=== PATIENT | female | born 1960 | race Caucasian/White ===

== ENCOUNTER → 2019-01-21 | Outpatient (CLI) | payer OTHER ==
[~2019-01-21] MED LIST: AMLO-145 PO; ASPI-1044 PO; ATOR10TA65 PO; AZEL137S9 NASAL; Acetaminophen PO; BENA40TA56 PO; BUDE0.5A4 IH; CETI10CA PO; CHOL200078 PO; CIPR500T4 PO; Calcium Carbonate NGT; Calcium Carbonate PO; DICL100T PO; DICL75TA2 PO; ESCI10TA48 PO; ESCI20TA PO; FLUT16SP17 NASAL; GABA300C16 PO; LORA10TA3 PO; LOSA1TAB25 PO; METR500T PO; MONTELUKAST PO; OMEP40CA6 PO; OXYC-481 PO; TIZA2TAB PO; ZOC10 PO; [UNRECOGNIZED DRUG - OTHER] PO
--- NOTE | 2019-01-22 17:01 | RADRPT ---
PROCEDURE: Limited x-ray of both lower extremities. CLINICAL INDICATION: Bilateral leg pain. TECHNIQUE: Single frontal weightbearing view of both lower extremities was obtained from the hips t o the ankles. COMPARISON: None. FINDINGS: The right femur length is 57 cm. The left femur length is 58 cm. The right tibia length is 40 cm. The left tibia length is 40 cm. There is bilateral valgus deformity. IMPRESSION: 1. Leg length as described above. 2. Bilateral valgus deformity. RPTAT: QQ .Siva Gomes MD, Date Time Electronically viewed and signed by .Siva Gomes MD, on 01/22/2019 16:50 .R/
== END | disposition home or self-care (01) ==
LOC: HKI 15:05
PROVIDERS: ATTEND Orthopaedic Surgery Adult Reconstructive Orthopaedic Surgery
DX: M79.662 Pain in left lower leg (principal); M79.661 Pain in right lower leg
CPT/HCPCS: 77073

== ENCOUNTER 2019-01-29 05:56 | Inpatient (IN) | payer OTHER ==
[2019-01-29] VITALS (34 sets, daily range): BP systolic 87–134; BP diastolic 42–64; PULSE 18–102; RESP 10–41; Ht 162.6 cm; Wt 94.3 kg
[~2019-01-29] VITALS: Ht 162.6 cm; Wt 94.3 kg
[~2019-01-29 05:56] MED LIST changes: -ASPI-1044 PO; -ATOR10TA65 PO; -Acetaminophen PO; -BENA40TA56 PO; -CIPR500T4 PO; -Calcium Carbonate NGT; -Calcium Carbonate PO; -ESCI20TA PO; -METR500T PO; -OMEP40CA6 PO; -OXYC-481 PO; -TIZA2TAB PO
[2019-01-29] MEDS ORDERED: ACETAMINOPHEN 500 MG TAB PO ONE (07:00)
[2019-01-29] MEDS ORDERED: ONDANSETRON 4 MG INJ IV ONE (07:00)
[2019-01-29] MEDS ORDERED: DEXAMETHASONE 4 MG/ML 1 ML INJ IV ONE (07:00)
[2019-01-29] MEDS ORDERED: TRANEXAMIC ACID 1GM/100ML(PMX) 100 ML PRE-OP IVPB ONE (07:00)
[2019-01-29] MEDS ORDERED: LANSOPRAZOLE 30 MG CAP PO ONE (07:00)
[2019-01-29] MEDS ORDERED: CEFAZOLIN 2 GM/50 ML (PMX) 50 ML IVPB ONE (07:00)
[2019-01-29] MEDS ORDERED: CELECOXIB 200 MG CAP PO ONE (07:00)
[2019-01-29] MEDS ORDERED: GABAPENTIN 300 MG CAP PO ONE (07:00)
--- NOTE | 2019-01-29 07:18 | HPN ---
Date/Time of Note Date/Time of Note DATE: 01/29/19 TIME: 07:18 Interval H&P Admission Note Pt. seen H&P reviewed: No system changes Patient denies fever, chills, shortness of breath, chest pain, nausea/vomiting, constipation, diarrhea, numbness, and tingling. MUSCULOSKELETAL: Right lower extremity Skin intact Sensation intact to light touch in a sural, saphenous, deep peroneal, superficial peroneal, medial and lateral plantar nerve distribution. Motor is intact, patient able to dorsiflex and plantarflex ankle and extend and flex great toe. Dorsalis Pedis pulse +2, Brisk capillary refill. Compartments are soft. Calves non-tender to palpation bilaterally. DEJUAN KASPER MD Jan 29, 2019 07:18
[2019-01-29] MEDS ORDERED: OMEP40CA6 PO (07:21)
[2019-01-29] MEDS ORDERED: ESCI20TA PO (07:23)
[2019-01-29] MEDS ORDERED: KETOROLAC 30 MG INJ ONE (07:25)
[2019-01-29] MEDS ORDERED: MIDAZOLAM 1 MG/ML 2 ML INJ ONE (07:25)
[2019-01-29] MEDS ORDERED: morphine SULFATE/PF (10 MG/10 ML) INJ ONE (07:25)
[2019-01-29] MEDS ORDERED: ONDANSETRON 4 MG INJ ONE (07:25)
[2019-01-29] MEDS ORDERED: METOCLOPRAMIDE 10 MG INJ ONE (07:25)
[2019-01-29] MEDS ORDERED: ROPIVACAINE 0.2% 20 ML VIAL ONE (07:26)
[2019-01-29] MEDS ORDERED: TRANEXAMIC ACID 1GM/100ML(PMX) 200 ML ONE (07:28)
[2019-01-29] MEDS ORDERED: DESFLURANE 15 MIN ONE (07:30)
[2019-01-29] MEDS ORDERED: VANCOMYCIN 1 GM (PMX) 250 ML IVPB ONE (07:30)
[2019-01-29] MEDS ORDERED: VANCOMYCIN 500 MG (PMX) 100 ML IVPB ONE (07:30)
[2019-01-29] MEDS ORDERED: PROPOFOL 200 MG INJ ONE (07:30)
[2019-01-29] MEDS ORDERED: FENTAnyl 50 MCG/ML VIAL ONE (07:43)
[2019-01-29] MEDS ORDERED: EPHEDrine 25 MG/5 ML SYG ONE (07:45)
--- NOTE | 2019-01-29 07:59 | PREAC ---
Date/Time of Note Date/Time of Note DATE: 01/29/19 TIME: 07:09 Anesthesia Eval and Record Evaluation Time Pre-Procedure Interview DATE: 01/29/19 TIME: 07:57 Age 59 Sex female NPO: 8 hrs Preoperative diagnosis right knee primary OA Planned procedure right knee total arthroplasty Past Medical History Past Medical History: Includes Cardio: HTN GI: Obesity Surgery & Anesthesia Issues No known issue Meds Anticoagulation: No Beta Benita within 24 hr: No Reason Beta Benita not given: Pt. not on B-Benita Reported Medications Escitalopram Oxalate* (Lexapro*) 20 Mg Tablet, 20 MG PO DAILY, #30 TAB 01/29/19 Omeprazole* (Omeprazole*) 40 Mg Capsule.dr, 40 MG PO DAILY, #30 CAP 01/29/19 Losartan-Hydrochlorothiazide (Losartan-HCTZ) 100-25 Mg Tab, 1 TAB PO DAILY, TAB 01/28/19 Gabapentin* (Gabapentin*) 300 Mg Capsule, 300 MG PO DAILY, #60 CAP 01/28/19 Diclofenac Sodium* (Voltaren* XR) 100 Mg Tab.sr.24h, 100 MG PO BID, TAB.SA 01/28/19 Cetirizine Hcl* (Zyrtec*) 10 Mg Capsule, 10 MG PO DAILY, TAB 01/28/19 Cholecalciferol (Vitamin D3) (Vitamin D3) 2,000 Unit Tab.chew, 2000 UNIT PO DAILY, TAB.CHEW 01/28/19 Simvastatin (Simvastatin) 10 Mg Tablet, 10 MG PO DAILY, #30 TAB 01/28/19 Amlodipine Besylate* (Amlodipine Besylate*) 5 Mg Tablet, 5 MG PO DAILY, #30 TAB 01/28/19 Azelastine Hcl* (Azelastine Hcl*) 137 Mcg/0.137 Ml [place].pump, 1 SPRAY NASAL BID, #1 EA TO EACH NOSTRIL 01/28/19 Fluticasone Propionate* (Fluticasone Propionate* Nasal) 50 Mcg/[place] - 16 Gm [place].susp, 1 SPRAY NASAL BID, EA TO EACH NOSTRIL 11/10/14 Budesonide* (Pulmicort* (Neb)) 0.5 Mg/2 Ml Ampul.neb, 0.5 MG IH BID, EA 11/10/14 Diclofenac Sodium* (Diclofenac Sodium*) 75 Mg Tablet.dr, 100 MG PO BID, TAB 11/10/14 Discontinued Reported Medications [Acelastine] No Conflict Check, PO BID 11/10/14 Loratadine* (Loratadine*) 10 Mg Tablet, 10 MG PO DAILY, TAB 11/10/14 [Montelukast] No Conflict Check, PO DAILY 11/10/14 Escitalopram Oxalate* (Escitalopram Oxalate*) 10 Mg Tablet, 10 MG PO DAILY, TAB 11/10/14 Tizanidine Hcl* (Tizanidine Hcl*) 2 Mg Tablet, 2 MG PO Q8H PRN for PAIN, TAB 11/10/14 Benazepril Hcl* (Benazepril Hcl*) 40 Mg Tablet, 25 MG PO DAILY, TAB 11/10/14 Current Medications Tranexamic Acid 100 ml @ 200 mls/hr AT CLOSING ONCE IVPB ; Start 01/29/19 at 09:00; Stop 01/29/19 at 09:29 Ropivacaine/ Clonidine/ Epinephrine/ Ketorolac Tromethamine/ Sodium Chloride INTRA-OP INJ ; Start 01/29/19 at 15:00 Vancomycin HCl 250 ml @ 125 mls/hr ONCE ONCE IVPB ; Start 01/29/19 at 07:30; Stop 01/29/19 at 09:29 Vancomycin HCl 100 ml @ 100 mls/hr ONCE ONCE IVPB ; Start 01/29/19 at 07:30; Stop 01/29/19 at 08:29 Meds reviewed: Yes Allergies Coded Allergies: No Known Allergy (Unverified , 01/29/19) Allergies Reviewed: Yes Labs/Studies Labs Reviewed: Reviewed by anesthesiologist Blood Bank Test 01/29/19 07:00 Antibody Screen NEGATIVE Blood Type O POSITIVE test: N/A Studies: ECG (sr), CXR (nl) Pre-procedure Exam Last vitals Vital Signs Date Temp Pulse Resp B/P (MAP) Pulse Ox O2 O2 Flow FiO2 Time Delivery Rate 01/29/19 97.8 07:10 01/29/19 71 18 134/52 98 Room Air 07:00 (79) Airway: Adequate mouth opening Mallampati: Mallampati I Teeth: Normal Lung: Normal Heart: Normal ASA Physical Status ASA physical status: 2 Emergency: None Planned Anesthetic General/MAC: LMA Neuraxial: Spinal Nerve block: Femoral (right) Planned Pain Management Sub-arachniod narcotics, Single shot nerve block Pre-operative Attestations Prior to commencing anesthesia and surgery, the patient was re-evaluated, there was verification of: *The patient's identity *The results of appropriate recent lab work and preoperative vital signs *The above evaluation not changing prior to induction *Anesthetic plan, risk benefits, alternative and complications discussed with patient/family; questions answered; patient/family understands, accepts and wishes to proceed. CASSIE BLAND MD Jan 29, 2019 07:59
[2019-01-29] MEDS ORDERED: CEFAZOLIN 1 GM INJ ONE (08:15)
[2019-01-29] MEDS ORDERED: FENTAnyl 50 MCG/ML VIAL IV PRN ×3 (08:30)
[2019-01-29] MEDS ORDERED: DIPHENHYDRAMINE 50 MG INJ IV PRN ×2 (08:30→12:00)
[2019-01-29] MEDS ORDERED: ONDANSETRON 4 MG INJ IV PRN (08:30)
[2019-01-29] MEDS ORDERED: MEPERIDINE 25 MG INJ IV PRN (08:30)
[2019-01-29] MEDS ORDERED: HYDROmorphONE 1 MG/5 ML IV SYRINGE IV PRN ×3 (08:30)
[2019-01-29] MEDS ORDERED: TRANEXAMIC ACID 1GM/100ML(PMX) 100 ML AT CLOSING IVPB ONE (09:00)
[2019-01-29] MEDS ORDERED: SENNA/DOCUSATE NA (8.6MG/50MG) TAB PO PRN (12:00)
[2019-01-29] MEDS ORDERED: HYDROmorphONE 1 MG/ML SYG IV PRN (12:00)
[2019-01-29] MEDS ORDERED: MAGNESIUM HYDROXIDE 30ML CUP PO PRN (12:00)
[2019-01-29] MEDS ORDERED: NACL 0.9% 3 ML SYG IV SCH (12:00)
[2019-01-29] MEDS ORDERED: DOCUSATE SODIUM 100 MG CAP PO ONE (12:00)
[2019-01-29] MEDS ORDERED: BETHANECHOL 25 MG TAB PO PRN (12:00)
[2019-01-29] MEDS ORDERED: NALOXONE (0.4 MG/ML) INJ IV PRN (12:00)
[2019-01-29] MEDS ORDERED: oxyCODONE 5 MG TAB PO PRN (12:00)
[2019-01-29] MEDS ORDERED: NA PHOSPHATE/BIPHOS 133 ML ENEMA PR PRN (12:00)
[2019-01-29] MEDS ORDERED: BISACODYL 10 MG SUPP PR PRN (12:00)
[2019-01-29] MEDS: LACTATED RINGER'S 1,000 ML IV SCH ×2 (12:31→16:09)
[2019-01-29] MEDS: CEFAZOLIN 2 GM/50 ML (PMX) 50 ML IVPB SCH ×2 (12:40→20:39)
[2019-01-29] MEDS: ACETAMINOPHEN 500 MG TAB PO SCH ×2 (14:57→20:47)
[2019-01-29] MEDS: KETOROLAC 15 MG INJ IV PRN (16:13)
--- NOTE | 2019-01-29 16:24 | CONS ---
Assessment/Plan Assessment/Plan Hospital Course (Demo Recall) 59 yo F with PMH HTN and Right knee osteoarthritis presented for elevated right total knee replacement. POD #0 Assessment/Plan (Daily) 1. Right knee osteoarthritis, s/p TKR POD #0 - ortho on board and appreciate recommendations - PT to evaluate for discharge planning - pain control 2. HTN - will restart home medications - adjust as needed for optimal control 3. mood disorder - continue Lexapro 4. Allergic rhinitis - continue nasal sprays and antihistamine 5. GERD - PPI 6. Disposition - Will continue home BP medications as adjust as needed. PT for discharge planning Consultation Date/Type/Reason Admit Date/Time Jan 29, 2019 at 05:56 Date of Consultation: Jan 29, 2019 Type of Consult Internal Medicine Reason for Consultation Medical management Date/Time of Note DATE: 01/29/19 TIME: 16:13 Hx of Present Illness 59 yo F with PMH HTN and Right knee osteoarthritis presented for elevated right total knee replacement. Medicine was consulted for medical management. Patient tolerating surgical intervention without any intraoperative complications. Patient states she has uncontrolled hypertension and was started on new medications recently but has still been elevated. During interview in PACU, patient admits to feeling loopy but denies any chest pain, shortness of breath, dizziness, nausea, vomiting, or abdominal pain. All 12 systems reviewed and pertinent positives as per HPI. All others negative. Constitutional: disoriented Eyes: No discharge ENT: No congestion Respiratory: No cough, No shortness of breath, No sputum, No wheezing Cardiovascular: No chest pain, No lightheadedness, No palpitations Gastrointestinal: No pain, No constipation, No diarrhea, No nausea, No vomiting Genitourinary: no complaints Musculoskeletal: no complaints Skin: No laceration, No rash Neurologic: no complaints Endocrine: no complaints Lymphatic: no complaints Psychological: nl mood/affect Immunologic: no complaints Past Medical History Medical History: hypertension Home Meds Reported Medications Escitalopram Oxalate* (Lexapro*) 20 Mg Tablet, 20 MG PO DAILY, #30 TAB 01/29/19 Omeprazole* (Omeprazole*) 40 Mg Capsule.dr, 40 MG PO DAILY, #30 CAP 01/29/19 Losartan-Hydrochlorothiazide (Losartan-HCTZ) 100-25 Mg Tab, 1 TAB PO DAILY, TAB 01/28/19 Gabapentin* (Gabapentin*) 300 Mg Capsule, 300 MG PO DAILY, #60 CAP 01/28/19 Diclofenac Sodium* (Voltaren* XR) 100 Mg Tab.sr.24h, 100 MG PO BID, TAB.SA 01/28/19 Cetirizine Hcl* (Zyrtec*) 10 Mg Capsule, 10 MG PO DAILY, TAB 01/28/19 Cholecalciferol (Vitamin D3) (Vitamin D3) 2,000 Unit Tab.chew, 2000 UNIT PO DAILY, TAB.CHEW 01/28/19 Simvastatin (Simvastatin) 10 Mg Tablet, 10 MG PO DAILY, #30 TAB 01/28/19 Amlodipine Besylate* (Amlodipine Besylate*) 5 Mg Tablet, 5 MG PO DAILY, #30 TAB 01/28/19 Azelastine Hcl* (Azelastine Hcl*) 137 Mcg/0.137 Ml [place].pump, 1 SPRAY NASAL BID, #1 EA TO EACH NOSTRIL 01/28/19 Fluticasone Propionate* (Fluticasone Propionate* Nasal) 50 Mcg/[place] - 16 Gm [place].susp, 1 SPRAY NASAL BID, EA TO EACH NOSTRIL 11/10/14 Budesonide* (Pulmicort* (Neb)) 0.5 Mg/2 Ml Ampul.neb, 0.5 MG IH BID, EA 11/10/14 Diclofenac Sodium* (Diclofenac Sodium*) 75 Mg Tablet.dr, 100 MG PO BID, TAB 11/10/14 Discontinued Reported Medications [Acelastine] No Conflict Check, PO BID 11/10/14 Loratadine* (Loratadine*) 10 Mg Tablet, 10 MG PO DAILY, TAB 11/10/14 [Montelukast] No Conflict Check, PO DAILY 11/10/14 Escitalopram Oxalate* (Escitalopram Oxalate*) 10 Mg Tablet, 10 MG PO DAILY, TAB 11/10/14 Tizanidine Hcl* (Tizanidine Hcl*) 2 Mg Tablet, 2 MG PO Q8H PRN for PAIN, TAB 11/10/14 Benazepril Hcl* (Benazepril Hcl*) 40 Mg Tablet, 25 MG PO DAILY, TAB 11/10/14 Medications Current Medications Ropivacaine/ Clonidine/ Epinephrine/ Ketorolac Tromethamine/ Sodium Chloride INTRA-OP INJ ; Start 01/29/19 at 15:00 Hydromorphone HCl (Dilaudid) 0.2 mg PACU PRN IV MILD PAIN 1-3; Start 01/29/19 at 08:30; Stop 01/29/19 at 19:00 Hydromorphone HCl (Dilaudid) 0.4 mg PACU PRN IV MOD PAIN 4-6; Start 01/29/19 at 08:30; Stop 01/29/19 at 19:00 Hydromorphone HCl (Dilaudid) 0.6 mg PACU PRN IV SEVERE PAIN 7-10; Start 01/29/19 at 08:30; Stop 01/29/19 at 19:00 Fentanyl (Sublimaze) 25 mcg PACU ORDER PRN IV MILD PAIN 1-3; Start 01/29/19 at 08:30; Stop 01/29/19 at 19:00 Fentanyl (Sublimaze) 50 mcg PACU ORDER PRN IV MOD PAIN 4-6; Start 01/29/19 at 08:30; Stop 01/29/19 at 19:00 Fentanyl (Sublimaze) 75 mcg PACU ORDER PRN IV SEVERE PAIN 7-10; Start 01/29/19 at 08:30; Stop 01/29/19 at 19:00 Ondansetron HCl (Zofran Inj) 4 mg PACU ORDER PRN IV NAUSEA/VOMITING; Start 01/29/19 at 08:30; Stop 01/29/19 at 19:00 Meperidine HCl (Demerol) 25 mg PACU ORDER PRN IV .RIGORS; Start 01/29/19 at 08:30; Stop 01/29/19 at 19:00 Diphenhydramine HCl (Benadryl) 25 mg PACU ORDER PRN IV .PRURITUS; Start 01/29/19 at 08:30; Stop 01/29/19 at 19:00 Lactated Ringer's 1,000 ml @ 80 mls/hr [id number] IV Last administered on 01/29/19at 12:31; Admin Dose 80 MLS/HR; Start 01/29/19 at 11:32 IV Flush (NS 3 ml) 3 ml PER PROTOCOL IV ; Start 01/29/19 at 12:00 Oxycodone HCl (Roxicodone) 15 mg Q4H PRN PO .PAIN; Start 01/29/19 at 12:00 Oxycodone HCl (Roxicodone) 10 mg Q4H PRN PO .PAIN; Start 01/29/19 at 12:00 Oxycodone HCl (Roxicodone) 5 mg Q4H PRN PO .PAIN; Start 01/29/19 at 12:00 Hydromorphone HCl (Dilaudid) 1 mg Q3H PRN IV .BREAKTHROUGH PAIN; Start 01/29/19 at 12:00 Acetaminophen (Tylenol Tab) 1,000 mg Q8 PO Last administered on 01/29/19at 14:57; Admin Dose 1,000 MG; Start 01/29/19 at 14:00 Ketorolac Tromethamine (Toradol) 15 mg Q6H PRN IV .PAIN; Start 01/29/19 at 12:00 Ondansetron HCl (Zofran Inj) 4 mg Q4H PRN IV NAUSEA/VOMITING; Start 01/30/19 at 12:00 Cefazolin Sodium/ Dextrose 50 ml @ 100 mls/hr Q8H IVPB Last administered on 01/29/19at 12:40; Admin Dose 100 MLS/HR; Start 01/29/19 at 12:00; Stop 01/30/19 at 04:29 Vancomycin HCl 250 ml @ 125 mls/hr Q12H IVPB ; Start 01/29/19 at 18:00; Stop 01/30/19 at 07:59 Gabapentin (Neurontin) 300 mg QHS PO ; Start 01/29/19 at 21:00 Dexamethasone (Decadron) 10 mg ONCE ONCE IV ; Start 01/30/19 at 07:00; Stop 01/30/19 at 07:01 Pantoprazole (Protonix Tab) 40 mg DAILY@06 PO ; Start 01/31/19 at 06:00 Docusate Sodium (Colace) 200 mg BID PO ; Start 01/30/19 at 09:00; Stop 02/02/19 at 08:59 Simethicone (Mylicon) 80 mg TID PRN PO .GAS; Start 01/29/19 at 12:00 Senna/Docusate Sodium (Senokot-S) 2 tab BID PRN PO .CONSTIPATION; Start 01/29/19 at 12:00 Magnesium Hydroxide (Milk Of Mag) 30 ml HS PRN PO .CONSTIPATION; Start 01/29/19 at 12:00 Bisacodyl (Dulcolax Supp) 10 mg DAILY PRN [place] .CONSTIPATION; Start 01/29/19 at 12:00 Sodium Biphosphate/ Sodium Phosphate (Fleet Enema) 133 ml DAILY PRN [place] .CONSTIPATION; Start 01/29/19 at 12:00 Diphenhydramine HCl (Benadryl) 25 mg Q4H PRN IV .ITCHING; Start 01/29/19 at 12:00 Naloxone HCl (Narcan) 0.2 mg Q2M PRN IV .RESP RATE; Start 01/29/19 at 12:00 Bethanechol Chloride (Urecholine) 25 mg URINARY CATH D/C PRN PO UNABLE TO VOID; Start 01/29/19 at 12:00 Aspirin (Halfprin) 81 mg BID PO ; Start 01/30/19 at 09:00 Allergies: Coded Allergies: No Known Allergy (Unverified , 01/29/19) Past Surgical History Past Surgical Hx: noncontributory Family History Significant Family History: no pertinent family hx Social History Alcohol Use: none Smoking Status: Never smoker Drug Use: none Exam/Review of Systems Exam Vitals Vital Signs Date Temp Pulse Resp B/P (MAP) Pulse Ox O2 O2 Flow FiO2 Time Delivery Rate 01/29/19 98.8 15:45 01/29/19 102 32 132/61 98 15:15 (84) 01/29/19 Nasal 15:00 Cannula 01/29/19 3.0 11:45 Exam General: Patient is a pleasant female, no acute distress HEENT: Atraumatic, normocephalic. The pupils are equal, round and reactive. Extraocular motor are intact Neck: Supple with full range of motion. No rigidity or meningismus Chest: Nontender Lungs: Clear bilaterally. no wheezing or rhonchi Heart: Normal S1-S2, Regular rhythm and rate. No murmur, S3, or S4 Abdomen: Soft , nontender, nondistended , bowel sounds are present. No guarding no rebound tenderness , No masses or organomegaly. No costovertebral temporal angle mass Extremities: moving all extremities. Kerlix on right lower extremity with ice on knee. no cyanosis, clubbing or edema Neurologic: Normal mental status, speech normal, cranial nerves II through XII are intact, motor and sensory are intact, Results Results 24hrs Laboratory Tests Test 01/29/19 15:37 Bedside Glucose 183 Imaging Imaging PROCEDURE: Right knee x-ray CLINICAL INDICATION: Postop TECHNIQUE: AP and lateral views of the right knee were obtained. COMPARISON: CR [id number] 01/14/2016 FINDINGS: Right knee total arthroplasty without evidence of acute hardware complication. Alignment appears appropriate. Expected postsurgical soft tissue swelling and air, with overlying skin shruthi. IMPRESSION: Postoperative right knee total arthroplasty. RPTAT:AAJJ Aisha Manzo Physician Date Time Electronically viewed and signed by Aisha Manzo Physician on 01/29/2019 12:40 Medications Medication Current Medications Ropivacaine/ Clonidine/ Epinephrine/ Ketorolac Tromethamine/ Sodium Chloride INTRA-OP INJ ; Start 01/29/19 at 15:00 Hydromorphone HCl (Dilaudid) 0.2 mg PACU PRN IV MILD PAIN 1-3; Start 01/29/19 at 08:30; Stop 01/29/19 at 19:00 Hydromorphone HCl (Dilaudid) 0.4 mg PACU PRN IV MOD PAIN 4-6; Start 01/29/19 at 08:30; Stop 01/29/19 at 19:00 Hydromorphone HCl (Dilaudid) 0.6 mg PACU PRN IV SEVERE PAIN 7-10; Start 01/29/19 at 08:30; Stop 01/29/19 at 19:00 Fentanyl (Sublimaze) 25 mcg PACU ORDER PRN IV MILD PAIN 1-3; Start 01/29/19 at 08:30; Stop 01/29/19 at 19:00 Fentanyl (Sublimaze) 50 mcg PACU ORDER PRN IV MOD PAIN 4-6; Start 01/29/19 at 08:30; Stop 01/29/19 at 19:00 Fentanyl (Sublimaze) 75 mcg PACU ORDER PRN IV SEVERE PAIN 7-10; Start 01/29/19 at 08:30; Stop 01/29/19 at 19:00 Ondansetron HCl (Zofran Inj) 4 mg PACU ORDER PRN IV NAUSEA/VOMITING; Start 01/29/19 at 08:30; Stop 01/29/19 at 19:00 Meperidine HCl (Demerol) 25 mg PACU ORDER PRN IV .RIGORS; Start 01/29/19 at 08:30; Stop 01/29/19 at 19:00 Diphenhydramine HCl (Benadryl) 25 mg PACU ORDER PRN IV .PRURITUS; Start 01/29/19 at 08:30; Stop 01/29/19 at 19:00 Lactated Ringer's 1,000 ml @ 80 mls/hr [id number] IV Last administered on 01/29/19at 12:31; Admin Dose 80 MLS/HR; Start 01/29/19 at 11:32 IV Flush (NS 3 ml) 3 ml PER PROTOCOL IV ; Start 01/29/19 at 12:00 Oxycodone HCl (Roxicodone) 15 mg Q4H PRN PO .PAIN; Start 01/29/19 at 12:00 Oxycodone HCl (Roxicodone) 10 mg Q4H PRN PO .PAIN; Start 01/29/19 at 12:00 Oxycodone HCl (Roxicodone) 5 mg Q4H PRN PO .PAIN; Start 01/29/19 at 12:00 Hydromorphone HCl (Dilaudid) 1 mg Q3H PRN IV .BREAKTHROUGH PAIN; Start 01/29/19 at 12:00 Acetaminophen (Tylenol Tab) 1,000 mg Q8 PO Last administered on 01/29/19at 14:57; Admin Dose 1,000 MG; Start 01/29/19 at 14:00 Ketorolac Tromethamine (Toradol) 15 mg Q6H PRN IV .PAIN; Start 01/29/19 at 12:00 Ondansetron HCl (Zofran Inj) 4 mg Q4H PRN IV NAUSEA/VOMITING; Start 01/30/19 at 12:00 Cefazolin Sodium/ Dextrose 50 ml @ 100 mls/hr Q8H IVPB Last administered on 01/29/19at 12:40; Admin Dose 100 MLS/HR; Start 01/29/19 at 12:00; Stop 01/30/19 at 04:29 Vancomycin HCl 250 ml @ 125 mls/hr Q12H IVPB ; Start 01/29/19 at 18:00; Stop 01/30/19 at 07:59 Gabapentin (Neurontin) 300 mg QHS PO ; Start 01/29/19 at 21:00 Dexamethasone (Decadron) 10 mg ONCE ONCE IV ; Start 01/30/19 at 07:00; Stop 01/30/19 at 07:01 Pantoprazole (Protonix Tab) 40 mg DAILY@06 PO ; Start 01/31/19 at 06:00 Docusate Sodium (Colace) 200 mg BID PO ; Start 01/30/19 at 09:00; Stop 02/02/19 at 08:59 Simethicone (Mylicon) 80 mg TID PRN PO .GAS; Start 01/29/19 at 12:00 Senna/Docusate Sodium (Senokot-S) 2 tab BID PRN PO .CONSTIPATION; Start 01/29/19 at 12:00 Magnesium Hydroxide (Milk Of Mag) 30 ml HS PRN PO .CONSTIPATION; Start 01/29/19 at 12:00 Bisacodyl (Dulcolax Supp) 10 mg DAILY PRN [place] .CONSTIPATION; Start 01/29/19 at 12:00 Sodium Biphosphate/ Sodium Phosphate (Fleet Enema) 133 ml DAILY PRN [place] .CONSTIPATION; Start 01/29/19 at 12:00 Diphenhydramine HCl (Benadryl) 25 mg Q4H PRN IV .ITCHING; Start 01/29/19 at 12:00 Naloxone HCl (Narcan) 0.2 mg Q2M PRN IV .RESP RATE; Start 01/29/19 at 12:00 Bethanechol Chloride (Urecholine) 25 mg URINARY CATH D/C PRN PO UNABLE TO VOID; Start 01/29/19 at 12:00 Aspirin (Halfprin) 81 mg BID PO ; Start 01/30/19 at 09:00 JOE REBOLLAR MD Jan 29, 2019 16:24
--- NOTE | 2019-01-29 16:46 | OPR ---
Date/Time of Note Date/Time of Note DATE: 01/29/19 TIME: 16:36 Operative Report Procedure Date: Jan 29, 2019 Preoperative Diagnosis Right knee osteoarthritis Postoperative Diagnosis Right knee osteoarthritis Operation/Procedure Performed Right total knee arthroplasty Intraoperative use of navigation Surgeon see signature line [employer] Architect Soham Knight Anesthesia Type: general, spinal Tourniquet Time: 129 Estimated Blood Loss: 50 - 100 ml's Transfusion none Specimen None Grafts/Implants Depuy Sigma Femur: size 3 PS Tibia: Size 2.5 Poly insert: size 2.5 PS, 10 mm thickness stabilized plus Patella: 35 mm Complications none Pt Condition Post Procedure: stable Disposition: PACU Procedure Description PREOP DIAGNOSIS: Right knee osteoarthritis POSTOP DIAGNOSIS: Same. SURGICAL PROCEDURE: Right total knee arthroplasty. Intraoperative use of navigation CPT CODE: 28217. INDICATIONS AND CONSENT: The patient is a 59 year-old woman, with an orthopaedic history consistent with progressively worsening knee pain. They have maximized nonoperative measures, which have included activity modification, medicines, intra-articular injections. On physical exam, they have valgus alignment with fixed deformity rater than 20 degrees, no previous open surgical scars. [place] [address], no gross ligamentous instability. No significant venous stasis or edema. Distally neurovascular intact. They were offered a knee replacement. A lengthy discussion ensued, where the patient was told that if and when the symptoms are intolerable, elective total knee replacement should be considered. The operative procedure was explained using diagrams and or three-dimensional models. The rehabilitation, the potential risks, benefits and alternatives were discussed at length. Specific risks discussed included but were not limited to excessive blood loss and the need for transfusion and therefore the risk of transmissible disease or transfusion reaction, deep infection and the potential need for repetitive debridements, implant removal, long-term antibiotic therapy, possibly requiring deep venous access, extensor mechanism complications, including subluxation or dislocation, disruption of the quadriceps or patellar tendon, fracture of the patella or avulsion of the tibial tuberosity, femoral, tibial or fibular fracture and the need for further surgery for fixation, neurovascular injury with temporary or permanent numbness, tingling, weakness or paralysis, arterial injury requiring surgery including possible amputation, deep venous thrombosis, pulmonary embolism and , persistent pain, weakness, or limp, late aseptic loosening and the need for revision, polyethylene wear- induced osteolysis and related problems, post-operative stiffness requiring closed manipulation, and finally, a wide variety of unanticipated medical problems. The opportunity to ask questions and address any concerns was provided. The patient elected to proceed with TKA. FINDINGS: Fixed valgus deformity greater than 20 degrees. Complete loss of cartilage in the lateral compartment. Significant loss of cartilage in the medial patellofemoral compartment. Significant synovitis SURGERY IN DETAIL: Patient was taken into the Operating Room, placed supine on the operating table. Preoperatively, they were given weight-based dosing of Ancef and if MRSA positive vancomycin was given in addition. Tourniquet was placed to the right proximal thigh. Regional anesthesia was administered by Anesthesia Department. Right lower extremity was prepped and draped in sterile fashion. Surgical pause was performed, correctly identifying the patient's name, medical record number, diagnoses, surgical procedure, and laterality of procedure. The leg was elevated, exsanguinated with an Esmarch, tourniquet was inflated to 250 mmHg, remained inflated for 129 minutes, after which it was deflated. An anterior midline incision approximately 15-20 cm in length was made, centered over the patella ending just medial to the tibial tubercle. Skin and subcutan eous tissue sharply dissected down the Maverick's fascia superiorly, which was incised in line with skin incision. The quadriceps tendon, medial patellar retinaculum, patellar tendon were visualized. A medial parapatellar arthrotomy was performed. The proximal medial tibia was subperiosteally exposed for a distance of 4 cm from joint line. The deep infrapatellar bursa was incised. The patella was everted and the knee was flexed, while protecting the insertion of patellar tendon. A 3/8-inch curved osteotome was used to enter the semimembranosus bursa at the level of the joint line medially. Medial meniscus was excised at the meniscal- synovial junction. The anterior cruciate ligament was excised. The posterior cruciate ligament was excised with electrocautery from the intercondylar region and a posterior retractor was placed, subluxating the tibia anterolateral to the femur. A hernia was made anterolateral to the lateral meniscus and a right- angle retractor was placed over the anterolateral tibia. A lateral meniscectomy was performed. The inferior lateral geniculate artery was coagulated. The tibia was reduced under the femur. An intramedullary pin was placed for the OrthAlign device. The OrthAlign navigation unit and sensor were calibrated at the back table. The OrthAlign femoral cutting jig was then placed over the central pin, and secured with a medial and lateral pin. The OrthAlign navigation unit and OrthAlign sensor were then attached to the jig. The leg was maneuvered for appropriate capture and calibration. After this was performed, the navigation unit was adjusted for a 0 varus/valgus (neutral mechanical axis) and 2.0-2.5 degree posterior flexion cut. The cutting jig was locked in place. The navigation and sensor unit were then removed. The distal femoral cut was set at 10 mm for the osteotomy . This was then secured with two pins. A distal femoral osteotomy was performed. The OrthAlign femoral jig was then removed. A posterior retractor was placed and an anterolateral retractor was placed on the tibia, subluxating the tibia anterior to the femur. The OrthAlign tibial cutting jig was then applied to the tibia preliminarily with the strap. This was secured with two pins centered over the medial 1/3 of the tibial tubercle. The offset was established proximally at the ACL footprint. This was then matched distally. Registration was then performed, registering the lateral malleolus and the medial malleolus. After this was performed, the malleolar probe was then utilized to help set the appropriate varus/valgus as well as tibial slope. This was then locked into position. The navigation guide and sensor were then removed. The slotted tibial cutting jig was then applied and secured with two pins. A proximal tibia osteotomy was performed. The tibia was then brought to full extension and a 10 mm spacer block was inserted, and felt to be satisfactory extension gap. The knee was flexed again and the tibial alignment guide was then removed. At this point significant work was done to release the lateral knee to create a rectangular balanced gaps. The LCL as well as the IT band were pie crusted with a 15 blade. Osteotomes were used to elevate LCL insertion as well as the IT band subperiosteally. Posterior capsule along the lateral compartment was released. Once these were done the gaps were rectangular and balanced. With the knee flexed to 90 degrees a femoral sizing jig was placed on the distal femur and secured, the femur sized to a size 3. Due to preoperative valgus deformity, this was then set on 5 degrees of empiric external rotation, using the posterior condyles. This was parallel to the epicondylar axis. A size 3 4-in-1 femoral cutting block was then secured to the femur with two lock pins and an anterior, posterior condylar cut were performed, followed by an anterior chamfer and a posterior chamfer cut. Cutting block was removed. A 10 mm spacer was then inserted at 90 degrees of flexion and this was symmetric with the extension gap. An intercondylar box osteotomy was performed using the box cutting guide. A trial tibial base plate, size 2.5 with a 10 mm cruciate sacrificing polyethylene, and a trial size 3 femur were then inserted and the knee was brought to full extension. The patella was everted and the osteochondral junction was exposed. The patella measured 22 mm in thickness. A patellar osteotomy performed leaving 12.5 mm remnant patella. Three lug holes were drilled for the 35 mm diameter patellar button. The knee then underwent range of motion, soft tissue tension and patellar tracking, everything was symmetric balanced. The patella tracked centrally. The rotation of the tibial component was marked on the tibia. On the tibia, the modular base plate hole was created with the appropriate drills and punches at previously marked rotation. Exposed bony surfaces were thoroughly irrigated and dried. Periarticular injection administered. Cement with antibiotics was mixed at the back table. At the appropriate time and consistency cement was placed in the keel and onto the tibial plateau. Cement was finger pressurized. Cement was placed on the backside of the tibial component and along the keel. The tibial component was placed by hand into the keel and was then impacted and extruded cement removed. Cement was applied to exposed bone of the femur, as well as the posterior condylar portion prostheses, and the femoral component was inserted, extruded cement was then removed. The knee was brought to full extension. Unfortunately at this time the cement was quite hard and is decided to mix a half batch of cement for the patella. Cement was applied to the patella, as well as the patellar button, which was clamped into position. Extruded cement was removed. After the cement completely dried, the knee was flexed, the trial polyethylene was removed. Scored cement was removed. A tourniquet was deflated. Hemostasis was obtained. Pulse lavage was used to irrigate and remove any loose debris from posterior knee. A formal size 2.5 10 stabilized plus mm stabilized plus polyethylene was inserted, confirmed seated and locked. The knee was reduced, hemostasis obtained. Copious amounts of irrigation was used with pulse lavage to remove and loose debris. The arthrotomy was closed with 1 PDS in a [id number], interrupted fashion, subcutaneous tissues irrigated, closed with 2-0 Vicryl in an inverted, interrupted fashion. The skin was closed with shruthi. A sterile dressing was applied. Sponge, needle and instrument counts were correct at the end of the case. DISPOSITION: Patient transferred to PACU in stable condition. The patient will be weight bearing as tolerated on the operative extremity. PT will begin POD #0 if available. Postoperative AP and lateral of the operative knee will be ordered in PACU. Bilateral knee high SCDs will be worn while admitted. ASA 81mg BID will be given for DVT prophylaxis for 6 weeks. Pain will be controlled with medication. The patient will follow up in clinic in approximately 2 weeks. ESTIMATED BLOOD LOSS: 100 mL. CULTURES: None. PATHOLOGY: Bone. IMPLANTS: Depuy Sigma Femur: size 3 PS Tibia: Size 2.5 Poly insert: size 2.5 PS, 10 mm thickness stabilized plus Patella: 35 mm NAME OF SURGEONS AND ASSISTANTS: Surgeon: Dejuan Ayoub MD [employer] Architect: DEJUAN Velásquez MD Jan 29, 2019 16:46
[2019-01-29] MEDS: oxyCODONE 5 MG TAB PO PRN (19:31)
[2019-01-29] MEDS: FLUTICASONE 0.05% 16 GM NAS SPRAY NASAL SCH (20:46)
[2019-01-29] MEDS: AZELASTINE 30 ML NAS SPRAY NASAL SCH (20:46)
[2019-01-29] MEDS ORDERED: GABAPENTIN 300 MG CAP PO SCH (21:00)
[2019-01-29] MEDS: BUDESONIDE (NEB) 0.5MG/2ML AMP INH SCH (21:04)
[2019-01-29] MEDS: VANCOMYCIN 1 GM (PMX) 250 ML IVPB SCH (21:30)
[2019-01-30 00:03] VITALS: BP 115/56; PULSE 94; RESP 18
[2019-01-30 04:02] VITALS: BP 108/49; PULSE 85; RESP 18
[2019-01-30] MEDS: CEFAZOLIN 2 GM/50 ML (PMX) 50 ML IVPB SCH (04:40)
[2019-01-30] MEDS ORDERED: PANTOPRAZOLE (EC) 40 MG TAB PO SCH (06:00)
[2019-01-30] MEDS: ACETAMINOPHEN 500 MG TAB PO SCH ×2 (06:13→13:31)
[2019-01-30] MEDS ORDERED: DEXAMETHASONE 10 MG/ML 1 ML INJ IV ONE (07:00)
[2019-01-30 07:37] VITALS: BP 102/53; PULSE 70; RESP 16
[2019-01-30] MEDS: BUDESONIDE (NEB) 0.5MG/2ML AMP INH SCH (08:11)
[2019-01-30] MEDS: FLUTICASONE 0.05% 16 GM NAS SPRAY NASAL SCH (08:41)
[2019-01-30] MEDS: AZELASTINE 30 ML NAS SPRAY NASAL SCH (08:41)
[2019-01-30] MEDS: KETOROLAC 15 MG INJ IV PRN (08:50)
--- NOTE | 2019-01-30 08:55 | OPPN ---
Date/Time of Note Date/Time of Note DATE: 01/30/19 TIME: 08:54 Anesthesia Follow up Anesthesia Follow up Last documented vital signs Vital Signs Date Temp Pulse Resp B/P (MAP) Pulse Ox O2 O2 Flow FiO2 Time Delivery Rate 01/30/19 71 16 97 Nasal 1.0 08:01 Cannula 01/30/19 97.8 102/53 07:37 (69) Respiratory function: WNL Cardiovascular function: WNL Comments A 59 year F s/p knee replacement under [place] spinal duramorph for poat op pain POD #1 is doing well. No pain, n/v, itching, headache, neural deficit. CASSIE BLAND MD Jan 30, 2019 08:55
--- NOTE | 2019-01-30 08:55 | PAC ---
Date/Time of Note Date/Time of Note DATE: 01/30/19 TIME: 08:55 Post-Anesthesia Notes Post-Anesthesia Note Last documented vital signs Vital Signs Date Temp Pulse Resp B/P (MAP) Pulse Ox O2 O2 Flow FiO2 Time Delivery Rate 01/30/19 71 16 97 Nasal 1.0 08:01 Cannula 01/30/19 97.8 78 18 102/53 98 07:37 (69) Activity: WNL Respiratory function: WNL Cardiovascular function: WNL Mental status: Baseline Pain reasonably controlled: Yes Hydration appropriate: Yes Nausea/Vomiting absent: No CASSIE BLAND MD Jan 30, 2019 08:55
[2019-01-30] MEDS ORDERED: AMLODIPINE 5 MG TAB PO SCH (09:00)
[2019-01-30] MEDS ORDERED: DOCUSATE SODIUM 100 MG CAP PO SCH (09:00)
[2019-01-30] MEDS ORDERED: ESCITALOPRAM 10 MG TAB PO SCH (09:00)
[2019-01-30] MEDS ORDERED: HYDROCHLOROTHIAZIDE 25 MG TAB PO SCH (09:00)
[2019-01-30] MEDS ORDERED: LOSARTAN 50 MG TAB PO SCH (09:00)
[2019-01-30] MEDS ORDERED: ASPIRIN (EC) 81 MG TAB PO SCH (09:00)
[2019-01-30] MEDS ORDERED: GABAPENTIN 300 MG CAP PO SCH (09:00)
[2019-01-30] MEDS ORDERED: NON-FORMULARY/PATIENT OWN MED (Simvastatin 10 MG) PO SCH (09:00)
[2019-01-30] MEDS ORDERED: LORATADINE 10 MG TAB PO SCH (09:00)
--- NOTE | 2019-01-30 09:27 | PN ---
Date/Time of Note Date/Time of Note DATE: 01/30/19 TIME: 09: Assessment/Plan Lines/Catheters IV Catheter Type (from Nrsg): Peripheral IV Leo in Place (from Nrsg): Yes Assessment/Plan Chief Complaint/Hosp Course POD#1 s/p primary right TKA. Patient's pain is well controlled. She is tolerating her diet. She is doing well with occupational physical therapy. Patient would like to go home today. -Post op H&H stable -PT/OT -Joints pain control protocol -DVT prophylaxis: SCD's, aspirin 81 mg twice daily x6 weeks -Weight bearing status: as tolerated -Post-op XR ordered -Abx: 24h vanc/ancef -Diet: ADAT -Leo: Discontinued -Discharge planning consult Planned Discharge Date: Today Discharge to home with home health and therapy Subjective 24 Hr Interval Summary Patient doing well No acute events overnight Pain is well controlled Exam/Review of Systems Vital Signs Vitals Vital Signs Date Temp Pulse Resp B/P (MAP) Pulse Ox O2 O2 Flow FiO2 Time Delivery Rate 01/30/19 71 16 97 Nasal 1.0 08:01 Cannula 01/30/19 97.8 102/53 07:37 (69) Intake and Output 01/29/19 01/29/19 01/30/19 1515:00 23:00 07:00 IntakeIntake Total 3720 ml 740 ml 1020 ml OutputOutput Total 650 ml 3050 ml 2100 ml BalanceBalance 3070 ml -2310 ml -1080 ml Exam Free Text/Dictation Right lower extremity: Dressing: clean, dry, and intact, no erythema Sensation intact to light touch in a sural, saphenous, deep peroneal, superficial peroneal, medial and lateral plantar nerve distribution. Motor is intact, patient able to dorsiflex and plantarflex ankle and extend and flex great toe. Dorsalis Pedis pulse +2, Brisk capillary refill. Compartments are soft. Calves non-tender to palpation bilaterally. Results Result Diagram: 01/30/19 0442 01/30/19 0442 DEJUAN KASPER MD Jan 30, 2019 09:27
--- NOTE | 2019-01-30 09:28 | DS ---
Date/Time of Note Date/Time of Note DATE: 01/30/19 TIME: 09:28 Discharge Summary Admission/Discharge Info Admit Date/Time Jan 29, 2019 at 05:56 Discharge Date/Time Patient Condition: Good Hospital Course POD#1 s/p primary right TKA. She is doing very well. She is medically and surgically stable. Patient's pain is well controlled. She is tolerating her diet. She is doing well with occupational physical therapy. Patient would like to go home today. -Post op H&H stable -PT/OT -Joints pain control protocol -DVT prophylaxis: SCD's, aspirin 81 mg twice daily x6 weeks -Weight bearing status: as tolerated Planned Discharge Date: Today Discharge to home with home health and therapy Follow-up in clinic in 2 weeks Home Meds Reported Medications Escitalopram Oxalate* (Lexapro*) 20 Mg Tablet, 20 MG PO DAILY, #30 TAB 01/29/19 Omeprazole* (Omeprazole*) 40 Mg Capsule.dr, 40 MG PO DAILY, #30 CAP 01/29/19 Losartan-Hydrochlorothiazide (Losartan-HCTZ) 100-25 Mg Tab, 1 TAB PO DAILY, TAB 01/28/19 Gabapentin* (Gabapentin*) 300 Mg Capsule, 300 MG PO DAILY, #60 CAP 01/28/19 Diclofenac Sodium* (Voltaren* XR) 100 Mg Tab.sr.24h, 100 MG PO BID, TAB.SA 01/28/19 Cetirizine Hcl* (Zyrtec*) 10 Mg Capsule, 10 MG PO DAILY, TAB 01/28/19 Cholecalciferol (Vitamin D3) (Vitamin D3) 2,000 Unit Tab.chew, 2000 UNIT PO DAILY, TAB.CHEW 01/28/19 Simvastatin (Simvastatin) 10 Mg Tablet, 10 MG PO DAILY, #30 TAB 01/28/19 Amlodipine Besylate* (Amlodipine Besylate*) 5 Mg Tablet, 5 MG PO DAILY, #30 TAB 01/28/19 Azelastine Hcl* (Azelastine Hcl*) 137 Mcg/0.137 Ml [place].pump, 1 SPRAY NASAL BID, #1 EA TO EACH NOSTRIL 01/28/19 Fluticasone Propionate* (Fluticasone Propionate* Nasal) 50 Mcg/[place] - 16 Gm [place].susp, 1 SPRAY NASAL BID, EA TO EACH NOSTRIL 11/10/14 Budesonide* (Pulmicort* (Neb)) 0.5 Mg/2 Ml Ampul.neb, 0.5 MG IH BID, EA 11/10/14 Diclofenac Sodium* (Diclofenac Sodium*) 75 Mg Tablet.dr, 100 MG PO BID, TAB 11/10/14 Discontinued Reported Medications [Acelastine] No Conflict Check, PO BID 11/10/14 Loratadine* (Loratadine*) 10 Mg Tablet, 10 MG PO DAILY, TAB 11/10/14 [Montelukast] No Conflict Check, PO DAILY 11/10/14 Escitalopram Oxalate* (Escitalopram Oxalate*) 10 Mg Tablet, 10 MG PO DAILY, TAB 11/10/14 Tizanidine Hcl* (Tizanidine Hcl*) 2 Mg Tablet, 2 MG PO Q8H PRN for PAIN, TAB 11/10/14 Benazepril Hcl* (Benazepril Hcl*) 40 Mg Tablet, 25 MG PO DAILY, TAB 11/10/14 Primary Care Provider Anson Ibrahim Time spent on discharge: < 30 minutes Pending Labs Laboratory Tests Test 01/29/19 15:37 01/30/19 04:42 01/30/19 07:15 Bedside Glucose 183 mg/dL (70-220) White Blood Count 14.4 10^3/ul (4.8-10.8) Red Blood Count 3.64 10^6/ul (4.20-5.40) Hemoglobin 9.8 g/dl (12.0-16.0) Hematocrit 30.9 % (37.0-47.0) Mean Corpuscular 84.9 Volume fl (82.0-101.0) Mean Corpuscular 26.9 pg (29.0-33.0) Hemoglobin Mean Corpuscular 31.7 Hemoglobin Concent g/dl (32.0-37.0) Red Cell 12.7 % (11.5-14.5) Distribution Width Platelet Count 242 10^3/UL (140-415) Mean Platelet 9.7 fl (7.4-10.4) Volume Immature 0.600 Granulocytes % % (0.001-0.429) Neutrophils % 78.0 % (39.0-77.0) Lymphocytes % 11.9 % (15.0-51.0) Monocytes % 9.2 % (0.0-11.0) Eosinophils % 0.2 % (0.0-7.0) Basophils % 0.1 % (0.0-2.0) Nucleated Red Blood 0.0 Cells % /100WBC (0.0-0.0) Immature 0.080 Granulocytes # 10^3/ul (0.0-0.031) Neutrophils # 11.3 10^3/ul (1.6-7.5) Lymphocytes # 1.7 10^3/ul (0.8-2.9) Monocytes # 1.3 10^3/ul (0.3-0.9) Eosinophils # 0.0 10^3/ul (0.0-0.5) Basophils # 0.0 10^3/ul (0.0-0.1) Nucleated Red Blood 0.0 Cells # 10^3/ul (0.0-0.0) Sodium Level 143 mmol/L (135-144) Potassium Level 3.8 mmol/L (3.5-5.1) Chloride Level 102 mmol/L (97-110) Carbon Dioxide 30 mmol/L (21-31) Level Anion Gap 11 (5-13) Blood Urea 14 mg/dl (7-20) Nitrogen Creatinine 0.64 mg/dl (0.44-1.00) Est Glomerular > 60 mL/min (>60) Filtrat Rate mL/min Glucose Level 132 mg/dl (70-220) Hemoglobin A1c 5.9 % (0-5.9) Calcium Level 8.8 mg/dl (8.4-10.2) Lab Scanned Report [facility] [id number] DEJUAN KASPER MD Jan 30, 2019 09:28
[2019-01-30] MEDS ORDERED: ASPI-1044 PO (09:30)
[2019-01-30] MEDS ORDERED: OXYC-481 PO (09:30)
[2019-01-30] MEDS ORDERED: Acetaminophen PO (09:30)
[2019-01-30] MEDS: VANCOMYCIN 1 GM (PMX) 250 ML IVPB SCH (10:03)
[2019-01-30] MEDS: oxyCODONE 5 MG TAB PO PRN ×3 (10:08→15:38)
--- NOTE | 2019-01-30 11:06 | PN ---
Date/Time of Note Date/Time of Note DATE: 01/30/19 TIME: 11:06 Assessment/Plan VTE Prophylaxis Risk score (from Ns)>0 risk: 8 SCD applied (from Ns): Yes Pharmacological prophylaxis: NA/contraindicated Pharm contraindication: low risk/ambulating Lines/Catheters IV Catheter Type (from Nrsg): Peripheral IV Urinary Cath still in place: Yes Reason Cath still needed: urinary retention Assessment/Plan Assessment/Plan 59 yo F with PMH HTN and Right knee osteoarthritis presented for elevated right total knee replacement. POD #0 Assessment/Plan (Daily) 1. Right knee osteoarthritis, s/p TKR POD #1 2. HTN 3. mood disorder - continue Lexapro 4. Allergic rhinitis - continue nasal sprays and antihistamine 5. GERD Plan - cleared by PT - DC planning per ortho> meds have been orderd Result Diagram: 01/30/19 0442 01/30/19 0442 Results 24hrs Laboratory Tests Test 01/29/19 15:37 01/30/19 04:42 01/30/19 07:15 Bedside Glucose 183 White Blood Count 14.4 H Red Blood Count 3.64 L Hemoglobin 9.8 L Hematocrit 30.9 L Mean Corpuscular Volume 84.9 Mean Corpuscular Hemoglobin 26.9 L Mean Corpuscular 31.7 L Hemoglobin Concent Red Cell Distribution Width 12.7 Platelet Count 242 Mean Platelet Volume 9.7 Immature Granulocytes % 0.600 H Neutrophils % 78.0 H Lymphocytes % 11.9 L Monocytes % 9.2 Eosinophils % 0.2 Basophils % 0.1 Nucleated Red Blood Cells % 0.0 Immature Granulocytes # 0.080 H Neutrophils # 11.3 H Lymphocytes # 1.7 Monocytes # 1.3 H Eosinophils # 0.0 Basophils # 0.0 Nucleated Red Blood Cells # 0.0 Sodium Level 143 Potassium Level 3.8 Chloride Level 102 Carbon Dioxide Level 30 Anion Gap 11 Blood Urea Nitrogen 14 Creatinine 0.64 Est Glomerular Filtrat > 60 Rate mL/min Glucose Level 132 Hemoglobin A1c 5.9 Calcium Level 8.8 Lab Scanned Report REFERENCE LAB Subjective 24 Hr Interval Summary Free Text/Dictation She is feeling good. Patient has been discharged by Dr. Ayoub Exam/Review of Systems Exam Vitals Vital Signs Date Temp Pulse Resp B/P (MAP) Pulse Ox O2 O2 Flow FiO2 Time Delivery Rate 01/30/19 71 16 97 Nasal 1.0 08:01 Cannula 01/30/19 97.8 102/53 07:37 (69) Intake and Output 01/29/19 01/29/19 01/30/19 1515:00 23:00 07:00 IntakeIntake Total 3720 ml 740 ml 1020 ml OutputOutput Total 650 ml 3050 ml 2100 ml BalanceBalance 3070 ml -2310 ml -1080 ml Exam general: Patient is a pleasant female, no acute distress Lungs: Clear bilaterally. no wheezing or rhonchi Heart: Normal S1-S2, Regular rhythm and rate. No murmur, S3, or S4 Abdomen: Soft , nontender, nondistended , bowel sounds are present. No guarding no rebound tenderness , No masses or organomegaly. No costovertebral temporal angle mass Extremities: kerlix on right lower extremity with ice on knee. no cyanosis, clubbing or edema Results Results 24hrs Laboratory Tests Test 01/29/19 15:37 01/30/19 04:42 01/30/19 07:15 Bedside Glucose 183 White Blood Count 14.4 H Red Blood Count 3.64 L Hemoglobin 9.8 L Hematocrit 30.9 L Mean Corpuscular Volume 84.9 Mean Corpuscular Hemoglobin 26.9 L Mean Corpuscular 31.7 L Hemoglobin Concent Red Cell Distribution Width 12.7 Platelet Count 242 Mean Platelet Volume 9.7 Immature Granulocytes % 0.600 H Neutrophils % 78.0 H Lymphocytes % 11.9 L Monocytes % 9.2 Eosinophils % 0.2 Basophils % 0.1 Nucleated Red Blood Cells % 0.0 Immature Granulocytes # 0.080 H Neutrophils # 11.3 H Lymphocytes # 1.7 Monocytes # 1.3 H Eosinophils # 0.0 Basophils # 0.0 Nucleated Red Blood Cells # 0.0 Sodium Level 143 Potassium Level 3.8 Chloride Level 102 Carbon Dioxide Level 30 Anion Gap 11 Blood Urea Nitrogen 14 Creatinine 0.64 Est Glomerular Filtrat > 60 Rate mL/min Glucose Level 132 Hemoglobin A1c 5.9 Calcium Level 8.8 Lab Scanned Report REFERENCE LAB Medications Medication Current Medications Ropivacaine/ Clonidine/ Epinephrine/ Ketorolac Tromethamine/ Sodium Chloride INTRA-OP INJ ; Start 01/29/19 at 15:00 Lactated Ringer's 1,000 ml @ 80 mls/hr [id number] IV Last administered on 01/29/19 16:09; Admin Dose 80 MLS/HR; Start 01/29/19 at 11:32 IV Flush (NS 3 ml) 3 ml PER PROTOCOL IV ; Start 01/29/19 at 12:00 Oxycodone HCl (Roxicodone) 15 mg Q4H PRN PO .PAIN Last administered on 01/30/19 00:08; Admin Dose 15 MG; Start 01/29/19 at 12:00 Oxycodone HCl (Roxicodone) 10 mg Q4H PRN PO .PAIN Last administered on 01/30/19 10:48; Admin Dose 10 MG; Start 01/29/19 at 12:00 Oxycodone HCl (Roxicodone) 5 mg Q4H PRN PO .PAIN Last administered on 01/30/19 10:08; Admin Dose 5 MG; Start 01/29/19 at 12:00 Hydromorphone HCl (Dilaudid) 1 mg Q3H PRN IV .BREAKTHROUGH PAIN; Start 01/29/19 at 12:00 Acetaminophen (Tylenol Tab) 1,000 mg Q8 PO Last administered on 01/30/19 06:13; Admin Dose 1,000 MG; Start 01/29/19 at 14:00 Ketorolac Tromethamine (Toradol) 15 mg Q6H PRN IV .PAIN Last administered on 01/30/19 08:50; Admin Dose 15 MG; Start 01/29/19 at 12:00 Ondansetron HCl (Zofran Inj) 4 mg Q4H PRN IV NAUSEA/VOMITING; Start 01/30/19 at 12:00 Vancomycin HCl 250 ml @ 125 mls/hr Q12H IVPB Last administered on 01/30/19 10:03; Admin Dose 125 MLS/HR; Start 01/29/19 at 18:00; Stop 01/30/19 at 11:29 Gabapentin (Neurontin) 300 mg QHS PO Last administered on 01/29/19 20:47; Admin Dose 300 MG; Start 01/29/19 at 21:00 Pantoprazole (Protonix Tab) 40 mg DAILY@06 PO ; Start 01/31/19 at 06:00 Docusate Sodium (Colace) 200 mg BID PO Last administered on 01/30/19 08:42; Admin Dose 200 MG; Start 01/30/19 at 09:00; Stop 02/02/19 at 08:59 Simethicone (Mylicon) 80 mg TID PRN PO .GAS; Start 01/29/19 at 12:00 Senna/Docusate Sodium (Senokot-S) 2 tab BID PRN PO .CONSTIPATION; Start 01/29/19 at 12:00 Magnesium Hydroxide (Milk Of Mag) 30 ml HS PRN PO .CONSTIPATION; Start 01/29/19 at 12:00 Bisacodyl (Dulcolax Supp) 10 mg DAILY PRN MS .CONSTIPATION; Start 01/29/19 at 12:00 Sodium Biphosphate/ Sodium Phosphate (Fleet Enema) 133 ml DAILY PRN MS .CONSTIPATION; Start 01/29/19 at 12:00 Diphenhydramine HCl (Benadryl) 25 mg Q4H PRN IV .ITCHING; Start 01/29/19 at 12:00 Naloxone HCl (Narcan) 0.2 mg Q2M PRN IV .RESP RATE; Start 01/29/19 at 12:00 Bethanechol Chloride (Urecholine) 25 mg URINARY CATH D/C PRN PO UNABLE TO VOID; Start 01/29/19 at 12:00 Aspirin (Halfprin) 81 mg BID PO Last administered on 01/30/19at 08:41; Admin Dose 81 MG; Start 01/30/19 at 09:00 Amlodipine Besylate (Norvasc) 5 mg DAILY PO ; Start 01/30/19 at 09:00 Azelastine HCl (Astelin) 1 spray BID NASAL Last administered on 01/30/19at 08 :41; Admin Dose 1 SPRAY; Start 01/29/19 at 21:00 Budesonide (Pulmicort (Neb)) 0.5 mg BID INH Last administered on 01/30/19at 08:11; Admin Dose 0.5 MG; Start 01/29/19 at 21:00 Escitalopram Oxalate (Lexapro) 20 mg DAILY PO Last administered on 01/30/19at 08:42; Admin Dose 20 MG; Start 01/30/19 at 09:00 Fluticasone Propionate (Flonase 0.05% Nasal) 1 spray BID NASAL Last administered on 01/30/19at 08:41; Admin Dose 1 SPRAY; Start 01/29/19 at 21:00 Loratadine (Claritin) 10 mg DAILY PO Last administered on 01/30/19at 08:41; Admin Dose 10 MG; Start 01/30/19 at 09:00 Losartan Potassium (Cozaar) 100 mg DAILY PO Last administered on 01/30/19at 08:44; Admin Dose 100 MG; Start 01/30/19 at 09:00 Hydrochlorothiazide (Hydrochlorothiazide) 25 mg DAILY PO ; Start 01/30/19 at 09:00 Atorvastatin Calcium (Lipitor) 10 mg DAILY@21 PO ; Start 01/30/19 at 21:00 JACQUI FUNES MD Jan 30, 2019 11:06
[2019-01-30] MEDS ORDERED: ONDANSETRON 4 MG INJ IV PRN (12:00)
[2019-01-30] MEDS: LACTATED RINGER'S 1,000 ML IV SCH (12:32)
[2019-01-30 14:04] VITALS: BP 100/51; PULSE 80; RESP 14
[2019-01-30] MEDS ORDERED: ATORVASTATIN 10 MG TAB PO SCH (21:00)
[2019-01-31] MEDS ORDERED: PANTOPRAZOLE (EC) 40 MG TAB PO SCH (06:00)
== END 2019-01-30 16:05 | disposition home health service (06) | DRG 470 ==
LOC: REC 05:56 → MS1 15:54
PROVIDERS: ADMIT Orthopaedic Surgery Adult Reconstructive Orthopaedic Surgery; ATTEND Orthopaedic Surgery Adult Reconstructive Orthopaedic Surgery
PROC: 0SRC0J9 Replacement of Right Knee Joint with Synthetic Substitute, Cemented, Open Approach (ICD-10-PCS; principal; 2019-01-29 07:30)
DX: M17.11 Unilateral primary osteoarthritis, right knee (principal); I10 Essential (primary) hypertension; F39 Unspecified mood [affective] disorder; J30.9 Allergic rhinitis, unspecified; K21.9 Gastro-esophageal reflux disease without esophagitis
CPT/HCPCS: 73560; 80048; 82962; 83036; 85025; 86850; 86900; 86901; 87070; 87086; 88304; 88311; 94640; 94664; 97110; 97116; 97162; 97165; 97530; C1713; J0171; J0690; J0735; J1100; J1170; J1885; J2250; J2274; J2405; J2765; J2795; J3010; J3370; J7120

== ENCOUNTER 2019-02-10 22:14 | Inpatient (IN) | payer OTHER ==
[~2019-02-10] VITALS: Ht 162.6 cm; Wt 102.2 kg
[~2019-02-10 22:14] MED LIST changes: +ASPI-1044 PO; +Acetaminophen PO; -ESCI10TA48 PO; +ESCI20TA PO; -LORA10TA3 PO; -MONTELUKAST PO; +OMEP40CA6 PO; +OXYC-481 PO; -[UNRECOGNIZED DRUG - OTHER] PO
[2019-02-10] MEDS ORDERED: SODIUM CHLORIDE 0.9% 1L BAG IV* STA (22:23)
[2019-02-10] MEDS ORDERED: ACETAMINOPHEN 500 MG TAB PO STA (22:33)
[2019-02-10] MEDS ORDERED: HYDROmorphONE 1 MG/ML SYG IV STA (22:36)
[2019-02-10] MEDS ORDERED: PIPER-TAZO 3.375 GM IV (PMX) 100 ML IVPB STA (22:36)
[2019-02-10] MEDS ORDERED: ONDANSETRON 4 MG INJ IV STA (22:36)
[2019-02-10] MEDS ORDERED: VANCOMYCIN 1 GM (PMX) 250 ML IVPB ONE (23:00)
[2019-02-11] MEDS ORDERED: HYDROmorphONE 1 MG/ML SYG IV STA (00:12)
--- NOTE | 2019-02-11 01:14 | ERD ---
ER Documentation Chief Complaint Chief Complaint Pt having fever, SOB today and R TKR 01/29 HPI Is a 51-year-old female coming with complaints of fever status post right total knee replacement 625. According to the patient, the bandage is not a change because the home health nurse never came in. She did complain of mild shortness of breath and mild cough. Denies any chills. Denies any sick contacts. Denies any other current complaints. ROS All systems reviewed and are negative except as per history of present illness. Medications Home Meds Active Scripts Oxycodone Hcl* (IR) (Roxicodone*) 5 Mg Tab, 5-10 MG PO Q4H PRN for .PAIN, #90 TAB Prov:DEJUAN AYOUB MD 01/30/19 Aspirin Delayed Release (Aspirin Delayed Release) 81 Mg Tablet.dr, 81 MG PO BID for 84 Days Prov:DEJUAN AYOUB MD 01/30/19 [Acetaminophen Tab] 500 MG TAB No Conflict Check, 1000 MG PO Q8 for 10 Days, TAB Prov:DEJUAN AYOUB MD 01/30/19 Reported Medications Escitalopram Oxalate* (Lexapro*) 20 Mg Tablet, 20 MG PO DAILY, #30 TAB 01/29/19 Omeprazole* (Omeprazole*) 40 Mg Capsule.dr, 40 MG PO DAILY, #30 CAP 01/29/19 Losartan-Hydrochlorothiazide (Losartan-HCTZ) 100-25 Mg Tab, 1 TAB PO DAILY, TAB 01/28/19 Gabapentin* (Gabapentin*) 300 Mg Capsule, 300 MG PO DAILY, #60 CAP 01/28/19 Diclofenac Sodium* (Voltaren* XR) 100 Mg Tab.sr.24h, 100 MG PO BID, TAB.SA 01/28/19 Cetirizine Hcl* (Zyrtec*) 10 Mg Capsule, 10 MG PO DAILY, TAB 01/28/19 Cholecalciferol (Vitamin D3) (Vitamin D3) 2,000 Unit Tab.chew, 2000 UNIT PO DAILY, TAB.CHEW 01/28/19 Simvastatin (Simvastatin) 10 Mg Tablet, 10 MG PO DAILY, #30 TAB 01/28/19 Amlodipine Besylate* (Amlodipine Besylate*) 5 Mg Tablet, 5 MG PO DAILY, #30 TAB 01/28/19 Azelastine Hcl* (Azelastine Hcl*) 137 Mcg/0.137 Ml [place].pump, 1 SPRAY NASAL BID, #1 EA TO EACH NOSTRIL 01/28/19 Fluticasone Propionate* (Fluticasone Propionate* Nasal) 50 Mcg/[place] - 16 Gm [place].susp, 1 SPRAY NASAL BID, EA TO EACH NOSTRIL 11/10/14 Budesonide* (Pulmicort* (Neb)) 0.5 Mg/2 Ml Ampul.neb, 0.5 MG IH BID, EA 11/10/14 Diclofenac Sodium* (Diclofenac Sodium*) 75 Mg Tablet.dr, 100 MG PO BID, TAB 11/10/14 Allergies Allergies: Coded Allergies: No Known Allergy (Unverified , 01/29/19) PMhx/Soc History of Surgery: Yes (SINUS SURGERies,TONSILLECTOMY, rt knee repair 01/29/19) Anesthesia Reaction: No Hx Neurological Disorder: No Hx Respiratory Disorders: Yes (CHRONIC SINUSITIS) Hx Cardiac Disorders: Yes (HTN) Hx Psychiatric Problems: No Hx Miscellaneous Medical Probl: Yes (HTN, obesity ) Hx Alcohol Use: Yes (SOCIALLY) Hx Substance Use: No Hx Tobacco Use: No Smoking Status: Unknown if ever smoked Physical Exam Vitals Vital Signs Date Temp Pulse Resp B/P (MAP) Pulse Ox O2 O2 Flow FiO2 Time Delivery Rate 02/11/19 100.4 85 18 100 Room Air 00:00 02/10/19 88 117/55 23:30 (75) 02/10/19 87 24 119/59 97 Room Air 23:15 (79) 02/10/19 89 17 120/72 97 Room Air 23:00 (88) 02/10/19 89 20 125/58 22:45 (80) 02/10/19 103.0 22:44 02/10/19 102.3 98 24 125/57 100 22:16 (79) Physical Exam Const: No acute distress Head: Atraumatic Eyes: Normal Conjunctiva ENT: Normal External Ears, Nose and Mouth. Neck: Full range of motion. No meningismus. Resp: Clear to auscultation bilaterally Cardio: Regular rate and rhythm, no murmurs Abd: Soft, non tender, non distended. Normal bowel sounds Skin: Surgical site looks grossly inflamed with 1 or 2 areas of minimal purulent drainage. No central fluctuance is noted. Back: No midline or flank tenderness Ext: No cyanosis, or edema Neur: Awake and alert Psych: Normal Mood and Affect Result Diagram: 02/10/19223202/10/192232 Results 24 hrs Laboratory Tests Test 02/10/19 22:33 02/10/19 22:36 02/11/19 00:01 02/11/19 00:19 White Blood Count 13.6 10^3/ul Red Blood Count 3.20 10^6/ul Hemoglobin 8.5 g/dl Hematocrit 26.0 % Mean Corpuscular 81.3 fl Volume Mean Corpuscular 26.6 pg Hemoglobin Mean Corpuscular 32.7 g/dl Hemoglobin Concent Red Cell Distribution 13.1 % Width Platelet Count 320 10^3/UL Mean Platelet Volume 9.2 fl Immature Granulocytes 2.600 % % Neutrophils % 87.3 % Lymphocytes % 5.7 % Monocytes % 3.6 % Eosinophils % 0.4 % Basophils % 0.4 % Nucleated Red Blood 0.3 /100WBC Cells % Immature Granulocytes 0.350 10^3/ul # Neutrophils # 11.9 10^3/ul Lymphocytes # 0.8 10^3/ul Monocytes # 0.5 10^3/ul Eosinophils # 0.1 10^3/ul Basophils # 0.1 10^3/ul Nucleated Red Blood 0.0 10^3/ul Cells # Prothrombin Time 13.4 Sec Prothrombin Time Ratio 1.0 INR International 1.01 Normalized Ratio Activated 36.6 Sec Partial Thromboplast Time Sodium Level 139 mmol/L Potassium Level 3.8 mmol/L Chloride Level 103 mmol/L Carbon Dioxide Level 25 mmol/L Anion Gap 11 Blood Urea Nitrogen 13 mg/dl Creatinine 1.03 mg/dl Est Glomerular Filtrat 55 mL/min Rate mL/min Glucose Level 147 mg/dl Calcium Level 9.4 mg/dl Total Bilirubin 0.5 mg/dl Direct Bilirubin 0.00 mg/dl Indirect Bilirubin 0.5 mg/dl Aspartate Amino 31 IU/L Transf (AST/SGOT) Alanine 28 IU/L Aminotransferase (ALT/ SGPT) Alkaline Phosphatase 140 IU/L Troponin I < 0.012 ng/ml Total Protein 7.6 g/dl Albumin 3.9 g/dl Globulin 3.70 g/dl Albumin/Globulin Ratio 1.05 POC Venous Lactate 2.5 mmol/L C-Reactive Protein 25.3 mg/dl Lactic Acid Level 1.9 mmol/L Current Medications Medications Dose Sig/Darleen Start Time Status Last (Trade) Ordered Route PRN Stop Time Admin Dose Reason Admin Sodium 2,700 ml BOLUS OVER 2 02/10/19 DC 02/10/19 Chloride HOURS STAT 22:23 02/10/19 22:37 (NS) IV* 22:24 1,000 mg ONCE STAT 02/10/19 DC 02/10/19 Acetaminophen PO 22:33 02/10/19 22:44 (Tylenol 22:35 Tab) 1 mg ONCE STAT 02/10/19 DC 02/10/19 Hydromorphone IV 22:36 02/10/19 22:44 HCl 22:38 (Dilaudid) Ondansetron 4 mg ONCE STAT 02/10/19 DC 02/10/19 HCl (Zofran IV 22:36 02/10/19 22:44 Inj) 22:38 Vancomycin 250 ml @ ONCE ONCE 02/10/19 02/10/19 HCl 125 mls/hr IVPB 23:00 02/11/19 23:26 00:59 Piperacillin 100 ml @ ONCE STAT 02/10/19 DC 02/10/19 Sod/ 200 mls/hr IVPB 22:36 02/10/19 22:44 Tazobactam 23:05 Sod 1 mg ONCE STAT 02/11/19 DC 02/11/19 Hydromorphone IV 00:12 02/11/19 00:16 HCl 00:14 (Dilaudid) Procedures/MDM Patient's infectious symptoms have not stabilized and the patient is at risk of rapid decompensation. The patient will be admitted for careful hydration, antibiotic therapy, and infectious source control. Severe Sepsis Assessment: Infectious Source: Skin End organ damage indicated by: [Lactate > 2.0 mmol/L Severe Sepsis Managment: Blood Cultures X 2 before broad spectrum antibiotics initiated within 3 hours of recognition. Sepsis recognized at 2220 30 ml/kg NS bolus Completed Initial Lactate: 2.5 Repeat Lactate pending Critical Care: Time: 45 minutes, independent of any separately billable procedural time Treatments/Evaluations: Emergent fluid management, while maintaining close respiratory support. Immediate broad spectrum antibiotic therapy. Simultaneous assessment for possible sources in order to direct therapy. Consideration for invasive and chemical support to prevent respiratory or cardiac collapse. Septic Shock Assessment (1 hour post 30 ml/kg fluid bolus): Hypotension (SBP < 90 or 40 mmHg drop, MAP < 65): [No] Lactic acid > 4.0 [No] Perfusion Reassessment for Septic Shock: 100.3, 98, 16, 164/88 Heart Exam: [Tachycardic] Lung Exam: [No Crackles] Capillary Refill: [Delayed] Peripheral Pulses: [Radially present] Skin: [Mottled, pale] Accepting Care Team: Current data and ongoing care discussed. Time: 11 PM Primary Provider: Dr. Abraham Consulting: Dr. Ayoub, who was notified of patient's arrival in the ER. Outstanding Data: none Departure Diagnosis: Primary Impression: Postoperative complication Surgical complication system/body Area: skin Surgical complication type: other Qualified Codes: L76.82 - Other postprocedural complications of skin and subcutaneous tissue Additional Impression: Sepsis Sepsis type: sepsis due to unspecified organism Qualified Codes: A41.9 - Sepsis, unspecified organism Condition: Serious SHAJI COE Feb 11, 2019 01:14
[2019-02-11 01:15] VITALS: Ht 162.6 cm; Wt 102.2 kg
[2019-02-11 02:00] VITALS: BP 92/53; PULSE 77; RESP 20
[2019-02-11] MEDS ORDERED: VANCOMYCIN IV PER PHARMACY XX SCH (03:00)
[2019-02-11] MEDS ORDERED: ONDANSETRON 4 MG INJ IV PRN (03:00)
[2019-02-11] MEDS ORDERED: VANCOMYCIN 1 GM 250 ML IVPB ONE (03:30)
[2019-02-11] MEDS: morphine 2 MG INJ IV PRN ×2 (03:47→09:41)
[2019-02-11] MEDS: PANTOPRAZOLE (EC) 40 MG TAB PO SCH (06:09)
[2019-02-11] MEDS: PIPER-TAZO 3.375 GM IV (PMX) 100 ML IVPB SCH ×3 (06:10→22:10)
[2019-02-11] MEDS: ACETAMINOPHEN 325 MG TAB PO PRN ×2 (06:10→17:56)
[2019-02-11] MEDS: oxyCODONE 5 MG TAB PO PRN ×3 (06:13→23:03)
[2019-02-11] MEDS ORDERED: ACETAMINOPHEN 325 MG TAB PO ONE (07:30)
[2019-02-11 07:37] VITALS: BP 103/50; PULSE 90; RESP 19
[2019-02-11] MEDS ORDERED: SOD CHLORIDE 0.9% 500 ML IV ONE (08:00)
[2019-02-11] MEDS: GABAPENTIN 300 MG CAP PO SCH (08:36)
[2019-02-11] MEDS: ATORVASTATIN 10 MG TAB PO SCH (08:36)
[2019-02-11] MEDS: AZELASTINE 30 ML NAS SPRAY NASAL SCH ×2 (08:36→20:47)
[2019-02-11] MEDS: LORATADINE 10 MG TAB PO SCH (08:36)
[2019-02-11] MEDS: CHOLECALCIFEROL 2,000 UNIT CAP PO SCH (08:37)
[2019-02-11] MEDS: ESCITALOPRAM 10 MG TAB PO SCH (08:37)
[2019-02-11] MEDS: ASPIRIN (EC) 81 MG TAB PO SCH ×2 (08:37→20:48)
[2019-02-11] MEDS: SOD CHLORIDE 0.9% 1,000 ML IV SCH (08:54)
[2019-02-11] MEDS ORDERED: LOSARTAN 50 MG TAB PO SCH (09:00)
[2019-02-11] MEDS: AMLODIPINE 5 MG TAB PO SCH (09:00)
[2019-02-11] MEDS ORDERED: DICLOFENAC SODIUM 100 MG XX SCH (09:00)
[2019-02-11] MEDS ORDERED: HYDROCHLOROTHIAZIDE 25 MG TAB PO SCH (09:00)
[2019-02-11] MEDS ORDERED: NON-FORMULARY/PATIENT OWN MED (Losartan-Hydrochlorothiazide (Losartan-HCTZ) 1 TAB) PO SCH (09:00)
--- NOTE | 2019-02-11 10:57 | QN ---
Documentation Comment Pt seen and examined H and p dictated JACQUI FUNES MD Feb 11, 2019 10:56
--- NOTE | 2019-02-11 11:55 | HP ---
DATE OF ADMISSION: 02/11/2019 REASON FOR ADMISSION: Fevers. HISTORY OF PRESENT ILLNESS: This is a 59-year-old female with a past medical history of hypertension , history of chronic sinusitis, mood disorder, hypertension, who was admitted in [facility] from January 29 until January 30. The patient was seen by Dr. Ayoub and had a right knee repla cement. The patient was doing better and the patient was discharged home and was told to follow up w shannan Ayoub as an outpatient. According to the patient, the patient never saw any home health nurse or any physical therapy. The patient started noticing fevers for the last 3 days. The patient star anirudh saying that she was having worsening swelling on the right leg for past 3 to 4 days. The patient was having pain at the surgical site and it was difficult for her to ambulate. The patient was also having some nausea, some intermittent episodes of diarrhea and some intermittent right upper quadran t pain. The patient also said that she was also feeling some shortness of breath. She was having fe vers of 103 at home that made her worried and came to the emergency department. On arrival to ED, vi thea signs showed initial temperature of 102.3, pulse was 98. Her blood pressure was 125/57. White c ount is 13.6, hemoglobin 8.5, platelet count 320, creatinine was 1.03, lactate was 2.5. Chest x-ray was negative. Knee x-ray was done that showed postop changes from total right knee replacement intac t hardware. No evidence of any loosening and the patient was started on broad spectrum IV antibiotic s with vancomycin and Zosyn and was admitted for further management. PAST MEDICAL HISTORY: 1. Hypertension. 2. Mood disorder. 3. Allergic rhinitis. 4. Status post right total knee replacement on 01/29/2019. ALLERGIES: NONE. PAST SURGICAL HISTORY: The patient had 3 sinus surgeries. SOCIAL HISTORY: Denies any history of smoking, alcohol or any drug use. Currently lives at home wit h the family. MEDICATIONS TAKING AT HOME: 1. Cetirizine 10 mg p.o. daily. 2. Amlodipine 5. 3. Losartan/hydrochlorothiazide. 4. Simvastatin. 5. Aspirin. 6. Diclofenac. 7. Lexapro. 8. Gabapentin. 9. Oxycodone. 10. Budesonide. 11. . 12. . 13. Prilosec. 14. Vitamin D. REVIEW OF SYSTEMS: The patient complained of pain in the right knee, some shortness of breath, some abdominal pain and diarrhea. Denied any headache, any blurry vision, any chest pain. Denied any uri nary symptoms. Denies any rashes. Denies any hematemesis, any melena, any blood per rectum. PHYSICAL EXAMINATION: VITAL SIGNS: Temperature 102.3, blood pressure was 125/57, pulse was 98, saturating 95% on 2 liters. GENERAL: The patient is awake, alert, oriented, does not appear to in any acute distress. Morbidly obese HEENT: Pupils equal, round, reactive to light. NECK: Supple. HEART: Regular rate and rhythm. LUNGS: Some decreased breath sound on the left base. ABDOMEN: Soft. Some tenderness present in the right upper quadrant. Positive bowel sounds. EXTREMITIES: Right lower extremity, status post total knee replacement. The surgical site has stapl es intact in place. Some tenderness noted around the site. It is very tense, slightly warm. Diffus e swelling noted on the right leg, right ankle, also ecchymosis noted on the back of the right knee a nd on the foot. DIAGNOSTIC DATA: BUN of 11, creatinine of 1.04. Venous lactate was 2.5. LFTs within normal limit. LABORATORY DATA: White count of 13.6, hemoglobin 8.5, platelet count of 320. UA this time is negati ve. Chest x-ray is negative. Knee x-ray shows postoperative changes from right total knee arthropla sty intact hardware, no evidence of loosening. ASSESSMENT AND PLAN: This is a 59-year-old female, who presented with: 1. Fevers, leukocytosis, status post right total knee replacement on . A source this could be r ight knee versus gastroenteritis versus abdominal etiology versus pneumonia; however, chest x-ray is negative. UA is negative. X-ray of the knee as above. 2. History of hypertension, currently hypotensive. 3. Hyperlipidemia. 4. Obesity. 5. GERD. 6. Allergic rhinitis. 7. Mood disorder. PLAN: At this period of time, the patient is admitted to med/surg. The patient is on IV fluids, als o on vancomycin and Zosyn. We will also continue the patient on nebs. We will also get a right lower extremity ultrasound to rule out DVT. We will also get abdominal studies. Chest x-ray will be repe ated as initial chest x-ray was negative. ID consultation will be obtained. The patient will likely go for exploration in the evening. Rest of the treatment will depend on the patient's hospitalizati on course. Dictated By: JACQUI CAMACHO/ARNALDO Conf#: [id number] DID#: [id number] CC: DON MAYS MD;*End*
[2019-02-11] MEDS ORDERED: LIDOCAINE 1% (MPF) 30 ML INJ INJ ONE (13:00)
--- NOTE | 2019-02-11 13:14 | CONS ---
Assessment/Plan Assessment/Plan Hospital Course (Demo Recall) 59-year-old female 13 days status post right total knee arthroplasty who presented with 1 day of high fevers that were documented to be above 102 in the emergency department. She also has an elevated white count. The elevated ESR could be related to the surgery however the CRP would be expected to be near normal or normal at this time. Doppler was negative for DVT. There patient clearly has an infection somewhere however the source is unclear at this time. The knee itself is quite tender especially along the lateral aspect where significant soft tissue releases were done in surgery. The warmth and swelling of the knee is appropriate at this point postoperatively. There is no true erythema. There is resolving ecchymosis around the knee. There is no drainage. However her significant pain and high fevers are concerning as no other source found point. At this time I am recommending an aspiration of the right total knee arthroplasty. I did review the benefits and risks with the patient including unequivocal results and possible seeding of the joint with bacteria. She is only 13 days postoperative therefore the synovial fluid analysis will be altered and not the normal acellular synovial fluid. If the synovial fluid is grossly positive for infection she will need to undergo emergent irrigation debridement and poly-exchange. If the results are unequivocal we will continue to wait for cultures even though antibiotics were started prior to the aspiration. Continue IV antibiotics Follow-up cultures Medicine team to continue to work-up possible other sources of infection. Assessment/Plan (Daily) Right knee aspiration procedure: Risks and benefits aspiration reviewed with patient. The risks include infection, failure, pain, swelling, nerve/tendon/ligament damage. The patient verbalized understanding and verbal consent was obtained prior to procedure. The right knee was prepped in a sterile fashion with alcohol and chlorhexidine and draped with sterile drapes . The site of aspiration was confirmed. Lateral approach was used. The skin and capsule was anesthetized with 3mL 1% lidocaine careful not to inject intra-articularly. The right knee was aspirated. 30 mL of bloody synovial fluid was aspirated. No gross purulence or debris seen in fluid. Good hemostasis was achieved and no complications noted. The patient willie erated the procedure well. Limit activity and ice for 24-48 hours Fluid sent for cell count with differential, crystals, aerobic and anaerobic culture. Consultation Date/Type/Reason Admit Date/Time Feb 11, 2019 at 00:10 Date of Consultation: Feb 11, 2019 Reason for Consultation Right knee pain and fevers Date/Time of Note DATE: 02/11/19 TIME: 13:06 Hx of Present Illness Is a 59-year-old female who is 13 days status post right total knee arthroplasty performed by myself. Her immediate postoperative course was uncomplicated. She was discharged on postop day #1. Over the last few days starting on February 07 she began to have significantly more knee pain as well as significantly more swelling and pain in the foot and ankle. Her pain was localized lateral aspect of her knee. Her home health nurse and home physical therapist never showed up at her house after discharge. Prior to February 07 the patient was weaning off her narcotics but now required more pain medication. She was taking her aspirin. She began to have high fevers and some shortness of breath yesterday on Monday. She presented to the emergency department [facility]. Patient had documented fevers above 102 at the hospital. Patient had elevated WBC count. Elevated ESR and CRP. Emergency department contacted me early this a.m. with concern for infection of the right total knee arthroplasty. The patient had the original dressing from surgery at presentation in the emergency de partment. Patient denies any significant changes in the dressing over the past few days. The patient had significant ecchymosis after surgery given the correction required for her large fixed valgus deformity. Patient states that ecchymosis continued to resolve. Patient states that the knee is better than it was on and Monday but continues to be painful. Patient denies any trauma to the knee. Patient denies any trauma to her foot and ankle. Denies any numbness and tingling. Denies any history of gout or pseudogout. Patient has had 3 or 4 days of abdominal pain and distention associated with alternating constipation and diarrhea. IV antibiotics was started by the emergency department this includes vancomycin and Zosyn. Positive for fever, chills, shortness of breath, constipation, and diarrhea. Patient denies chest pain, nausea/vomiting, numbness, and tingling. Past Medical History Home Meds Active Scripts Oxycodone Hcl* (IR) (Roxicodone*) 5 Mg Tab, 5-10 MG PO Q4H PRN for .PAIN, #90 TAB Prov:DEJUAN KASPER MD 01/30/19 Aspirin Delayed Release (Aspirin Delayed Release) 81 Mg Tablet.dr, 81 MG PO BID for 84 Days Prov:DEJUAN KASPER MD 01/30/19 [Acetaminophen Tab] 500 MG TAB No Conflict Check, 1000 MG PO Q8 for 10 Days, TAB Prov:DEJUAN KASPER MD 01/30/19 Reported Medications Escitalopram Oxalate* (Lexapro*) 20 Mg Tablet, 20 MG PO DAILY, #30 TAB 01/29/19 Omeprazole* (Omeprazole*) 40 Mg Capsule.dr, 40 MG PO DAILY, #30 CAP 01/29/19 Losartan-Hydrochlorothiazide (Losartan-HCTZ) 100-25 Mg Tab, 1 TAB PO DAILY, TAB 01/28/19 Gabapentin* (Gabapentin*) 300 Mg Capsule, 300 MG PO DAILY, #60 CAP 01/28/19 Diclofenac Sodium* (Voltaren* XR) 100 Mg Tab.sr.24h, 100 MG PO BID, TAB.SA 01/28/19 Cetirizine Hcl* (Zyrtec*) 10 Mg Capsule, 10 MG PO DAILY, TAB 01/28/19 Cholecalciferol (Vitamin D3) (Vitamin D3) 2,000 Unit Tab.chew, 2000 UNIT PO DAILY, TAB.CHEW 01/28/19 Simvastatin (Simvastatin) 10 Mg Tablet, 10 MG PO DAILY, #30 TAB 01/28/19 Amlodipine Besylate* (Amlodipine Besylate*) 5 Mg Tablet, 5 MG PO DAILY, #30 TAB 01/28/19 Azelastine Hcl* (Azelastine Hcl*) 137 Mcg/0.137 Ml [place].pump, 1 SPRAY NASAL BID, #1 EA TO EACH NOSTRIL 01/28/19 Fluticasone Propionate* (Fluticasone Propionate* Nasal) 50 Mcg/[place] - 16 Gm [place].susp, 1 SPRAY NASAL BID, EA TO EACH NOSTRIL 11/10/14 Budesonide* (Pulmicort* (Neb)) 0.5 Mg/2 Ml Ampul.neb, 0.5 MG IH BID, EA 11/10/14 Diclofenac Sodium* (Diclofenac Sodium*) 75 Mg Tablet.dr, 100 MG PO BID, TAB 11/10/14 Medications Current Medications Acetaminophen (Tylenol Tab) 650 mg Q6H PRN PO MILD PAIN(1-3)OR ELEVATED TEMP Last administered on 02/11/19at 06:10; Admin Dose 650 MG; Start 02/11/19 at 03:00 Ondansetron HCl (Zofran Inj) 4 mg Q4H PRN IV NAUSEA AND/OR VOMITING; Start 02/11/19 at 03:00 Pantoprazole (Protonix Tab) 40 mg DAILY@06 PO Last administered on 02/11/19 06:09; Admin Dose 40 MG; Start 02/11/19 at 06:00 Vancomycin HCl (Vanco Iv Per Pharmacy) VANCOMYCIN PER PHARMACY PER PROTOCOL XX ; Start 02/11/19 at 03:00 Piperacillin Sod/ Tazobactam Sod 100 ml @ 200 mls/hr Q8 IVPB Last administered on 02/11/19 06:10; Admin Dose 200 MLS/HR; Start 02/11/19 at 06:00 Morphine Sulfate (morphine) 2 mg Q4H PRN IV SEVERE PAIN LEVEL 7-10 Last administered on 02/11/19 09:41; Admin Dose 2 MG; Start 02/11/19 at 03:00 Amlodipine Besylate (Norvasc) 5 mg DAILY PO ; Start 02/11/19 at 09:00 Aspirin (Halfprin) 81 mg BID PO Last administered on 02/11/19 08:37; Admin Dose 81 MG; Start 02/11/19 at 09:00 Azelastine HCl (Astelin) 1 spray BID NASAL Last administered on 02/11/19 08:36; Admin Dose 1 SPRAY; Start 02/11/19 at 09:00 Escitalopram Oxalate (Lexapro) 20 mg DAILY PO Last administered on 02/11/19 08:37; Admin Dose 20 MG; Start 02/11/19 at 09:00 Fluticasone Propionate (Flonase 0.05% Nasal) 1 spray BID NASAL ; Start 02/11/19 at 09:00 Gabapentin (Neurontin) 300 mg DAILY PO Last administered on 02/11/19 08:36; Admin Dose 300 MG; Start 02/11/19 at 09:00 Oxycodone HCl (Roxicodone) MODERATE PAIN 5-6 Q4H PRN PO .PAIN Last administered on 02/11/19 06:13; Admin Dose 5 MG; Start 02/11/19 at 03:30 Loratadine (Claritin) 10 mg DAILY PO Last administered on 7/8/19at 08:36; Admin Dose 10 MG; Start 02/11/19 at 09:00 Cholecalciferol (Vitamin D) 2,000 unit DAILY PO Last administered on 02/11/19at 08:37; Admin Dose 2,000 UNIT; Start 02/11/19 at 09:00 Miscellaneous Information 100 mg BID XX ; Start 02/11/19 at 09:00; Status UNV Atorvastatin Calcium (Lipitor) 10 mg DAILY PO Last administered on 02/11/19at 08:36; Admin Dose 10 MG; Start 02/11/19 at 09:00 Budesonide (Pulmicort (Neb)) 0.5 mg BID PRN NEB WHEEZING AND SOB; Start 02/11/19 at 03:30 Vancomycin HCl 250 ml @ 125 mls/hr Q12H IVPB ; Start 02/11/19 at 16:00 Miscellaneous Information (*Rx Drug Level Order Reminder*) VANCO TR ON @ 500 ONCE ONCE XX ; Start 02/12/19 at 15:00; Stop 02/12/19 at 15:01 Sodium Chloride 1,000 ml @ 70 mls/hr [id number] IV Last administered on 02/11/19at 08:54; Admin Dose 70 MLS/HR; Start 02/11/19 at 08:30 Albuterol/ Ipratropium (Duoneb) 3 ml Q4H RESP THERAPY HHN ; Start 02/11/19 at 13:00 Allergies: Coded Allergies: No Known Allergy (Unverified , 01/29/19) Past Surgical History Past Surgical Hx: noncontributory Social History Alcohol Use: rarely Smoking Status: Never smoker Drug Use: none Exam/Review of Systems Exam Vitals Vital Signs Date Temp Pulse Resp B/P (MAP) Pulse Ox O2 O2 Flow FiO2 Time Delivery Rate 02/11/19 100.0 08:37 02/11/19 90 19 103/50 91 07:37 (67) 02/11/19 Room Air 02:00 02/11/19 2.0 00:30 Intake and Output 02/10/19 02/10/19 02/11/19 1515:00 23:00 07:00 IntakeIntake Total 600 ml BalanceBalance 600 ml Exam General: Awake, alert, in no acute distress, pleasant and cooperative Heart: regular rhythm Lungs: breathing comfortably, no tachypnea or dyspnea MUSCULOSKELETAL: Right lower extremity: Incision is clean dry and intact with shruthi. There is subtle ecchymosis around the anterior incision. No true erythema. The knee is not erythematous. There is tenderness palpation over the anterior incision as well as over the lateral aspect of the knee. The knee is warm. There is a small knee effusion. Range of motion is 3-70. There is significant ecchymosis and swelling of the right ankle and foot. Ecchymosis is mostly along the lateral border of the foot. Range of motion of the ankle is preserved but is painful. There is no erythema. No significant warmth. Sensation intact to light touch in a sural, saphenous, deep peroneal, superficial peroneal, medial and lateral plantar nerve distribution. Motor is intact, patient able to dorsiflex and plantarflex ankle and extend and flex great toe. Dorsalis Pedis pulse +2, Brisk capillary refill. Compartments are soft. Calves non-tender to palpation bilaterally. Results Result Diagram: 02/11/19 0524 02/11/19 0524 Results 24hrs Laboratory Tests Test 02/10/19 22:33 02/10/19 22:36 02/11/19 00:01 02/11/19 00:19 White Blood Count 13.6 H Red Blood Count 3.20 L Hemoglobin 8.5 L Hematocrit 26.0 L Mean Corpuscular Volume 81.3 L Mean Corpuscular 26.6 L Hemoglobin Mean Corpuscular 32.7 Hemoglobin Concent Red Cell Distribution 13.1 Width Platelet Count 320 # Mean Platelet Volume 9.2 Immature Granulocytes % 2.600 H Neutrophils % 87.3 H Lymphocytes % 5.7 L Monocytes % 3.6 Eosinophils % 0.4 Basophils % 0.4 Nucleated Red Blood 0.3 H Cells % Immature Granulocytes # 0.350 H Neutrophils # 11.9 H Lymphocytes # 0.8 Monocytes # 0.5 Eosinophils # 0.1 Basophils # 0.1 Nucleated Red Blood 0.0 Cells # Prothrombin Time 13.4 Prothrombin Time Ratio 1.0 INR International 1.01 Normalized Ratio Activated 36.6 H Partial Thromboplast Time Sodium Level 139 Potassium Level 3.8 Chloride Level 103 Carbon Dioxide Level 25 Anion Gap 11 Blood Urea Nitrogen 13 Creatinine 1.03 H Est Glomerular Filtrat 55 L Rate mL/min Glucose Level 147 Calcium Level 9.4 Total Bilirubin 0.5 Direct Bilirubin 0.00 Indirect Bilirubin 0.5 Aspartate Amino 31 Transf (AST/SGOT) Alanine 28 Aminotransferase (ALT/SG PT) Alkaline Phosphatase 140 H Troponin I < 0.012 Total Protein 7.6 Albumin 3.9 Globulin 3.70 H Albumin/Globulin Ratio 1.05 POC Venous Lactate 2.5 *H Erythrocyte 125 H Sedimentation Rate C-Reactive Protein 25.3 H Lactic Acid Level 1.9 Test 02/11/19 02:39 02/11/19 05:24 02/11/19 09:35 Lactic Acid Level 1.2 White Blood Count 18.0 #H Red Blood Count 2.78 L Hemoglobin 7.3 L Hematocrit 23.0 L Mean Corpuscular Volume 82.7 Mean Corpuscular 26.3 L Hemoglobin Mean Corpuscular 31.7 L Hemoglobin Concent Red Cell Distribution 13.4 Width Platelet Count 257 Mean Platelet Volume 9.3 Immature Granulocytes % 1.800 H Neutrophils % 81.6 H Lymphocytes % 10.5 L Monocytes % 5.1 Eosinophils % 0.8 Basophils % 0.2 Nucleated Red Blood 0.3 H Cells % Immature Granulocytes # 0.320 H Neutrophils # 14.7 H Lymphocytes # 1.9 Monocytes # 0.9 Eosinophils # 0.2 Basophils # 0.0 Nucleated Red Blood 0.1 H Cells # Sodium Level 140 Potassium Level 4.2 Chloride Level 105 Carbon Dioxide Level 26 Anion Gap 9 Blood Urea Nitrogen 11 Creatinine 1.04 H Est Glomerular Filtrat 54 L Rate mL/min Glucose Level 140 Calcium Level 7.8 L Total Bilirubin 0.4 Direct Bilirubin 0.00 Indirect Bilirubin 0.4 Aspartate Amino 26 Transf (AST/SGOT) Alanine 36 Aminotransferase (ALT/SG PT) Alkaline Phosphatase 110 Total Protein 6.2 # Albumin 3.1 L Globulin 3.10 Albumin/Globulin Ratio 1.00 Lipase 33 Urine Color YELLOW Urine Clarity CLEAR Urine pH 6.0 Urine Specific [place] 1.005 Urine Ketones NEGATIVE Urine Nitrite NEGATIVE Urine Bilirubin NEGATIVE Urine Urobilinogen NEGATIVE Urine Leukocyte Esterase NEGATIVE Urine Hemoglobin NEGATIVE Urine Glucose NEGATIVE Urine Total Protein NEGATIVE Imaging Imaging 2 views of the right knee were obtained and personally reviewed: Shows status post total knee arthroplasty. There is no acute changes in the total knee arthroplasty. There is some soft tissue swelling. There is a small joint effusion. 3 views of the right ankle and right foot were personally reviewed: There are no acute osseous abnormalities. There is soft tissue swelling. 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 No fractures. Medications Medication Current Medications Acetaminophen (Tylenol Tab) 650 mg Q6H PRN PO MILD PAIN(1-3)OR ELEVATED TEMP Last administered on 02/11/19 06:10; Admin Dose 650 MG; Start 02/11/19 at 03:00 Ondansetron HCl (Zofran Inj) 4 mg Q4H PRN IV NAUSEA AND/OR VOMITING; Start 02/11/19 at 03:00 Pantoprazole (Protonix Tab) 40 mg DAILY@06 PO Last administered on 02/11/19 06:09; Admin Dose 40 MG; Start 02/11/19 at 06:00 Vancomycin HCl (Vanco Iv Per Pharmacy) VANCOMYCIN PER PHARMACY PER PROTOCOL XX ; Start 02/11/19 at 03:00 Piperacillin Sod/ Tazobactam Sod 100 ml @ 200 mls/hr Q8 IVPB Last administered on 02/11/19 06:10; Admin Dose 200 MLS/HR; Start 02/11/19 at 06:00 Morphine Sulfate (morphine) 2 mg Q4H PRN IV SEVERE PAIN LEVEL 7-10 Last administered on 02/11/19at 09:41; Admin Dose 2 MG; Start 02/11/19 at 03:00 Amlodipine Besylate (Norvasc) 5 mg DAILY PO ; Start 02/11/19 at 09:00 Aspirin (Halfprin) 81 mg BID PO Last administered on 02/11/19at 08:37; Admin Dose 81 MG; Start 02/11/19 at 09:00 Azelastine HCl (Astelin) 1 spray BID NASAL Last administered on 02/11/19 08:36; Admin Dose 1 SPRAY; Start 02/11/19 at 09:00 Escitalopram Oxalate (Lexapro) 20 mg DAILY PO Last administered on 02/11/19 08:37; Admin Dose 20 MG; Start 02/11/19 at 09:00 Fluticasone Propionate (Flonase 0.05% Nasal) 1 spray BID NASAL ; Start 02/11/19 at 09:00 Gabapentin (Neurontin) 300 mg DAILY PO Last administered on 02/11/19 08:36; Admin Dose 300 MG; Start 02/11/19 at 09:00 Oxycodone HCl (Roxicodone) MODERATE PAIN 5-6 Q4H PRN PO .PAIN Last administered on 02/11/19 06:13; Admin Dose 5 MG; Start 02/11/19 at 03:30 Loratadine (Claritin) 10 mg DAILY PO Last administered on 02/11/19at 08:36; Admin Dose 10 MG; Start 02/11/19 at 09:00 Cholecalciferol (Vitamin D) 2,000 unit DAILY PO Last administered on 02/11/19 08:37; Admin Dose 2,000 UNIT; Start 02/11/19 at 09:00 Miscellaneous Information 100 mg BID XX ; Start 02/11/19 at 09:00; Status UNV Atorvastatin Calcium (Lipitor) 10 mg DAILY PO Last administered on 02/11/19 08:36; Admin Dose 10 MG; Start 02/11/19 at 09:00 Budesonide (Pulmicort (Neb)) 0.5 mg BID PRN NEB WHEEZING AND SOB; Start 02/11/19 at 03:30 Vancomycin HCl 250 ml @ 125 mls/hr Q12H IVPB ; Start 02/11/19 at 16:00 Miscellaneous Information (*Rx Drug Level Order Reminder*) VANCO TR ON @ 500 ONCE ONCE XX ; Start 02/12/19 at 15:00; Stop 02/12/19 at 15:01 Sodium Chloride 1,000 ml @ 70 mls/hr [id number] IV Last administered on 02/11/19at 08:54; Admin Dose 70 MLS/HR; Start 02/11/19 at 08:30 Albuterol/ Ipratropium (Duoneb) 3 ml Q4H RESP THERAPY HHN ; Start 02/11/19 at 13:00 DEJUAN KASPER MD Feb 11, 2019 13:14
[2019-02-11] MEDS: ALBUTEROL/IPRATROPIUM (NEB) 3 ML AMP HHN SCH ×3 (14:35→21:41)
[2019-02-11] MEDS: VANCOMYCIN 1 GM 250 ML IVPB SCH (16:38)
[2019-02-11] MEDS: FLUTICASONE 0.05% 16 GM NAS SPRAY NASAL SCH ×2 (16:46→20:47)
[2019-02-11 20:00] VITALS: BP 99/45; PULSE 75; RESP 17
--- NOTE | 2019-02-12 00:21 | CONS ---
DATE OF ADMISSION: 02/11/2019 DATE OF CONSULTATION: 02/11/2019 TYPE OF CONSULTATION: Infectious disease. REASON FOR CONSULTATION: Antibiotic management. HISTORY OF PRESENT ILLNESS: Michelle Rincon is a 59-year-old female who comes to the Emergency Room with fever, shortness of breath and right total knee replacement which was done on 01/29. Her past problems include: 1. Chronic sinusitis. 2. Status post sinus surgeries. 3. Tonsillectomy. 4. Hypertension. 5. Obesity. 6. Right total knee replacement on 01/29/2019. According to the patient, the bandage is the original bandage when she came into the Emergency Room b ecause it was not changed. She complained of swelling of the knee. Her white count was 13.6, H and H of 8.5 and 26, platelet count 320,000. BUN and creatinine 13/1.03. The patient was started on van comycin and Zosyn on the fear that she may have infection involving her knee. A chest x-ray was no e vidence of acute cardiopulmonary disease. A knee x-ray shows that the hardware was intact. A foot x -ray showed soft tissue swelling without evidence of acute osseous abnormality, mild to moderate arth rosis of the MTP joint and chronic-appearing changes of the left sesamoid was made, sequelae of old i njury or chronic sigmoid chronic changes of the sesamoids. The patient was seen by Dr. Ayoub today. He notes that she is 13 days status post right total knee arthroplasty. She presented with 1 day of fever to above 102. She had an elevated white count. Sed rate also was elevated. Doppler was negat jade for DVT. The knee itself is tender. No drainage. He aspirated the knee itself and the skin and capsule was anesthetized. He did inject intraarticularly the knee was aspirated. There was 30 mL o f bloody synovial fluid, no gross purulence or debris was seen. The patient tolerated the procedure well. PAST MEDICAL HISTORY: Operations as outlined. FAMILY HISTORY: Noncontributory. SOCIAL HISTORY: She does not smoke, drink or abuse drugs. ALLERGIES: NONE TO PENICILLIN, SULFA OR FOODS. MEDICATIONS: Per chart. REVIEW OF SYSTEMS: As per HPI. PHYSICAL EXAMINATION: GENERAL: The patient presented to the Emergency Room with a temperature of 103; now she is afebrile. SKIN: Without generalized rash. HEENT: Within normal limits. NECK: Supple. LYMPH NODES: None palpable. CHEST: Decreased breath sounds at the bases. HEART: Without murmur or gallop. ABDOMEN: Soft, nontender, without organosplenomegaly or masses. EXTREMITIES: Currently, the knee itself is inflamed. She has shruthi all along the wound itself. T here is no fluctuance. EXTREMITIES: Without cyanosis, clubbing, or edema otherwise. RECTAL AND GENITAL: Deferred. NEUROLOGIC: No focal neurological abnormalities. Temperature today went up to 102.2, then 101.9. CONCLUSION: We have to be concerned about the possibility of infected total knee replacement or supe rficial cellulitis. Her white count today was 18,000. Her sed rate was 125. The right knee had 404 white cells, 57% neutrophils. Her urinalysis was negative. We will continue her now on her vancomy angelica and Zosyn, although this will muddy the connelly with regards to her cultures. I will dictate my f indings to Dr. Bowden and to Dr. Ayoub. Dictated By: DON MAYS MD, JD/ARNALDO Conf#: [id number] DID#: [id number] CC: JACQUI BOWDEN;*End*
[2019-02-12] MEDS: ALBUTEROL/IPRATROPIUM (NEB) 3 ML AMP HHN SCH ×6 (01:29→21:16)
[2019-02-12 02:32] VITALS: BP 136/62; PULSE 87; RESP 19
[2019-02-12] MEDS: ACETAMINOPHEN 325 MG TAB PO PRN ×3 (03:23→17:31)
[2019-02-12] MEDS: VANCOMYCIN 1 GM 250 ML IVPB SCH ×2 (03:26→17:32)
[2019-02-12] MEDS: morphine 2 MG INJ IV PRN (03:34)
[2019-02-12] MEDS: PIPER-TAZO 3.375 GM IV (PMX) 100 ML IVPB SCH ×3 (05:23→22:35)
[2019-02-12] MEDS: PANTOPRAZOLE (EC) 40 MG TAB PO SCH (05:23)
[2019-02-12] MEDS: SOD CHLORIDE 0.9% 1,000 ML IV SCH (05:25)
[2019-02-12 06:13] VITALS: BP 115/57; PULSE 84; RESP 19
[2019-02-12 07:58] VITALS: BP 128/59; PULSE 76; RESP 17
[2019-02-12] MEDS: ASPIRIN (EC) 81 MG TAB PO SCH (08:46)
[2019-02-12] MEDS: ATORVASTATIN 10 MG TAB PO SCH (08:47)
[2019-02-12] MEDS: LORATADINE 10 MG TAB PO SCH (08:47)
[2019-02-12] MEDS: AMLODIPINE 5 MG TAB PO SCH (08:47)
[2019-02-12] MEDS: AZELASTINE 30 ML NAS SPRAY NASAL SCH ×2 (08:47→20:19)
[2019-02-12] MEDS: CHOLECALCIFEROL 2,000 UNIT CAP PO SCH (08:47)
[2019-02-12] MEDS: FLUTICASONE 0.05% 16 GM NAS SPRAY NASAL SCH ×2 (08:47→20:18)
[2019-02-12] MEDS: GABAPENTIN 300 MG CAP PO SCH (08:47)
[2019-02-12] MEDS: ESCITALOPRAM 10 MG TAB PO SCH (08:47)
[2019-02-12] MEDS: oxyCODONE 5 MG TAB PO PRN ×2 (10:13→20:18)
[2019-02-12] MEDS ORDERED: ACETAMINOPHEN 325 MG TAB PO PRN (12:00)
[2019-02-12] MEDS ORDERED: DIPHENHYDRAMINE 25 MG CAP PO ONE (12:00)
--- NOTE | 2019-02-12 13:49 | PN ---
Date/Time of Note Date/Time of Note DATE: 02/12/19 TIME: 13:45 Assessment/Plan VTE Prophylaxis Risk score (from Ns)>0 risk: 3 SCD applied (from Ns): Yes Pharmacological prophylaxis: NA/contraindicated Pharm contraindication: low risk/ambulating Lines/Catheters IV Catheter Type (from [facility]): Peripheral IV Urinary Cath still in place: No Assessment/Plan Assessment/Plan This is a 59-year-old female, who presented with: 1. Fevers, leukocytosis, status post right total knee replacement on . A source this could be right knee versus gastroenteritis versus abdominal etiology versus pneumonia; however, chest x-ray is negative. UA is negative. X-ray of the knee as above. sp post aspiration of the knee 2. History of hypertension, currently hypotensive. 3. Hyperlipidemia. 4. Obesity. 5. GERD. 6. Allergic rhinitis. 7. Mood disorder. 8 anemia with acute blood loss? Hematoma in knee , denies any GI bleed 9 SOB likley due to pul edema sp iv fluids evident on chest xray Plan -gram stain from the knee positive for staph -She had acute blood loss? Hematoma in the knee. Denies any GI bleeding - ? Surgical exploration - cw with vancomycin/cefepime -UA negative. Abdominal ultrasound negative, PT chest x-ray with some edema status post IV fluids -Will give 1 order of blood today with some Lasix -Hold aspirin due to blood loss Result Diagram: 02/12/19 0511 02/12/19 0511 Results 24hrs Laboratory Tests Test 02/12/19 05:11 White Blood Count 14.7 H Red Blood Count 2.53 L Hemoglobin 6.9 *L Hematocrit 21.0 L Mean Corpuscular Volume 83.0 Mean Corpuscular Hemoglobin 27.3 L Mean Corpuscular Hemoglobin Concent 32.9 Red Cell Distribution Width 13.5 Platelet Count 278 Mean Platelet Volume 9.6 Immature Granulocytes % 2.200 H Neutrophils % 77.5 H Lymphocytes % 11.9 L Monocytes % 7.4 Eosinophils % 0.7 Basophils % 0.3 Nucleated Red Blood Cells % 0.1 H Immature Granulocytes # 0.330 H Neutrophils # 11.4 H Lymphocytes # 1.8 Monocytes # 1.1 H Eosinophils # 0.1 Basophils # 0.0 Nucleated Red Blood Cells # 0.0 Sodium Level 139 Potassium Level 3.9 Chloride Level 105 Carbon Dioxide Level 26 Anion Gap 8 Blood Urea Nitrogen 6 L Creatinine 0.83 Est Glomerular Filtrat Rate mL/min > 60 Glucose Level 132 Calcium Level 7.9 L Phosphorus Level 3.4 Magnesium Level 1.8 Subjective 24 Hr Interval Summary Free Text/Dictation Low-grade fever 100 Right leg still swollen Exam/Review of Systems Exam Vitals Vital Signs Date Temp Pulse Resp B/P (MAP) Pulse Ox O2 O2 Flow FiO2 Time Delivery Rate 02/12/19 78 16 93 Nasal 4.0 12:50 Cannula 02/12/19 98.2 11:14 02/12/19 128/59 07:58 (82) Intake and Output 02/11/19 02/11/19 02/12/19 1515:00 23:00 07:00 IntakeIntake Total 1650 ml 1150 ml 730 ml OutputOutput Total 200 ml BalanceBalance 1650 ml 950 ml 730 ml Exam GENERAL: The patient is awake, alert, oriented, does not appear to in any acute distress. Morbidly obese HEENT: Pupils equal, round, reactive to light. NECK: Supple. HEART: Regular rate and rhythm. LUNGS: Some decreased breath sound on the left base. ABDOMEN: Soft. Some tenderness present in the right upper quadrant. Positive bowel sounds. EXTREMITIES: Right lower extremity, status post total knee replacement. The surgical site has shruthi intact in place. Some tenderness noted around the site. It is very tense, slightly warm. Diffuse swelling noted on the right leg, right ankle, also ecchymosis noted on the back of the right knee and on the foot. Results Results 24hrs Laboratory Tests Test 02/12/19 05:11 White Blood Count 14.7 H Red Blood Count 2.53 L Hemoglobin 6.9 *L Hematocrit 21.0 L Mean Corpuscular Volume 83.0 Mean Corpuscular Hemoglobin 27.3 L Mean Corpuscular Hemoglobin Concent 32.9 Red Cell Distribution Width 13.5 Platelet Count 278 Mean Platelet Volume 9.6 Immature Granulocytes % 2.200 H Neutrophils % 77.5 H Lymphocytes % 11.9 L Monocytes % 7.4 Eosinophils % 0.7 Basophils % 0.3 Nucleated Red Blood Cells % 0.1 H Immature Granulocytes # 0.330 H Neutrophils # 11.4 H Lymphocytes # 1.8 Monocytes # 1.1 H Eosinophils # 0.1 Basophils # 0.0 Nucleated Red Blood Cells # 0.0 Sodium Level 139 Potassium Level 3.9 Chloride Level 105 Carbon Dioxide Level 26 Anion Gap 8 Blood Urea Nitrogen 6 L Creatinine 0.83 Est Glomerular Filtrat Rate mL/min > 60 Glucose Level 132 Calcium Level 7.9 L Phosphorus Level 3.4 Magnesium Level 1.8 Medications Medication Current Medications Acetaminophen (Tylenol Tab) 650 mg Q6H PRN PO MILD PAIN(1-3)OR ELEVATED TEMP Last administered on 02/12/19 08:45; Admin Dose 650 MG; Start 02/11/19 at 03:00 Ondansetron HCl (Zofran Inj) 4 mg Q4H PRN IV NAUSEA AND/OR VOMITING; Start 02/11/19 at 03:00 Pantoprazole (Protonix Tab) 40 mg DAILY@06 PO Last administered on 02/12/19 05:23; Admin Dose 40 MG; Start 02/11/19 at 06:00 Vancomycin HCl (Vanco Iv Per Pharmacy) VANCOMYCIN PER PHARMACY PER PROTOCOL XX ; Start 02/11/19 at 03:00 Piperacillin Sod/ Tazobactam Sod 100 ml @ 200 mls/hr Q8 IVPB Last administered on 02/12/19 05:23; Admin Dose 200 MLS/HR; Start 02/11/19 at 06:00 Morphine Sulfate (morphine) 2 mg Q4H PRN IV SEVERE PAIN LEVEL 7-10 Last admini stered on 02/12/19 03:34; Admin Dose 2 MG; Start 02/11/19 at 03:00 Amlodipine Besylate (Norvasc) 5 mg DAILY PO Last administered on 02/12/19 08:47; Admin Dose 5 MG; Start 02/11/19 at 09:00 Azelastine HCl (Astelin) 1 spray BID NASAL Last administered on 02/12/19 08:47; Admin Dose 1 SPRAY; Start 02/11/19 at 09:00 Escitalopram Oxalate (Lexapro) 20 mg DAILY PO Last administered on 02/12/19 08:47; Admin Dose 20 MG; Start 02/11/19 at 09:00 Fluticasone Propionate (Flonase 0.05% Nasal) 1 spray BID NASAL Last administered on 02/12/19 08:47; Admin Dose 1 SPRAY; Start 02/11/19 at 09:00 Gabapentin (Neurontin) 300 mg DAILY PO Last administered on 02/12/19 08:47; Admin Dose 300 MG; Start 02/11/19 at 09:00 Oxycodone HCl (Roxicodone) MODERATE PAIN 5-6 Q4H PRN PO .PAIN Last administered on 02/12/19 10:13; Admin Dose 5 MG; Start 02/11/19 at 03:30 Loratadine (Claritin) 10 mg DAILY PO Last administered on 02/12/19 08:47; Admin Dose 10 MG; Start 02/11/19 at 09:00 Cholecalciferol (Vitamin D) 2,000 unit DAILY PO Last administered on 02/12/19 08:47; Admin Dose 2,000 UNIT; Start 02/11/19 at 09:00 Atorvastatin Calcium (Lipitor) 10 mg DAILY PO Last administered on 02/12/19 08:47; Admin Dose 10 MG; Start 02/11/19 at 09:00 Budesonide (Pulmicort (Neb)) 0.5 mg BID PRN NEB WHEEZING AND SOB; Start 02/11/19 at 03:30 Vancomycin HCl 250 ml @ 125 mls/hr Q12H IVPB Last administered on 02/12/19 03:26; Admin Dose 125 MLS/HR; Start 02/11/19 at 16:00 Miscellaneous Information (*Rx Drug Level Order Reminder*) VANCO TR ON @ 500 ONCE ONCE XX ; Start 02/12/19 at 15:00; Stop 02/12/19 at 15:01 Sodium Chloride 1,000 ml @ 40 mls/hr Q24H IV Last administered on 02/12/19 05:25; Admin Dose 40 MLS/HR; Start 02/11/19 at 08:30 Albuterol/ Ipratropium (Duoneb) 3 ml Q4H RESP THERAPY HHN Last administered on 02/12/19 12:49; Admin Dose 3 ML; Start 02/11/19 at 13:00 Acetaminophen (Tylenol Tab) 650 mg Q4H PRN PO MILD PAIN(1-3)OR ELEVATED TEMP Last administered on 02/12/19 12:00; Admin Dose 650 MG; Start 02/12/19 at 12:00 JACQUI FUNES MD Feb 12, 2019 13:49
[2019-02-12] MEDS ORDERED: FUROSEMIDE 20 MG INJ IV ONE (14:00)
[2019-02-12 15:20] VITALS: BP 132/60; PULSE 72; RESP 19
--- NOTE | 2019-02-12 16:24 | CONS ---
Assessment/Plan Assessment/Plan Hospital Course (Demo Recall) Patient is alert still with looks comfortable no nausea vomiting diarrhea she just finished blood transfusion WBC 14.7 H&H 6.9 and 21 platelets 278 neutrophils 77.5 BUN 6 creatinine 0.83 Blood cultures since admission negative right knee drainage culture growing staph species Ultrasound of the abdomen revealed hepatomegaly chest x-ray on admission revealed mild prominence of interstitial markings likely reflecting edema extremity venous study revealed no DVT Antimicrobials: Patient is on Vanco and Zosyn since admission Physical examination: This is obese well-developed middle-aged woman who is alert in no distress. Head atraumatic normocephalic sclera nonicteric vehicle mucosa dry neck is supple chest rise symmetrical breath sounds clear. Heart: Mask S1-S2 abdomen soft patient has some tenderness over right upper quadrant on palpation no suprapubic tenderness bowel sounds present. Extremities without cyanosis right knee incision with shruthi clean dry and intact no drainage no erythema Assessment: 1. Ongoing fevers 2. Right knee cellulitis on admission status post fluid aspiration 3. History of recent right total knee replacement 01/29/19 4. Morbid obesity 5. Acute anemia Plan: Patient is clinically stable, still with low-grade fevers but improvement, she had diarrhea previously that is resolved now, her right knee does not look infected and she is being seen by Ortho surgeon. We will repeat chest x-ray in a.m. continue her on current antibiotics transfuse as needed, check ESR level in a.m. Consultation Date/Type/Reason Admit Date/Time Feb 11, 2019 at 00:10 Initial Consult Date 02/11/19 Type of Consult id Date/Time of Note DATE: 02/12/19 TIME: 16:23 Exam/Review of Systems Exam Vitals Vital Signs Date Temp Pulse Resp B/P (MAP) Pulse Ox O2 O2 Flow FiO2 Time Delivery Rate 02/12/19 98.1 72 19 132/60 94 Nasal 15:20 (84) Cannula 02/12/19 4.0 12:50 Intake and Output 02/11/19 02/11/19 02/12/19 1515:00 23:00 07:00 IntakeIntake Total 1650 ml 1150 ml 730 ml OutputOutput Total 200 ml BalanceBalance 1650 ml 950 ml 730 ml Results Result Diagram: 02/12/19 0511 02/12/19 0511 Results 24hrs Laboratory Tests Test 02/12/19 05:11 02/12/19 15:01 White Blood Count 14.7 H Red Blood Count 2.53 L Hemoglobin 6.9 *L Hematocrit 21.0 L Mean Corpuscular Volume 83.0 Mean Corpuscular Hemoglobin 27.3 L Mean Corpuscular Hemoglobin Concent 32.9 Red Cell Distribution Width 13.5 Platelet Count 278 Mean Platelet Volume 9.6 Immature Granulocytes % 2.200 H Neutrophils % 77.5 H Lymphocytes % 11.9 L Monocytes % 7.4 Eosinophils % 0.7 Basophils % 0.3 Nucleated Red Blood Cells % 0.1 H Immature Granulocytes # 0.330 H Neutrophils # 11.4 H Lymphocytes # 1.8 Monocytes # 1.1 H Eosinophils # 0.1 Basophils # 0.0 Nucleated Red Blood Cells # 0.0 Sodium Level 139 Potassium Level 3.9 Chloride Level 105 Carbon Dioxide Level 26 Anion Gap 8 Blood Urea Nitrogen 6 L Creatinine 0.83 Est Glomerular Filtrat Rate mL/min > 60 Glucose Level 132 Calcium Level 7.9 L Phosphorus Level 3.4 Magnesium Level 1.8 Vancomycin Level Trough 6.7 L Medications Medication Current Medications Acetaminophen (Tylenol Tab) 650 mg Q6H PRN PO MILD PAIN(1-3)OR ELEVATED TEMP Last administered on 02/12/19at 08:45; Admin Dose 650 MG; Start 02/11/19 at 03:00 Ondansetron HCl (Zofran Inj) 4 mg Q4H PRN IV NAUSEA AND/OR VOMITING; Start 02/11/19 at 03:00 Pantoprazole (Protonix Tab) 40 mg DAILY@06 PO Last administered on 02/12/19at 05:23; Admin Dose 40 MG; Start 02/11/19 at 06:00 Vancomycin HCl (Vanco Iv Per Pharmacy) VANCOMYCIN PER PHARMACY PER PROTOCOL XX ; Start 02/11/19 at 03:00 Piperacillin Sod/ Tazobactam Sod 100 ml @ 200 mls/hr Q8 IVPB Last administered on 02/12/19at 05:23; Admin Dose 200 MLS/HR; Start 02/11/19 at 06:00 Morphine Sulfate (morphine) 2 mg Q4H PRN IV SEVERE PAIN LEVEL 7-10 Last administered on 02/12/19at 03:34; Admin Dose 2 MG; Start 02/11/19 at 03:00 Amlodipine Besylate (Norvasc) 5 mg DAILY PO Last administered on 02/12/19 08:47; Admin Dose 5 MG; Start 02/11/19 at 09:00 Azelastine HCl (Astelin) 1 spray BID NASAL Last administered on 02/12/19 08:47; Admin Dose 1 SPRAY; Start 02/11/19 at 09:00 Escitalopram Oxalate (Lexapro) 20 mg DAILY PO Last administered on 02/12/19 08:47; Admin Dose 20 MG; Start 02/11/19 at 09:00 Fluticasone Propionate (Flonase 0.05% Nasal) 1 spray BID NASAL Last administered on 02/12/19 08:47; Admin Dose 1 SPRAY; Start 02/11/19 at 09:00 Gabapentin (Neurontin) 300 mg DAILY PO Last administered on 02/12/19 08:47; Admin Dose 300 MG; Start 02/11/19 at 09:00 Oxycodone HCl (Roxicodone) MODERATE PAIN 5-6 Q4H PRN PO .PAIN Last administered on 02/12/19 10:13; Admin Dose 5 MG; Start 02/11/19 at 03:30 Loratadine (Claritin) 10 mg DAILY PO Last administered on 02/12/19 08:47; Admin Dose 10 MG; Start 02/11/19 at 09:00 Cholecalciferol (Vitamin D) 2,000 unit DAILY PO Last administered on 02/12/19 08:47; Admin Dose 2,000 UNIT; Start 02/11/19 at 09:00 Atorvastatin Calcium (Lipitor) 10 mg DAILY PO Last administered on 02/12/19 08:47; Admin Dose 10 MG; Start 02/11/19 at 09:00 Budesonide (Pulmicort (Neb)) 0.5 mg BID PRN NEB WHEEZING AND SOB; Start 02/11/19 at 03:30 Vancomycin HCl 250 ml @ 125 mls/hr Q12H IVPB Last administered on 02/12/19 03:26; Admin Dose 125 MLS/HR; Start 02/11/19 at 16:00 Albuterol/ Ipratropium (Duoneb) 3 ml Q4H RESP THERAPY HHN Last administered on 02/12/19 12:49; Admin Dose 3 ML; Start 02/11/19 at 13:00 Acetaminophen (Tylenol Tab) 650 mg Q4H PRN PO MILD PAIN(1-3)OR ELEVATED TEMP Last administered on 02/12/19at 12:00; Admin Dose 650 MG; Start 02/12/19 at 12:00 Calcium Carbonate (Oyster Shell Calcium) 1.25 gm BID NGT ; Start 02/12/19 at 14:00 CRISTHIAN HARVEY NP Feb 12, 2019 16:24
[2019-02-12 18:11] VITALS: BP 165/80
[2019-02-12] MEDS: CALCIUM CARBONATE 1.25 GM TAB NGT SCH ×2 (18:37→20:17)
[2019-02-12] MEDS ORDERED: SOD CHLORIDE 0.9% 100 ML ONE (20:31)
[2019-02-12] MEDS ORDERED: IOHEXOL 100 ML ONE (20:31)
--- NOTE | 2019-02-12 20:45 | CONS ---
Consult Date/Type/Reason Admit Date/Time Feb 11, 2019 at 00:10 Initial Consult Date 02/11/19 Date/Time of Note DATE: 02/12/19 TIME: 20:37 Subjective Patient continued to have fevers overnight. Her hemoglobin continued to decrease in the internal medicine physician ordered 1 unit of packed red blood cells. She is also complaining of shortness of breath. In regards to her right knee she states her knee feels better. Objective Vitals Vital Signs Date Temp Pulse Resp B/P (MAP) Pulse Ox O2 O2 Flow FiO2 Time Delivery Rate 02/12/19 165/80 18:11 (108) 02/12/19 99.0 17:40 02/12/19 80 18 88 Nasal 4.0 16:23 Cannula Intake and Output 02/11/19 02/11/19 02/12/19 1515:00 23:00 07:00 IntakeIntake Total 1650 ml 1150 ml 730 ml OutputOutput Total 200 ml BalanceBalance 1650 ml 950 ml 730 ml Exam General: Awake, alert, in no acute distress, pleasant and cooperative Heart: regular rhythm Lungs: breathing comfortably, no tachypnea or dyspnea MUSCULOSKELETAL: Right lower extremity: Incision is healing well. There is no erythema. There is mild swelling and mild warmth to the knee. Range of motion is painless between 0 and 70 degrees. Sensation intact to light touch in a sural, saphenous, deep peroneal, superficial peroneal, medial and lateral plantar nerve distribution. Motor is intact, patient able to dorsiflex and plantarflex ankle and extend and flex great toe. Dorsalis Pedis pulse +2, Brisk capillary refill. Compartments are soft. Calves non-tender to palpation bilaterally. Results/Medications Result Diagram: 02/12/19 0511 02/12/19 05 Results 24 hrs Laboratory Tests Test 02/12/19 05:11 02/12/19 15:01 White Blood Count 14.7 H Red Blood Count 2.53 L Hemoglobin 6.9 *L Hematocrit 21.0 L Mean Corpuscular Volume 83.0 Mean Corpuscular Hemoglobin 27.3 L Mean Corpuscular Hemoglobin Concent 32.9 Red Cell Distribution Width 13.5 Platelet Count 278 Mean Platelet Volume 9.6 Immature Granulocytes % 2.200 H Neutrophils % 77.5 H Lymphocytes % 11.9 L Monocytes % 7.4 Eosinophils % 0.7 Basophils % 0.3 Nucleated Red Blood Cells % 0.1 H Immature Granulocytes # 0.330 H Neutrophils # 11.4 H Lymphocytes # 1.8 Monocytes # 1.1 H Eosinophils # 0.1 Basophils # 0.0 Nucleated Red Blood Cells # 0.0 Sodium Level 139 Potassium Level 3.9 Chloride Level 105 Carbon Dioxide Level 26 Anion Gap 8 Blood Urea Nitrogen 6 L Creatinine 0.83 Est Glomerular Filtrat Rate mL/min > 60 Glucose Level 132 Calcium Level 7.9 L Phosphorus Level 3.4 Magnesium Level 1.8 Vancomycin Level Trough 6.7 L Home Meds Active Scripts Oxycodone Hcl* (IR) (Roxicodone*) 5 Mg Tab, 5-10 MG PO Q4H PRN for .PAIN, #90 TAB Prov:DEJUAN KASPER MD 01/30/19 Aspirin Delayed Release (Aspirin Delayed Release) 81 Mg Tablet.dr, 81 MG PO BID for 84 Days Prov:DEJUAN KASPER MD 01/30/19 [Acetaminophen Tab] 500 MG TAB No Conflict Check, 1000 MG PO Q8 for 10 Days, TAB Prov:DEJUAN KASPER MD 01/30/19 Reported Medications Escitalopram Oxalate* (Lexapro*) 20 Mg Tablet, 20 MG PO DAILY, #30 TAB 01/29/19 Omeprazole* (Omeprazole*) 40 Mg Capsule.dr, 40 MG PO DAILY, #30 CAP 01/29/19 Losartan-Hydrochlorothiazide (Losartan-HCTZ) 100-25 Mg Tab, 1 TAB PO DAILY, TAB 01/28/19 Gabapentin* (Gabapentin*) 300 Mg Capsule, 300 MG PO DAILY, #60 CAP 01/28/19 Diclofenac Sodium* (Voltaren* XR) 100 Mg Tab.sr.24h, 100 MG PO BID, TAB.SA 01/28/19 Cetirizine Hcl* (Zyrtec*) 10 Mg Capsule, 10 MG PO DAILY, TAB 01/28/19 Cholecalciferol (Vitamin D3) (Vitamin D3) 2,000 Unit Tab.chew, 2000 UNIT PO DAILY, TAB.CHEW 01/28/19 Simvastatin (Simvastatin) 10 Mg Tablet, 10 MG PO DAILY, #30 TAB 01/28/19 Amlodipine Besylate* (Amlodipine Besylate*) 5 Mg Tablet, 5 MG PO DAILY, #30 TAB 01/28/19 Azelastine Hcl* (Azelastine Hcl*) 137 Mcg/0.137 Ml [place].pump, 1 SPRAY NASAL BID, #1 EA TO EACH NOSTRIL 01/28/19 Fluticasone Propionate* (Fluticasone Propionate* Nasal) 50 Mcg/[place] - 16 Gm [place].susp, 1 SPRAY NASAL BID, EA TO EACH NOSTRIL 11/10/14 Budesonide* (Pulmicort* (Neb)) 0.5 Mg/2 Ml Ampul.neb, 0.5 MG IH BID, EA 11/10/14 Diclofenac Sodium* (Diclofenac Sodium*) 75 Mg Tablet.dr, 100 MG PO BID, TAB 11/10/14 Medications Current Medications Acetaminophen (Tylenol Tab) 650 mg Q6H PRN PO MILD PAIN(1-3)OR ELEVATED TEMP Last administered on 02/12/19at 17:31; Admin Dose 650 MG; Start 02/11/19 at 03:00 Ondansetron HCl (Zofran Inj) 4 mg Q4H PRN IV NAUSEA AND/OR VOMITING; Start 02/11/19 at 03:00 Pantoprazole (Protonix Tab) 40 mg DAILY@06 PO Last administered on 02/12/19 05:23; Admin Dose 40 MG; Start 02/11/19 at 06:00 Vancomycin HCl (Vanco Iv Per Pharmacy) VANCOMYCIN PER PHARMACY PER PROTOCOL XX ; Start 02/11/19 at 03:00 Piperacillin Sod/ Tazobactam Sod 100 ml @ 200 mls/hr Q8 IVPB Last administered on 02/12/19 17:31; Admin Dose 200 MLS/HR; Start 02/11/19 at 06:00 Morphine Sulfate (morphine) 2 mg Q4H PRN IV SEVERE PAIN LEVEL 7-10 Last administered on 02/12/19 03:34; Admin Dose 2 MG; Start 02/11/19 at 03:00 Amlodipine Besylate (Norvasc) 5 mg DAILY PO Last administered on 02/12/19at 08:47; Admin Dose 5 MG; Start 02/11/19 at 09:00 Azelastine HCl (Astelin) 1 spray BID NASAL Last administered on 02/12/19at 20:19; Admin Dose 1 SPRAY; Start 02/11/19 at 09:00 Escitalopram Oxalate (Lexapro) 20 mg DAILY PO Last administered on 02/12/19 08:47; Admin Dose 20 MG; Start 02/11/19 at 09:00 Fluticasone Propionate (Flonase 0.05% Nasal) 1 spray BID NASAL Last administered on 02/12/19 20:18; Admin Dose 1 SPRAY; Start 02/11/19 at 09:00 Gabapentin (Neurontin) 300 mg DAILY PO Last administered on 02/12/19 08:47; Admin Dose 300 MG; Start 02/11/19 at 09:00 Oxycodone HCl (Roxicodone) MODERATE PAIN 5-6 Q4H PRN PO .PAIN Last administered on 02/12/19 20:18; Admin Dose 5 MG; Start 02/11/19 at 03:30 Loratadine (Claritin) 10 mg DAILY PO Last administered on 02/12/19 08:47; Admin Dose 10 MG; Start 02/11/19 at 09:00 Cholecalciferol (Vitamin D) 2,000 unit DAILY PO Last administered on 02/12/19 08:47; Admin Dose 2,000 UNIT; Start 02/11/19 at 09:00 Atorvastatin Calcium (Lipitor) 10 mg DAILY PO Last administered on 02/12/19 08:47; Admin Dose 10 MG; Start 02/11/19 at 09:00 Budesonide (Pulmicort (Neb)) 0.5 mg BID PRN NEB WHEEZING AND SOB; Start 02/11/19 at 03:30 Albuterol/ Ipratropium (Duoneb) 3 ml Q4H RESP THERAPY HHN Last administered on 02/12/19 16:23; Admin Dose 3 ML; Start 02/11/19 at 13:00 Acetaminophen (Tylenol Tab) 650 mg Q4H PRN PO MILD PAIN(1-3)OR ELEVATED TEMP Last administered on 02/12/19 12:00; Admin Dose 650 MG; Start 02/12/19 at 12:00 Calcium Carbonate (Oyster Shell Calcium) 1.25 gm BID NGT Last administered on 02/12/19 20:17; Admin Dose 1.25 GM; Start 02/12/19 at 14:00 Vancomycin HCl 1.5 gm/Sodium Chloride 250 ml @ 83.333 mls/ hr Q12H IVPB ; Start 02/13/19 at 02:00 Assessment/Plan Hospital Course (Demo Recall) 59-year-old female 2 weeks status post right total knee arthroplasty. Currently there are no signs of infection in regards to the right knee. Synovial fluid aspiration was very clean with only 404 white blood cells. Cultures from synovial fluid is still pending and Gram stain is negative. A superficial wound culture taken in the emergency department by ER physician is growing staph aureus. This is not concerning for infection of the right total knee as this is a skin culture and is positive for colonization of the skin. At this time the most concerning thing is that she has continued fevers, shortness of breath, and progressive anemia. Based on her labs and vital signs there clearly is an infection somewhere, but I do not believe the right knee is the source of infection. At this time I am ordering a CT angiogram of the chest to evaluate for possible pulmonary embolism given that she has increased shortness of breath. Plan: Physical therapy for right knee CT angiogram chest Internal medicine team to continue infection work-up and work-up for anemia Continue IV antibiotics per ID We will continue to follow-up cultures from synovial fluid DEJUAN KASPER MD Feb 12, 2019 20:45
[2019-02-12 21:45] VITALS: BP 153/70; PULSE 85; RESP 19
[2019-02-13] MEDS: ACETAMINOPHEN 325 MG TAB PO PRN ×2 (00:12→08:08)
[2019-02-13] MEDS: VANCOMYCIN HCL 1.5 GM in SOD CHLORIDE 0.9% 250 ML IVPB SCH ×2 (01:03→16:05)
[2019-02-13] MEDS: oxyCODONE 5 MG TAB PO PRN ×5 (01:04→22:38)
[2019-02-13] MEDS: ALBUTEROL/IPRATROPIUM (NEB) 3 ML AMP HHN SCH ×6 (01:29→20:04)
[2019-02-13 01:42] VITALS: BP 129/60; PULSE 82; RESP 18
[2019-02-13] MEDS: PANTOPRAZOLE (EC) 40 MG TAB PO SCH (05:45)
[2019-02-13] MEDS: PIPER-TAZO 3.375 GM IV (PMX) 100 ML IVPB SCH ×3 (05:45→22:11)
[2019-02-13 08:18] VITALS: BP 118/58; PULSE 73; RESP 16
[2019-02-13] MEDS: GABAPENTIN 300 MG CAP PO SCH (09:23)
[2019-02-13] MEDS: CALCIUM CARBONATE 1.25 GM TAB NGT SCH ×2 (09:23→20:24)
[2019-02-13] MEDS: CHOLECALCIFEROL 2,000 UNIT CAP PO SCH (09:23)
[2019-02-13] MEDS: AMLODIPINE 5 MG TAB PO SCH (09:23)
[2019-02-13] MEDS: ESCITALOPRAM 10 MG TAB PO SCH (09:24)
[2019-02-13] MEDS: ATORVASTATIN 10 MG TAB PO SCH (09:24)
[2019-02-13] MEDS: FLUTICASONE 0.05% 16 GM NAS SPRAY NASAL SCH ×2 (09:24→20:24)
[2019-02-13] MEDS: AZELASTINE 30 ML NAS SPRAY NASAL SCH ×2 (09:24→20:24)
[2019-02-13] MEDS: FUROSEMIDE 40 MG INJ IV SCH (09:35)
[2019-02-13] MEDS: LORATADINE 10 MG TAB PO SCH (09:35)
--- NOTE | 2019-02-13 12:44 | CONS ---
Assessment/Plan Assessment/Plan Assessment/Plan (Daily) Assessment and recommendations; 1. Patient admitted for right knee cellulitis with incidental discovery of CHF this likely is on the basis of hypertensive cardiomyopathy based upon clinical presentation chest x-ray and CT of the chest. Patient started on appropriate treatment regimen including appropriate antihypertensive as well as diuretic regimen. 2. Continue current antibiotics per ID recommendations regarding right knee cellulitis. 2D echocardiogram is pending. Consultation Date/Type/Reason Admit Date/Time Feb 11, 2019 at 00:10 Date of Consultation: Feb 13, 2019 Type of Consult Pulmonary Patient is a 59-year-old lady who came into the hospital with complaints of pain and swelling involving the right knee. Patient also been complaining of shortness of breath with exertion for the last few weeks. He denies having any chest pain. According to the patient she is feeling somewhat better over the last 24 hours. Denies any fever or chills. Past medical history; 1. History of hypertension which apparently is poorly controlled. 2. History of right total knee arthroplasty in January of this year. 3. Right knee synovitis on current admission. 4. No known coronary artery disease. Medications; reviewed. Allergies; none. Social history; patient never smoked. No show any drug abuse. Family history; noncontributory. Occupational history; noncontributory. Review of systems; denies any headache, seizures, visual changes, sinus symptoms. Any chest pain or angina. Any coughing or wheezing. Shortness of breath has improved. Does complain of dyspnea on exertion. Denies any abdominal pain, nausea vomiting. Any fever chills. Any melena hematochezia urinary symptoms. Any edema. Denies any orthopnea. Any weight gain. General exam; young female, awake alert, laying comfortably in bed. Currently in no distress. Date/Time of Note DATE: 02/13/19 TIME: 12:40 Past Medical History Home Meds Active Scripts Oxycodone Hcl* (IR) (Roxicodone*) 5 Mg Tab, 5-10 MG PO Q4H PRN for .PAIN, #90 TAB Prov:DEJUAN KASPER MD 01/30/19 Aspirin Delayed Release (Aspirin Delayed Release) 81 Mg Tablet.dr, 81 MG PO BID for 84 Days Prov:DEJUAN KASPER MD 01/30/19 [Acetaminophen Tab] 500 MG TAB No Conflict Check, 1000 MG PO Q8 for 10 Days, TAB Prov:DEJUAN KASPER MD 01/30/19 Reported Medications Escitalopram Oxalate* (Lexapro*) 20 Mg Tablet, 20 MG PO DAILY, #30 TAB 01/29/19 Omeprazole* (Omeprazole*) 40 Mg Capsule.dr, 40 MG PO DAILY, #30 CAP 01/29/19 Losartan-Hydrochlorothiazide (Losartan-HCTZ) 100-25 Mg Tab, 1 TAB PO DAILY, TAB 01/28/19 Gabapentin* (Gabapentin*) 300 Mg Capsule, 300 MG PO DAILY, #60 CAP 01/28/19 Diclofenac Sodium* (Voltaren* XR) 100 Mg Tab.sr.24h, 100 MG PO BID, TAB.SA 01/28/19 Cetirizine Hcl* (Zyrtec*) 10 Mg Capsule, 10 MG PO DAILY, TAB 01/28/19 Cholecalciferol (Vitamin D3) (Vitamin D3) 2,000 Unit Tab.chew, 2000 UNIT PO DAILY, TAB.CHEW 01/28/19 Simvastatin (Simvastatin) 10 Mg Tablet, 10 MG PO DAILY, #30 TAB 01/28/19 Amlodipine Besylate* (Amlodipine Besylate*) 5 Mg Tablet, 5 MG PO DAILY, #30 TAB 01/28/19 Azelastine Hcl* (Azelastine Hcl*) 137 Mcg/0.137 Ml Beulah.pump, 1 SPRAY NASAL BID, #1 EA TO EACH NOSTRIL 01/28/19 Fluticasone Propionate* (Fluticasone Propionate* Nasal) 50 Mcg/Beulah - 16 Gm Beulah.susp, 1 SPRAY NASAL BID, EA TO EACH NOSTRIL 11/10/14 Budesonide* (Pulmicort* (Neb)) 0.5 Mg/2 Ml Ampul.neb, 0.5 MG IH BID, EA 11/10/14 Diclofenac Sodium* (Diclofenac Sodium*) 75 Mg Tablet.dr, 100 MG PO BID, TAB 11/10/14 Medications Current Medications Acetaminophen (Tylenol Tab) 650 mg Q6H PRN PO MILD PAIN(1-3)OR ELEVATED TEMP Last administered on 02/13/19at 08:08; Admin Dose 650 MG; Start 02/11/19 at 03:00 Ondansetron HCl (Zofran Inj) 4 mg Q4H PRN IV NAUSEA AND/OR VOMITING; Start 02/11/19 at 03:00 Pantoprazole (Protonix Tab) 40 mg DAILY@06 PO Last administered on 02/13/19 05:45; Admin Dose 40 MG; Start 02/11/19 at 06:00 Vancomycin HCl (Vanco Iv Per Pharmacy) VANCOMYCIN PER PHARMACY PER PROTOCOL XX ; Start 02/11/19 at 03:00 Piperacillin Sod/ Tazobactam Sod 100 ml @ 200 mls/hr Q8 IVPB Last administered on 02/13/19 05:45; Admin Dose 200 MLS/HR; Start 02/11/19 at 06:00 Morphine Sulfate (morphine) 2 mg Q4H PRN IV SEVERE PAIN LEVEL 7-10 Last administered on 02/12/19 03:34; Admin Dose 2 MG; Start 02/11/19 at 03:00 Amlodipine Besylate (Norvasc) 5 mg DAILY PO Last administered on 02/13/19 09:23; Admin Dose 5 MG; Start 02/11/19 at 09:00 Azelastine HCl (Astelin) 1 spray BID NASAL Last administered on 02/13/19 09:24; Admin Dose 1 SPRAY; Start 02/11/19 at 09:00 Escitalopram Oxalate (Lexapro) 20 mg DAILY PO Last administered on 02/13/19 09:24; Admin Dose 20 MG; Start 02/11/19 at 09:00 Fluticasone Propionate (Flonase 0.05% Nasal) 1 spray BID NASAL Last administered on 02/13/19 09:24; Admin Dose 1 SPRAY; Start 02/11/19 at 09:00 Gabapentin (Neurontin) 300 mg DAILY PO Last administered on 02/13/19 09:23; Admin Dose 300 MG; Start 02/11/19 at 09:00 Oxycodone HCl (Roxicodone) MODERATE PAIN 5-6 Q4H PRN PO .PAIN Last administered on 02/13/19 11:41; Admin Dose 5 MG; Start 02/11/19 at 03:30 Loratadine (Claritin) 10 mg DAILY PO Last administered on 02/13/19 09:35; Admin Dose 10 MG; Start 02/11/19 at 09:00 Cholecalciferol (Vitamin D) 2,000 unit DAILY PO Last administered on 02/13/19 09:23; Admin Dose 2,000 UNIT; Start 02/11/19 at 09:00 Atorvastatin Calcium (Lipitor) 10 mg DAILY PO Last administered on 02/13/19 09:24; Admin Dose 10 MG; Start 02/11/19 at 09:00 Budesonide (Pulmicort (Neb)) 0.5 mg BID PRN NEB WHEEZING AND SOB; Start 02/11/19 at 03:30 Albuterol/ Ipratropium (Duoneb) 3 ml Q4H RESP THERAPY HHN Last administered on 02/13/19 08:01; Admin Dose 3 ML; Start 02/11/19 at 13:00 Acetaminophen (Tylenol Tab) 650 mg Q4H PRN PO MILD PAIN(1-3)OR ELEVATED TEMP Last administered on 02/12/19 12:00; Admin Dose 650 MG; Start 02/12/19 at 12:00 Calcium Carbonate (Oyster Shell Calcium) 1.25 gm BID NGT Last administered on 02/13/19 09:23; Admin Dose 1.25 GM; Start 02/12/19 at 14:00 Vancomycin HCl 1.5 gm/Sodium Chloride 250 ml @ 83.333 mls/ hr Q12H IVPB Last administered on 02/13/19 01:03; Admin Dose 83.333 MLS/HR; Start 02/13/19 at 02:00 Furosemide (Lasix) 40 mg DAILY IV Last administered on 02/13/19 09:35; Admin Dose 40 MG; Start 02/13/19 at 09:00 Miscellaneous Information (*Rx Drug Level Order Reminder*) STIVEN ZHOU AT 1300 1300 ONCE XX ; Start 02/14/19 at 13:00; Stop 02/14/19 at 13:01 Magnesium Oxide (Mag-Ox 400) 400 mg BID PO ; Start 02/13/19 at 11:00 Allergies: Coded Allergies: No Known Allergy (Unverified , 01/29/19) Past Surgical History Past Surgical Hx: noncontributory Social History Alcohol Use: rarely Smoking Status: Never smoker Drug Use: none Exam/Review of Systems Exam Vitals Vital Signs Date Temp Pulse Resp B/P (MAP) Pulse Ox O2 O2 Flow FiO2 Time Delivery Rate 02/13/19 97.8 73 16 118/58 96 08:18 (78) 02/13/19 Nasal 5.0 08:01 Cannula Intake and Output 02/12/19 02/12/19 02/13/19 1414:59 22:59 06:59 IntakeIntake Total 100 ml 100 ml BalanceBalance 100 ml 100 ml Exam H EENT exam; supple neck, positive JVD. No lymphadenopathy. Midline trachea. No thyromegaly. Patient has good dentition. No neck masses. Pupils are midsize. Chest exam; diminished but clear breath sounds. S1-S2 audible, no murmurs. Regular rhythm. Abdomen exam; soft, protuberant. Nontender. Bowel sounds audible. No organomegaly. Extremity exam; no peripheral edema clubbing. Pulses 2+. Dressing applied to right knee anteriorly. [employer] exam; no focal deficit. Results Result Diagram: 02/13/19 0541 02/13/19 0541 Results 24hrs Laboratory Tests Test 02/12/19 15:01 02/13/19 05:41 02/13/19 08:56 Vancomycin Level Trough 6.7 L White Blood Count 16.5 H Red Blood Count 2.81 L Hemoglobin 7.6 L Hematocrit 23.1 L Mean Corpuscular Volume 82.2 Mean Corpuscular Hemoglobin 27.0 L Mean Corpuscular 32.9 Hemoglobin Concent Red Cell Distribution Width 13.6 Platelet Count 315 Mean Platelet Volume 9.1 Immature Granulocytes % 1.800 H Neutrophils % 75.0 Lymphocytes % 16.0 Monocytes % 6.0 Eosinophils % 1.0 Basophils % 0.2 Nucleated Red Blood Cells % 0.1 H Immature Granulocytes # 0.300 H Neutrophils # 12.3 H Lymphocytes # 2.6 Monocytes # 1.0 H Eosinophils # 0.2 Basophils # 0.0 Nucleated Red Blood Cells # 0.0 Sodium Level 139 Potassium Level 3.6 Chloride Level 102 Carbon Dioxide Level 30 Anion Gap 7 Blood Urea Nitrogen 5 L Creatinine 0.71 Est Glomerular Filtrat > 60 Rate mL/min Glucose Level 142 Calcium Level 8.3 L Phosphorus Level 3.3 Magnesium Level 1.6 L Total Bilirubin 0.6 Direct Bilirubin 0.00 Indirect Bilirubin 0.6 Aspartate Amino 21 Transf (AST/SGOT) Alanine 26 Aminotransferase (ALT/SGPT) Alkaline Phosphatase 127 H Total Protein 6.7 Albumin 3.2 L Globulin 3.50 H Albumin/Globulin Ratio 0.91 Blood Gas Specimen Source Blood arterial Arterial Blood Date Drawn 02/13/2019 10:35:36 AM Arterial Blood pH 7.512 H (Temp corrected) Arterial Blood pCO2 36.7 (Temp correct) Arterial Blood pO2 75.3 L (Temp corrected) Arterial Blood HCO3 28.8 H Arterial Blood Base Excess 5.4 H Arterial Blood 94.3 L Oxygen Saturation Kody Test ACCEPTAB Arterial Blood Gas Right Radial Puncture Site Arterial 0.2 Blood Carboxyhemoglobin Arterial Blood Methemoglobin 0.2 Blood Gas A-a O2 138.8 H Differential Oxyhemoglobin Percent 93.9 Blood Gas Temperature 37.0 Blood Gas Modality NASAL CANNULA FiO2 36.0 Blood Gas Notified Whom DT Blood Gas Notified Time 02/13/2019 10:46:18 AM Medications Medication Current Medications Acetaminophen (Tylenol Tab) 650 mg Q6H PRN PO MILD PAIN(1-3)OR ELEVATED TEMP Last administered on 02/13/19 08:08; Admin Dose 650 MG; Start 02/11/19 at 03:00 Ondansetron HCl (Zofran Inj) 4 mg Q4H PRN IV NAUSEA AND/OR VOMITING; Start 02/11/19 at 03:00 Pantoprazole (Protonix Tab) 40 mg DAILY@06 PO Last administered on 02/13/19 05:45; Admin Dose 40 MG; Start 02/11/19 at 06:00 Vancomycin HCl (Vanco Iv Per Pharmacy) VANCOMYCIN PER PHARMACY PER PROTOCOL XX ; Start 02/11/19 at 03:00 Piperacillin Sod/ Tazobactam Sod 100 ml @ 200 mls/hr Q8 IVPB Last administered on 02/13/19 05:45; Admin Dose 200 MLS/HR; Start 02/11/19 at 06:00 Morphine Sulfate (morphine) 2 mg Q4H PRN IV SEVERE PAIN LEVEL 7-10 Last administered on 02/12/19 03:34; Admin Dose 2 MG; Start 02/11/19 at 03:00 Amlodipine Besylate (Norvasc) 5 mg DAILY PO Last administered on 02/13/19 09:23; Admin Dose 5 MG; Start 02/11/19 at 09:00 Azelastine HCl (Astelin) 1 spray BID NASAL Last administered on 02/13/19 09:24; Admin Dose 1 SPRAY; Start 02/11/19 at 09:00 Escitalopram Oxalate (Lexapro) 20 mg DAILY PO Last administered on 02/13/19 09:24; Admin Dose 20 MG; Start 02/11/19 at 09:00 Fluticasone Propionate (Flonase 0.05% Nasal) 1 spray BID NASAL Last administered on 02/13/19 09:24; Admin Dose 1 SPRAY; Start 02/11/19 at 09:00 Gabapentin (Neurontin) 300 mg DAILY PO Last administered on 02/13/19 09:23; Admin Dose 300 MG; Start 02/11/19 at 09:00 Oxycodone HCl (Roxicodone) MODERATE PAIN 5-6 Q4H PRN PO .PAIN Last administered on 02/13/19 11:41; Admin Dose 5 MG; Start 02/11/19 at 03:30 Loratadine (Claritin) 10 mg DAILY PO Last administered on 02/13/19 09:35; Admin Dose 10 MG; Start 02/11/19 at 09:00 Cholecalciferol (Vitamin D) 2,000 unit DAILY PO Last administered on 02/13/19 09:23; Admin Dose 2,000 UNIT; Start 02/11/19 at 09:00 Atorvastatin Calcium (Lipitor) 10 mg DAILY PO Last administered on 02/13/19 09:24; Admin Dose 10 MG; Start 02/11/19 at 09:00 Budesonide (Pulmicort (Neb)) 0.5 mg BID PRN NEB WHEEZING AND SOB; Start 02/11/19 at 03:30 Albuterol/ Ipratropium (Duoneb) 3 ml Q4H RESP THERAPY HHN Last administered on 02/13/19 08:01; Admin Dose 3 ML; Start 02/11/19 at 13:00 Acetaminophen (Tylenol Tab) 650 mg Q4H PRN PO MILD PAIN(1-3)OR ELEVATED TEMP Last administered on 02/12/19 12:00; Admin Dose 650 MG; Start 02/12/19 at 12:00 Calcium Carbonate (Oyster Shell Calcium) 1.25 gm BID NGT Last administered on 02/13/19 09:23; Admin Dose 1.25 GM; Start 02/12/19 at 14:00 Vancomycin HCl 1.5 gm/Sodium Chloride 250 ml @ 83.333 mls/ hr Q12H IVPB Last administered on 7/10/19at 01:03; Admin Dose 83.333 MLS/HR; Start 02/13/19 at 02:00 Furosemide (Lasix) 40 mg DAILY IV Last administered on 02/13/19at 09:35; Admin Dose 40 MG; Start 02/13/19 at 09:00 Miscellaneous Information (*Rx Drug Level Order Reminder*) ELLISO TR AT 1300 1300 ONCE XX ; Start 02/14/19 at 13:00; Stop 02/14/19 at 13:01 Magnesium Oxide (Mag-Ox 400) 400 mg BID PO ; Start 02/13/19 at 11:00 TRACEY ARIZMENDI Feb 13, 2019 12:44
[2019-02-13 14:00] VITALS: BP 135/63; PULSE 70; RESP 20
--- NOTE | 2019-02-13 14:13 | CONS ---
Assessment/Plan Assessment/Plan Hospital Course (Demo Recall) PPatient is alert feels better no shortness of breath at rest she is on nasal cannula at [address] of the chest last night revealed no pulmonary embolism no pneumonia bilateral pleural effusions with pulmonary vascular congestion. Antimicrobials, vancomycin, Zosyn Microbiology: Right knee fluid culture grew coag negative staph species susceptible to ciprofloxacin clindamycin doxycycline Ultrasound of the abdomen revealed hepatomegaly chest x-ray on admission revealed mild prominence of interstitial markings likely reflecting edema extremity venous study revealed no DVT Antimicrobials: Vanco and Zosyn since admission Physical examination: This is obese well-developed middle-aged woman who is alert in no distress. Head atraumatic normocephalic sclera nonicteric vehicle mucosa dry neck is supple chest rise symmetrical breath sounds clear. Heart: Mask S1-S2 abdomen soft patient has some tenderness over right upper quadrant on palpation no suprapubic tenderness bowel sounds present. Extremities without cyanosis right knee incision with shruthi clean dry and intact no drainage no erythema Assessment: 1. Ongoing fevers with leukocytosis, doubt secondary to #2 2. Right knee cellulitis on admission status post fluid aspiration 3. History of recent right total knee replacement 01/29/19 4. Morbid obesity 5. Acute anemia 6. Hypoxemia secondary to fluid overload 7. Right upper quadrant abdominal discomfort Plan: Patient is clinically stable, right knee does not look infected, consider CT of the abdomen, continue antibiotics diuresis Consultation Date/Type/Reason Admit Date/Time Feb 11, 2019 at 00:10 Initial Consult Date 02/11/19 Type of Consult id Date/Time of Note DATE: 02/13/19 TIME: 14:12 Exam/Review of Systems Exam Vitals Vital Signs Date Temp Pulse Resp B/P (MAP) Pulse Ox O2 O2 Flow FiO2 Time Delivery Rate 02/13/19 97.8 73 16 118/58 96 08:18 (78) 02/13/19 Nasal 5.0 08:01 Cannula Intake and Output 02/12/19 02/12/19 02/13/19 1515:00 23:00 07:00 IntakeIntake Total 100 ml 100 ml BalanceBalance 100 ml 100 ml Results Result Diagram: 02/13/19 0541 02/13/19 0541 Results 24hrs Laboratory Tests Test 02/12/19 15:01 02/13/19 05:41 02/13/19 08:56 Vancomycin Level Trough 6.7 L White Blood Count 16.5 H Red Blood Count 2.81 L Hemoglobin 7.6 L Hematocrit 23.1 L Mean Corpuscular Volume 82.2 Mean Corpuscular Hemoglobin 27.0 L Mean Corpuscular 32.9 Hemoglobin Concent Red Cell Distribution Width 13.6 Platelet Count 315 Mean Platelet Volume 9.1 Immature Granulocytes % 1.800 H Neutrophils % 75.0 Lymphocytes % 16.0 Monocytes % 6.0 Eosinophils % 1.0 Basophils % 0.2 Nucleated Red Blood Cells % 0.1 H Immature Granulocytes # 0.300 H Neutrophils # 12.3 H Lymphocytes # 2.6 Monocytes # 1.0 H Eosinophils # 0.2 Basophils # 0.0 Nucleated Red Blood Cells # 0.0 Sodium Level 139 Potassium Level 3.6 Chloride Level 102 Carbon Dioxide Level 30 Anion Gap 7 Blood Urea Nitrogen 5 L Creatinine 0.71 Est Glomerular Filtrat > 60 Rate mL/min Glucose Level 142 Calcium Level 8.3 L Phosphorus Level 3.3 Magnesium Level 1.6 L Total Bilirubin 0.6 Direct Bilirubin 0.00 Indirect Bilirubin 0.6 Aspartate Amino 21 Transf (AST/SGOT) Alanine 26 Aminotransferase (ALT/SGPT) Alkaline Phosphatase 127 H Total Protein 6.7 Albumin 3.2 L Globulin 3.50 H Albumin/Globulin Ratio 0.91 Blood Gas Specimen Source Blood arterial Arterial Blood Date Drawn 02/13/2019 10:35:36 AM Arterial Blood pH 7.512 H (Temp corrected) Arterial Blood pCO2 36.7 (Temp correct) Arterial Blood pO2 75.3 L (Temp corrected) Arterial Blood HCO3 28.8 H Arterial Blood Base Excess 5.4 H Arterial Blood 94.3 L Oxygen Saturation Kody Test ACCEPTAB Arterial Blood Gas Right Radial Puncture Site Arterial 0.2 Blood Carboxyhemoglobin Arterial Blood Methemoglobin 0.2 Blood Gas A-a O2 138.8 H Differential Oxyhemoglobin Percent 93.9 Blood Gas Temperature 37.0 Blood Gas Modality NASAL CANNULA FiO2 36.0 Blood Gas Notified Whom DT Blood Gas Notified Time 02/13/2019 10:46:18 AM Medications Medication Current Medications Acetaminophen (Tylenol Tab) 650 mg Q6H PRN PO MILD PAIN(1-3)OR ELEVATED TEMP Last administered on 02/13/19at 08:08; Admin Dose 650 MG; Start 02/11/19 at 03:00 Ondansetron HCl (Zofran Inj) 4 mg Q4H PRN IV NAUSEA AND/OR VOMITING; Start 02/11/19 at 03:00 Pantoprazole (Protonix Tab) 40 mg DAILY@06 PO Last administered on 02/13/19 05:45; Admin Dose 40 MG; Start 02/11/19 at 06:00 Vancomycin HCl (Vanco Iv Per Pharmacy) VANCOMYCIN PER PHARMACY PER PROTOCOL XX ; Start 02/11/19 at 03:00 Piperacillin Sod/ Tazobactam Sod 100 ml @ 200 mls/hr Q8 IVPB Last administered on 02/13/19 05:45; Admin Dose 200 MLS/HR; Start 02/11/19 at 06:00 Morphine Sulfate (morphine) 2 mg Q4H PRN IV SEVERE PAIN LEVEL 7-10 Last administered on 02/12/19 03:34; Admin Dose 2 MG; Start 02/11/19 at 03:00 Amlodipine Besylate (Norvasc) 5 mg DAILY PO Last administered on 02/13/19 09:23; Admin Dose 5 MG; Start 02/11/19 at 09:00 Azelastine HCl (Astelin) 1 spray BID NASAL Last administered on 02/13/19 09: 24; Admin Dose 1 SPRAY; Start 02/11/19 at 09:00 Escitalopram Oxalate (Lexapro) 20 mg DAILY PO Last administered on 02/13/19 09:24; Admin Dose 20 MG; Start 02/11/19 at 09:00 Fluticasone Propionate (Flonase 0.05% Nasal) 1 spray BID NASAL Last administered on 02/13/19 09:24; Admin Dose 1 SPRAY; Start 02/11/19 at 09:00 Gabapentin (Neurontin) 300 mg DAILY PO Last administered on 02/13/19 09:23; Admin Dose 300 MG; Start 02/11/19 at 09:00 Oxycodone HCl (Roxicodone) MODERATE PAIN 5-6 Q4H PRN PO .PAIN Last administered on 02/13/19 11:41; Admin Dose 5 MG; Start 02/11/19 at 03:30 Loratadine (Claritin) 10 mg DAILY PO Last administered on 02/13/19 09:35; Admin Dose 10 MG; Start 02/11/19 at 09:00 Cholecalciferol (Vitamin D) 2,000 unit DAILY PO Last administered on 02/13/19 09:23; Admin Dose 2,000 UNIT; Start 02/11/19 at 09:00 Atorvastatin Calcium (Lipitor) 10 mg DAILY PO Last administered on 02/13/19 09:24; Admin Dose 10 MG; Start 02/11/19 at 09:00 Budesonide (Pulmicort (Neb)) 0.5 mg BID PRN NEB WHEEZING AND SOB; Start 02/11/19 at 03:30 Albuterol/ Ipratropium (Duoneb) 3 ml Q4H RESP THERAPY HHN Last administered on 02/13/19 08:01; Admin Dose 3 ML; Start 02/11/19 at 13:00 Acetaminophen (Tylenol Tab) 650 mg Q4H PRN PO MILD PAIN(1-3)OR ELEVATED TEMP Last administered on 02/12/19at 12:00; Admin Dose 650 MG; Start 02/12/19 at 12:00 Calcium Carbonate (Oyster Shell Calcium) 1.25 gm BID NGT Last administered on 02/13/19 09:23; Admin Dose 1.25 GM; Start 02/12/19 at 14:00 Vancomycin HCl 1.5 gm/Sodium Chloride 250 ml @ 83.333 mls/ hr Q12H IVPB Last administered on 02/13/19 01:03; Admin Dose 83.333 MLS/HR; Start 02/13/19 at 02:00 Furosemide (Lasix) 40 mg DAILY IV Last administered on 02/13/19at 09:35; Admin Dose 40 MG; Start 02/13/19 at 09:00 Miscellaneous Information (*Rx Drug Level Order Reminder*) STIVEN TR AT 1300 1300 ONCE XX ; Start 02/14/19 at 13:00; Stop 02/14/19 at 13:01 Magnesium Oxide (Mag-Ox 400) 400 mg BID PO ; Start 02/13/19 at 11:00 CRISTHIAN HARVEY NP Feb 13, 2019 14:13
--- NOTE | 2019-02-13 15:20 | PN ---
Date/Time of Note Date/Time of Note DATE: 02/13/19 TIME: 15:13 Assessment/Plan VTE Prophylaxis Risk score (from Ns)>0 risk: 2 SCD applied (from [facility]): No SCD contraindicated: low risk/ambulating Pharmacological prophylaxis: NA/contraindicated Pharm contraindication: low risk/ambulating Lines/Catheters IV C[facility]ter Type (from [facility]): Peripheral IV Urinary Cath still in place: No Assessment/Plan Assessment/Plan This is a 59-year-old female, who presented with: 1. Fevers, leukocytosis, status post right total knee replacement on . A source this could be right knee versus gastroenteritis versus abdominal etiology versus pneumonia, Fluid tap from knee is essentially neg and bld cx neg so far, UA neg , new chest xrat and ct chest + effusiions ? now has rt flank pain ? abdominal source 2. History of hypertension, currently hypotensive. 3. Hyperlipidemia. 4. Obesity. 5. GERD. 6. Allergic rhinitis. 7. Mood disorder. 8 anemia with acute blood loss? hematoma vs hemodiltuion 9 SOB likley due to pul edema sp iv fluids evident on chest xray likely due to CHF . CT chest neg for PE Plan - cw iv vanco/zosyn> fever curve subsiding - still no source yet> cx have been neg> will get ct A+P, ABD US was negative - iv lasix 40 for pul edema - ECHO - Will get EKG - Transfer to [facility] for closer montioring for resp status -Hold aspirin due to blood loss - GI/DVT prophylaxsis - fu PUL/ ID and ortho recs Result Diagram: 02/13/19 0541 02/13/19 0541 Results 24hrs Laboratory Tests Test 02/13/19 05:41 02/13/19 08:56 White Blood Count 16.5 H Red Blood Count 2.81 L Hemoglobin 7.6 L Hematocrit 23.1 L Mean Corpuscular Volume 82.2 Mean Corpuscular Hemoglobin 27.0 L Mean Corpuscular Hemoglobin Concent 32.9 Red Cell Distribution Width 13.6 Platelet Count 315 Mean Platelet Volume 9.1 Immature Granulocytes % 1.800 H Neutrophils % 75.0 Lymphocytes % 16.0 Monocytes % 6.0 Eosinophils % 1.0 Basophils % 0.2 Nucleated Red Blood Cells % 0.1 H Immature Granulocytes # 0.300 H Neutrophils # 12.3 H Lymphocytes # 2.6 Monocytes # 1.0 H Eosinophils # 0.2 Basophils # 0.0 Nucleated Red Blood Cells # 0.0 Sodium Level 139 Potassium Level 3.6 Chloride Level 102 Carbon Dioxide Level 30 Anion Gap 7 Blood Urea Nitrogen 5 L Creatinine 0.71 Est Glomerular Filtrat Rate mL/min > 60 Glucose Level 142 Calcium Level 8.3 L Phosphorus Level 3.3 Magnesium Level 1.6 L Total Bilirubin 0.6 Direct Bilirubin 0.00 Indirect Bilirubin 0.6 Aspartate Amino Transf (AST/SGOT) 21 Alanine Aminotransferase (ALT/SGPT) 26 Alkaline Phosphatase 127 H Total Protein 6.7 Albumin 3.2 L Globulin 3.50 H Albumin/Globulin Ratio 0.91 Blood Gas Specimen Source Blood arterial Arterial Blood Date Drawn 02/13/2019 10:35:36 AM Arterial Blood pH (Temp corrected) 7.512 H Arterial Blood pCO2 (Temp correct) 36.7 Arterial Blood pO2 (Temp corrected) 75.3 L Arterial Blood HCO3 28.8 H Arterial Blood Base Excess 5.4 H Arterial Blood Oxygen Saturation 94.3 L Kody Test ACCEPTAB Arterial Blood Gas Puncture Site Right Radial Arterial Blood Carboxyhemoglobin 0.2 Arterial Blood Methemoglobin 0.2 Blood Gas A-a O2 Differential 138.8 H Oxyhemoglobin Percent 93.9 Blood Gas Temperature 37.0 Blood Gas Modality NASAL CANNULA FiO2 36.0 Blood Gas Notified Whom DT Blood Gas Notified Time 02/13/2019 10:46:18 AM Subjective 24 Hr Interval Summary Free Text/Dictation some rt flank pain today said abdomen is distended received 1 unir PRBC yesterday Exam/Review of Systems Exam Vitals Vital Signs Date Temp Pulse Resp B/P (MAP) Pulse Ox O2 O2 Flow FiO2 Time Delivery Rate 02/13/19 94 4.0 14:11 02/13/19 74 18 Nasal 14:11 Cannula 02/13/19 98.9 135/63 14:00 (87) Intake and Output 02/12/19 02/12/19 02/13/19 1515:00 23:00 07:00 IntakeIntake Total 100 ml 100 ml BalanceBalance 100 ml 100 ml Exam GENERAL: The patient is awake, alert, oriented, does not appear to in any acute distress. Morbidly obese, on 5 litres oxygen HEENT: Pupils equal, round, reactive to light. NECK: Supple. HEART: Regular rate and rhythm. LUNGS: Some decreased breath sound on the left base. ABDOMEN: Soft. Some tenderness present in the right upper quadrant. Positive bowel sounds.rt flank tenderness EXTREMITIES: Right lower extremity, status post total knee replacement. The surgical site has shruthi intact in place. Some tenderness noted around the site. It is very tense, slightly warm. Diffuse swelling noted on the right leg, right ankle, also ecchymosis noted on the back of the right knee and on the foot. Results Results 24hrs Laboratory Tests Test 02/13/19 05:41 02/13/19 08:56 White Blood Count 16.5 H Red Blood Count 2.81 L Hemoglobin 7.6 L Hematocrit 23.1 L Mean Corpuscular Volume 82.2 Mean Corpuscular Hemoglobin 27.0 L Mean Corpuscular Hemoglobin Concent 32.9 Red Cell Distribution Width 13.6 Platelet Count 315 Mean Platelet Volume 9.1 Immature Granulocytes % 1.800 H Neutrophils % 75.0 Lymphocytes % 16.0 Monocytes % 6.0 Eosinophils % 1.0 Basophils % 0.2 Nucleated Red Blood Cells % 0.1 H Immature Granulocytes # 0.300 H Neutrophils # 12.3 H Lymphocytes # 2.6 Monocytes # 1.0 H Eosinophils # 0.2 Basophils # 0.0 Nucleated Red Blood Cells # 0.0 Sodium Level 139 Potassium Level 3.6 Chloride Level 102 Carbon Dioxide Level 30 Anion Gap 7 Blood Urea Nitrogen 5 L Creatinine 0.71 Est Glomerular Filtrat Rate mL/min > 60 Glucose Level 142 Calcium Level 8.3 L Phosphorus Level 3.3 Magnesium Level 1.6 L Total Bilirubin 0.6 Direct Bilirubin 0.00 Indirect Bilirubin 0.6 Aspartate Amino Transf (AST/SGOT) 21 Alanine Aminotransferase (ALT/SGPT) 26 Alkaline Phosphatase 127 H Total Protein 6.7 Albumin 3.2 L Globulin 3.50 H Albumin/Globulin Ratio 0.91 Blood Gas Specimen Source Blood arterial Arterial Blood Date Drawn 02/13/2019 10:35:36 AM Arterial Blood pH (Temp corrected) 7.512 H Arterial Blood pCO2 (Temp correct) 36.7 Arterial Blood pO2 (Temp corrected) 75.3 L Arterial Blood HCO3 28.8 H Arterial Blood Base Excess 5.4 H Arterial Blood Oxygen Saturation 94.3 L Kody Test ACCEPTAB Arterial Blood Gas Puncture Site Right Radial Arterial Blood Carboxyhemoglobin 0.2 Arterial Blood Methemoglobin 0.2 Blood Gas A-a O2 Differential 138.8 H Oxyhemoglobin Percent 93.9 Blood Gas Temperature 37.0 Blood Gas Modality NASAL CANNULA FiO2 36.0 Blood Gas Notified Whom DT Blood Gas Notified Time 02/13/2019 10:46:18 AM Medications Medication Current Medications Acetaminophen (Tylenol Tab) 650 mg Q6H PRN PO MILD PAIN(1-3)OR ELEVATED TEMP Last administered on 02/13/19 08:08; Admin Dose 650 MG; Start 02/11/19 at 03:00 Ondansetron HCl (Zofran Inj) 4 mg Q4H PRN IV NAUSEA AND/OR VOMITING; Start 02/11/19 at 03:00 Pantoprazole (Protonix Tab) 40 mg DAILY@06 PO Last administered on 02/13/19 05:45; Admin Dose 40 MG; Start 02/11/19 at 06:00 Vancomycin HCl (Vanco Iv Per Pharmacy) VANCOMYCIN PER PHARMACY PER PROTOCOL XX ; Start 02/11/19 at 03:00 Piperacillin Sod/ Tazobactam Sod 100 ml @ 200 mls/hr Q8 IVPB Last administered on 02/13/19 05:45; Admin Dose 200 MLS/HR; Start 02/11/19 at 06:00 Morphine Sulfate (morphine) 2 mg Q4H PRN IV SEVERE PAIN LEVEL 7-10 Last administered on 02/12/19 03:34; Admin Dose 2 MG; Start 02/11/19 at 03:00 Amlodipine Besylate (Norvasc) 5 mg DAILY PO Last administered on 02/13/19 09:23; Admin Dose 5 MG; Start 02/11/19 at 09:00 Azelastine HCl (Astelin) 1 spray BID NASAL Last administered on 02/13/19 09:24; Admin Dose 1 SPRAY; Start 02/11/19 at 09:00 Escitalopram Oxalate (Lexapro) 20 mg DAILY PO Last administered on 02/13/19 09:24; Admin Dose 20 MG; Start 02/11/19 at 09:00 Fluticasone Propionate (Flonase 0.05% Nasal) 1 spray BID NASAL Last administered on 02/13/19 09:24; Admin Dose 1 SPRAY; Start 02/11/19 at 09:00 Gabapentin (Neurontin) 300 mg DAILY PO Last administered on 02/13/19 09:23; Admin Dose 300 MG; Start 02/11/19 at 09:00 Oxycodone HCl (Roxicodone) MODERATE PAIN 5-6 Q4H PRN PO .PAIN Last administered on 02/13/19 11:41; Admin Dose 5 MG; Start 02/11/19 at 03:30 Loratadine (Claritin) 10 mg DAILY PO Last administered on 02/13/19 09:35; Admin Dose 10 MG; Start 02/11/19 at 09:00 Cholecalciferol (Vitamin D) 2,000 unit DAILY PO Last administered on 02/13/19 09:23; Admin Dose 2,000 UNIT; Start 02/11/19 at 09:00 Atorvastatin Calcium (Lipitor) 10 mg DAILY PO Last administered on 02/13/19 09:24; Admin Dose 10 MG; Start 02/11/19 at 09:00 Budesonide (Pulmicort (Neb)) 0.5 mg BID PRN NEB WHEEZING AND SOB; Start 02/11/19 at 03:30 Albuterol/ Ipratropium (Duoneb) 3 ml Q4H RESP THERAPY HHN Last administered on 02/13/19 14:11; Admin Dose 3 ML; Start 02/11/19 at 13:00 Acetaminophen (Tylenol Tab) 650 mg Q4H PRN PO MILD PAIN(1-3)OR ELEVATED TEMP Last administered on 02/12/19 12:00; Admin Dose 650 MG; Start 02/12/19 at 12:00 Calcium Carbonate (Oyster Shell Calcium) 1.25 gm BID NGT Last administered on 02/13/19 09:23; Admin Dose 1.25 GM; Start 02/12/19 at 14:00 Vancomycin HCl 1.5 gm/Sodium Chloride 250 ml @ 83.333 mls/ hr Q12H IVPB Last administered on 02/13/19 01:03; Admin Dose 83.333 MLS/HR; Start 02/13/19 at 02:00 Furosemide (Lasix) 40 mg DAILY IV Last administered on 02/13/19 09:35; Admin Dose 40 MG; Start 02/13/19 at 09:00 Miscellaneous Information (*Rx Drug Level Order Reminder*) STIVEN TR AT 1300 1300 ONCE XX ; Start 02/14/19 at 13:00; Stop 02/14/19 at 13:01 Magnesium Oxide (Mag-Ox 400) 400 mg BID PO ; Start 02/13/19 at 11:00 JACQUI FUNES MD Feb 13, 2019 15:20
[2019-02-13] MEDS: MAGNESIUM OXIDE 400 MG TAB PO SCH ×2 (15:26→20:24)
--- NOTE | 2019-02-13 16:21 | RADRPT ---
Echocardiogram Report Patient Name: Kevin TANGnt ID: [id number] : 1960 (59y 1m)Study Date: 02/13/2019 11:41:50 AM Gender: FAccession #: [id number] Tech: Jason Rubio [facility] Location: [address] Ref.Physician: JACQUI FUNES Height(Cm): BSA: Weight(Kg): Quality: AdequateOrder Physician: JACQUI FUNES Account #: Procedures: Echocardiographic Report: Transthoracic echocardiogram with complete 2D, M-Mode, and doppler examination. Indications: Congestive Heart Failure. Measurements: 2D/M Mode Doppler Measurement Value Normal Range Measurement Value Normal Range LVIDd 2D 4.9 [ 3.8 - 5.2 ] cm AV Peak Dusty 1.8 [ 100.0 - 170.0 ] cm/sec LVIDs 2D 3.2 [ 2.2 - 3.5 ] cm AV Peak PG 12.0 [ 2.0 - 9.0 ] mmHg LVPWd 2D 1.1 [ 0.6 - 0.9 ] cm LVOT Peak Dusty 1.4 [ 70.0 - 110.0 ] cm/sec IVSd 2D 1.1 [ 0.6 - 0.9 ] cm LVOT Peak PG 7.0 [ 2.0 - 6.0 ] mmHg AoR Diam 2D 3.0 [ 2.3 - 3.1 ] cm MV E Peak Dusty 1.0 [ 60.0 - 130.0 ] cm/sec EDV 2D 111.0 [ 46.0 - 106.0 ] ml MV A Peak Dusty 0.9 [ 100.0 - 120.0 ] cm/sec ESV 2D 39.4 [ 14.0 - 42.0 ] ml MV E/A 1.2 [ 0.8 - 1.5 ] ratio EF 2D 64.5 [ 54.0 - 74.0 ] percent MV Decel Time 176 [ 104 - 258 ] msec LA Dimen 2D 4.6 [ 2.7 - 3.8 ] cm Lat E` Dusty 0.1 [ 10.0 - 15.0 ] cm/sec Lateral E/E` 10.8 [ 1.0 - 2.0 ] ratio Med E` Dusty 0.1 cm/sec MV E/A 1.2 [ 0.8 - 1.5 ] ratio TR Peak Dusty 3.0 [ 100.0 - 280.0 ] cm/sec TR Peak PG 36.0 mmHg RVSP 44.0 [ 10.0 - 36.0 ] mmHg Findings: Left Ventricle: Normal left ventricular systolic function. Normal left ventricular cavity size. Mild concentric left ventricular hypertrophy. Ejection fraction is visually estimated at 60 %. Abnormal Diastolic Function. Right Ventricle: Normal right ventricular size. Normal right ventricular systolic function. Left Atrium: There is moderate enlargement of left atrium. Right Atrium: The right atrium is normal in size. Mitral Valve: Mild mitral leaflet calcification. Mild mitral annular calcification. Trace mitral regurgitation. Aortic Valve: No significant aortic stenosis or insufficiency. Aortic cusps appear mildly calcified. Tricuspid Valve: Normal appearance of the tricuspid valve. The estimated Peak RVSP is 44 mmHg. There is mild tricuspid regurgitation. Pericardium: Very trace pericardial effusion. Aorta: Normal aortic root. IVC: Dilated IVC with respiratory collapse consistent with elevated right atrial pressure. Conclusions: Normal left ventricular systolic function. Normal left ventricular cavity size. Mild concentric left ventricular hypertrophy. Ejection fraction is visually estimated at 60 %. Abnormal Diastolic Function. There is moderate enlargement of left atrium. Mild mitral leaflet calcification. Mild mitral annular calcification. Trace mitral regurgitation. Normal appearance of the tricuspid valve. The estimated Peak RVSP is 44 mmHg. There is mild tricuspid regurgitation. Very trace pericardial effusion. Electronically Signed By: Gideon Belcher 2019-02-13 16:20:41 PDT
[2019-02-13 16:34] VITALS: BP 139/65; PULSE 81; RESP 16
--- NOTE | 2019-02-13 16:45 | CONS ---
Consult Date/Type/Reason Admit Date/Time Feb 11, 2019 at 00:10 Initial Consult Date 02/11/19 Date/Time of Note DATE: 02/13/19 TIME: 16:42 Subjective Patient did have elevated temperature overnight however the remainder the day she has remained afebrile. Her knee was feeling fairly good today until just a little while ago when during transportation the oxygen tank landed on her right operative knee. Objective Vitals Vital Signs Date Temp Pulse Resp B/P (MAP) Pulse Ox O2 O2 Flow FiO2 Time Delivery Rate 02/13/19 98.1 81 16 139/65 91 16:34 (89) 02/13/19 4.0 14:11 02/13/19 Nasal 14:11 Cannula Intake and Output 02/12/19 02/12/19 02/13/19 1515:00 23:00 07:00 IntakeIntake Total 100 ml 100 ml BalanceBalance 100 ml 100 ml Exam Right lower extremity: Incision: Clean, dry, and intact, no erythema Sensation intact to light touch in a sural, saphenous, deep peroneal, supe rficial peroneal, medial and lateral plantar nerve distribution. Motor is intact, patient able to dorsiflex and plantarflex ankle and extend and flex great toe. Dorsalis Pedis pulse +2, Brisk capillary refill. Compartments are soft. Calves non-tender to palpation bilaterally. Results/Medications Result Diagram: 02/13/19 0541 02/13/19 0541 Results 24 hrs Laboratory Tests Test 02/13/19 05:41 02/13/19 08:56 White Blood Count 16.5 H Red Blood Count 2.81 L Hemoglobin 7.6 L Hematocrit 23.1 L Mean Corpuscular Volume 82.2 Mean Corpuscular Hemoglobin 27.0 L Mean Corpuscular Hemoglobin Concent 32.9 Red Cell Distribution Width 13.6 Platelet Count 315 Mean Platelet Volume 9.1 Immature Granulocytes % 1.800 H Neutrophils % 75.0 Lymphocytes % 16.0 Monocytes % 6.0 Eosinophils % 1.0 Basophils % 0.2 Nucleated Red Blood Cells % 0.1 H Immature Granulocytes # 0.300 H Neutrophils # 12.3 H Lymphocytes # 2.6 Monocytes # 1.0 H Eosinophils # 0.2 Basophils # 0.0 Nucleated Red Blood Cells # 0.0 Sodium Level 139 Potassium Level 3.6 Chloride Level 102 Carbon Dioxide Level 30 Anion Gap 7 Blood Urea Nitrogen 5 L Creatinine 0.71 Est Glomerular Filtrat Rate mL/min > 60 Glucose Level 142 Calcium Level 8.3 L Phosphorus Level 3.3 Magnesium Level 1.6 L Total Bilirubin 0.6 Direct Bilirubin 0.00 Indirect Bilirubin 0.6 Aspartate Amino Transf (AST/SGOT) 21 Alanine Aminotransferase (ALT/SGPT) 26 Alkaline Phosphatase 127 H Total Protein 6.7 Albumin 3.2 L Globulin 3.50 H Albumin/Globulin Ratio 0.91 Blood Gas Specimen Source Blood arterial Arterial Blood Date Drawn 02/13/2019 10:35:36 AM Arterial Blood pH (Temp corrected) 7.512 H Arterial Blood pCO2 (Temp correct) 36.7 Arterial Blood pO2 (Temp corrected) 75.3 L Arterial Blood HCO3 28.8 H Arterial Blood Base Excess 5.4 H Arterial Blood Oxygen Saturation 94.3 L Kody Test ACCEPTAB Arterial Blood Gas Puncture Site Right Radial Arterial Blood Carboxyhemoglobin 0.2 Arterial Blood Methemoglobin 0.2 Blood Gas A-a O2 Differential 138.8 H Oxyhemoglobin Percent 93.9 Blood Gas Temperature 37.0 Blood Gas Modality NASAL CANNULA FiO2 36.0 Blood Gas Notified Whom DT Blood Gas Notified Time 02/13/2019 10:46:18 AM Home Meds Active Scripts Oxycodone Hcl* (IR) (Roxicodone*) 5 Mg Tab, 5-10 MG PO Q4H PRN for .PAIN, #90 TAB Prov:DEJUAN KASPER MD 01/30/19 Aspirin Delayed Release (Aspirin Delayed Release) 81 Mg Tablet.dr, 81 MG PO BID for 84 Days Prov:DEJUAN KASPER MD 01/30/19 [Acetaminophen Tab] 500 MG TAB No Conflict Check, 1000 MG PO Q8 for 10 Days, TAB Prov:DEJUAN KASPER MD 01/30/19 Reported Medications Escitalopram Oxalate* (Lexapro*) 20 Mg Tablet, 20 MG PO DAILY, #30 TAB 01/29/19 Omeprazole* (Omeprazole*) 40 Mg Capsule.dr, 40 MG PO DAILY, #30 CAP 01/29/19 Losartan-Hydrochlorothiazide (Losartan-HCTZ) 100-25 Mg Tab, 1 TAB PO DAILY, TAB 01/28/19 Gabapentin* (Gabapentin*) 300 Mg Capsule, 300 MG PO DAILY, #60 CAP 01/28/19 Diclofenac Sodium* (Voltaren* XR) 100 Mg Tab.sr.24h, 100 MG PO BID, TAB.SA 01/28/19 Cetirizine Hcl* (Zyrtec*) 10 Mg Capsule, 10 MG PO DAILY, TAB 01/28/19 Cholecalciferol (Vitamin D3) (Vitamin D3) 2,000 Unit Tab.chew, 2000 UNIT PO DAILY, TAB.CHEW 01/28/19 Simvastatin (Simvastatin) 10 Mg Tablet, 10 MG PO DAILY, #30 TAB 01/28/19 Amlodipine Besylate* (Amlodipine Besylate*) 5 Mg Tablet, 5 MG PO DAILY, #30 TAB 01/28/19 Azelastine Hcl* (Azelastine Hcl*) 137 Mcg/0.137 Ml Pierson.pump, 1 SPRAY NASAL BID, #1 EA TO EACH NOSTRIL 01/28/19 Fluticasone Propionate* (Fluticasone Propionate* Nasal) 50 Mcg/Pierson - 16 Gm Pierson.susp, 1 SPRAY NASAL BID, EA TO EACH NOSTRIL 11/10/14 Budesonide* (Pulmicort* (Neb)) 0.5 Mg/2 Ml Ampul.neb, 0.5 MG IH BID, EA 11/10/14 Diclofenac Sodium* (Diclofenac Sodium*) 75 Mg Tablet.dr, 100 MG PO BID, TAB 11/10/14 Medications Current Medications Acetaminophen (Tylenol Tab) 650 mg Q6H PRN PO MILD PAIN(1-3)OR ELEVATED TEMP Last administered on 02/13/19at 08:08; Admin Dose 650 MG; Start 02/11/19 at 03:00 Ondansetron HCl (Zofran Inj) 4 mg Q4H PRN IV NAUSEA AND/OR VOMITING; Start 02/11/19 at 03:00 Pantoprazole (Protonix Tab) 40 mg DAILY@06 PO Last administered on 02/13/19at 05:45; Admin Dose 40 MG; Start 02/11/19 at 06:00 Vancomycin HCl (Vanco Iv Per Pharmacy) VANCOMYCIN PER PHARMACY PER PROTOCOL XX ; Start 02/11/19 at 03:00 Piperacillin Sod/ Tazobactam Sod 100 ml @ 200 mls/hr Q8 IVPB Last administered on 02/13/19at 15:26; Admin Dose 200 MLS/HR; Start 02/11/19 at 06:00 Morphine Sulfate (morphine) 2 mg Q4H PRN IV SEVERE PAIN LEVEL 7-10 Last administered on 02/12/19 03:34; Admin Dose 2 MG; Start 02/11/19 at 03:00 Amlodipine Besylate (Norvasc) 5 mg DAILY PO Last administered on 02/13/19 09:23; Admin Dose 5 MG; Start 02/11/19 at 09:00 Azelastine HCl (Astelin) 1 spray BID NASAL Last administered on 02/13/19 09:24; Admin Dose 1 SPRAY; Start 02/11/19 at 09:00 Escitalopram Oxalate (Lexapro) 20 mg DAILY PO Last administered on 02/13/19 09:24; Admin Dose 20 MG; Start 02/11/19 at 09:00 Fluticasone Propionate (Flonase 0.05% Nasal) 1 spray BID NASAL Last administered on 02/13/19 09:24; Admin Dose 1 SPRAY; Start 02/11/19 at 09:00 Gabapentin (Neurontin) 300 mg DAILY PO Last administered on 02/13/19 09:23; Admin Dose 300 MG; Start 02/11/19 at 09:00 Oxycodone HCl (Roxicodone) MODERATE PAIN 5-6 Q4H PRN PO .PAIN Last administered on 02/13/19 11:41; Admin Dose 5 MG; Start 02/11/19 at 03:30 Loratadine (Claritin) 10 mg DAILY PO Last administered on 02/13/19 09:35; Admin Dose 10 MG; Start 02/11/19 at 09:00 Cholecalciferol (Vitamin D) 2,000 unit DAILY PO Last administered on 02/13/19 09:23; Admin Dose 2,000 UNIT; Start 02/11/19 at 09:00 Atorvastatin Calcium (Lipitor) 10 mg DAILY PO Last administered on 02/13/19 09:24; Admin Dose 10 MG; Start 02/11/19 at 09:00 Budesonide (Pulmicort (Neb)) 0.5 mg BID PRN NEB WHEEZING AND SOB; Start 02/11/19 at 03:30 Albuterol/ Ipratropium (Duoneb) 3 ml Q4H RESP THERAPY HHN Last administered on 02/13/19 14:11; Admin Dose 3 ML; Start 02/11/19 at 13:00 Acetaminophen (Tylenol Tab) 650 mg Q4H PRN PO MILD PAIN(1-3)OR ELEVATED TEMP Last administered on 02/12/19at 12:00; Admin Dose 650 MG; Start 02/12/19 at 12:00 Calcium Carbonate (Oyster Shell Calcium) 1.25 gm BID NGT Last administered on 02/13/19at 09:23; Admin Dose 1.25 GM; Start 02/12/19 at 14:00 Vancomycin HCl 1.5 gm/Sodium Chloride 250 ml @ 83.333 mls/ hr Q12H IVPB Last administered on 02/13/19at 16:05; Admin Dose 83.333 MLS/HR; Start 02/13/19 at 02:00 Furosemide (Lasix) 40 mg DAILY IV Last administered on 02/13/19at 09:35; Admin Dose 40 MG; Start 02/13/19 at 09:00 Miscellaneous Information (*Rx Drug Level Order Reminder*) VANCO TR AT 1300 1300 ONCE XX ; Start 02/14/19 at 13:00; Stop 02/14/19 at 13:01 Magnesium Oxide (Mag-Ox 400) 400 mg BID PO Last administered on 02/13/19at 15:26; Admin Dose 400 MG; Start 02/13/19 at 11:00 Assessment/Plan Hospital Course (Demo Recall) 59-year-old female 2 weeks status post right total knee arthroplasty. Currently there are no signs of infection in regards to the right knee. CT angiogram of the chest was negative for pulmonary embolism. However was positive for pleural effusions and atelectasis. At this time this is most likely the causes of the patient's shortness of breath and oxygen desaturation. The internal medicine physician and infectious disease continues to work-up the source of infection. Plan: Physical therapy for right knee Internal medicine team to continue infection work-up and work-up for anemia Continue IV antibiotics per ID We will continue to follow-up cultures from synovial fluid DEJUAN KASPER MD Feb 13, 2019 16:45
[2019-02-13 19:12] VITALS: BP 135/63; PULSE 78; RESP 18
[2019-02-13 23:04] VITALS: BP 138/65; PULSE 81; RESP 20
[2019-02-14] MEDS: ALBUTEROL/IPRATROPIUM (NEB) 3 ML AMP HHN SCH ×6 (01:22→20:44)
[2019-02-14] MEDS: VANCOMYCIN HCL 1.5 GM in SOD CHLORIDE 0.9% 250 ML IVPB SCH ×2 (03:12→15:36)
[2019-02-14] MEDS: ACETAMINOPHEN 325 MG TAB PO PRN (03:44)
[2019-02-14 04:00] VITALS: BP 129/58; PULSE 84; RESP 20
[2019-02-14] MEDS: oxyCODONE 5 MG TAB PO PRN ×3 (05:47→21:20)
[2019-02-14] MEDS: PIPER-TAZO 3.375 GM IV (PMX) 100 ML IVPB SCH ×3 (06:30→21:11)
[2019-02-14] MEDS: PANTOPRAZOLE (EC) 40 MG TAB PO SCH (06:30)
[2019-02-14 07:15] VITALS: BP 124/55; PULSE 77; RESP 19
[2019-02-14] MEDS: BUDESONIDE (NEB) 0.5MG/2ML AMP NEB PRN (08:10)
[2019-02-14] MEDS: AZELASTINE 30 ML NAS SPRAY NASAL SCH ×2 (10:03→21:12)
[2019-02-14] MEDS: FLUTICASONE 0.05% 16 GM NAS SPRAY NASAL SCH ×2 (10:03→21:11)
[2019-02-14] MEDS: ESCITALOPRAM 10 MG TAB PO SCH (10:03)
[2019-02-14] MEDS: CHOLECALCIFEROL 2,000 UNIT CAP PO SCH (10:03)
[2019-02-14] MEDS: ATORVASTATIN 10 MG TAB PO SCH (10:04)
[2019-02-14] MEDS: LORATADINE 10 MG TAB PO SCH (10:04)
[2019-02-14] MEDS: AMLODIPINE 5 MG TAB PO SCH (10:04)
[2019-02-14] MEDS: GABAPENTIN 300 MG CAP PO SCH (10:04)
[2019-02-14] MEDS: MAGNESIUM OXIDE 400 MG TAB PO SCH ×2 (10:07→21:11)
[2019-02-14] MEDS: CALCIUM CARBONATE 1.25 GM TAB NGT SCH ×2 (10:07→21:11)
[2019-02-14] MEDS: FUROSEMIDE 40 MG INJ IV SCH (10:08)
[2019-02-14 11:05] VITALS: BP 138/62; PULSE 79; RESP 20
--- NOTE | 2019-02-14 11:45 | CONS ---
Consultation Date/Type/Reason Admit Date/Time Feb 11, 2019 at 00:10 Initial Consult Date 02/13/19 Type of Consult Pulmonary Patient is a 59-year-old lady who came into the hospital with complaints of pain and swelling involving the right knee. Patient also been complaining of shortness of breath with exertion for the last few weeks. He denies having any chest pain. According to the patient she is feeling somewhat better over the last 24 hours. Denies any fever or chills. Past medical history; 1. History of hypertension which apparently is poorly controlled. 2. History of right total knee arthroplasty in January of this year. 3. Right knee synovitis on current admission. 4. No known coronary artery disease. Medications; reviewed. Allergies; none. Social history; patient never smoked. No show any drug abuse. Family history; noncontributory. Occupational history; noncontributory. Review of systems; denies any headache, seizures, visual changes, sinus symptoms. Any chest pain or angina. Any coughing or wheezing. Shortness of breath has improved. Does complain of dyspnea on exertion. Denies any abdom inal pain, nausea vomiting. Any fever chills. Any melena hematochezia urinary symptoms. Any edema. Denies any orthopnea. Any weight gain. General exam; young female, awake alert, laying comfortably in bed. Currently in no distress. Date/Time of Note DATE: 02/14/19 TIME: 11:44 24 HR Interval Summary Free Text/Dictation Patient's condition is fairly stable. Reports of decreased shortness of breath. General exam; middle-aged female, appears overweight. Currently no distress. Awake and alert. H EENT exam; supple neck, positive JVD. No lymphadenopathy. Midline trachea. No thyromegaly. Patient has fair dentition. Chest exam; clear to auscultation. S1-S2 audible, no murmurs. Regular rhythm. Abdomen exam; soft, protuberant. Nontender. Bowel sounds audible. Extremity exam; no peripheral edema. Dressing applied to right knee. CLIENT SOLUTIONS SPECIALIST exam; no focal deficit. Assessment and recommendations; 1. Patient with history of total right knee replacement in January of this year admitted for right knee cellulitis. 2. Patient also has underlying hypertensive cardiomyopathy with interval improvement on current treatment regimen. 3. History of suboptimally controlled hypertension. 4. Mild anemia. 5. Likely underlying diastolic dysfunction. Continue current supportive care. Patient responding well to current treatment regimen. Antibiotics per ID recommendations regarding right knee cellulitis. Exam/Review of Systems Exam Vitals Vital Signs Date Temp Pulse Resp B/P (MAP) Pulse Ox O2 O2 Flow FiO2 Time Delivery Rate 02/14/19 98.4 79 20 138/62 95 Nasal 11:05 (87) Cannula 02/14/19 4.0 08:13 Intake and Output 02/13/19 02/13/19 02/14/19 1515:00 23:00 07:00 IntakeIntake Total 1120 ml 850 ml 500 ml OutputOutput Total 550 ml 550 ml BalanceBalance 1120 ml 300 ml -50 ml Results Result Diagram: 02/14/19 0554 02/14/19 0554 Results 24hrs Laboratory Tests Test 02/14/19 05:54 White Blood Count 13.4 H Red Blood Count 3.31 L Hemoglobin 9.1 L Hematocrit 27.3 L Mean Corpuscular Volume 82.5 Mean Corpuscular Hemoglobin 27.5 L Mean Corpuscular Hemoglobin Concent 33.3 Red Cell Distribution Width 13.8 Platelet Count 453 #H Mean Platelet Volume 8.8 Immature Granulocytes % 2.100 H Neutrophils % 74.2 Lymphocytes % 14.9 L Monocytes % 5.9 Eosinophils % 2.5 Basophils % 0.4 Nucleated Red Blood Cells % 0.3 H Immature Granulocytes # 0.280 H Neutrophils # 9.9 H Lymphocytes # 2.0 Monocytes # 0.8 Eosinophils # 0.3 Basophils # 0.1 Nucleated Red Blood Cells # 0.0 Sodium Level 141 Potassium Level 3.1 L Chloride Level 97 Carbon Dioxide Level 34 H Anion Gap 10 Blood Urea Nitrogen 4 L Creatinine 0.66 Est Glomerular Filtrat Rate mL/min > 60 Glucose Level 136 Calcium Level 9.2 Phosphorus Level 3.4 Magnesium Level 1.6 L Total Bilirubin 0.6 Direct Bilirubin 0.00 Indirect Bilirubin 0.6 Aspartate Amino Transf (AST/SGOT) 25 Alanine Aminotransferase (ALT/SGPT) 28 Alkaline Phosphatase 140 H Total Protein 7.1 Albumin 3.5 Globulin 3.60 H Albumin/Globulin Ratio 0.97 Medications Medication Current Medications Acetaminophen (Tylenol Tab) 650 mg Q6H PRN PO MILD PAIN(1-3)OR ELEVATED TEMP Last administered on 02/14/19at 03:44; Admin Dose 650 MG; Start 7/8/19 at 03:00 Ondansetron HCl (Zofran Inj) 4 mg Q4H PRN IV NAUSEA AND/OR VOMITING; Start 02/11/19 at 03:00 Pantoprazole (Protonix Tab) 40 mg DAILY@06 PO Last administered on 02/14/19 06:30; Admin Dose 40 MG; Start 02/11/19 at 06:00 Vancomycin HCl (Vanco Iv Per Pharmacy) VANCOMYCIN PER PHARMACY PER PROTOCOL XX ; Start 02/11/19 at 03:00 Piperacillin Sod/ Tazobactam Sod 100 ml @ 200 mls/hr Q8 IVPB Last administered on 02/14/19 06:30; Admin Dose 200 MLS/HR; Start 02/11/19 at 06:00 Morphine Sulfate (morphine) 2 mg Q4H PRN IV SEVERE PAIN LEVEL 7-10 Last administered on 02/12/19 03:34; Admin Dose 2 MG; Start 02/11/19 at 03:00 Amlodipine Besylate (Norvasc) 5 mg DAILY PO Last administered on 02/14/19 10:04; Admin Dose 5 MG; Start 02/11/19 at 09:00 Azelastine HCl (Astelin) 1 spray BID NASAL Last administered on 02/14/19 10:03; Admin Dose 1 SPRAY; Start 02/11/19 at 09:00 Escitalopram Oxalate (Lexapro) 20 mg DAILY PO Last administered on 02/14/19 10:03; Admin Dose 20 MG; Start 02/11/19 at 09:00 Fluticasone Propionate (Flonase 0.05% Nasal) 1 spray BID NASAL Last administered on 02/14/19 10:03; Admin Dose 1 SPRAY; Start 02/11/19 at 09:00 Gabapentin (Neurontin) 300 mg DAILY PO Last administered on 02/14/19 10:04; Admin Dose 300 MG; Start 02/11/19 at 09:00 Loratadine (Claritin) 10 mg DAILY PO Last administered on 02/14/19 10:04; Admin Dose 10 MG; Start 02/11/19 at 09:00 Cholecalciferol (Vitamin D) 2,000 unit DAILY PO Last administered on 02/14/19 10:03; Admin Dose 2,000 UNIT; Start 02/11/19 at 09:00 Atorvastatin Calcium (Lipitor) 10 mg DAILY PO Last administered on 02/14/19 10:04; Admin Dose 10 MG; Start 02/11/19 at 09:00 Budesonide (Pulmicort (Neb)) 0.5 mg BID PRN NEB WHEEZING AND SOB Last administered on 02/14/19 08:10; Admin Dose 0.5 MG; Start 02/11/19 at 03:30 Albuterol/ Ipratropium (Duoneb) 3 ml Q4H RESP THERAPY HHN Last administered on 02/14/19 08:10; Admin Dose 3 ML; Start 02/11/19 at 13:00 Acetaminophen (Tylenol Tab) 650 mg Q4H PRN PO MILD PAIN(1-3)OR ELEVATED TEMP Last administered on 02/12/19 12:00; Admin Dose 650 MG; Start 02/12/19 at 12:00 Calcium Carbonate (Oyster Shell Calcium) 1.25 gm BID NGT Last administered on 02/14/19 10:07; Admin Dose 1.25 GM; Start 02/12/19 at 14:00 Vancomycin HCl 1.5 gm/Sodium Chloride 250 ml @ 83.333 mls/ hr Q12H IVPB Last administered on 02/14/19 03:12; Admin Dose 83.333 MLS/HR; Start 02/13/19 at 02:00 Furosemide (Lasix) 40 mg DAILY IV Last administered on 02/14/19 10:08; Admin Dose 40 MG; Start 02/13/19 at 09:00 Miscellaneous Information (*Rx Drug Level Order Reminder*) STIVEN ZHOU AT 1300 1300 ONCE XX ; Start 02/14/19 at 13:00; Stop 02/14/19 at 13:01 Magnesium Oxide (Mag-Ox 400) 400 mg BID PO Last administered on 02/14/19 10:07; Admin Dose 400 MG; Start 02/13/19 at 11:00 Oxycodone HCl (Roxicodone) 5 mg Q4H PRN PO MODERATE PAIN LEVEL 4-6 Last administered on 02/14/19at 05:47; Admin Dose 5 MG; Start 02/13/19 at 17:00 Oxycodone HCl (Roxicodone) 10 mg Q4H PRN PO MODERATE PAIN LEVEL 7-10 Last administered on 02/14/19at 10:04; Admin Dose 10 MG; Start 02/13/19 at 17:00 TRACEY ARIZMENDI Feb 14, 2019 11:45
--- NOTE | 2019-02-14 13:53 | CONS ---
Assessment/Plan Assessment/Plan Hospital Course (Demo Recall) Patient is alert looks comfortable complaining of abdominal discomfort and also has no appetite. She is in no distress on and off loose stools no fevers WBC 13.4 platelets 453 neutrophils 74.2 BUN [address] of the abdomen and pelvis done yesterday revealed sigmoid colon diverticul itis with small focal phlegmon and inflammatory stranding medial to sigmoid colon. No evidence of drainable abscess. Please see full report in the chart Microbiology: Right knee fluid culture grew coag negative staph species susceptible to ciprofloxacin clindamycin doxycycline Antimicrobials: Vanco and Zosyn Physical examination: This is obese well-developed middle-aged woman who is alert in no distress. Head atraumatic normocephalic sclera nonicteric vehicle mucosa dry neck is supple chest rise symmetrical breath sounds clear. Heart: Mask S1-S2 abdomen soft patient has some tenderness over right upper quadrant on palpation no suprapubic tenderness bowel sounds present. Extremities without cyanosis right knee incision with shruthi clean dry and intact no drainage no erythema Assessment: 1. Ongoing fevers with leukocytosis secondary to #2 2. Acute diverticulitis with phlegmon, no abscess per CT 2. Right knee cellulitis, improved 3. History of recent right total knee replacement 01/29/19 4. Morbid obesity 5. Acute anemia 6. Hypoxemia secondary to fluid overload, improved Plan: Patient is clinically stable, continue antibiotics, consider surgical evaluation Consultation Date/Type/Reason Admit Date/Time Feb 11, 2019 at 00:10 Initial Consult Date 02/11/19 Type of Consult id Date/Time of Note DATE: 02/14/19 TIME: 13:51 Exam/Review of Systems Exam Vitals Vital Signs Date Temp Pulse Resp B/P (MAP) Pulse Ox O2 O2 Flow FiO2 Time Delivery Rate 02/14/19 78 22 95 Nasal 4.0 12:53 Cannula 02/14/19 98.4 138/62 11:05 (87) Intake and Output 02/13/19 02/13/19 02/14/19 1515:00 23:00 07:00 IntakeIntake Total 1120 ml 850 ml 500 ml OutputOutput Total 550 ml 550 ml BalanceBalance 1120 ml 300 ml -50 ml Results Result Diagram: 02/14/19 0554 02/14/19 0554 Results 24hrs Laboratory Tests Test 02/14/19 05:54 White Blood Count 13.4 H Red Blood Count 3.31 L Hemoglobin 9.1 L Hematocrit 27.3 L Mean Corpuscular Volume 82.5 Mean Corpuscular Hemoglobin 27.5 L Mean Corpuscular Hemoglobin Concent 33.3 Red Cell Distribution Width 13.8 Platelet Count 453 #H Mean Platelet Volume 8.8 Immature Granulocytes % 2.100 H Neutrophils % 74.2 Lymphocytes % 14.9 L Monocytes % 5.9 Eosinophils % 2.5 Basophils % 0.4 Nucleated Red Blood Cells % 0.3 H Immature Granulocytes # 0.280 H Neutrophils # 9.9 H Lymphocytes # 2.0 Monocytes # 0.8 Eosinophils # 0.3 Basophils # 0.1 Nucleated Red Blood Cells # 0.0 Sodium Level 141 Potassium Level 3.1 L Chloride Level 97 Carbon Dioxide Level 34 H Anion Gap 10 Blood Urea Nitrogen 4 L Creatinine 0.66 Est Glomerular Filtrat Rate mL/min > 60 Glucose Level 136 Calcium Level 9.2 Phosphorus Level 3.4 Magnesium Level 1.6 L Total Bilirubin 0.6 Direct Bilirubin 0.00 Indirect Bilirubin 0.6 Aspartate Amino Transf (AST/SGOT) 25 Alanine Aminotransferase (ALT/SGPT) 28 Alkaline Phosphatase 140 H Total Protein 7.1 Albumin 3.5 Globulin 3.60 H Albumin/Globulin Ratio 0.97 Medications Medication Current Medications Acetaminophen (Tylenol Tab) 650 mg Q6H PRN PO MILD PAIN(1-3)OR ELEVATED TEMP Last administered on 02/14/19at 03:44; Admin Dose 650 MG; Start 02/11/19 at 03:00 Ondansetron HCl (Zofran Inj) 4 mg Q4H PRN IV NAUSEA AND/OR VOMITING; Start 02/11/19 at 03:00 Pantoprazole (Protonix Tab) 40 mg DAILY@06 PO Last administered on 02/14/19at 06:30; Admin Dose 40 MG; Start 02/11/19 at 06:00 Vancomycin HCl (Vanco Iv Per Pharmacy) VANCOMYCIN PER PHARMACY PER PROTOCOL XX ; Start 02/11/19 at 03:00 Piperacillin Sod/ Tazobactam Sod 100 ml @ 200 mls/hr Q8 IVPB Last administered on 02/14/19at 06:30; Admin Dose 200 MLS/HR; Start 02/11/19 at 06:00 Morphine Sulfate (morphine) 2 mg Q4H PRN IV SEVERE PAIN LEVEL 7-10 Last administered on 02/12/19 03:34; Admin Dose 2 MG; Start 02/11/19 at 03:00 Amlodipine Besylate (Norvasc) 5 mg DAILY PO Last administered on 02/14/19 10:04; Admin Dose 5 MG; Start 02/11/19 at 09:00 Azelastine HCl (Astelin) 1 spray BID NASAL Last administered on 02/14/19 10:03; Admin Dose 1 SPRAY; Start 02/11/19 at 09:00 Escitalopram Oxalate (Lexapro) 20 mg DAILY PO Last administered on 02/14/19 10:03; Admin Dose 20 MG; Start 02/11/19 at 09:00 Fluticasone Propionate (Flonase 0.05% Nasal) 1 spray BID NASAL Last administered on 02/14/19 10:03; Admin Dose 1 SPRAY; Start 02/11/19 at 09:00 Gabapentin (Neurontin) 300 mg DAILY PO Last administered on 02/14/19 10:04; Admin Dose 300 MG; Start 02/11/19 at 09:00 Loratadine (Claritin) 10 mg DAILY PO Last administered on 02/14/19 10:04; Admin Dose 10 MG; Start 02/11/19 at 09:00 Cholecalciferol (Vitamin D) 2,000 unit DAILY PO Last administered on 02/14/19 10:03; Admin Dose 2,000 UNIT; Start 02/11/19 at 09:00 Atorvastatin Calcium (Lipitor) 10 mg DAILY PO Last administered on 02/14/19 10:04; Admin Dose 10 MG; Start 02/11/19 at 09:00 Budesonide (Pulmicort (Neb)) 0.5 mg BID PRN NEB WHEEZING AND SOB Last adminis tered on 02/14/19 08:10; Admin Dose 0.5 MG; Start 02/11/19 at 03:30 Albuterol/ Ipratropium (Duoneb) 3 ml Q4H RESP THERAPY HHN Last administered on 02/14/19 12:52; Admin Dose 3 ML; Start 02/11/19 at 13:00 Acetaminophen (Tylenol Tab) 650 mg Q4H PRN PO MILD PAIN(1-3)OR ELEVATED TEMP Last administered on 02/12/19 12:00; Admin Dose 650 MG; Start 02/12/19 at 12:00 Calcium Carbonate (Oyster Shell Calcium) 1.25 gm BID NGT Last administered on 02/14/19 10:07; Admin Dose 1.25 GM; Start 02/12/19 at 14:00 Vancomycin HCl 1.5 gm/Sodium Chloride 250 ml @ 83.333 mls/ hr Q12H IVPB Last administered on 02/14/19 03:12; Admin Dose 83.333 MLS/HR; Start 02/13/19 at 02:00 Furosemide (Lasix) 40 mg DAILY IV Last administered on 02/14/19 10:08; Admin Dose 40 MG; Start 02/13/19 at 09:00 Magnesium Oxide (Mag-Ox 400) 400 mg BID PO Last administered on 02/14/19 10:07; Admin Dose 400 MG; Start 02/13/19 at 11:00 Oxycodone HCl (Roxicodone) 5 mg Q4H PRN PO MODERATE PAIN LEVEL 4-6 Last administered on 02/14/19at 05:47; Admin Dose 5 MG; Start 02/13/19 at 17:00 Oxycodone HCl (Roxicodone) 10 mg Q4H PRN PO MODERATE PAIN LEVEL 7-10 Last administered on 02/14/19 10:04; Admin Dose 10 MG; Start 02/13/19 at 17:00 CRISTHIAN HARVEY NP Feb 14, 2019 13:53
[2019-02-14] MEDS ORDERED: POTASSIUM CHLORIDE (SR) 20 MEQ TAB PO STA (14:14)
[2019-02-14] MEDS ORDERED: MAGNESIUM SULFATE 2 GM/50 ML 50 ML IVPB ONE (14:30)
--- NOTE | 2019-02-14 15:14 | CONS ---
Consult Date/Type/Reason Admit Date/Time Feb 11, 2019 at 00:10 Initial Consult Date 02/11/19 Date/Time of Note DATE: 02/14/19 TIME: 15:02 Subjective Patient doing well No acute events overnight. Continues to have shortness of breath. Requiring nasal cannula. Patient walked with physical therapy today. Pain is well controlled Objective Vitals Vital Signs Date Temp Pulse Resp B/P (MAP) Pulse Ox O2 O2 Flow FiO2 Time Delivery Rate 02/14/19 78 22 95 Nasal 4.0 12:53 Cannula 02/14/19 98.4 138/62 11:05 (87) Intake and Output 02/13/19 02/13/19 02/14/19 1515:00 23:00 07:00 IntakeIntake Total 1120 ml 850 ml 500 ml OutputOutput Total 550 ml 550 ml BalanceBalance 1120 ml 300 ml -50 ml Exam Right lower extremity: Dressing: clean, dry, and intact, no erythema Sensation intact to light touch in a sural, saphenous, deep peroneal, superficial peroneal, medial and lateral plantar nerve distribution. Motor is intact, patient able to dorsiflex and plantarflex ankle and extend and flex g reat toe. Dorsalis Pedis pulse +2, Brisk capillary refill. Compartments are soft. Calves non-tender to palpation bilaterally. Results/Medications Result Diagram: 02/14/19 0554 02/14/19 0554 Results 24 hrs Laboratory Tests Test 02/14/19 05:54 02/14/19 13:16 White Blood Count 13.4 H Red Blood Count 3.31 L Hemoglobin 9.1 L Hematocrit 27.3 L Mean Corpuscular Volume 82.5 Mean Corpuscular Hemoglobin 27.5 L Mean Corpuscular Hemoglobin Concent 33.3 Red Cell Distribution Width 13.8 Platelet Count 453 #H Mean Platelet Volume 8.8 Immature Granulocytes % 2.100 H Neutrophils % 74.2 Lymphocytes % 14.9 L Monocytes % 5.9 Eosinophils % 2.5 Basophils % 0.4 Nucleated Red Blood Cells % 0.3 H Immature Granulocytes # 0.280 H Neutrophils # 9.9 H Lymphocytes # 2.0 Monocytes # 0.8 Eosinophils # 0.3 Basophils # 0.1 Nucleated Red Blood Cells # 0.0 Sodium Level 141 Potassium Level 3.1 L Chloride Level 97 Carbon Dioxide Level 34 H Anion Gap 10 Blood Urea Nitrogen 4 L Creatinine 0.66 Est Glomerular Filtrat Rate mL/min > 60 Glucose Level 136 Calcium Level 9.2 Phosphorus Level 3.4 Magnesium Level 1.6 L Total Bilirubin 0.6 Direct Bilirubin 0.00 Indirect Bilirubin 0.6 Aspartate Amino Transf (AST/SGOT) 25 Alanine Aminotransferase (ALT/SGPT) 28 Alkaline Phosphatase 140 H Total Protein 7.1 Albumin 3.5 Globulin 3.60 H Albumin/Globulin Ratio 0.97 Vancomycin Level Trough 11.7 Home Meds Active Scripts Oxycodone Hcl* (IR) (Roxicodone*) 5 Mg Tab, 5-10 MG PO Q4H PRN for .PAIN, #90 TAB Prov:DEJUAN KASPER MD 01/30/19 Aspirin Delayed Release (Aspirin Delayed Release) 81 Mg Tablet.dr, 81 MG PO BID for 84 Days Prov:DEJUAN KASPER MD 01/30/19 [Acetaminophen Tab] 500 MG TAB No Conflict Check, 1000 MG PO Q8 for 10 Days, TAB Prov:DEJUAN KASPER MD 01/30/19 Reported Medications Escitalopram Oxalate* (Lexapro*) 20 Mg Tablet, 20 MG PO DAILY, #30 TAB 01/29/19 Omeprazole* (Omeprazole*) 40 Mg Capsule.dr, 40 MG PO DAILY, #30 CAP 01/29/19 Losartan-Hydrochlorothiazide (Losartan-HCTZ) 100-25 Mg Tab, 1 TAB PO DAILY, TAB 01/28/19 Gabapentin* (Gabapentin*) 300 Mg Capsule, 300 MG PO DAILY, #60 CAP 01/28/19 Diclofenac Sodium* (Voltaren* XR) 100 Mg Tab.sr.24h, 100 MG PO BID, TAB.SA 01/28/19 Cetirizine Hcl* (Zyrtec*) 10 Mg Capsule, 10 MG PO DAILY, TAB 01/28/19 Cholecalciferol (Vitamin D3) (Vitamin D3) 2,000 Unit Tab.chew, 2000 UNIT PO DAILY, TAB.CHEW 01/28/19 Simvastatin (Simvastatin) 10 Mg Tablet, 10 MG PO DAILY, #30 TAB 01/28/19 Amlodipine Besylate* (Amlodipine Besylate*) 5 Mg Tablet, 5 MG PO DAILY, #30 TAB 01/28/19 Azelastine Hcl* (Azelastine Hcl*) 137 Mcg/0.137 Ml Tilden.pump, 1 SPRAY NASAL BID, #1 EA TO EACH NOSTRIL 01/28/19 Fluticasone Propionate* (Fluticasone Propionate* Nasal) 50 Mcg/Tilden - 16 Gm Tilden.susp, 1 SPRAY NASAL BID, EA TO EACH NOSTRIL 11/10/14 Budesonide* (Pulmicort* (Neb)) 0.5 Mg/2 Ml Ampul.neb, 0.5 MG IH BID, EA 11/10/14 Diclofenac Sodium* (Diclofenac Sodium*) 75 Mg Tablet.dr, 100 MG PO BID, TAB 11/10/14 Medications Current Medications Acetaminophen (Tylenol Tab) 650 mg Q6H PRN PO MILD PAIN(1-3)OR ELEVATED TEMP Last administered on 02/14/19 03:44; Admin Dose 650 MG; Start 02/11/19 at 03:00 Ondansetron HCl (Zofran Inj) 4 mg Q4H PRN IV NAUSEA AND/OR VOMITING; Start 02/11/19 at 03:00 Pantoprazole (Protonix Tab) 40 mg DAILY@06 PO Last administered on 02/14/19 06:30; Admin Dose 40 MG; Start 02/11/19 at 06:00 Vancomycin HCl (Vanco Iv Per Pharmacy) VANCOMYCIN PER PHARMACY PER PROTOCOL XX ; Start 02/11/19 at 03:00 Piperacillin Sod/ Tazobactam Sod 100 ml @ 200 mls/hr Q8 IVPB Last administered on 02/14/19 14:07; Admin Dose 200 MLS/HR; Start 02/11/19 at 06:00 Morphine Sulfate (morphine) 2 mg Q4H PRN IV SEVERE PAIN LEVEL 7-10 Last administered on 02/12/19 03:34; Admin Dose 2 MG; Start 02/11/19 at 03:00 Amlodipine Besylate (Norvasc) 5 mg DAILY PO Last administered on 02/14/19 10:04; Admin Dose 5 MG; Start 02/11/19 at 09:00 Azelastine HCl (Astelin) 1 spray BID NASAL Last administered on 02/14/19 10:03; Admin Dose 1 SPRAY; Start 02/11/19 at 09:00 Escitalopram Oxalate (Lexapro) 20 mg DAILY PO Last administered on 02/14/19 10:03; Admin Dose 20 MG; Start 02/11/19 at 09:00 Fluticasone Propionate (Flonase 0.05% Nasal) 1 spray BID NASAL Last administered on 02/14/19 10:03; Admin Dose 1 SPRAY; Start 02/11/19 at 09:00 Gabapentin (Neurontin) 300 mg DAILY PO Last administered on 02/14/19 10:04; Admin Dose 300 MG; Start 02/11/19 at 09:00 Loratadine (Claritin) 10 mg DAILY PO Last administered on 02/14/19 10:04; Ad min Dose 10 MG; Start 02/11/19 at 09:00 Cholecalciferol (Vitamin D) 2,000 unit DAILY PO Last administered on 02/14/19 10:03; Admin Dose 2,000 UNIT; Start 02/11/19 at 09:00 Atorvastatin Calcium (Lipitor) 10 mg DAILY PO Last administered on 02/14/19 10:04; Admin Dose 10 MG; Start 02/11/19 at 09:00 Budesonide (Pulmicort (Neb)) 0.5 mg BID PRN NEB WHEEZING AND SOB Last administered on 02/14/19 08:10; Admin Dose 0.5 MG; Start 02/11/19 at 03:30 Albuterol/ Ipratropium (Duoneb) 3 ml Q4H RESP THERAPY HHN Last administered on 02/14/19 12:52; Admin Dose 3 ML; Start 02/11/19 at 13:00 Acetaminophen (Tylenol Tab) 650 mg Q4H PRN PO MILD PAIN(1-3)OR ELEVATED TEMP Last administered on 02/12/19 12:00; Admin Dose 650 MG; Start 02/12/19 at 12:00 Calcium Carbonate (Oyster Shell Calcium) 1.25 gm BID NGT Last administered on 02/14/19 10:07; Admin Dose 1.25 GM; Start 02/12/19 at 14:00 Vancomycin HCl 1.5 gm/Sodium Chloride 250 ml @ 83.333 mls/ hr Q12H IVPB Last administered on 02/14/19 03:12; Admin Dose 83.333 MLS/HR; Start 02/13/19 at 02:00 Furosemide (Lasix) 40 mg DAILY IV Last administered on 02/14/19 10:08; Admin Dose 40 MG; Start 02/13/19 at 09:00 Magnesium Oxide (Mag-Ox 400) 400 mg BID PO Last administered on 02/14/19at 10:07; Admin Dose 400 MG; Start 02/13/19 at 11:00 Oxycodone HCl (Roxicodone) 5 mg Q4H PRN PO MODERATE PAIN LEVEL 4-6 Last administered on 02/14/19at 05:47; Admin Dose 5 MG; Start 02/13/19 at 17:00 Oxycodone HCl (Roxicodone) 10 mg Q4H PRN PO MODERATE PAIN LEVEL 7-10 Last administered on 02/14/19at 10:04; Admin Dose 10 MG; Start 02/13/19 at 17:00 Magnesium Sulfate 50 ml @ 25 mls/hr ONCE ONCE IVPB ; Start 02/14/19 at 14:30; Stop 02/14/19 at 16:29 Assessment/Plan Hospital Course (Demo Recall) 59-year-old female 2 weeks status post right total knee arthroplasty. Currently there are no signs of infection in regards to the right knee. CT angiogram of the chest was negative for pulmonary embolism. However was positive for pleural effusions and atelectasis. From infection standpoint the patient is improving. WBC count continues to be slightly elevated. The most concerning issue is her desaturation and requirements of supplemental oxygen. This is continuously being worked up by medicine. Plan: Physical therapy for right knee Continue IV antibiotics per ID We will continue to follow-up cultures from synovial fluid -preliminary cultures are negative From an orthopedic standpoint she is stable to be discharged home with home health and home physical therapy. She is to follow-up with me in 2 weeks. DEJUAN KASPER MD Feb 14, 2019 15:12
[2019-02-14 15:30] VITALS: BP 143/68; PULSE 75; RESP 18
--- NOTE | 2019-02-14 15:49 | PN ---
Date/Time of Note Date/Time of Note DATE: 02/14/19 TIME: 15:45 Assessment/Plan VTE Prophylaxis Risk score (from [facility])>0 risk: 4 SCD applied (from [facility]): Yes Pharmacological prophylaxis: NA/contraindicated Pharm contraindication: low risk/ambulating Lines/Catheters IV Catheter Type (from [facility]): [place] [facility] Urinary Cath still in place: No Assessment/Plan Assessment/Plan This is a 59-year-old female, who presented with: 1. SIRS Fevers, leukocytosis, status post right total knee replacement on . , Fluid tap from knee is essentially neg and bld cx neg so far, UA neg , new chest xray+ Pul edema and ct chest + effusiions, NOW CT A+P diverticultis/enteritis 2. History of hypertension, currently hypotensive. 3. Hyperlipidemia. 4. Obesity. 5. GERD. 6. Allergic rhinitis. 7. Mood disorder. 8 anemia with acute blood loss? hematoma vs hemodilutional , improved sp 1 unit prbc 9 SOB likley due to pul edema sp iv fluids evident on chest xray likely due to CHF . CT chest neg for PE, ECHO diastolic dysfucntion Plan - cw iv vanco/zosyn - GI consult - iv lasix 40 for pul edema, replete K and MG - Restart ASA - Fu GI/Pul/ ID recs - fluid restriction - GI/DVT prophylaxsis - fu PUL/ ID and ortho recs Result Diagram: 02/14/19 0554 02/14/19 0554 Results 24hrs Laboratory Tests Test 02/14/19 05:54 02/14/19 13:16 White Blood Count 13.4 H Red Blood Count 3.31 L Hemoglobin 9.1 L Hematocrit 27.3 L Mean Corpuscular Volume 82.5 Mean Corpuscular Hemoglobin 27.5 L Mean Corpuscular Hemoglobin Concent 33.3 Red Cell Distribution Width 13.8 Platelet Count 453 #H Mean Platelet Volume 8.8 Immature Granulocytes % 2.100 H Neutrophils % 74.2 Lymphocytes % 14.9 L Monocytes % 5.9 Eosinophils % 2.5 Basophils % 0.4 Nucleated Red Blood Cells % 0.3 H Immature Granulocytes # 0.280 H Neutrophils # 9.9 H Lymphocytes # 2.0 Monocytes # 0.8 Eosinophils # 0.3 Basophils # 0.1 Nucleated Red Blood Cells # 0.0 Sodium Level 141 Potassium Level 3.1 L Chloride Level 97 Carbon Dioxide Level 34 H Anion Gap 10 Blood Urea Nitrogen 4 L Creatinine 0.66 Est Glomerular Filtrat Rate mL/min > 60 Glucose Level 136 Calcium Level 9.2 Phosphorus Level 3.4 Magnesium Level 1.6 L Total Bilirubin 0.6 Direct Bilirubin 0.00 Indirect Bilirubin 0.6 Aspartate Amino Transf (AST/SGOT) 25 Alanine Aminotransferase (ALT/SGPT) 28 Alkaline Phosphatase 140 H Total Protein 7.1 Albumin 3.5 Globulin 3.60 H Albumin/Globulin Ratio 0.97 Vancomycin Level Trough 11.7 Subjective 24 Hr Interval Summary Free Text/Dictation ruq pain and back pain on 4 litres oxyegn Exam/Review of Systems Exam Vitals Vital Signs Date Temp Pulse Resp B/P (MAP) Pulse Ox O2 O2 Flow FiO2 Time Delivery Rate 02/14/19 78 22 95 Nasal 4.0 12:53 Cannula 02/14/19 98.4 138/62 11:05 (87) Intake and Output 02/13/19 02/13/19 02/14/19 1515:00 23:00 07:00 IntakeIntake Total 1120 ml 850 ml 500 ml OutputOutput Total 550 ml 550 ml BalanceBalance 1120 ml 300 ml -50 ml Exam GENERAL: The patient is awake, alert, oriented, does not appear to in any acute distress. Morbidly obese, on 5 litres oxygen HEENT: Pupils equal, round, reactive to light. NECK: Supple. HEART: Regular rate and rhythm. LUNGS: Some decreased breath sound on the left base. ABDOMEN: Soft. Some tenderness present in the right upper quadrant. Positive bowel sounds.rt flank tenderness EXTREMITIES: Right lower extremity, status post total knee replacement. The surgical site has shruthi intact in place. Some tenderness noted around the site. It is very tense, slightly warm. Diffuse swelling noted on the right leg, right ankle, also ecchymosis noted on the back of the right knee and on the foot. Results Results 24hrs Laboratory Tests Test 02/14/19 05:54 02/14/19 13:16 White Blood Count 13.4 H Red Blood Count 3.31 L Hemoglobin 9.1 L Hematocrit 27.3 L Mean Corpuscular Volume 82.5 Mean Corpuscular Hemoglobin 27.5 L Mean Corpuscular Hemoglobin Concent 33.3 Red Cell Distribution Width 13.8 Platelet Count 453 #H Mean Platelet Volume 8.8 Immature Granulocytes % 2.100 H Neutrophils % 74.2 Lymphocytes % 14.9 L Monocytes % 5.9 Eosinophils % 2.5 Basophils % 0.4 Nucleated Red Blood Cells % 0.3 H Immature Granulocytes # 0.280 H Neutrophils # 9.9 H Lymphocytes # 2.0 Monocytes # 0.8 Eosinophils # 0.3 Basophils # 0.1 Nucleated Red Blood Cells # 0.0 Sodium Level 141 Potassium Level 3.1 L Chloride Level 97 Carbon Dioxide Level 34 H Anion Gap 10 Blood Urea Nitrogen 4 L Creatinine 0.66 Est Glomerular Filtrat Rate mL/min > 60 Glucose Level 136 Calcium Level 9.2 Phosphorus Level 3.4 Magnesium Level 1.6 L Total Bilirubin 0.6 Direct Bilirubin 0.00 Indirect Bilirubin 0.6 Aspartate Amino Transf (AST/SGOT) 25 Alanine Aminotransferase (ALT/SGPT) 28 Alkaline Phosphatase 140 H Total Protein 7.1 Albumin 3.5 Globulin 3.60 H Albumin/Globulin Ratio 0.97 Vancomycin Level Trough 11.7 Medications Medication Current Medications Acetaminophen (Tylenol Tab) 650 mg Q6H PRN PO MILD PAIN(1-3)OR ELEVATED TEMP Last administered on 02/14/19at 03:44; Admin Dose 650 MG; Start 02/11/19 at 03:00 Ondansetron HCl (Zofran Inj) 4 mg Q4H PRN IV NAUSEA AND/OR VOMITING; Start 02/11/19 at 03:00 Pantoprazole (Protonix Tab) 40 mg DAILY@06 PO Last administered on 02/14/19at 06:30; Admin Dose 40 MG; Start 02/11/19 at 06:00 Vancomycin HCl (Vanco Iv Per Pharmacy) VANCOMYCIN PER PHARMACY PER PROTOCOL XX ; Start 02/11/19 at 03:00 Piperacillin Sod/ Tazobactam Sod 100 ml @ 200 mls/hr Q8 IVPB Last administered on 02/14/19at 14:07; Admin Dose 200 MLS/HR; Start 02/11/19 at 06:00 Morphine Sulfate (morphine) 2 mg Q4H PRN IV SEVERE PAIN LEVEL 7-10 Last administered on 02/12/19at 03:34; Admin Dose 2 MG; Start 02/11/19 at 03:00 Amlodipine Besylate (Norvasc) 5 mg DAILY PO Last administered on 02/14/19 1 0:04; Admin Dose 5 MG; Start 02/11/19 at 09:00 Azelastine HCl (Astelin) 1 spray BID NASAL Last administered on 02/14/19 10:03; Admin Dose 1 SPRAY; Start 02/11/19 at 09:00 Escitalopram Oxalate (Lexapro) 20 mg DAILY PO Last administered on 02/14/19 10:03; Admin Dose 20 MG; Start 02/11/19 at 09:00 Fluticasone Propionate (Flonase 0.05% Nasal) 1 spray BID NASAL Last administered on 02/14/19 10:03; Admin Dose 1 SPRAY; Start 02/11/19 at 09:00 Gabapentin (Neurontin) 300 mg DAILY PO Last administered on 02/14/19 10:04; Admin Dose 300 MG; Start 02/11/19 at 09:00 Loratadine (Claritin) 10 mg DAILY PO Last administered on 02/14/19 10:04; Admin Dose 10 MG; Start 02/11/19 at 09:00 Cholecalciferol (Vitamin D) 2,000 unit DAILY PO Last administered on 02/14/19 10:03; Admin Dose 2,000 UNIT; Start 02/11/19 at 09:00 Atorvastatin Calcium (Lipitor) 10 mg DAILY PO Last administered on 02/14/19 10:04; Admin Dose 10 MG; Start 02/11/19 at 09:00 Budesonide (Pulmicort (Neb)) 0.5 mg BID PRN NEB WHEEZING AND SOB Last administered on 02/14/19 08:10; Admin Dose 0.5 MG; Start 02/11/19 at 03:30 Albuterol/ Ipratropium (Duoneb) 3 ml Q4H RESP THERAPY HHN Last administered on 02/14/19 12:52; Admin Dose 3 ML; Start 02/11/19 at 13:00 Acetaminophen (Tylenol Tab) 650 mg Q4H PRN PO MILD PAIN(1-3)OR ELEVATED TEMP Last administered on 02/12/19 12:00; Admin Dose 650 MG; Start 02/12/19 at 12:00 Calcium Carbonate (Oyster Shell Calcium) 1.25 gm BID NGT Last administered on 02/14/19 10:07; Admin Dose 1.25 GM; Start 02/12/19 at 14:00 Vancomycin HCl 1.5 gm/Sodium Chloride 250 ml @ 83.333 mls/ hr Q12H IVPB Last administered on 02/14/19at 15:36; Admin Dose 83.333 MLS/HR; Start 02/13/19 at 02:00 Furosemide (Lasix) 40 mg DAILY IV Last administered on 02/14/19at 10:08; Admin Dose 40 MG; Start 02/13/19 at 09:00 Magnesium Oxide (Mag-Ox 400) 400 mg BID PO Last administered on 02/14/19at 10:07; Admin Dose 400 MG; Start 02/13/19 at 11:00 Oxycodone HCl (Roxicodone) 5 mg Q4H PRN PO MODERATE PAIN LEVEL 4-6 Last adminis tered on 02/14/19at 05:47; Admin Dose 5 MG; Start 02/13/19 at 17:00 Oxycodone HCl (Roxicodone) 10 mg Q4H PRN PO MODERATE PAIN LEVEL 7-10 Last administered on 02/14/19at 10:04; Admin Dose 10 MG; Start 02/13/19 at 17:00 Magnesium Sulfate 50 ml @ 25 mls/hr ONCE ONCE IVPB ; Start 02/14/19 at 14:30; Stop 02/14/19 at 16:29 Aspirin (Halfprin) 81 mg BID PO ; Start 02/14/19 at 21:00; Status JACQUI MEEK MD Feb 14, 2019 15:49
[2019-02-14] MEDS ORDERED: FUROSEMIDE 20 MG INJ IV ONE (16:00)
[2019-02-14 20:25] VITALS: BP 142/65; PULSE 79; RESP 20
[2019-02-14] MEDS ORDERED: LOPERAMIDE 2 MG CAP PO ONE (20:30)
[2019-02-14] MEDS: ASPIRIN (EC) 81 MG TAB PO SCH (21:11)
[2019-02-15 00:28] VITALS: BP 130/61; PULSE 79; RESP 20
[2019-02-15] MEDS: ALBUTEROL/IPRATROPIUM (NEB) 3 ML AMP HHN SCH ×6 (00:58→20:29)
--- NOTE | 2019-02-15 01:46 | CONS ---
DATE OF ADMISSION: 02/11/2019 DATE OF CONSULTATION: HISTORY OF PRESENT ILLNESS: The patient is a 59-year-old female with a history of hypertension, sinu sitis, and mood disorder, who was admitted to [facility] on 01/29 until 01/30. The patient had a right knee replacement. The patient went home and developed some fever, so returned t o the emergency room. The patient was found to be septic and admitted for further management. Appro priate cultures were done, started on vancomycin and Zosyn. She also had aspiration of the knee join t. During her stay in the hospital the patient had abdominal pain, so a GI consult was called in. S he had a CAT scan done which showed diverticulitis. She had a good bowel movement. No GI bleeding, no abdominal pain. Now, she complains of right renal angle tenderness. No chest pain, no shortness of breath, no fever, and no chills. PAST MEDICAL HISTORY: As described, hypertension, mood disorder, and knee replacement. PAST SURGICAL HISTORY: Three sinus surgeries. HOME MEDICATIONS: All reviewed. ALLERGIES: NONE. PHYSICAL EXAMINATION: GENERAL: Overweight, not in distress. VITAL SIGNS: Stable. HEENT: Unremarkable. NECK: Supple, no thyromegaly, no lymphadenopathy. CARDIOVASCULAR: No murmur, gallop or click. LUNGS: Clear. ABDOMEN: Totally benign. She is obese. LUNGS: Clear. EXTREMITIES: No edema. CENTRAL NERVOUS SYSTEM: Grossly within normal limits. IMPRESSION: 1. Systemic inflammatory response syndrome with a fever, leukocytosis, status post right knee replac ement. 2. Diverticulitis based on the CAT scan report. 3. Hypertension. 4. Obesity. 5. Mood disorder. 6. Allergic rhinitis. 7. Anemia. PLAN: At this point, is to continue antibiotic treatment. Patient definitely needs a colonoscopy af ter 6 weeks. We will also send stool for occult blood. Continue antibiotics in the interim. Will w ork her up for the anemia. Dictated By: LIDYA FONTAINE/ARNALDO Conf#: [id number] DID#: [id number] CC: JACQUI FUNES;*EndCC*
[2019-02-15] MEDS: VANCOMYCIN HCL 1.5 GM in SOD CHLORIDE 0.9% 250 ML IVPB SCH ×2 (02:52→14:46)
[2019-02-15 04:15] VITALS: BP 168/74; PULSE 84; RESP 20
[2019-02-15] MEDS: ACETAMINOPHEN 325 MG TAB PO PRN (05:39)
[2019-02-15] MEDS: PANTOPRAZOLE (EC) 40 MG TAB PO SCH (05:39)
[2019-02-15] MEDS: PIPER-TAZO 3.375 GM IV (PMX) 100 ML IVPB SCH ×3 (05:39→21:40)
[2019-02-15 07:12] VITALS: BP 124/59; PULSE 86; RESP 18
[2019-02-15] MEDS: BUDESONIDE (NEB) 0.5MG/2ML AMP NEB PRN ×2 (08:18→20:33)
[2019-02-15] MEDS: FLUTICASONE 0.05% 16 GM NAS SPRAY NASAL SCH ×2 (08:52→21:39)
[2019-02-15] MEDS: AZELASTINE 30 ML NAS SPRAY NASAL SCH ×2 (08:52→21:40)
[2019-02-15] MEDS: CHOLECALCIFEROL 2,000 UNIT CAP PO SCH (08:53)
[2019-02-15] MEDS: MAGNESIUM OXIDE 400 MG TAB PO SCH (08:53)
[2019-02-15] MEDS: CALCIUM CARBONATE 1.25 GM TAB NGT SCH ×2 (08:53→21:39)
[2019-02-15] MEDS: GABAPENTIN 300 MG CAP PO SCH (08:53)
[2019-02-15] MEDS: ASPIRIN (EC) 81 MG TAB PO SCH ×2 (08:53→21:39)
[2019-02-15] MEDS: AMLODIPINE 5 MG TAB PO SCH (08:53)
[2019-02-15] MEDS: ATORVASTATIN 10 MG TAB PO SCH (08:53)
[2019-02-15] MEDS: LORATADINE 10 MG TAB PO SCH (08:53)
[2019-02-15] MEDS: ESCITALOPRAM 10 MG TAB PO SCH (08:54)
[2019-02-15] MEDS: FUROSEMIDE 40 MG INJ IV SCH (08:54)
[2019-02-15] MEDS ORDERED: POTASSIUM CHLORIDE (SR) 20 MEQ TAB PO STA (10:17)
[2019-02-15 11:35] VITALS: BP 135/64; PULSE 77; RESP 18
--- NOTE | 2019-02-15 12:41 | CONS ---
Consult Date/Type/Reason Admit Date/Time Feb 11, 2019 at 00:10 Initial Consult Date 02/13/19 Type of Consult Pulmonary Date/Time of Note DATE: 02/15/19 TIME: 12:39 Subjective Still short of breath on minimal exertion. Objective Vital Signs Date Temp Pulse Resp B/P (MAP) Pulse Ox O2 O2 Flow FiO2 Time Delivery Rate 02/15/19 97.8 77 18 135/64 97 11:35 (87) 02/15/19 3.0 08:21 02/15/19 Nasal 08:19 Cannula Intake and Output 02/14/19 02/14/19 02/15/19 1515:00 23:00 07:00 IntakeIntake Total 1800 ml 700 ml OutputOutput Total 2 ml BalanceBalance 1800 ml 698 ml Exam GENERAL: Well-nourished well-developed lady comfortable at rest no acute distress VITAL SIGNS: per chart NECK: Supple. No JVD or lymphadenopathy. CARDIAC EXAM: S1, S2. No added sounds or murmurs. CHEST: Diminished air entry bilaterally ABDOMEN: Soft, nontender. No guarding or rebound. EXTREMITIES: No cyanosis, clubbing or edema. NEUROLOGIC: Generalized weakness. No focal deficits. Results/Medications Result Diagram: 02/15/19 0514 02/15/19 0514 Results 24 hrs Laboratory Tests Test 02/14/19 13:16 02/14/19 18:40 02/15/19 05:14 Vancomycin Level Trough 11.7 Absolute Reticulocyte Count 0.044 Percent Reticulocyte Count 1.3 Ferritin 218.0 Vitamin B12 Level > 1000 H Folate > 20.0 H White Blood Count 12.8 H Red Blood Count 3.64 L Hemoglobin 9.7 L Hematocrit 30.0 L Mean Corpuscular Volume 82.4 Mean Corpuscular Hemoglobin 26.6 L Mean Corpuscular Hemoglobin Concent 32.3 Red Cell Distribution Width 14.0 Platelet Count 535 H Mean Platelet Volume 8.6 Immature Granulocytes % 1.600 H Neutrophils % 72.7 Lymphocytes % 15.6 Monocytes % 7.2 Eosinophils % 2.7 Basophils % 0.2 Nucleated Red Blood Cells % 0.2 H Immature Granulocytes # 0.210 H Neutrophils # 9.3 H Lymphocytes # 2.0 Monocytes # 0.9 Eosinophils # 0.3 Basophils # 0.0 Nucleated Red Blood Cells # 0.0 Sodium Level 139 Potassium Level 3.2 L Chloride Level 98 Carbon Dioxide Level 34 H Anion Gap 7 Blood Urea Nitrogen 6 L Creatinine 0.79 Est Glomerular Filtrat Rate mL/min > 60 Glucose Level 125 Calcium Level 9.5 Phosphorus Level 4.6 Magnesium Level 2.1 Total Bilirubin 0.5 Direct Bilirubin 0.00 Indirect Bilirubin 0.5 Aspartate Amino Transf (AST/SGOT) 29 Alanine Aminotransferase (ALT/SGPT) 25 Alkaline Phosphatase 135 H Total Protein 7.5 Albumin 3.5 Globulin 4.00 H Albumin/Globulin Ratio 0.87 Medications Current Medications Acetaminophen (Tylenol Tab) 650 mg Q6H PRN PO MILD PAIN(1-3)OR ELEVATED TEMP Last administered on 02/15/19 05:39; Admin Dose 650 MG; Start 02/11/19 at 03:00 Ondansetron HCl (Zofran Inj) 4 mg Q4H PRN IV NAUSEA AND/OR VOMITING; Start 02/11/19 at 03:00 Pantoprazole (Protonix Tab) 40 mg DAILY@06 PO Last administered on 02/15/19 05:39; Admin Dose 40 MG; Start 02/11/19 at 06:00 Vancomycin HCl (Vanco Iv Per Pharmacy) VANCOMYCIN PER PHARMACY PER PROTOCOL XX ; Start 02/11/19 at 03:00 Piperacillin Sod/ Tazobactam Sod 100 ml @ 200 mls/hr Q8 IVPB Last administered on 02/15/19 05:39; Admin Dose 200 MLS/HR; Start 02/11/19 at 06:00 Morphine Sulfate (morphine) 2 mg Q4H PRN IV SEVERE PAIN LEVEL 7-10 Last adm inistered on 02/12/19 03:34; Admin Dose 2 MG; Start 02/11/19 at 03:00 Amlodipine Besylate (Norvasc) 5 mg DAILY PO Last administered on 02/15/19 08:53; Admin Dose 5 MG; Start 02/11/19 at 09:00 Azelastine HCl (Astelin) 1 spray BID NASAL Last administered on 02/15/19 08:52; Admin Dose 1 SPRAY; Start 02/11/19 at 09:00 Escitalopram Oxalate (Lexapro) 20 mg DAILY PO Last administered on 02/15/19 08:54; Admin Dose 20 MG; Start 02/11/19 at 09:00 Fluticasone Propionate (Flonase 0.05% Nasal) 1 spray BID NASAL Last administered on 02/15/19 08:52; Admin Dose 1 SPRAY; Start 02/11/19 at 09:00 Gabapentin (Neurontin) 300 mg DAILY PO Last administered on 02/15/19 08:53; Admin Dose 300 MG; Start 02/11/19 at 09:00 Loratadine (Claritin) 10 mg DAILY PO Last administered on 02/15/19 08:53; Admin Dose 10 MG; Start 02/11/19 at 09:00 Cholecalciferol (Vitamin D) 2,000 unit DAILY PO Last administered on 02/15/19 08:53; Admin Dose 2,000 UNIT; Start 02/11/19 at 09:00 Atorvastatin Calcium (Lipitor) 10 mg DAILY PO Last administered on 02/15/19 08:53; Admin Dose 10 MG; Start 02/11/19 at 09:00 Budesonide (Pulmicort (Neb)) 0.5 mg BID PRN NEB WHEEZING AND SOB Last administered on 02/15/19 08:18; Admin Dose 0.5 MG; Start 02/11/19 at 03:30 Albuterol/ Ipratropium (Duoneb) 3 ml Q4H RESP THERAPY HHN Last administered on 02/15/19 08:18; Admin Dose 3 ML; Start 02/11/19 at 13:00 Acetaminophen (Tylenol Tab) 650 mg Q4H PRN PO MILD PAIN(1-3)OR ELEVATED TEMP Last administered on 02/12/19 12:00; Admin Dose 650 MG; Start 02/12/19 at 12:00 Calcium Carbonate (Oyster Shell Calcium) 1.25 gm BID NGT Last administered on 02/15/19 08:53; Admin Dose 1.25 GM; Start 02/12/19 at 14:00 Vancomycin HCl 1.5 gm/Sodium Chloride 250 ml @ 83.333 mls/ hr Q12H IVPB Last administered on 02/15/19 02:52; Admin Dose 83.333 MLS/HR; Start 02/13/19 at 02:00 Furosemide (Lasix) 40 mg DAILY IV Last administered on 02/15/19 08:54; Admin Dose 40 MG; Start 02/13/19 at 09:00 Magnesium Oxide (Mag-Ox 400) 400 mg BID PO Last administered on 02/15/19 08:53; Admin Dose 400 MG; Start 02/13/19 at 11:00 Oxycodone HCl (Roxicodone) 5 mg Q4H PRN PO MODERATE PAIN LEVEL 4-6 Last administered on 02/14/19at 05:47; Admin Dose 5 MG; Start 02/13/19 at 17:00 Oxycodone HCl (Roxicodone) 10 mg Q4H PRN PO MODERATE PAIN LEVEL 7-10 Last administered on 02/14/19at 21:20; Admin Dose 10 MG; Start 02/13/19 at 17:00 Aspirin (Halfprin) 81 mg BID PO Last administered on 02/15/19 08:53; Admin Dose 81 MG; Start 02/14/19 at 21:00 Assessment/Plan Hospital Course (Demo Recall) Assessment and recommendations; 1. Patient with history of total right knee replacement in January of this year admitted for right knee cellulitis. 2. Patient also has underlying hypertensive cardiomyopathy ongoing congestive cardiac failure 3. History of suboptimally controlled hypertension. 4. Mild anemia. 5. Likely underlying diastolic dysfunction. Recommendations 1. Diuresis as tolerated 2. Repeat chest x-ray in a.m. 3. Encourage out of bed 4. Wound care MINESH SYED MD, [facility] Feb 15, 2019 12:41
[2019-02-15] MEDS: morphine 2 MG INJ IV PRN (14:16)
--- NOTE | 2019-02-15 14:51 | CONS ---
Assessment/Plan Assessment/Plan Hospital Course (Demo Recall) Patient is alert feels better looks comfortable no fevers overnight. She tolerates clear liquid diet. WBC 12.8 platelets 535 neutrophils 72.7 BUN [address] of the abdomen and pelvis revealed sigmoid colon diverticulitis with small focal phlegmon and inflammatory stranding medial to sigmoid colon. No evidence of drainable abscess. Please see full report in the chart Microbiology: Right knee fluid culture grew coag negative staph species susceptible to ciprofloxacin clindamycin doxycycline Antimicrobials: Vanco and Zosyn Physical examination: This is obese well-developed middle-aged woman who is alert in no distress. Head atraumatic normocephalic sclera nonicteric vehicle mucosa dry neck is supple chest rise symmetrical breath sounds clear. Heart: Mask S1-S2 abdomen soft patient has some tenderness over right upper quadrant on palpation no suprapubic tenderness bowel sounds present. Extremities without cyanosis right knee incision with shruthi clean dry and intact no drainage no erythema Assessment: 1. Ongoing fevers with leukocytosis secondary to #2 2. Acute diverticulitis with phlegmon, no abscess per CT 2. Right knee cellulitis, improved 3. History of recent right total knee replacement 01/29/19 4. Morbid obesity 5. Acute anemia 6. Hypoxemia secondary to fluid overload, improved Plan: Patient is doing better, continue antibiotics Consultation Date/Type/Reason Admit Date/Time Feb 11, 2019 at 00:10 Initial Consult Date 02/11/19 Type of Consult id Date/Time of Note DATE: 02/15/19 TIME: 14:50 Exam/Review of Systems Exam Vitals Vital Signs Date Temp Pulse Resp B/P (MAP) Pulse Ox O2 O2 Flow FiO2 Time Delivery Rate 02/15/19 75 20 94 Nasal 3.0 12:52 Cannula 02/15/19 97.8 135/64 11:35 (87) Intake and Output 02/14/19 02/14/19 02/15/19 1515:00 23:00 07:00 IntakeIntake Total 1800 ml 700 ml OutputOutput Total 2 ml BalanceBalance 1800 ml 698 ml Results Result Diagram: 02/15/19 0514 02/15/19 0514 Results 24hrs Laboratory Tests Test 02/14/19 18:40 02/15/19 05:14 Absolute Reticulocyte Count 0.044 Percent Reticulocyte Count 1.3 Ferritin 218.0 Vitamin B12 Level > 1000 H Folate > 20.0 H White Blood Count 12.8 H Red Blood Count 3.64 L Hemoglobin 9.7 L Hematocrit 30.0 L Mean Corpuscular Volume 82.4 Mean Corpuscular Hemoglobin 26.6 L Mean Corpuscular Hemoglobin Concent 32.3 Red Cell Distribution Width 14.0 Platelet Count 535 H Mean Platelet Volume 8.6 Immature Granulocytes % 1.600 H Neutrophils % 72.7 Lymphocytes % 15.6 Monocytes % 7.2 Eosinophils % 2.7 Basophils % 0.2 Nucleated Red Blood Cells % 0.2 H Immature Granulocytes # 0.210 H Neutrophils # 9.3 H Lymphocytes # 2.0 Monocytes # 0.9 Eosinophils # 0.3 Basophils # 0.0 Nucleated Red Blood Cells # 0.0 Sodium Level 139 Potassium Level 3.2 L Chloride Level 98 Carbon Dioxide Level 34 H Anion Gap 7 Blood Urea Nitrogen 6 L Creatinine 0.79 Est Glomerular Filtrat Rate mL/min > 60 Glucose Level 125 Calcium Level 9.5 Phosphorus Level 4.6 Magnesium Level 2.1 Total Bilirubin 0.5 Direct Bilirubin 0.00 Indirect Bilirubin 0.5 Aspartate Amino Transf (AST/SGOT) 29 Alanine Aminotransferase (ALT/SGPT) 25 Alkaline Phosphatase 135 H Total Protein 7.5 Albumin 3.5 Globulin 4.00 H Albumin/Globulin Ratio 0.87 Medications Medication Current Medications Acetaminophen (Tylenol Tab) 650 mg Q6H PRN PO MILD PAIN(1-3)OR ELEVATED TEMP L ast administered on 02/15/19at 05:39; Admin Dose 650 MG; Start 02/11/19 at 03:00 Ondansetron HCl (Zofran Inj) 4 mg Q4H PRN IV NAUSEA AND/OR VOMITING; Start 02/11/19 at 03:00 Pantoprazole (Protonix Tab) 40 mg DAILY@06 PO Last administered on 02/15/19at 05:39; Admin Dose 40 MG; Start 02/11/19 at 06:00 Vancomycin HCl (Vanco Iv Per Pharmacy) VANCOMYCIN PER PHARMACY PER PROTOCOL XX ; Start 02/11/19 at 03:00 Piperacillin Sod/ Tazobactam Sod 100 ml @ 200 mls/hr Q8 IVPB Last administered on 02/15/19at 14:16; Admin Dose 200 MLS/HR; Start 02/11/19 at 06:00 Morphine Sulfate (morphine) 2 mg Q4H PRN IV SEVERE PAIN LEVEL 7-10 Last administered on 02/15/19 14:16; Admin Dose 2 MG; Start 02/11/19 at 03:00 Amlodipine Besylate (Norvasc) 5 mg DAILY PO Last administered on 02/15/19 08:53; Admin Dose 5 MG; Start 02/11/19 at 09:00 Azelastine HCl (Astelin) 1 spray BID NASAL Last administered on 02/15/19 08:52; Admin Dose 1 SPRAY; Start 02/11/19 at 09:00 Escitalopram Oxalate (Lexapro) 20 mg DAILY PO Last administered on 02/15/19 08:54; Admin Dose 20 MG; Start 02/11/19 at 09:00 Fluticasone Propionate (Flonase 0.05% Nasal) 1 spray BID NASAL Last administered on 02/15/19 08:52; Admin Dose 1 SPRAY; Start 02/11/19 at 09:00 Gabapentin (Neurontin) 300 mg DAILY PO Last administered on 02/15/19 08:53; Admin Dose 300 MG; Start 02/11/19 at 09:00 Loratadine (Claritin) 10 mg DAILY PO Last administered on 02/15/19 08:53; Admin Dose 10 MG; Start 02/11/19 at 09:00 Cholecalciferol (Vitamin D) 2,000 unit DAILY PO Last administered on 02/15/19 08:53; Admin Dose 2,000 UNIT; Start 02/11/19 at 09:00 Atorvastatin Calcium (Lipitor) 10 mg DAILY PO Last administered on 02/15/19 08:53; Admin Dose 10 MG; Start 02/11/19 at 09:00 Budesonide (Pulmicort (Neb)) 0.5 mg BID PRN NEB WHEEZING AND SOB Last administered on 02/15/19 08:18; Admin Dose 0.5 MG; Start 02/11/19 at 03:30 Albuterol/ Ipratropium (Duoneb) 3 ml Q4H RESP THERAPY HHN Last administered on 02/15/19 12:51; Admin Dose 3 ML; Start 02/11/19 at 13:00 Acetaminophen (Tylenol Tab) 650 mg Q4H PRN PO MILD PAIN(1-3)OR ELEVATED TEMP Last administered on 02/12/19 12:00; Admin Dose 650 MG; Start 02/12/19 at 12:00 Calcium Carbonate (Oyster Shell Calcium) 1.25 gm BID NGT Last administered on 02/15/19 08:53; Admin Dose 1.25 GM; Start 02/12/19 at 14:00 Vancomycin HCl 1.5 gm/Sodium Chloride 250 ml @ 83.333 mls/ hr Q12H IVPB Last administered on 02/15/19 02:52; Admin Dose 83.333 MLS/HR; Start 02/13/19 at 02:00 Furosemide (Lasix) 40 mg DAILY IV Last administered on 02/15/19 08:54; Admin Dose 40 MG; Start 02/13/19 at 09:00 Magnesium Oxide (Mag-Ox 400) 400 mg BID PO Last administered on 02/15/19 08:53; Admin Dose 400 MG; Start 02/13/19 at 11:00 Oxycodone HCl (Roxicodone) 5 mg Q4H PRN PO MODERATE PAIN LEVEL 4-6 Last administered on 02/14/19 05:47; Admin Dose 5 MG; Start 02/13/19 at 17:00 Oxycodone HCl (Roxicodone) 10 mg Q4H PRN PO MODERATE PAIN LEVEL 7-10 Last administered on 02/14/19 21:20; Admin Dose 10 MG; Start 02/13/19 at 17:00 Aspirin (Halfprin) 81 mg BID PO Last administered on 02/15/19 08:53; Admin Dose 81 MG; Start 02/14/19 at 21:00 CRISTHIAN HARVEY NP Feb 15, 2019 14:51
--- NOTE | 2019-02-15 14:54 | PN ---
Date/Time of Note Date/Time of Note DATE: 02/15/19 TIME: 14:52 Assessment/Plan VTE Prophylaxis Risk score (from [facility])>0 risk: 2 SCD applied (from [facility]): No SCD contraindicated: low risk/ambulating Pharmacological prophylaxis: NA/contraindicated Pharm contraindication: anticoag not tolerated Lines/Catheters IV Catheter Type (from [facility]): Saline Lock Urinary Cath still in place: No Assessment/Plan Hospital Course 1. SIRS Fevers, leukocytosis, status post right total knee replacement on . , Fluid tap from knee is essentially neg and bld cx neg so far, UA neg , new chest xray+ Pul edema and ct chest + effusions, NOW CT A+P diverticuli tis/enteritis 2. History of hypertension, currently hypotensive. 3. Hyperlipidemia. 4. Obesity. 5. GERD. 6. Allergic rhinitis. 7. Mood disorder. 8 anemia with acute blood loss? hematoma vs hemodilutional , improved sp 1 unit prbc 9. SOB likely due to pul edema sp iv fluids evident on chest xray likely due to CHF . CT chest neg for PE, ECHO diastolic dysfunction 10. CHF, diastolic Assessment/Plan - cw iv vanco/zosyn -medsurg - GI consult - iv lasix 40 for pul edema, replete K and MG - Restart ASA - Fu GI/Pul/ ID recs - fluid restriction 1L - GI proph. Protonix -DVT prophylaxis unable to utilize due to anemia - fu PUL/ ID and ortho recs Result Diagram: 02/15/19 0514 02/15/19 0514 Results 24hrs Laboratory Tests Test 02/14/19 18:40 02/15/19 05:14 Absolute Reticulocyte Count 0.044 Percent Reticulocyte Count 1.3 Ferritin 218.0 Vitamin B12 Level > 1000 H Folate > 20.0 H White Blood Count 12.8 H Red Blood Count 3.64 L Hemoglobin 9.7 L Hematocrit 30.0 L Mean Corpuscular Volume 82.4 Mean Corpuscular Hemoglobin 26.6 L Mean Corpuscular Hemoglobin Concent 32.3 Red Cell Distribution Width 14.0 Platelet Count 535 H Mean Platelet Volume 8.6 Immature Granulocytes % 1.600 H Neutrophils % 72.7 Lymphocytes % 15.6 Monocytes % 7.2 Eosinophils % 2.7 Basophils % 0.2 Nucleated Red Blood Cells % 0.2 H Immature Granulocytes # 0.210 H Neutrophils # 9.3 H Lymphocytes # 2.0 Monocytes # 0.9 Eosinophils # 0.3 Basophils # 0.0 Nucleated Red Blood Cells # 0.0 Sodium Level 139 Potassium Level 3.2 L Chloride Level 98 Carbon Dioxide Level 34 H Anion Gap 7 Blood Urea Nitrogen 6 L Creatinine 0.79 Est Glomerular Filtrat Rate mL/min > 60 Glucose Level 125 Calcium Level 9.5 Phosphorus Level 4.6 Magnesium Level 2.1 Total Bilirubin 0.5 Direct Bilirubin 0.00 Indirect Bilirubin 0.5 Aspartate Amino Transf (AST/SGOT) 29 Alanine Aminotransferase (ALT/SGPT) 25 Alkaline Phosphatase 135 H Total Protein 7.5 Albumin 3.5 Globulin 4.00 H Albumin/Globulin Ratio 0.87 Subjective 24 Hr Interval Summary Respiratory: shortness of breath Musculoskeletal: restricted range of motion (right knee) Exam/Review of Systems Exam Vitals Vital Signs Date Temp Pulse Resp B/P (MAP) Pulse Ox O2 O2 Flow FiO2 Time Delivery Rate 02/15/19 75 20 94 Nasal 3.0 12:52 Cannula 02/15/19 97.8 135/64 11:35 (87) Intake and Output 02/14/19 02/14/19 02/15/19 1515:00 23:00 07:00 IntakeIntake Total 1800 ml 700 ml OutputOutput Total 2 ml BalanceBalance 1800 ml 698 ml Constitutional: alert, oriented Cardiovascular: regular rate and rhythm Gastrointestinal: soft Musculoskeletal: muscle weakness Results Results 24hrs Laboratory Tests Test 02/14/19 18:40 02/15/19 05:14 Absolute Reticulocyte Count 0.044 Percent Reticulocyte Count 1.3 Ferritin 218.0 Vitamin B12 Level > 1000 H Folate > 20.0 H White Blood Count 12.8 H Red Blood Count 3.64 L Hemoglobin 9.7 L Hematocrit 30.0 L Mean Corpuscular Volume 82.4 Mean Corpuscular Hemoglobin 26.6 L Mean Corpuscular Hemoglobin Concent 32.3 Red Cell Distribution Width 14.0 Platelet Count 535 H Mean Platelet Volume 8.6 Immature Granulocytes % 1.600 H Neutrophils % 72.7 Lymphocytes % 15.6 Monocytes % 7.2 Eosinophils % 2.7 Basophils % 0.2 Nucleated Red Blood Cells % 0.2 H Immature Granulocytes # 0.210 H Neutrophils # 9.3 H Lymphocytes # 2.0 Monocytes # 0.9 Eosinophils # 0.3 Basophils # 0.0 Nucleated Red Blood Cells # 0.0 Sodium Level 139 Potassium Level 3.2 L Chloride Level 98 Carbon Dioxide Level 34 H Anion Gap 7 Blood Urea Nitrogen 6 L Creatinine 0.79 Est Glomerular Filtrat Rate mL/min > 60 Glucose Level 125 Calcium Level 9.5 Phosphorus Level 4.6 Magnesium Level 2.1 Total Bilirubin 0.5 Direct Bilirubin 0.00 Indirect Bilirubin 0.5 Aspartate Amino Transf (AST/SGOT) 29 Alanine Aminotransferase (ALT/SGPT) 25 Alkaline Phosphatase 135 H Total Protein 7.5 Albumin 3.5 Globulin 4.00 H Albumin/Globulin Ratio 0.87 Medications Medication Current Medications Acetaminophen (Tylenol Tab) 650 mg Q6H PRN PO MILD PAIN(1-3)OR ELEVATED TEMP Last administered on 02/15/19 05:39; Admin Dose 650 MG; Start 02/11/19 at 03:00 Ondansetron HCl (Zofran Inj) 4 mg Q4H PRN IV NAUSEA AND/OR VOMITING; Start 02/11/19 at 03:00 Pantoprazole (Protonix Tab) 40 mg DAILY@06 PO Last administered on 02/15/19 05:39; Admin Dose 40 MG; Start 02/11/19 at 06:00 Vancomycin HCl (Vanco Iv Per Pharmacy) VANCOMYCIN PER PHARMACY PER PROTOCOL XX ; Start 02/11/19 at 03:00 Piperacillin Sod/ Tazobactam Sod 100 ml @ 200 mls/hr Q8 IVPB Last administered on 02/15/19 14:16; Admin Dose 200 MLS/HR; Start 02/11/19 at 06:00 Morphine Sulfate (morphine) 2 mg Q4H PRN IV SEVERE PAIN LEVEL 7-10 Last administered on 02/15/19 14:16; Admin Dose 2 MG; Start 02/11/19 at 03:00 Amlodipine Besylate (Norvasc) 5 mg DAILY PO Last administered on 02/15/19 08:53; Admin Dose 5 MG; Start 02/11/19 at 09:00 Azelastine HCl (Astelin) 1 spray BID NASAL Last administered on 02/15/19 08:52; Admin Dose 1 SPRAY; Start 02/11/19 at 09:00 Escitalopram Oxalate (Lexapro) 20 mg DAILY PO Last administered on 02/15/19 08:54; Admin Dose 20 MG; Start 02/11/19 at 09:00 Fluticasone Propionate (Flonase 0.05% Nasal) 1 spray BID NASAL Last administered on 02/15/19 08:52; Admin Dose 1 SPRAY; Start 02/11/19 at 09:00 Gabapentin (Neurontin) 300 mg DAILY PO Last administered on 02/15/19 08:53; Admin Dose 300 MG; Start 02/11/19 at 09:00 Loratadine (Claritin) 10 mg DAILY PO Last administered on 02/15/19 08:53; Admin Dose 10 MG; Start 02/11/19 at 09:00 Cholecalciferol (Vitamin D) 2,000 unit DAILY PO Last administered on 02/15/19 08:53; Admin Dose 2,000 UNIT; Start 02/11/19 at 09:00 Atorvastatin Calcium (Lipitor) 10 mg DAILY PO Last administered on 02/15/19 08:53; Admin Dose 10 MG; Start 02/11/19 at 09:00 Budesonide (Pulmicort (Neb)) 0.5 mg BID PRN NEB WHEEZING AND SOB Last administered on 02/15/19 08:18; Admin Dose 0.5 MG; Start 02/11/19 at 03:30 Albuterol/ Ipratropium (Duoneb) 3 ml Q4H RESP THERAPY HHN Last administered on 02/15/19 12:51; Admin Dose 3 ML; Start 02/11/19 at 13:00 Acetaminophen (Tylenol Tab) 650 mg Q4H PRN PO MILD PAIN(1-3)OR ELEVATED TEMP Last administered on 02/12/19 12:00; Admin Dose 650 MG; Start 02/12/19 at 12:00 Calcium Carbonate (Oyster Shell Calcium) 1.25 gm BID NGT Last administered on 02/15/19 08:53; Admin Dose 1.25 GM; Start 02/12/19 at 14:00 Vancomycin HCl 1.5 gm/Sodium Chloride 250 ml @ 83.333 mls/ hr Q12H IVPB Last administered on 02/15/19 14:46; Admin Dose 83.333 MLS/HR; Start 02/13/19 at 02:00 Furosemide (Lasix) 40 mg DAILY IV Last administered on 02/15/19 08:54; Admin Dose 40 MG; Start 02/13/19 at 09:00 Magnesium Oxide (Mag-Ox 400) 400 mg BID PO Last administered on 02/15/19at 08:53; Admin Dose 400 MG; Start 02/13/19 at 11:00 Oxycodone HCl (Roxicodone) 5 mg Q4H PRN PO MODERATE PAIN LEVEL 4-6 Last administered on 02/14/19at 05:47; Admin Dose 5 MG; Start 02/13/19 at 17:00 Oxycodone HCl (Roxicodone) 10 mg Q4H PRN PO MODERATE PAIN LEVEL 7-10 Last admin istered on 02/14/19at 21:20; Admin Dose 10 MG; Start 02/13/19 at 17:00 Aspirin (Halfprin) 81 mg BID PO Last administered on 02/15/19at 08:53; Admin Dose 81 MG; Start 02/14/19 at 21:00 ANGELIQUE VAUGHAN Feb 15, 2019 14:54
[2019-02-15 16:29] VITALS: BP 136/76; PULSE 79; RESP 19
--- NOTE | 2019-02-15 16:37 | CONS ---
Assessment/Plan Assessment/Plan Assessment/Plan (Daily) IMPRESSION: 1. Systemic inflammatory response syndrome with a fever, leukocytosis, status post right knee replacement. 2. Diverticulitis based on the CAT scan report. 3. Hypertension. 4. Obesity. 5. Mood disorder. 6. Allergic rhinitis. 7. Anemia. Plan Advance her diet Continue antibiotic Colonoscopy after 6 weeks Consultation Date/Type/Reason Admit Date/Time Feb 11, 2019 at 00:10 Initial Consult Date 02/13/19 Date/Time of Note DATE: 02/15/19 TIME: 16:26 24 HR Interval Summary Constitutional: no complaints, improved Exam/Review of Systems Exam Vitals Vital Signs Date Temp Pulse Resp B/P (MAP) Pulse Ox O2 O2 Flow FiO2 Time Delivery Rate 02/15/19 75 20 94 Nasal 3.0 12:52 Cannula 02/15/19 97.8 135/64 11:35 (87) Intake and Output 02/14/19 02/14/19 02/15/19 1515:00 23:00 07:00 IntakeIntake Total 1800 ml 700 ml OutputOutput Total 2 ml BalanceBalance 1800 ml 698 ml Constitutional: alert, oriented, well developed Psych: no complaints, nl mood/affect Head: normocephalic, atraumatic Eyes: nl conjunctiva, EOMI, nl lids, nl sclera, PERRL ENMT: nl external ears & nose, nl lips & teeth, nl nasal mucosa & septum Neck: supple, non-tender Respiratory: clear to auscultation, normal air movement Cardiovascular: regular rate and rhythm, nl pulses Gastrointestinal: soft, nl liver, spleen, non-tender Musculoskeletal: nl extremities to inspection, nl gait and stance Extremities: normal pulses Neurological: [employer] II-XII intact, nl mental status, nl speech, nl strength Skin: nl turgor; No rash or lesions Lymph: nl lymph nodes Results Result Diagram: 02/15/1914 02/15/1914 Results 24hrs Laboratory Tests Test 02/14/19 18:40 02/15/19 05:14 Absolute Reticulocyte Count 0.044 Percent Reticulocyte Count 1.3 Ferritin 218.0 Vitamin B12 Level > 1000 H Folate > 20.0 H White Blood Count 12.8 H Red Blood Count 3.64 L Hemoglobin 9.7 L Hematocrit 30.0 L Mean Corpuscular Volume 82.4 Mean Corpuscular Hemoglobin 26.6 L Mean Corpuscular Hemoglobin Concent 32.3 Red Cell Distribution Width 14.0 Platelet Count 535 H Mean Platelet Volume 8.6 Immature Granulocytes % 1.600 H Neutrophils % 72.7 Lymphocytes % 15.6 Monocytes % 7.2 Eosinophils % 2.7 Basophils % 0.2 Nucleated Red Blood Cells % 0.2 H Immature Granulocytes # 0.210 H Neutrophils # 9.3 H Lymphocytes # 2.0 Monocytes # 0.9 Eosinophils # 0.3 Basophils # 0.0 Nucleated Red Blood Cells # 0.0 Sodium Level 139 Potassium Level 3.2 L Chloride Level 98 Carbon Dioxide Level 34 H Anion Gap 7 Blood Urea Nitrogen 6 L Creatinine 0.79 Est Glomerular Filtrat Rate mL/min > 60 Glucose Level 125 Calcium Level 9.5 Phosphorus Level 4.6 Magnesium Level 2.1 Total Bilirubin 0.5 Direct Bilirubin 0.00 Indirect Bilirubin 0.5 Aspartate Amino Transf (AST/SGOT) 29 Alanine Aminotransferase (ALT/SGPT) 25 Alkaline Phosphatase 135 H Total Protein 7.5 Albumin 3.5 Globulin 4.00 H Albumin/Globulin Ratio 0.87 Medications Medication Current Medications Acetaminophen (Tylenol Tab) 650 mg Q6H PRN PO MILD PAIN(1-3)OR ELEVATED TEMP Last administered on 02/15/19at 05:39; Admin Dose 650 MG; Start 02/11/19 at 03:00 Ondansetron HCl (Zofran Inj) 4 mg Q4H PRN IV NAUSEA AND/OR VOMITING; Start 02/11/19 at 03:00 Pantoprazole (Protonix Tab) 40 mg DAILY@06 PO Last administered on 02/15/19at 05:39; Admin Dose 40 MG; Start 02/11/19 at 06:00 Vancomycin HCl (Vanco Iv Per Pharmacy) VANCOMYCIN PER PHARMACY PER PROTOCOL XX ; Start 02/11/19 at 03:00 Piperacillin Sod/ Tazobactam Sod 100 ml @ 200 mls/hr Q8 IVPB Last administered on 02/15/19at 14:16; Admin Dose 200 MLS/HR; Start 02/11/19 at 06:00 Morphine Sulfate (morphine) 2 mg Q4H PRN IV SEVERE PAIN LEVEL 7-10 Last administered on 02/15/19 14:16; Admin Dose 2 MG; Start 02/11/19 at 03:00 Amlodipine Besylate (Norvasc) 5 mg DAILY PO Last administered on 02/15/19 08:53; Admin Dose 5 MG; Start 02/11/19 at 09:00 Azelastine HCl (Astelin) 1 spray BID NASAL Last administered on 02/15/19 08:52; Admin Dose 1 SPRAY; Start 02/11/19 at 09:00 Escitalopram Oxalate (Lexapro) 20 mg DAILY PO Last administered on 02/15/19 08:54; Admin Dose 20 MG; Start 02/11/19 at 09:00 Fluticasone Propionate (Flonase 0.05% Nasal) 1 spray BID NASAL Last administer ed on 02/15/19 08:52; Admin Dose 1 SPRAY; Start 02/11/19 at 09:00 Gabapentin (Neurontin) 300 mg DAILY PO Last administered on 02/15/19 08:53; Admin Dose 300 MG; Start 02/11/19 at 09:00 Loratadine (Claritin) 10 mg DAILY PO Last administered on 02/15/19 08:53; Admin Dose 10 MG; Start 02/11/19 at 09:00 Cholecalciferol (Vitamin D) 2,000 unit DAILY PO Last administered on 02/15/19 08:53; Admin Dose 2,000 UNIT; Start 02/11/19 at 09:00 Atorvastatin Calcium (Lipitor) 10 mg DAILY PO Last administered on 02/15/19 08:53; Admin Dose 10 MG; Start 02/11/19 at 09:00 Budesonide (Pulmicort (Neb)) 0.5 mg BID PRN NEB WHEEZING AND SOB Last administered on 02/15/19 08:18; Admin Dose 0.5 MG; Start 02/11/19 at 03:30 Albuterol/ Ipratropium (Duoneb) 3 ml Q4H RESP THERAPY HHN Last administered on 02/15/19 16:23; Admin Dose 3 ML; Start 02/11/19 at 13:00 Acetaminophen (Tylenol Tab) 650 mg Q4H PRN PO MILD PAIN(1-3)OR ELEVATED TEMP Last administered on 02/12/19 12:00; Admin Dose 650 MG; Start 02/12/19 at 12:00 Calcium Carbonate (Oyster Shell Calcium) 1.25 gm BID NGT Last administered on 02/15/19 08:53; Admin Dose 1.25 GM; Start 02/12/19 at 14:00 Vancomycin HCl 1.5 gm/Sodium Chloride 250 ml @ 83.333 mls/ hr Q12H IVPB Last administered on 02/15/19 14:46; Admin Dose 83.333 MLS/HR; Start 02/13/19 at 02 :00 Furosemide (Lasix) 40 mg DAILY IV Last administered on 02/15/19 08:54; Admin Dose 40 MG; Start 02/13/19 at 09:00 Magnesium Oxide (Mag-Ox 400) 400 mg BID PO Last administered on 02/15/19 08:53; Admin Dose 400 MG; Start 02/13/19 at 11:00 Oxycodone HCl (Roxicodone) 5 mg Q4H PRN PO MODERATE PAIN LEVEL 4-6 Last administered on 02/14/19 05:47; Admin Dose 5 MG; Start 02/13/19 at 17:00 Oxycodone HCl (Roxicodone) 10 mg Q4H PRN PO MODERATE PAIN LEVEL 7-10 Last administered on 02/14/19 21:20; Admin Dose 10 MG; Start 02/13/19 at 17:00 Aspirin (Halfprin) 81 mg BID PO Last administered on 02/15/19 08:53; Admin Dose 81 MG; Start 02/14/19 at 21:00 LIDYA BEST MD Feb 15, 2019 16:36
--- NOTE | 2019-02-15 17:26 | CONS ---
Consult Date/Type/Reason Admit Date/Time Feb 11, 2019 at 00:10 Initial Consult Date 02/11/19 Date/Time of Note DATE: 02/15/19 TIME: 17:24 Subjective Patient doing well No acute events overnight. No fevers overnight. Pain is well controlled Objective Vitals Vital Signs Date Temp Pulse Resp B/P (MAP) Pulse Ox O2 O2 Flow FiO2 Time Delivery Rate 02/15/19 98.3 79 19 136/76 97 16:29 (96) 02/15/19 Nasal 3.0 16:23 Cannula Intake and Output 02/14/19 02/14/19 02/15/19 1515:00 23:00 07:00 IntakeIntake Total 1800 ml 700 ml OutputOutput Total 2 ml BalanceBalance 1800 ml 698 ml Exam Right lower extremity: Incision: Clean, dry, and intact, no erythema Sensation intact to light touch in a sural, saphenous, deep peroneal, superficial peroneal, medial and lateral plantar nerve distribution. Motor is intact, patient able to dorsiflex and plantarflex ankle and extend and flex great toe. Dorsalis Pedis pulse +2, Brisk capillary refill. Compartments are soft. Calves non-tender to palpation bilaterally. Minimal swelling. Range of motion 070 Results/Medications Result Diagram: 02/15/19 0514 02/15/19 0514 Results 24 hrs Laboratory Tests Test 02/14/19 18:40 02/15/19 05:14 Absolute Reticulocyte Count 0.044 Percent Reticulocyte Count 1.3 Ferritin 218.0 Vitamin B12 Level > 1000 H Folate > 20.0 H White Blood Count 12.8 H Red Blood Count 3.64 L Hemoglobin 9.7 L Hematocrit 30.0 L Mean Corpuscular Volume 82.4 Mean Corpuscular Hemoglobin 26.6 L Mean Corpuscular Hemoglobin Concent 32.3 Red Cell Distribution Width 14.0 Platelet Count 535 H Mean Platelet Volume 8.6 Immature Granulocytes % 1.600 H Neutrophils % 72.7 Lymphocytes % 15.6 Monocytes % 7.2 Eosinophils % 2.7 Basophils % 0.2 Nucleated Red Blood Cells % 0.2 H Immature Granulocytes # 0.210 H Neutrophils # 9.3 H Lymphocytes # 2.0 Monocytes # 0.9 Eosinophils # 0.3 Basophils # 0.0 Nucleated Red Blood Cells # 0.0 Sodium Level 139 Potassium Level 3.2 L Chloride Level 98 Carbon Dioxide Level 34 H Anion Gap 7 Blood Urea Nitrogen 6 L Creatinine 0.79 Est Glomerular Filtrat Rate mL/min > 60 Glucose Level 125 Calcium Level 9.5 Phosphorus Level 4.6 Magnesium Level 2.1 Total Bilirubin 0.5 Direct Bilirubin 0.00 Indirect Bilirubin 0.5 Aspartate Amino Transf (AST/SGOT) 29 Alanine Aminotransferase (ALT/SGPT) 25 Alkaline Phosphatase 135 H Total Protein 7.5 Albumin 3.5 Globulin 4.00 H Albumin/Globulin Ratio 0.87 Home Meds Active Scripts Oxycodone Hcl* (IR) (Roxicodone*) 5 Mg Tab, 5-10 MG PO Q4H PRN for .PAIN, #90 TAB Prov:DEJUAN KASPER MD 01/30/19 Aspirin Delayed Release (Aspirin Delayed Release) 81 Mg Tablet.dr, 81 MG PO BID for 84 Days Prov:DEJUAN KASPER MD 01/30/19 [Acetaminophen Tab] 500 MG TAB No Conflict Check, 1000 MG PO Q8 for 10 Days, TAB Prov:DEJUAN KASPER MD 01/30/19 Reported Medications Escitalopram Oxalate* (Lexapro*) 20 Mg Tablet, 20 MG PO DAILY, #30 TAB 01/29/19 Omeprazole* (Omeprazole*) 40 Mg Capsule.dr, 40 MG PO DAILY, #30 CAP 01/29/19 Losartan-Hydrochlorothiazide (Losartan-HCTZ) 100-25 Mg Tab, 1 TAB PO DAILY, TAB 01/28/19 Gabapentin* (Gabapentin*) 300 Mg Capsule, 300 MG PO DAILY, #60 CAP 01/28/19 Diclofenac Sodium* (Voltaren* XR) 100 Mg Tab.sr.24h, 100 MG PO BID, TAB.SA 01/28/19 Cetirizine Hcl* (Zyrtec*) 10 Mg Capsule, 10 MG PO DAILY, TAB 01/28/19 Cholecalciferol (Vitamin D3) (Vitamin D3) 2,000 Unit Tab.chew, 2000 UNIT PO DAILY, TAB.CHEW 01/28/19 Simvastatin (Simvastatin) 10 Mg Tablet, 10 MG PO DAILY, #30 TAB 01/28/19 Amlodipine Besylate* (Amlodipine Besylate*) 5 Mg Tablet, 5 MG PO DAILY, #30 TAB 01/28/19 Azelastine Hcl* (Azelastine Hcl*) 137 Mcg/0.137 Ml [place].pump, 1 SPRAY NASAL BID, #1 EA TO EACH NOSTRIL 01/28/19 Fluticasone Propionate* (Fluticasone Propionate* Nasal) 50 Mcg/[place] - 16 Gm [place].susp, 1 SPRAY NASAL BID, EA TO EACH NOSTRIL 11/10/14 Budesonide* (Pulmicort* (Neb)) 0.5 Mg/2 Ml Ampul.neb, 0.5 MG IH BID, EA 11/10/14 Diclofenac Sodium* (Diclofenac Sodium*) 75 Mg Tablet.dr, 100 MG PO BID, TAB 11/10/14 Medications Current Medications Acetaminophen (Tylenol Tab) 650 mg Q6H PRN PO MILD PAIN(1-3)OR ELEVATED TEMP Last administered on 02/15/19 05:39; Admin Dose 650 MG; Start 02/11/19 at 03:00 Ondansetron HCl (Zofran Inj) 4 mg Q4H PRN IV NAUSEA AND/OR VOMITING; Start 02/11/19 at 03:00 Pantoprazole (Protonix Tab) 40 mg DAILY@06 PO Last administered on 02/15/19 05:39; Admin Dose 40 MG; Start 02/11/19 at 06:00 Vancomycin HCl (Vanco Iv Per Pharmacy) VANCOMYCIN PER PHARMACY PER PROTOCOL XX ; Start 02/11/19 at 03:00 Piperacillin Sod/ Tazobactam Sod 100 ml @ 200 mls/hr Q8 IVPB Last administered on 02/15/19 14:16; Admin Dose 200 MLS/HR; Start 02/11/19 at 06:00 Morphine Sulfate (morphine) 2 mg Q4H PRN IV SEVERE PAIN LEVEL 7-10 Last administered on 02/15/19 14:16; Admin Dose 2 MG; Start 02/11/19 at 03:00 Amlodipine Besylate (Norvasc) 5 mg DAILY PO Last administered on 02/15/19 08:53; Admin Dose 5 MG; Start 02/11/19 at 09:00 Azelastine HCl (Astelin) 1 spray BID NASAL Last administered on 02/15/19 08:52; Admin Dose 1 SPRAY; Start 02/11/19 at 09:00 Escitalopram Oxalate (Lexapro) 20 mg DAILY PO Last administered on 02/15/19 08:54; Admin Dose 20 MG; Start 02/11/19 at 09:00 Fluticasone Propionate (Flonase 0.05% Nasal) 1 spray BID NASAL Last administered on 02/15/19 08:52; Admin Dose 1 SPRAY; Start 02/11/19 at 09:00 Gabapentin (Neurontin) 300 mg DAILY PO Last administered on 02/15/19 08:53; Admin Dose 300 MG; Start 02/11/19 at 09:00 Loratadine (Claritin) 10 mg DAILY PO Last administered on 02/15/19 08:53; Admin Dose 10 MG; Start 02/11/19 at 09:00 Cholecalciferol (Vitamin D) 2,000 unit DAILY PO Last administered on 02/15/19 08:53; Admin Dose 2,000 UNIT; Start 02/11/19 at 09:00 Atorvastatin Calcium (Lipitor) 10 mg DAILY PO Last administered on 02/15/19 08:53; Admin Dose 10 MG; Start 02/11/19 at 09:00 Budesonide (Pulmicort (Neb)) 0.5 mg BID PRN NEB WHEEZING AND SOB Last administered on 02/15/19 08:18; Admin Dose 0.5 MG; Start 02/11/19 at 03:30 Albuterol/ Ipratropium (Duoneb) 3 ml Q4H RESP THERAPY HHN Last administered on 02/15/19 16:23; Admin Dose 3 ML; Start 02/11/19 at 13:00 Acetaminophen (Tylenol Tab) 650 mg Q4H PRN PO MILD PAIN(1-3)OR ELEVATED TEMP Last administered on 02/12/19 12:00; Admin Dose 650 MG; Start 02/12/19 at 12:00 Calcium Carbonate (Oyster Shell Calcium) 1.25 gm BID NGT Last administered on 02/15/19 08:53; Admin Dose 1.25 GM; Start 02/12/19 at 14:00 Vancomycin HCl 1.5 gm/Sodium Chloride 250 ml @ 83.333 mls/ hr Q12H IVPB Last administered on 02/15/19 14:46; Admin Dose 83.333 MLS/HR; Start 02/13/19 at 02:00 Furosemide (Lasix) 40 mg DAILY IV Last administered on 02/15/19 08:54; Admin Dose 40 MG; Start 02/13/19 at 09:00 Oxycodone HCl (Roxicodone) 5 mg Q4H PRN PO MODERATE PAIN LEVEL 4-6 Last administered on 02/14/19at 05:47; Admin Dose 5 MG; Start 02/13/19 at 17:00 Oxycodone HCl (Roxicodone) 10 mg Q4H PRN PO MODERATE PAIN LEVEL 7-10 Last administered on 02/14/19at 21:20; Admin Dose 10 MG; Start 02/13/19 at 17:00 Aspirin (Halfprin) 81 mg BID PO Last administered on 02/15/19at 08:53; Admin Dose 81 MG; Start 02/14/19 at 21:00 Assessment/Plan Hospital Course (Demo Recall) 59-year-old female 2 weeks status post right total knee arthroplasty. Currently there are no signs of infection in regards to the right knee. Patient continues to improve medically. Her oxygen requirements are decreasing. Plan: Physical therapy for right knee Continue IV antibiotics per ID We will continue to follow-up cultures from synovial fluid -preliminary cultures are negative From an orthopedic standpoint she is stable to be discharged home with home health and home physical therapy. She is to follow-up with me in 2 weeks. DEJUAN KASPER MD Feb 15, 2019 17:26
[2019-02-15 20:00] VITALS: BP 127/60; PULSE 77; RESP 18
[2019-02-15] MEDS: oxyCODONE 5 MG TAB PO PRN (22:01)
[2019-02-16] VITALS: BP 134/67; PULSE 82; RESP 18
[2019-02-16] MEDS: ALBUTEROL/IPRATROPIUM (NEB) 3 ML AMP HHN SCH ×6 (00:48→20:38)
[2019-02-16] MEDS: VANCOMYCIN HCL 1.5 GM in SOD CHLORIDE 0.9% 250 ML IVPB SCH ×2 (02:20→13:59)
[2019-02-16 04:00] VITALS: BP 130/62; PULSE 77; RESP 18
[2019-02-16] MEDS: PANTOPRAZOLE (EC) 40 MG TAB PO SCH (05:38)
[2019-02-16] MEDS: PIPER-TAZO 3.375 GM IV (PMX) 100 ML IVPB SCH ×3 (05:38→21:15)
[2019-02-16 07:48] VITALS: BP 133/60; PULSE 80; RESP 18
[2019-02-16] MEDS: LORATADINE 10 MG TAB PO SCH (08:17)
[2019-02-16] MEDS: GABAPENTIN 300 MG CAP PO SCH (08:17)
[2019-02-16] MEDS: AMLODIPINE 5 MG TAB PO SCH (08:17)
[2019-02-16] MEDS: CALCIUM CARBONATE 1.25 GM TAB NGT SCH ×2 (08:17→21:14)
[2019-02-16] MEDS: ATORVASTATIN 10 MG TAB PO SCH (08:17)
[2019-02-16] MEDS: CHOLECALCIFEROL 2,000 UNIT CAP PO SCH (08:17)
[2019-02-16] MEDS: FUROSEMIDE 40 MG INJ IV SCH (08:18)
[2019-02-16] MEDS: ACETAMINOPHEN 325 MG TAB PO PRN (08:18)
[2019-02-16] MEDS: ASPIRIN (EC) 81 MG TAB PO SCH ×2 (08:18→21:14)
[2019-02-16] MEDS: FLUTICASONE 0.05% 16 GM NAS SPRAY NASAL SCH ×2 (08:19→21:15)
[2019-02-16] MEDS: AZELASTINE 30 ML NAS SPRAY NASAL SCH ×2 (08:19→21:15)
[2019-02-16] MEDS: ESCITALOPRAM 10 MG TAB PO SCH (09:00)
[2019-02-16 11:37] VITALS: BP 135/61; PULSE 78; RESP 17
--- NOTE | 2019-02-16 14:19 | CONS ---
Assessment/Plan Assessment/Plan Hospital Course (Demo Recall) No acute events overnight patient is sleeping looks comfortable no fevers WBC went up today to 16.2 neutrophils 75.7 BUN [address] of the abdomen and pelvis revealed sigmoid colon diverticulitis with small focal phlegmon and inflammatory stranding medial to sigmoid colon. No evidence of drainable abscess. Please see full report in the chart Microbiology: Right knee fluid culture grew coag negative staph species susceptible to ciprofloxacin clindamycin doxycycline Antimicrobials: Vanco and Zosyn Physical examination: This is obese well-developed middle-aged woman who is alert in no distress. Head atraumatic normocephalic sclera nonicteric vehicle mucosa dry neck is supple chest rise symmetrical breath sounds clear. Heart: Mask S1-S2 abdomen soft patient has some tenderness over right upper quadrant on palpation no suprapubic tenderness bowel sounds present. Extremities without cyanosis right knee incision with shruthi clean dry and intact no drainage no erythema Assessment: 1. Ongoing leukocytosis secondary to #2 2. Acute diverticulitis with phlegmon, no abscess per CT 2. Right knee cellulitis, improved 3. History of recent right total knee replacement 01/29/19 4. Morbid obesity 5. Acute anemia 6. Hypoxemia secondary to fluid overload, improved Plan: Stable, continue antibiotics, follow CBC in a.m., consider repeat CT of the abdomen Consultation Date/Type/Reason Admit Date/Time Feb 11, 2019 at 00:10 Initial Consult Date 02/11/19 Type of Consult id Date/Time of Note DATE: 02/16/19 TIME: 14:18 Exam/Review of Systems Exam Vitals Vital Signs Date Temp Pulse Resp B/P (MAP) Pulse Ox O2 O2 Flow FiO2 Time Delivery Rate 02/16/19 88 20 96 Nasal 2.0 12:13 Cannula 02/16/19 98.5 135/61 11:37 (85) Intake and Output 02/15/19 02/15/19 02/16/19 1515:00 23:00 07:00 IntakeIntake Total 650 ml 400 ml BalanceBalance 650 ml 400 ml Results Result Diagram: 02/16/19 0520 02/16/19 0520 Results 24hrs Laboratory Tests Test 02/16/19 05:20 White Blood Count 16.2 #H Red Blood Count 3.53 L Hemoglobin 9.4 L Hematocrit 30.0 L Mean Corpuscular Volume 85.0 Mean Corpuscular Hemoglobin 26.6 L Mean Corpuscular Hemoglobin Concent 31.3 L Red Cell Distribution Width 14.2 Platelet Count 530 H Mean Platelet Volume 8.5 Immature Granulocytes % 1.100 H Neutrophils % 75.7 Lymphocytes % 13.4 L Monocytes % 7.2 Eosinophils % 2.3 Basophils % 0.3 Nucleated Red Blood Cells % 0.0 Immature Granulocytes # 0.170 H Neutrophils # 12.3 H Lymphocytes # 2.2 Monocytes # 1.2 H Eosinophils # 0.4 Basophils # 0.1 Nucleated Red Blood Cells # 0.0 Sodium Level 143 Potassium Level 3.8 Chloride Level 100 Carbon Dioxide Level 33 H Anion Gap 10 Blood Urea Nitrogen 9 Creatinine 0.89 Est Glomerular Filtrat Rate mL/min > 60 Glucose Level 126 Calcium Level 9.4 Phosphorus Level 4.5 Magnesium Level 2.1 Medications Medication Current Medications Acetaminophen (Tylenol Tab) 650 mg Q6H PRN PO MILD PAIN(1-3)OR ELEVATED TEMP Last administered on 02/16/19 08:18; Admin Dose 650 MG; Start 02/11/19 at 03:00 Ondansetron HCl (Zofran Inj) 4 mg Q4H PRN IV NAUSEA AND/OR VOMITING; Start 02/11/19 at 03:00 Pantoprazole (Protonix Tab) 40 mg DAILY@06 PO Last administered on 02/16/19at 05:38; Admin Dose 40 MG; Start 02/11/19 at 06:00 Vancomycin HCl (Vanco Iv Per Pharmacy) VANCOMYCIN PER PHARMACY PER PROTOCOL XX ; Start 02/11/19 at 03:00 Piperacillin Sod/ Tazobactam Sod 100 ml @ 200 mls/hr Q8 IVPB Last administered on 02/16/19at 05:38; Admin Dose 200 MLS/HR; Start 02/11/19 at 06:00 Morphine Sulfate (morphine) 2 mg Q4H PRN IV SEVERE PAIN LEVEL 7-10 Last administered on 02/15/19at 14:16; Admin Dose 2 MG; Start 02/11/19 at 03:00 Amlodipine Besylate (Norvasc) 5 mg DAILY PO Last administered on 02/16/19 08:17; Admin Dose 5 MG; Start 02/11/19 at 09:00 Azelastine HCl (Astelin) 1 spray BID NASAL Last administered on 02/16/19 08:19; Admin Dose 1 SPRAY; Start 02/11/19 at 09:00 Escitalopram Oxalate (Lexapro) 20 mg DAILY PO Last administered on 02/16/19 09:00; Admin Dose 20 MG; Start 02/11/19 at 09:00 Fluticasone Propionate (Flonase 0.05% Nasal) 1 spray BID NASAL Last administered on 02/16/19 08:19; Admin Dose 1 SPRAY; Start 02/11/19 at 09:00 Gabapentin (Neurontin) 300 mg DAILY PO Last administered on 02/16/19 08:17; Admin Dose 300 MG; Start 02/11/19 at 09:00 Loratadine (Claritin) 10 mg DAILY PO Last administered on 02/16/19 08:17; Ad min Dose 10 MG; Start 02/11/19 at 09:00 Cholecalciferol (Vitamin D) 2,000 unit DAILY PO Last administered on 02/16/19 08:17; Admin Dose 2,000 UNIT; Start 02/11/19 at 09:00 Atorvastatin Calcium (Lipitor) 10 mg DAILY PO Last administered on 02/16/19 08:17; Admin Dose 10 MG; Start 02/11/19 at 09:00 Budesonide (Pulmicort (Neb)) 0.5 mg BID PRN NEB WHEEZING AND SOB Last administered on 02/15/19 20:33; Admin Dose 0.5 MG; Start 02/11/19 at 03:30 Albuterol/ Ipratropium (Duoneb) 3 ml Q4H RESP THERAPY HHN Last administered on 02/16/19 12:12; Admin Dose 3 ML; Start 02/11/19 at 13:00 Acetaminophen (Tylenol Tab) 650 mg Q4H PRN PO MILD PAIN(1-3)OR ELEVATED TEMP Last administered on 02/12/19 12:00; Admin Dose 650 MG; Start 02/12/19 at 12:00 Calcium Carbonate (Oyster Shell Calcium) 1.25 gm BID NGT Last administered on 02/16/19 08:17; Admin Dose 1.25 GM; Start 02/12/19 at 14:00 Vancomycin HCl 1.5 gm/Sodium Chloride 250 ml @ 83.333 mls/ hr Q12H IVPB Last administered on 02/16/19 13:59; Admin Dose 83.333 MLS/HR; Start 02/13/19 at 02:00 Furosemide (Lasix) 40 mg DAILY IV Last administered on 02/16/19 08:18; Admin Dose 40 MG; Start 02/13/19 at 09:00 Oxycodone HCl (Roxicodone) 5 mg Q4H PRN PO MODERATE PAIN LEVEL 4-6 Last administered on 02/15/19 22:01; Admin Dose 5 MG; Start 02/13/19 at 17:00 Oxycodone HCl (Roxicodone) 10 mg Q4H PRN PO MODERATE PAIN LEVEL 7-10 Last administered on 02/14/19 21:20; Admin Dose 10 MG; Start 02/13/19 at 17:00 Aspirin (Halfprin) 81 mg BID PO Last administered on 02/16/19 08:18; Admin Dose 81 MG; Start 02/14/19 at 21:00 CRISTHIAN HARVEY NP Feb 16, 2019 14:19
--- NOTE | 2019-02-16 14:51 | CONS ---
Assessment/Plan Assessment/Plan Assessment/Plan (Daily) Assessment/Plan Assessment/Plan (Daily) IMPRESSION: 1. Systemic inflammatory response syndrome with a fever, leukocytosis, status post right knee replacement. 2. Diverticulitis based on the CAT scan report. 3. Hypertension. 4. Obesity. 5. Mood disorder. 6. Allergic rhinitis. 7. Anemia. 8. Mild leukocytosis Plan Advance her diet Continue antibiotic Colonoscopy after 6 weeks Consultation Date/Type/Reason Admit Date/Time Feb 11, 2019 at 00:10 Initial Consult Date 02/13/19 Date/Time of Note DATE: 02/16/19 TIME: 14:51 24 HR Interval Summary Constitutional: no complaints, improved Exam/Review of Systems Exam Vitals Vital Signs Date Temp Pulse Resp B/P (MAP) Pulse Ox O2 O2 Flow FiO2 Time Delivery Rate 02/16/19 88 20 96 Nasal 2.0 12:13 Cannula 02/16/19 98.5 135/61 11:37 (85) Intake and Output 02/15/19 02/15/19 02/16/19 1515:00 23:00 07:00 IntakeIntake Total 650 ml 400 ml BalanceBalance 650 ml 400 ml Constitutional: alert, oriented, well developed Psych: no complaints, nl mood/affect Head: normocephalic, atraumatic Eyes: nl conjunctiva, EOMI, nl lids, nl sclera, PERRL ENMT: nl external ears & nose, nl lips & teeth, nl nasal mucosa & septum Neck: supple, non-tender Respiratory: clear to auscultation, normal air movement Cardiovascular: regular rate and rhythm, nl pulses Gastrointestinal: soft, nl liver, spleen, non-tender Musculoskeletal: nl extremities to inspection, nl gait and stance Extremities: normal pulses Neurological: ROLL CLAMP OPERATOR II-XII intact, nl mental status, nl speech, nl strength Skin: nl turgor; No rash or lesions Lymph: nl lymph nodes Results Result Diagram: 02/16/1920 02/16/19 0520 Results 24hrs Laboratory Tests Test 02/16/19 05:20 White Blood Count 16.2 #H Red Blood Count 3.53 L Hemoglobin 9.4 L Hematocrit 30.0 L Mean Corpuscular Volume 85.0 Mean Corpuscular Hemoglobin 26.6 L Mean Corpuscular Hemoglobin Concent 31.3 L Red Cell Distribution Width 14.2 Platelet Count 530 H Mean Platelet Volume 8.5 Immature Granulocytes % 1.100 H Neutrophils % 75.7 Lymphocytes % 13.4 L Monocytes % 7.2 Eosinophils % 2.3 Basophils % 0.3 Nucleated Red Blood Cells % 0.0 Immature Granulocytes # 0.170 H Neutrophils # 12.3 H Lymphocytes # 2.2 Monocytes # 1.2 H Eosinophils # 0.4 Basophils # 0.1 Nucleated Red Blood Cells # 0.0 Sodium Level 143 Potassium Level 3.8 Chloride Level 100 Carbon Dioxide Level 33 H Anion Gap 10 Blood Urea Nitrogen 9 Creatinine 0.89 Est Glomerular Filtrat Rate mL/min > 60 Glucose Level 126 Calcium Level 9.4 Phosphorus Level 4.5 Magnesium Level 2.1 Medications Medication Current Medications Acetaminophen (Tylenol Tab) 650 mg Q6H PRN PO MILD PAIN(1-3)OR ELEVATED TEMP Last administered on 02/16/19 08:18; Admin Dose 650 MG; Start 02/11/19 at 03:00 Ondansetron HCl (Zofran Inj) 4 mg Q4H PRN IV NAUSEA AND/OR VOMITING; Start 02/11/19 at 03:00 Pantoprazole (Protonix Tab) 40 mg DAILY@06 PO Last administered on 02/16/19 05:38; Admin Dose 40 MG; Start 02/11/19 at 06:00 Vancomycin HCl (Vanco Iv Per Pharmacy) VANCOMYCIN PER PHARMACY PER PROTOCOL XX ; Start 02/11/19 at 03:00 Piperacillin Sod/ Tazobactam Sod 100 ml @ 200 mls/hr Q8 IVPB Last administered on 02/16/19 05:38; Admin Dose 200 MLS/HR; Start 02/11/19 at 06:00 Morphine Sulfate (morphine) 2 mg Q4H PRN IV SEVERE PAIN LEVEL 7-10 Last administered on 02/15/19 14:16; Admin Dose 2 MG; Start 02/11/19 at 03:00 Amlodipine Besylate (Norvasc) 5 mg DAILY PO Last administered on 02/16/19 08:17; Admin Dose 5 MG; Start 02/11/19 at 09:00 Azelastine HCl (Astelin) 1 spray BID NASAL Last administered on 02/16/19 08:19; Admin Dose 1 SPRAY; Start 02/11/19 at 09:00 Escitalopram Oxalate (Lexapro) 20 mg DAILY PO Last administered on 02/16/19 09:00; Admin Dose 20 MG; Start 02/11/19 at 09:00 Fluticasone Propionate (Flonase 0.05% Nasal) 1 spray BID NASAL Last administered on 02/16/19 08:19; Admin Dose 1 SPRAY; Start 02/11/19 at 09:00 Gabapentin (Neurontin) 300 mg DAILY PO Last administered on 02/16/19 08:17; Admin Dose 300 MG; Start 02/11/19 at 09:00 Loratadine (Claritin) 10 mg DAILY PO Last administered on 02/16/19 08:17; Admin Dose 10 MG; Start 02/11/19 at 09:00 Cholecalciferol (Vitamin D) 2,000 unit DAILY PO Last administered on 02/16/19 08:17; Admin Dose 2,000 UNIT; Start 02/11/19 at 09:00 Atorvastatin Calcium (Lipitor) 10 mg DAILY PO Last administered on 02/16/19 08:17; Admin Dose 10 MG; Start 02/11/19 at 09:00 Budesonide (Pulmicort (Neb)) 0.5 mg BID PRN NEB WHEEZING AND SOB Last administered on 02/15/19 20:33; Admin Dose 0.5 MG; Start 02/11/19 at 03:30 Albuterol/ Ipratropium (Duoneb) 3 ml Q4H RESP THERAPY HHN Last administered on 02/16/19 12:12; Admin Dose 3 ML; Start 02/11/19 at 13:00 Acetaminophen (Tylenol Tab) 650 mg Q4H PRN PO MILD PAIN(1-3)OR ELEVATED TEMP Last administered on 02/12/19 12:00; Admin Dose 650 MG; Start 02/12/19 at 12:00 Calcium Carbonate (Oyster Shell Calcium) 1.25 gm BID NGT Last administered on 02/16/19 08:17; Admin Dose 1.25 GM; Start 02/12/19 at 14:00 Vancomycin HCl 1.5 gm/Sodium Chloride 250 ml @ 83.333 mls/ hr Q12H IVPB Last administered on 02/16/19 13:59; Admin Dose 83.333 MLS/HR; Start 02/13/19 at 02:00 Furosemide (Lasix) 40 mg DAILY IV Last administered on 02/16/19 08:18; Admin Dose 40 MG; Start 02/13/19 at 09:00 Oxycodone HCl (Roxicodone) 5 mg Q4H PRN PO MODERATE PAIN LEVEL 4-6 Last administered on 02/15/19 22:01; Admin Dose 5 MG; Start 02/13/19 at 17:00 Oxycodone HCl (Roxicodone) 10 mg Q4H PRN PO MODERATE PAIN LEVEL 7-10 Last administered on 02/14/19 21:20; Admin Dose 10 MG; Start 02/13/19 at 17:00 Aspirin (Halfprin) 81 mg BID PO Last administered on 02/16/19 08:18; Admin Dose 81 MG; Start 02/14/19 at 21:00 LIDYA BEST MD Feb 16, 2019 14:51
--- NOTE | 2019-02-16 15:13 | PN ---
Date/Time of Note Date/Time of Note DATE: 02/16/19 TIME: 15:09 Assessment/Plan VTE [place]axis [place] [facility] [place]: 4 [place] [facility] [place] SCD contraindicated: bilateral LE trauma Pharmacological prophylaxis: NA/contraindicated Pharm contraindication: anticoag not tolerated Lines/Catheters IV [facility] [place] Urinary Cath still in place: No Assessment/Plan Hospital Course 1. SIRS Fevers, leukocytosis, status post right total knee replacement on . , Fluid tap from knee is essentially neg and bld cx neg so far, UA neg , new chest xray+ Pul edema and ct chest + effusions, NOW CT A+P diverticuli tis/enteritis 2. History of hypertension, currently hypotensive. 3. Hyperlipidemia. 4. Obesity. 5. GERD. 6. Allergic rhinitis. 7. Mood disorder. 8 anemia with acute blood loss? hematoma vs hemodilutional , improved sp 1 unit prbc 9. SOB likely due to pul edema sp iv fluids evident on chest xray likely due to CHF . CT chest neg for PE, ECHO diastolic dysfunction 10. CHF, diastolic Assessment/Plan -collect UA, CT abd with PO and IV contrast -WBC elevated - cw iv vanco/zosyn -transfer to [facility] - GI consult - iv lasix 40 for pul edema, replete K and MG - Restart ASA - Fu GI/Pul/ ID recs - fluid restriction 1L - GI proph. Protonix -DVT prophylaxis unable to utilize due to anemia - fu PUL/ ID and ortho recs Result Diagram: 02/16/19 0520 02/16/19 0520 Results 24hrs Laboratory Tests Test 02/16/19 05:20 White Blood Count 16.2 #H Red Blood Count 3.53 L Hemoglobin 9.4 L Hematocrit 30.0 L Mean Corpuscular Volume 85.0 Mean Corpuscular Hemoglobin 26.6 L Mean Corpuscular Hemoglobin Concent 31.3 L Red Cell Distribution Width 14.2 Platelet Count 530 H Mean Platelet Volume 8.5 Immature Granulocytes % 1.100 H Neutrophils % 75.7 Lymphocytes % 13.4 L Monocytes % 7.2 Eosinophils % 2.3 Basophils % 0.3 Nucleated Red Blood Cells % 0.0 Immature Granulocytes # 0.170 H Neutrophils # 12.3 H Lymphocytes # 2.2 Monocytes # 1.2 H Eosinophils # 0.4 Basophils # 0.1 Nucleated Red Blood Cells # 0.0 Sodium Level 143 Potassium Level 3.8 Chloride Level 100 Carbon Dioxide Level 33 H Anion Gap 10 Blood Urea Nitrogen 9 Creatinine 0.89 Est Glomerular Filtrat Rate mL/min > 60 Glucose Level 126 Calcium Level 9.4 Phosphorus Level 4.5 Magnesium Level 2.1 Subjective 24 Hr Interval Summary Cardiovascular: no complaints Gastrointestinal: no complaints Skin: bruising Exam/Review of Systems Exam Vitals Vital Signs Date Temp Pulse Resp B/P (MAP) Pulse Ox O2 O2 Flow FiO2 Time Delivery Rate 02/16/19 88 20 96 Nasal 2.0 12:13 Cannula 02/16/19 98.5 135/61 11:37 (85) Intake and Output 02/15/19 02/15/19 02/16/19 1515:00 23:00 07:00 IntakeIntake Total 650 ml 400 ml BalanceBalance 650 ml 400 ml Constitutional: alert, oriented Head: normocephalic Eyes: nl conjunctiva Neck: supple Respiratory: diminished breath sounds Cardiovascular: regular rate and rhythm Gastrointestinal: soft Musculoskeletal: muscle weakness (right knee) Results Results 24hrs Laboratory Tests Test 02/16/19 05:20 White Blood Count 16.2 #H Red Blood Count 3.53 L Hemoglobin 9.4 L Hematocrit 30.0 L Mean Corpuscular Volume 85.0 Mean Corpuscular Hemoglobin 26.6 L Mean Corpuscular Hemoglobin Concent 31.3 L Red Cell Distribution Width 14.2 Platelet Count 530 H Mean Platelet Volume 8.5 Immature Granulocytes % 1.100 H Neutrophils % 75.7 Lymphocytes % 13.4 L Monocytes % 7.2 Eosinophils % 2.3 Basophils % 0.3 Nucleated Red Blood Cells % 0.0 Immature Granulocytes # 0.170 H Neutrophils # 12.3 H Lymphocytes # 2.2 Monocytes # 1.2 H Eosinophils # 0.4 Basophils # 0.1 Nucleated Red Blood Cells # 0.0 Sodium Level 143 Potassium Level 3.8 Chloride Level 100 Carbon Dioxide Level 33 H Anion Gap 10 Blood Urea Nitrogen 9 Creatinine 0.89 Est Glomerular Filtrat Rate mL/min > 60 Glucose Level 126 Calcium Level 9.4 Phosphorus Level 4.5 Magnesium Level 2.1 Medications Medication Current Medications Acetaminophen (Tylenol Tab) 650 mg Q6H PRN PO MILD PAIN(1-3)OR ELEVATED TEMP Last administered on 02/16/19 08:18; Admin Dose 650 MG; Start 02/11/19 at 03:00 Ondansetron HCl (Zofran Inj) 4 mg Q4H PRN IV NAUSEA AND/OR VOMITING; Start 02/11/19 at 03:00 Pantoprazole (Protonix Tab) 40 mg DAILY@06 PO Last administered on 02/16/19 05:38; Admin Dose 40 MG; Start 02/11/19 at 06:00 Vancomycin HCl (Vanco Iv Per Pharmacy) VANCOMYCIN PER PHARMACY PER PROTOCOL XX ; Start 02/11/19 at 03:00 Piperacillin Sod/ Tazobactam Sod 100 ml @ 200 mls/hr Q8 IVPB Last administered on 02/16/19 05:38; Admin Dose 200 MLS/HR; Start 02/11/19 at 06:00 Morphine Sulfate (morphine) 2 mg Q4H PRN IV SEVERE PAIN LEVEL 7-10 Last administered on 02/15/19 14:16; Admin Dose 2 MG; Start 02/11/19 at 03:00 Amlodipine Besylate (Norvasc) 5 mg DAILY PO Last administered on 02/16/19 08:17; Admin Dose 5 MG; Start 02/11/19 at 09:00 Azelastine HCl (Astelin) 1 spray BID NASAL Last administered on 02/16/19 08:19; Admin Dose 1 SPRAY; Start 02/11/19 at 09:00 Escitalopram Oxalate (Lexapro) 20 mg DAILY PO Last administered on 02/16/19 09:00; Admin Dose 20 MG; Start 02/11/19 at 09:00 Fluticasone Propionate (Flonase 0.05% Nasal) 1 spray BID NASAL Last administe red on 02/16/19 08:19; Admin Dose 1 SPRAY; Start 02/11/19 at 09:00 Gabapentin (Neurontin) 300 mg DAILY PO Last administered on 02/16/19 08:17; Admin Dose 300 MG; Start 02/11/19 at 09:00 Loratadine (Claritin) 10 mg DAILY PO Last administered on 02/16/19 08:17; Admin Dose 10 MG; Start 02/11/19 at 09:00 Cholecalciferol (Vitamin D) 2,000 unit DAILY PO Last administered on 02/16/19 08:17; Admin Dose 2,000 UNIT; Start 02/11/19 at 09:00 Atorvastatin Calcium (Lipitor) 10 mg DAILY PO Last administered on 02/16/19 08:17; Admin Dose 10 MG; Start 02/11/19 at 09:00 Budesonide (Pulmicort (Neb)) 0.5 mg BID PRN NEB WHEEZING AND SOB Last administered on 02/15/19 20:33; Admin Dose 0.5 MG; Start 02/11/19 at 03:30 Albuterol/ Ipratropium (Duoneb) 3 ml Q4H RESP THERAPY HHN Last administered on 02/16/19 12:12; Admin Dose 3 ML; Start 02/11/19 at 13:00 Acetaminophen (Tylenol Tab) 650 mg Q4H PRN PO MILD PAIN(1-3)OR ELEVATED TEMP Last administered on 02/12/19 12:00; Admin Dose 650 MG; Start 02/12/19 at 12:00 Calcium Carbonate (Oyster Shell Calcium) 1.25 gm BID NGT Last administered on 02/16/19 08:17; Admin Dose 1.25 GM; Start 02/12/19 at 14:00 Vancomycin HCl 1.5 gm/Sodium Chloride 250 ml @ 83.333 mls/ hr Q12H IVPB Last administered on 02/16/19 13:59; Admin Dose 83.333 MLS/HR; Start 02/13/19 at 0 2:00 Furosemide (Lasix) 40 mg DAILY IV Last administered on 02/16/19 08:18; Admin Dose 40 MG; Start 02/13/19 at 09:00 Oxycodone HCl (Roxicodone) 5 mg Q4H PRN PO MODERATE PAIN LEVEL 4-6 Last adminis tered on 02/15/19 22:01; Admin Dose 5 MG; Start 02/13/19 at 17:00 Oxycodone HCl (Roxicodone) 10 mg Q4H PRN PO MODERATE PAIN LEVEL 7-10 Last administered on 02/14/19 21:20; Admin Dose 10 MG; Start 02/13/19 at 17:00 Aspirin (Halfprin) 81 mg BID PO Last administered on 02/16/19 08:18; Admin Dose 81 MG; Start 02/14/19 at 21:00 ANGELIQUE VAUGHAN Feb 16, 2019 15:13
[2019-02-16] MEDS ORDERED: BARIUM SULF 2% 450 ML BTL (BERRY SMOOTHIE) PO ONE (16:00)
[2019-02-16] MEDS ORDERED: IOHEXOL 14.3 MG(I)/ML (ADULT) BTL PO ONE (16:00)
--- NOTE | 2019-02-16 16:20 | PN ---
DATE: 02/16/2019 SUBJECTIVE: Chart reviewed. No significant events noted. Patient currently on 2 liters O2 nasal ca nnula, saturating 96%. PHYSICAL EXAMINATION: VITAL SIGNS: Blood pressure 135/61, pulse 78, respirations 17, temperature 98.5. HEENT: Pupils are equal and react to light. NECK: Supple, no JVD noted, no cervical adenopathy noted. LUNGS: Fair breath sounds bilaterally. CARDIOVASCULAR: S1, S2 normal. ABDOMEN: Soft, nontender, no organomegaly or masses noted. EXTREMITIES: No clubbing or cyanosis noted. NEUROLOGICAL: Awake. LABORATORY DATA: WBC 16.2, hemoglobin 9.4, hematocrit 30, platelets 530. Sodium 143, potassium 3.8, chloride 100, CO2 33, BUN 9, creatinine 0.89, glucose 126. IMPRESSION: 1. Recent total knee replacement with right knee cellulitis. 2. Cardiomyopathy. 3. Congestive heart failure, likely due to acute left ventricular diastolic failure. 4. History of hypertension. 5. Anemia. 6. Diverticulitis on CT scan of abdomen. RECOMMENDATIONS: 1. Continue diuresis. 2. GI recommendations noted. 3. Wound care. 4. Continue antibiotics. 5. Consultants noted. Dictated By: RAJAN MUNGUIA MD, MA/ARNALDO Conf#: [id number] DID#: [id number] CC: JACQUI FUNES;*EndCC*
[2019-02-16 16:29] VITALS: BP 128/63; PULSE 79; RESP 18
[2019-02-16 21:18] VITALS: BP 122/59; PULSE 79; RESP 20
[2019-02-17] MEDS: ALBUTEROL/IPRATROPIUM (NEB) 3 ML AMP HHN SCH ×6 (00:19→21:31)
[2019-02-17 00:36] VITALS: BP 115/56; PULSE 81; RESP 20
[2019-02-17] MEDS: VANCOMYCIN HCL 1.5 GM in SOD CHLORIDE 0.9% 250 ML IVPB SCH (01:07)
[2019-02-17] MEDS: ACETAMINOPHEN 325 MG TAB PO PRN (04:09)
[2019-02-17 05:14] VITALS: BP 126/59; RESP 18
[2019-02-17] MEDS: PANTOPRAZOLE (EC) 40 MG TAB PO SCH (06:01)
[2019-02-17] MEDS: PIPER-TAZO 3.375 GM IV (PMX) 100 ML IVPB SCH ×3 (06:01→21:42)
[2019-02-17 08:43] VITALS: PULSE 77; RESP 20
[2019-02-17] MEDS: CHOLECALCIFEROL 2,000 UNIT CAP PO SCH (09:00)
[2019-02-17] MEDS: oxyCODONE 5 MG TAB PO PRN ×2 (09:52→21:41)
[2019-02-17] MEDS: LORATADINE 10 MG TAB PO SCH (09:53)
[2019-02-17] MEDS: ASPIRIN (EC) 81 MG TAB PO SCH ×2 (09:53→20:18)
[2019-02-17] MEDS: ESCITALOPRAM 20 MG TAB PO SCH (09:53)
[2019-02-17] MEDS: AMLODIPINE 5 MG TAB PO SCH (09:54)
[2019-02-17] MEDS: CALCIUM CARBONATE 1.25 GM TAB NGT SCH ×2 (09:54→20:17)
[2019-02-17] MEDS: GABAPENTIN 300 MG CAP PO SCH (09:54)
[2019-02-17] MEDS: ATORVASTATIN 10 MG TAB PO SCH (09:55)
[2019-02-17] MEDS: FUROSEMIDE 40 MG INJ IV SCH (09:55)
[2019-02-17] MEDS: FLUTICASONE 0.05% 16 GM NAS SPRAY NASAL SCH ×2 (09:57→20:18)
[2019-02-17] MEDS: AZELASTINE 30 ML NAS SPRAY NASAL SCH ×2 (09:58→20:18)
[2019-02-17] MEDS ORDERED: BARIUM SULF 2% 450 ML BTL (BERRY SMOOTHIE) PO SCH (10:30)
[2019-02-17 12:10] VITALS: BP 141/65; PULSE 73; RESP 20
--- NOTE | 2019-02-17 12:33 | PN ---
Date/Time of Note Date/Time of Note DATE: 02/17/19 TIME: 12:32 Assessment/Plan VTE Prophylaxis [place] [facility] [place]: 5 [place] [facility] [place]CD contraindicated: other Pharmacological prophylaxis: NA/contraindicated Pharm contraindication: bleeding Lines/Catheters IV Catheter Type (from [facility] [place] [facility] Urinary Cath still in place: No Assessment/Plan Hospital Course 1. SIRS Fevers, leukocytosis, status post right total knee replacement on 25th. , Fluid tap from knee is essentially neg and bld cx neg so far, UA neg , new chest xray+ Pul edema and ct chest + effusions, NOW CT A+P diverticulitis/enteritis 2. History of hypertension, currently hypotensive. 3. Hyperlipidemia. 4. Obesity. 5. GERD. 6. Allergic rhinitis. 7. Mood disorder. 8 anemia with acute blood loss? hematoma vs hemodilutional , improved sp 1 unit prbc 9. SOB likely due to pul edema sp iv fluids evident on chest xray likely due to CHF . CT chest neg for PE, ECHO diastolic dysfunction 10. CHF, diastolic Assessment/Plan -collect UA, since yesterday is not collected -CT abd with PO and IV contrast pending -WBC elevated - cw iv vanco/zosyn -transfer to [facility] [place] - GI consult - iv lasix 40 for pul edema, replete K and MG - Restart ASA - Fu GI/Pul/ ID recs - fluid restriction 1L - GI proph. Protonix -DVT prophylaxis unable to utilize due to anemia - fu PUL/ ID and ortho recs Result Diagram: 02/17/1952102/17/19 0522 Results 24hrs Laboratory Tests Test 02/17/19 05:22 White Blood Count 13.1 H Red Blood Count 3.52 L Hemoglobin 9.4 L Hematocrit 30.0 L Mean Corpuscular Volume 85.2 Mean Corpuscular Hemoglobin 26.7 L Mean Corpuscular Hemoglobin Concent 31.3 L Red Cell Distribution Width 14.1 Platelet Count 544 H Mean Platelet Volume 8.4 Immature Granulocytes % 0.900 H Neutrophils % 71.7 Lymphocytes % 16.1 Monocytes % 7.8 Eosinophils % 3.2 Basophils % 0.3 Nucleated Red Blood Cells % 0.0 Immature Granulocytes # 0.120 H Neutrophils # 9.4 H Lymphocytes # 2.1 Monocytes # 1.0 H Eosinophils # 0.4 Basophils # 0.0 Nucleated Red Blood Cells # 0.0 Sodium Level 141 Potassium Level 3.5 Chloride Level 103 Carbon Dioxide Level 31 Anion Gap 7 Blood Urea Nitrogen 10 Creatinine 0.98 Est Glomerular Filtrat Rate mL/min 58 L Glucose Level 126 Calcium Level 9.8 Subjective 24 Hr Interval Summary Free Text/Dictation fever Musculoskeletal: swelling (right knee) Exam/Review of Systems Exam Vitals Vital Signs Date Temp Pulse Resp B/P (MAP) Pulse Ox O2 O2 Flow FiO2 Time Delivery Rate 02/17/19 98.7 73 20 141/65 98 Room Air 12:10 (90) 02/17/19 21 09:28 02/17/19 2.0 08:00 Intake and Output 02/16/19 02/16/19 02/17/19 1515:00 23:00 07:00 IntakeIntake Total 1050 ml BalanceBalance 1050 ml Constitutional: alert, oriented Respiratory: clear to auscultation Cardiovascular: regular rate and rhythm Gastrointestinal: soft Extremities: normal pulses Results Results 24hrs Laboratory Tests Test 02/17/19 05:22 White Blood Count 13.1 H Red Blood Count 3.52 L Hemoglobin 9.4 L Hematocrit 30.0 L Mean Corpuscular Volume 85.2 Mean Corpuscular Hemoglobin 26.7 L Mean Corpuscular Hemoglobin Concent 31.3 L Red Cell Distribution Width 14.1 Platelet Count 544 H Mean Platelet Volume 8.4 Immature Granulocytes % 0.900 H Neutrophils % 71.7 Lymphocytes % 16.1 Monocytes % 7.8 Eosinophils % 3.2 Basophils % 0.3 Nucleated Red Blood Cells % 0.0 Immature Granulocytes # 0.120 H Neutrophils # 9.4 H Lymphocytes # 2.1 Monocytes # 1.0 H Eosinophils # 0.4 Basophils # 0.0 Nucleated Red Blood Cells # 0.0 Sodium Level 141 Potassium Level 3.5 Chloride Level 103 Carbon Dioxide Level 31 Anion Gap 7 Blood Urea Nitrogen 10 Creatinine 0.98 Est Glomerular Filtrat Rate mL/min 58 L Glucose Level 126 Calcium Level 9.8 Medications Medication Current Medications Acetaminophen (Tylenol Tab) 650 mg Q6H PRN PO MILD PAIN(1-3)OR ELEVATED TEMP Last administered on 02/17/19at 04:09; Admin Dose 650 MG; Start 02/11/19 at 03:00 Ondansetron HCl (Zofran Inj) 4 mg Q4H PRN IV NAUSEA AND/OR VOMITING; Start 02/11/19 at 03:00 Pantoprazole (Protonix Tab) 40 mg DAILY@06 PO Last administered on 02/17/19 06:01; Admin Dose 40 MG; Start 02/11/19 at 06:00 Vancomycin HCl (Vanco Iv Per Pharmacy) VANCOMYCIN PER PHARMACY PER PROTOCOL XX ; Start 02/11/19 at 03:00 Piperacillin Sod/ Tazobactam Sod 100 ml @ 200 mls/hr Q8 IVPB Last administered on 02/17/19 06:01; Admin Dose 200 MLS/HR; Start 02/11/19 at 06:00 Morphine Sulfate (morphine) 2 mg Q4H PRN IV SEVERE PAIN LEVEL 7-10 Last administered on 02/15/19 14:16; Admin Dose 2 MG; Start 02/11/19 at 03:00 Amlodipine Besylate (Norvasc) 5 mg DAILY PO Last administered on 02/17/19 09:54; Admin Dose 5 MG; Start 02/11/19 at 09:00 Azelastine HCl (Astelin) 1 spray BID NASAL Last administered on 02/17/19 09:58; Admin Dose 1 SPRAY; Start 02/11/19 at 09:00 Fluticasone Propionate (Flonase 0.05% Nasal) 1 spray BID NASAL Last administered on 02/17/19 09:57; Admin Dose 1 SPRAY; Start 02/11/19 at 09:00 Gabapentin (Neurontin) 300 mg DAILY PO Last administered on 02/17/19 09:54; Admin Dose 300 MG; Start 02/11/19 at 09:00 Loratadine (Claritin) 10 mg DAILY PO Last administered on 02/17/19 09:53; Admin Dose 10 MG; Start 02/11/19 at 09:00 Cholecalciferol (Vitamin D) 2,000 unit DAILY PO Last administered on 02/16/19 08:17; Admin Dose 2,000 UNIT; Start 02/11/19 at 09:00 Atorvastatin Calcium (Lipitor) 10 mg DAILY PO Last administered on 02/17/19 09:55; Admin Dose 10 MG; Start 02/11/19 at 09:00 Budesonide (Pulmicort (Neb)) 0.5 mg BID PRN NEB WHEEZING AND SOB Last administered on 02/15/19 20:33; Admin Dose 0.5 MG; Start 02/11/19 at 03:30 Albuterol/ Ipratropium (Duoneb) 3 ml Q4H RESP THERAPY HHN Last administered on 02/17/19 09:24; Admin Dose 3 ML; Start 02/11/19 at 13:00 Acetaminophen (Tylenol Tab) 650 mg Q4H PRN PO MILD PAIN(1-3)OR ELEVATED TEMP Last administered on 02/12/19 12:00; Admin Dose 650 MG; Start 02/12/19 at 12:00 Calcium Carbonate (Oyster Shell Calcium) 1.25 gm BID NGT Last administered on 02/17/19 09:54; Admin Dose 1.25 GM; Start 02/12/19 at 14:00 Vancomycin HCl 1.5 gm/Sodium Chloride 250 ml @ 83.333 mls/ hr Q12H IVPB Last administered on 02/17/19 01:07; Admin Dose 83.333 MLS/HR; Start 02/13/19 at 02:00 Furosemide (Lasix) 40 mg DAILY IV Last administered on 02/17/19 09:55; Admin D ose 40 MG; Start 02/13/19 at 09:00 Oxycodone HCl (Roxicodone) 5 mg Q4H PRN PO MODERATE PAIN LEVEL 4-6 Last administered on 02/17/19 09:52; Admin Dose 5 MG; Start 02/13/19 at 17:00 Oxycodone HCl (Roxicodone) 10 mg Q4H PRN PO MODERATE PAIN LEVEL 7-10 Last administered on 02/14/19 21:20; Admin Dose 10 MG; Start 02/13/19 at 17:00 Aspirin (Halfprin) 81 mg BID PO Last administered on 02/17/19 09:53; Admin Dose 81 MG; Start 02/14/19 at 21:00 Escitalopram Oxalate (Lexapro) 20 mg DAILY PO Last administered on 02/17/19 09:53; Admin Dose 20 MG; Start 02/17/19 at 09:00 Barium Sulfate (Readi-Cat 2 ( [employer]ie )) 900 [address]IOR TO [address] PO ; Start 02/17/19 at 10:30; Stop 02/17/19 at 19:00 ANGELIQUE VAUGHAN Feb 17, 2019 12:33
[2019-02-17] MEDS ORDERED: IOHEXOL 300MG/ML 150 ML BTL ONE (14:59)
[2019-02-17] MEDS ORDERED: SOD CHLORIDE 0.9% 100 ML ONE (14:59)
--- NOTE | 2019-02-17 15:22 | CONS ---
Assessment/Plan Assessment/Plan Hospital Course (Demo Recall) Patient is alert and feels better looks comfortable denies pain she is taking contrast for abdominal CT. Still with low-grade fevers. WBC today 13.1 no shift no bands BUN [address] of the abdomen and pelvis revealed sigmoid colon diverticulitis with small focal phlegmon and inflammatory stranding medial to sigmoid colon. No evidence of drainable abscess. Please see full report in the chart Microbiology: Right knee fluid culture grew coag negative staph species susceptible to ciprofloxacin clindamycin doxycycline Antimicrobials: Vanco and Zosyn Physical examination: This is obese well-developed middle-aged woman who is alert in no distress. Head atraumatic normocephalic sclera nonicteric vehicle mucosa dry neck is supple chest rise symmetrical breath sounds clear. Heart: Mask S1-S2 abdomen soft patient has some tenderness over right upper quadrant on palpation no suprapubic tenderness bowel sounds present. Extremities without cyanosis right knee incision with shruthi clean dry and intact no drainage no erythema Assessment: 1. Ongoing leukocytosis secondary to #2 2. Acute diverticulitis with phlegmon, no abscess per CT 2. Right knee cellulitis, improved 3. History of recent right total knee replacement 01/29/19 4. Morbid obesity 5. Acute anemia 6. Hypoxemia secondary to fluid overload, improved Plan: Stable, DC vancomycin, continue Zosyn, await for CT abdomen results Consultation Date/Type/Reason Admit Date/Time Feb 11, 2019 at 00:10 Initial Consult Date 02/11/19 Type of Consult id Date/Time of Note DATE: 02/17/19 TIME: 15:21 Exam/Review of Systems Exam Vitals Vital Signs Date Temp Pulse Resp B/P (MAP) Pulse Ox O2 O2 Flow FiO2 Time Delivery Rate 02/17/19 75 20 95 21 13:21 02/17/19 98.7 141/65 Room Air 12:10 (90) 02/17/19 2.0 08:00 Intake and Output 02/16/19 02/16/19 02/17/19 1515:00 23:00 07:00 IntakeIntake Total 1050 ml BalanceBalance 1050 ml Results Result Diagram: 02/17/19 0522 02/17/19 0522 Results 24hrs Laboratory Tests Test 02/17/19 05:22 White Blood Count 13.1 H Red Blood Count 3.52 L Hemoglobin 9.4 L Hematocrit 30.0 L Mean Corpuscular Volume 85.2 Mean Corpuscular Hemoglobin 26.7 L Mean Corpuscular Hemoglobin Concent 31.3 L Red Cell Distribution Width 14.1 Platelet Count 544 H Mean Platelet Volume 8.4 Immature Granulocytes % 0.900 H Neutrophils % 71.7 Lymphocytes % 16.1 Monocytes % 7.8 Eosinophils % 3.2 Basophils % 0.3 Nucleated Red Blood Cells % 0.0 Immature Granulocytes # 0.120 H Neutrophils # 9.4 H Lymphocytes # 2.1 Monocytes # 1.0 H Eosinophils # 0.4 Basophils # 0.0 Nucleated Red Blood Cells # 0.0 Sodium Level 141 Potassium Level 3.5 Chloride Level 103 Carbon Dioxide Level 31 Anion Gap 7 Blood Urea Nitrogen 10 Creatinine 0.98 Est Glomerular Filtrat Rate mL/min 58 L Glucose Level 126 Calcium Level 9.8 Medications Medication Current Medications Acetaminophen (Tylenol Tab) 650 mg Q6H PRN PO MILD PAIN(1-3)OR ELEVATED TEMP Last administered on 02/17/19at 04:09; Admin Dose 650 MG; Start 02/11/19 at 03:00 Ondansetron HCl (Zofran Inj) 4 mg Q4H PRN IV NAUSEA AND/OR VOMITING; Start 02/11/19 at 03:00 Pantoprazole (Protonix Tab) 40 mg DAILY@06 PO Last administered on 02/17/19at 06:01; Admin Dose 40 MG; Start 02/11/19 at 06:00 Vancomycin HCl (Vanco Iv Per Pharmacy) VANCOMYCIN PER PHARMACY PER PROTOCOL XX ; Start 02/11/19 at 03:00 Piperacillin Sod/ Tazobactam Sod 100 ml @ 200 mls/hr Q8 IVPB Last administered on 02/17/19at 06:01; Admin Dose 200 MLS/HR; Start 02/11/19 at 06:00 Morphine Sulfate (morphine) 2 mg Q4H PRN IV SEVERE PAIN LEVEL 7-10 Last administered on 02/15/19at 14:16; Admin Dose 2 MG; Start 02/11/19 at 03:00 Amlodipine Besylate (Norvasc) 5 mg DAILY PO Last administered on 02/17/19at 09:54; Admin Dose 5 MG; Start 02/11/19 at 09:00 Azelastine HCl (Astelin) 1 spray BID NASAL Last administered on 02/17/19 09:58; Admin Dose 1 SPRAY; Start 02/11/19 at 09:00 Fluticasone Propionate (Flonase 0.05% Nasal) 1 spray BID NASAL Last administ ered on 02/17/19 09:57; Admin Dose 1 SPRAY; Start 02/11/19 at 09:00 Gabapentin (Neurontin) 300 mg DAILY PO Last administered on 02/17/19 09:54; Admin Dose 300 MG; Start 02/11/19 at 09:00 Loratadine (Claritin) 10 mg DAILY PO Last administered on 02/17/19 09:53; Admin Dose 10 MG; Start 02/11/19 at 09:00 Cholecalciferol (Vitamin D) 2,000 unit DAILY PO Last administered on 02/16/19 08:17; Admin Dose 2,000 UNIT; Start 02/11/19 at 09:00 Atorvastatin Calcium (Lipitor) 10 mg DAILY PO Last administered on 02/17/19 09:55; Admin Dose 10 MG; Start 02/11/19 at 09:00 Budesonide (Pulmicort (Neb)) 0.5 mg BID PRN NEB WHEEZING AND SOB Last administered on 02/15/19 20:33; Admin Dose 0.5 MG; Start 02/11/19 at 03:30 Albuterol/ Ipratropium (Duoneb) 3 ml Q4H RESP THERAPY HHN Last administered on 02/17/19 13:18; Admin Dose 3 ML; Start 02/11/19 at 13:00 Acetaminophen (Tylenol Tab) 650 mg Q4H PRN PO MILD PAIN(1-3)OR ELEVATED TEMP Last administered on 02/12/19 12:00; Admin Dose 650 MG; Start 02/12/19 at 12:00 Calcium Carbonate (Oyster Shell Calcium) 1.25 gm BID NGT Last administered on 02/17/19 09:54; Admin Dose 1.25 GM; Start 02/12/19 at 14:00 Vancomycin HCl 1.5 gm/Sodium Chloride 250 ml @ 83.333 mls/ hr Q12H IVPB Last administered on 02/17/19 01:07; Admin Dose 83.333 MLS/HR; Start 02/13/19 at 02:00 Furosemide (Lasix) 40 mg DAILY IV Last administered on 02/17/19 09:55; Admin Dose 40 MG; Start 02/13/19 at 09:00 Oxycodone HCl (Roxicodone) 5 mg Q4H PRN PO MODERATE PAIN LEVEL 4-6 Last admini stered on 02/17/19 09:52; Admin Dose 5 MG; Start 02/13/19 at 17:00 Oxycodone HCl (Roxicodone) 10 mg Q4H PRN PO MODERATE PAIN LEVEL 7-10 Last administered on 02/14/19 21:20; Admin Dose 10 MG; Start 02/13/19 at 17:00 Aspirin (Halfprin) 81 mg BID PO Last administered on 02/17/19 09:53; Admin Dose 81 MG; Start 02/14/19 at 21:00 Escitalopram Oxalate (Lexapro) 20 mg DAILY PO Last administered on 02/17/19 09:53; Admin Dose 20 MG; Start 02/17/19 at 09:00 Barium Sulfate (Readi-Cat 2 ( [employer] )) [address] PO ; Start 02/17/19 at 10:30; Stop 02/17/19 at 19:00 CRISTHIAN HARVEY NP Feb 17, 2019 15:22
--- NOTE | 2019-02-17 17:26 | PN ---
DATE: 02/17/2019 SUBJECTIVE: Chart reviewed. The patient on room air saturating 98%. PHYSICAL EXAMINATION: VITAL SIGNS: Blood pressure 141/65, pulse 73, respirations 20, temperature 98.7. HEENT: Pupils are equal and reactive to light. NECK: Supple, no JVD noted. LUNGS: Fair breath sounds bilaterally. CARDIOVASCULAR: S1, S2 normal. ABDOMEN: Soft, nontender. No megaly or masses noted. EXTREMITIES: No clubbing or cyanosis noted. NEUROLOGICAL: Awake. LABORATORY DATA: WBC 13.1, hemoglobin 9.4, hematocrit 30, platelets 544. Sodium 141, potassium 3.5, chloride 103, CO2 31, BUN 10, creatinine 0.98, glucose 126. IMPRESSION: 1. Recent total knee replacement with a right knee cellulitis, status post aspiration of right knee fluid. 2. Cardiomyopathy. 3. Congestive heart failure. 4. History of hypertension. 5. Anemia. 6. Diverticulitis on CT scan of abdomen. RECOMMENDATIONS: 1. Continue diuresis. 2. Continue antibiotics. 3. Wound care. 4. Consultants noted. Dictated By: RAJAN MUNGUIA MD, MA/ARNALDO Conf#: [id number] DID#: [id number] CC: JACQUI FUNES;*End*
--- NOTE | 2019-02-17 18:22 | CONS ---
Assessment/Plan Assessment/Plan Assessment/Plan (Daily) Assessment/Plan (Daily) IMPRESSION: 1. Systemic inflammatory response syndrome with a fever, leukocytosis, status post right knee replacement. 2. Diverticulitis based on the CAT scan report. 3. Hypertension. 4. Obesity. 5. Mood disorder. 6. Allergic rhinitis. 7. Anemia. 8. Mild leukocytosis Plan Advance her diet Continue antibiotic Colonoscopy after 6 weeks Stool for occult blood pending Consultation Date/Type/Reason Admit Date/Time Feb 11, 2019 at 00:10 Initial Consult Date 02/13/19 Date/Time of Note DATE: 02/17/19 TIME: 18:21 24 HR Interval Summary Constitutional: no complaints, improved Exam/Review of Systems Exam Vitals Vital Signs Date Temp Pulse Resp B/P (MAP) Pulse Ox O2 O2 Flow FiO2 Time Delivery Rate 02/17/19 78 16 94 21 16:26 02/17/19 98.7 141/65 Room Air 12:10 (90) 02/17/19 2.0 08:00 Intake and Output 02/16/19 02/16/19 02/17/19 1515:00 23:00 07:00 IntakeIntake Total 1050 ml BalanceBalance 1050 ml Constitutional: alert, oriented, well developed Psych: no complaints, nl mood/affect Head: normocephalic, atraumatic Eyes: nl conjunctiva, EOMI, nl lids, nl sclera, PERRL ENMT: nl external ears & nose, nl lips & teeth, nl nasal mucosa & septum Neck: supple, non-tender Respiratory: clear to auscultation, normal air movement Cardiovascular: regular rate and rhythm, nl pulses Gastrointestinal: soft, nl liver, spleen, non-tender Musculoskeletal: nl extremities to inspection, nl gait and stance Extremities: normal pulses Neurological: ACCELERATOR SYSTEMS DIRECTOR II-XII intact, nl mental status, nl speech, nl strength Skin: nl turgor; No rash or lesions Lymph: nl lymph nodes Results Result Diagram: 02/17/1952102/17/19521 Results 24hrs Laboratory Tests Test 02/17/19 05:22 White Blood Count 13.1 H Red Blood Count 3.52 L Hemoglobin 9.4 L Hematocrit 30.0 L Mean Corpuscular Volume 85.2 Mean Corpuscular Hemoglobin 26.7 L Mean Corpuscular Hemoglobin Concent 31.3 L Red Cell Distribution Width 14.1 Platelet Count 544 H Mean Platelet Volume 8.4 Immature Granulocytes % 0.900 H Neutrophils % 71.7 Lymphocytes % 16.1 Monocytes % 7.8 Eosinophils % 3.2 Basophils % 0.3 Nucleated Red Blood Cells % 0.0 Immature Granulocytes # 0.120 H Neutrophils # 9.4 H Lymphocytes # 2.1 Monocytes # 1.0 H Eosinophils # 0.4 Basophils # 0.0 Nucleated Red Blood Cells # 0.0 Sodium Level 141 Potassium Level 3.5 Chloride Level 103 Carbon Dioxide Level 31 Anion Gap 7 Blood Urea Nitrogen 10 Creatinine 0.98 Est Glomerular Filtrat Rate mL/min 58 L Glucose Level 126 Calcium Level 9.8 Medications Medication Current Medications Acetaminophen (Tylenol Tab) 650 mg Q6H PRN PO MILD PAIN(1-3)OR ELEVATED TEMP Last administered on 02/17/19 04:09; Admin Dose 650 MG; Start 02/11/19 at 03:00 Ondansetron HCl (Zofran Inj) 4 mg Q4H PRN IV NAUSEA AND/OR VOMITING; Start 02/11/19 at 03:00 Pantoprazole (Protonix Tab) 40 mg DAILY@06 PO Last administered on 02/17/19 06:01; Admin Dose 40 MG; Start 02/11/19 at 06:00 Piperacillin Sod/ Tazobactam Sod 100 ml @ 200 mls/hr Q8 IVPB Last administered on 02/17/19 16:25; Admin Dose 200 MLS/HR; Start 02/11/19 at 06:00 Morphine Sulfate (morphine) 2 mg Q4H PRN IV SEVERE PAIN LEVEL 7-10 Last administered on 02/15/19 14:16; Admin Dose 2 MG; Start 02/11/19 at 03:00 Amlodipine Besylate (Norvasc) 5 mg DAILY PO Last administered on 02/17/19 09:54; Admin Dose 5 MG; Start 02/11/19 at 09:00 Azelastine HCl (Astelin) 1 spray BID NASAL Last administered on 02/17/19 09:58; Admin Dose 1 SPRAY; Start 02/11/19 at 09:00 Fluticasone Propionate (Flonase 0.05% Nasal) 1 spray BID NASAL Last administered on 02/17/19 09:57; Admin Dose 1 SPRAY; Start 02/11/19 at 09:00 Gabapentin (Neurontin) 300 mg DAILY PO Last administered on 02/17/19 09:54; Admin Dose 300 MG; Start 02/11/19 at 09:00 Loratadine (Claritin) 10 mg DAILY PO Last administered on 02/17/19 09:53; Admin Dose 10 MG; Start 02/11/19 at 09:00 Cholecalciferol (Vitamin D) 2,000 unit DAILY PO Last administered on 02/16/19 08:17; Admin Dose 2,000 UNIT; Start 02/11/19 at 09:00 Atorvastatin Calcium (Lipitor) 10 mg DAILY PO Last administered on 02/17/19 09:55; Admin Dose 10 MG; Start 02/11/19 at 09:00 Budesonide (Pulmicort (Neb)) 0.5 mg BID PRN NEB WHEEZING AND SOB Last administered on 02/15/19 20:33; Admin Dose 0.5 MG; Start 02/11/19 at 03:30 Albuterol/ Ipratropium (Duoneb) 3 ml Q4H RESP THERAPY HHN Last administered on 02/17/19 16:25; Admin Dose 3 ML; Start 02/11/19 at 13:00 Acetaminophen (Tylenol Tab) 650 mg Q4H PRN PO MILD PAIN(1-3)OR ELEVATED TEMP Last administered on 02/12/19 12:00; Admin Dose 650 MG; Start 02/12/19 at 12:00 Calcium Carbonate (Oyster Shell Calcium) 1.25 gm BID NGT Last administered on 02/17/19 09:54; Admin Dose 1.25 GM; Start 02/12/19 at 14:00 Furosemide (Lasix) 40 mg DAILY IV Last administered on 02/17/19 09:55; Admin Dose 40 MG; Start 02/13/19 at 09:00 Oxycodone HCl (Roxicodone) 5 mg Q4H PRN PO MODERATE PAIN LEVEL 4-6 Last administered on 02/17/19 09:52; Admin Dose 5 MG; Start 02/13/19 at 17:00 Oxycodone HCl (Roxicodone) 10 mg Q4H PRN PO MODERATE PAIN LEVEL 7-10 Last administered on 02/14/19 21:20; Admin Dose 10 MG; Start 02/13/19 at 17:00 Aspirin (Halfprin) 81 mg BID PO Last administered on 02/17/19at 09:53; Admin Dose 81 MG; Start 02/14/19 at 21:00 Escitalopram Oxalate (Lexapro) 20 mg DAILY PO Last administered on 02/17/19at 09:53; Admin Dose 20 MG; Start 02/17/19 at 09:00 Barium Sulfate (Readi-Cat 2 ( [employer] )) [address] PO ; Start 02/17/19 at 10:30; Stop 02/17/19 at 19:00 LIDYA BEST MD Feb 17, 2019 18:22
[2019-02-17 20:00] VITALS: BP 124/58; PULSE 81; RESP 17
[2019-02-18] MEDS: ALBUTEROL/IPRATROPIUM (NEB) 3 ML AMP HHN SCH ×6 (01:30→20:26)
[2019-02-18 02:00] VITALS: BP 135/58; PULSE 76; RESP 15
[2019-02-18] MEDS: ACETAMINOPHEN 325 MG TAB PO PRN (02:43)
[2019-02-18] MEDS: PIPER-TAZO 3.375 GM IV (PMX) 100 ML IVPB SCH ×3 (06:02→21:35)
[2019-02-18] MEDS: PANTOPRAZOLE (EC) 40 MG TAB PO SCH (06:02)
--- NOTE | 2019-02-18 07:56 | CONS ---
Assessment/Plan Assessment/Plan Hospital Course (Demo Recall) 59 yo female WBc trending down. FOB negative. CT of abd from yesterday shows new "contained microperforation and slight contained fluid but no sizable collection". Pt has 5/10 PTP of lower abdomen. C/O mild nausea. 1. Systemic inflammatory response syndrome with a fever, leukocytosis, status post right knee replacement. 2. Diverticulitis of upper sigmoid colon with contained microperforation 3. Hypertension. 4. Obesity. 5. Mood disorder. 6. Allergic rhinitis. 7. Anemia. -stable 8. Mild leukocytosis 1. Diverticulitis of the upper sigmoid colon is again seen now with contained microperforation and slight contained fluid but no sizable collection. 2. Nodular consolidative changes of the lung bases appear improved from the prior although a 0.6 cm left lower lobe nodule remains. Correlation with older imaging or follow-up chest CT is suggested in the next few months to assess stability given the appearance on the more recent chest CT. 3. Small bilateral pleural effusions are improved from the prior. Plan NPO Surgical consult for microperforation IVF for hydration per primary Continue antibiotic Colonoscopy 6 weeks post resolution of diverticulitis and microperforation Pt examined and plan of care d/w Dr. Kaiser Pt examined and plan of care d/w DR Kaiser Consultation Date/Type/Reason Admit Date/Time Feb 11, 2019 at 00:10 Initial Consult Date 02/13/19 Date/Time of Note DATE: 02/18/19 TIME: 07:53 Exam/Review of Systems Exam Vitals Vital Signs Date Temp Pulse Resp B/P (MAP) Pulse Ox O2 O2 Flow FiO2 Time Delivery Rate 02/18/19 98.2 03:31 02/18/19 76 15 135/58 95 02:00 (83) 02/18/19 21 01:30 02/17/19 20:00 Intake and Output 02/17/19 02/17/19 02/18/19 1515:00 23:00 07:00 IntakeIntake Total 1010 ml 440 ml 150 ml OutputOutput Total 800 ml BalanceBalance 1010 ml 440 ml -650 ml Results Result Diagram: 02/18/19 0530 02/18/19 0530 Results 24hrs Laboratory Tests Test 02/17/19 22:20 02/18/19 05:30 Urine Color YELLOW Urine Clarity CLEAR Urine pH 7.0 Urine Specific [place] 1.015 Urine Ketones NEGATIVE Urine Nitrite NEGATIVE Urine Bilirubin NEGATIVE Urine Urobilinogen NEGATIVE Urine Leukocyte Esterase TRACE A Urine Microscopic RBC 0 Urine Microscopic WBC 2 Urine Bacteria FEW A Urine Hemoglobin NEGATIVE Urine Glucose NEGATIVE Urine Total Protein NEGATIVE Stool Occult Blood NEGATIVE White Blood Count 12.6 H Red Blood Count 3.39 L Hemoglobin 9.1 L Hematocrit 29.0 L Mean Corpuscular Volume 85.5 Mean Corpuscular Hemoglobin 26.8 L Mean Corpuscular Hemoglobin Concent 31.4 L Red Cell Distribution Width 13.9 Platelet Count 544 H Mean Platelet Volume 8.4 Immature Granulocytes % 0.600 H Neutrophils % 70.5 Lymphocytes % 17.3 Monocytes % 7.6 Eosinophils % 3.4 Basophils % 0.6 Nucleated Red Blood Cells % 0.0 Immature Granulocytes # 0.080 H Neutrophils # 8.9 H Lymphocytes # 2.2 Monocytes # 1.0 H Eosinophils # 0.4 Basophils # 0.1 Nucleated Red Blood Cells # 0.0 Sodium Level 141 Potassium Level 3.3 L Chloride Level 102 Carbon Dioxide Level 31 Anion Gap 8 Blood Urea Nitrogen 9 Creatinine 1.05 H Est Glomerular Filtrat Rate mL/min 54 L Glucose Level 118 Calcium Level 9.8 Medications Medication Current Medications Acetaminophen (Tylenol Tab) 650 mg Q6H PRN PO MILD PAIN(1-3)OR ELEVATED TEMP Last administered on 02/18/19at 02:43; Admin Dose 650 MG; Start 02/11/19 at 03:00 Ondansetron HCl (Zofran Inj) 4 mg Q4H PRN IV NAUSEA AND/OR VOMITING; Start 02/11/19 at 03:00 Pantoprazole (Protonix Tab) 40 mg DAILY@06 PO Last administered on 02/18/19at 06:02; Admin Dose 40 MG; Start 02/11/19 at 06:00 Piperacillin Sod/ Tazobactam Sod 100 ml @ 200 mls/hr Q8 IVPB Last administered on 02/18/19at 06:02; Admin Dose 200 MLS/HR; Start 02/11/19 at 06:00 Morphine Sulfate (morphine) 2 mg Q4H PRN IV SEVERE PAIN LEVEL 7-10 Last administered on 02/15/19at 14:16; Admin Dose 2 MG; Start 02/11/19 at 03:00 Amlodipine Besylate (Norvasc) 5 mg DAILY PO Last administered on 02/17/19 09:54; Admin Dose 5 MG; Start 02/11/19 at 09:00 Azelastine HCl (Astelin) 1 spray BID NASAL Last administered on 02/17/19 20:18; Admin Dose 1 SPRAY; Start 02/11/19 at 09:00 Fluticasone Propionate (Flonase 0.05% Nasal) 1 spray BID NASAL Last a dministered on 02/17/19 20:18; Admin Dose 1 SPRAY; Start 02/11/19 at 09:00 Gabapentin (Neurontin) 300 mg DAILY PO Last administered on 02/17/19 09:54; Admin Dose 300 MG; Start 02/11/19 at 09:00 Loratadine (Claritin) 10 mg DAILY PO Last administered on 02/17/19 09:53; Admin Dose 10 MG; Start 02/11/19 at 09:00 Cholecalciferol (Vitamin D) 2,000 unit DAILY PO Last administered on 02/16/19 08:17; Admin Dose 2,000 UNIT; Start 02/11/19 at 09:00 Atorvastatin Calcium (Lipitor) 10 mg DAILY PO Last administered on 02/17/19 09:55; Admin Dose 10 MG; Start 02/11/19 at 09:00 Budesonide (Pulmicort (Neb)) 0.5 mg BID PRN NEB WHEEZING AND SOB Last administered on 02/15/19 20:33; Admin Dose 0.5 MG; Start 02/11/19 at 03:30 Albuterol/ Ipratropium (Duoneb) 3 ml Q4H RESP THERAPY HHN Last administered on 02/18/19 01:30; Admin Dose 3 ML; Start 02/11/19 at 13:00 Acetaminophen (Tylenol Tab) 650 mg Q4H PRN PO MILD PAIN(1-3)OR ELEVATED TEMP Last administered on 02/12/19 12:00; Admin Dose 650 MG; Start 02/12/19 at 12:00 Calcium Carbonate (Oyster Shell Calcium) 1.25 gm BID NGT Last administered on 02/17/19 20:17; Admin Dose 1.25 GM; Start 02/12/19 at 14:00 Furosemide (Lasix) 40 mg DAILY IV Last administered on 02/17/19 09:55; Admin Dose 40 MG; Start 02/13/19 at 09:00 Oxycodone HCl (Roxicodone) 5 mg Q4H PRN PO MODERATE PAIN LEVEL 4-6 Last administered on 02/17/19at 21:41; Admin Dose 5 MG; Start 02/13/19 at 17:00 Oxycodone HCl (Roxicodone) 10 mg Q4H PRN PO MODERATE PAIN LEVEL 7-10 Last administered on 02/14/19 21:20; Admin Dose 10 MG; Start 02/13/19 at 17:00 Aspirin (Halfprin) 81 mg BID PO Last administered on 02/17/19 20:18; Admin Dose 81 MG; Start 02/14/19 at 21:00; Status Hold Escitalopram Oxalate (Lexapro) 20 mg DAILY PO Last administered on 02/17/19 09:53; Admin Dose 20 MG; Start 02/17/19 at 09:00 Potassium Chloride 100 ml @ 50 mls/hr Q2H IVPB ; Start 02/18/19 at 07:00; Stop 02/18/19 at 10:59 MARISELA LALA Feb 18, 2019 07:56
[2019-02-18 08:26] VITALS: BP 154/70; PULSE 73; RESP 18
[2019-02-18] MEDS: FLUTICASONE 0.05% 16 GM NAS SPRAY NASAL SCH ×2 (09:00→21:00)
[2019-02-18] MEDS: AZELASTINE 30 ML NAS SPRAY NASAL SCH ×2 (09:00→21:00)
[2019-02-18] MEDS: ESCITALOPRAM 20 MG TAB PO SCH (09:12)
[2019-02-18] MEDS: GABAPENTIN 300 MG CAP PO SCH (09:12)
[2019-02-18] MEDS: CALCIUM CARBONATE 1.25 GM TAB NGT SCH ×2 (09:12→21:35)
[2019-02-18] MEDS: ATORVASTATIN 10 MG TAB PO SCH (09:12)
[2019-02-18] MEDS: LORATADINE 10 MG TAB PO SCH (09:12)
[2019-02-18] MEDS: CHOLECALCIFEROL 2,000 UNIT CAP PO SCH (09:12)
[2019-02-18] MEDS: FUROSEMIDE 40 MG INJ IV SCH (09:13)
[2019-02-18] MEDS: AMLODIPINE 5 MG TAB PO SCH (09:13)
[2019-02-18] MEDS: DEXTROSE 5%-0.45% NACL 1,000 ML IV SCH (09:32)
[2019-02-18] MEDS: POTASSIUM CHLORIDE 100 ML IVPB SCH ×2 (09:34→11:58)
--- NOTE | 2019-02-18 11:27 | CONS ---
Consultation Date/Type/Reason Admit Date/Time Feb 11, 2019 at 00:10 Initial Consult Date 02/13/19 Type of Consult Pulmonary Patient is a 59-year-old lady who came into the hospital with complaints of pain and swelling involving the right knee. Patient also been complaining of shortness of breath with exertion for the last few weeks. He denies having any chest pain. According to the patient she is feeling somewhat better over the last 24 hours. Denies any fever or chills. Past medical history; 1. History of hypertension which apparently is poorly controlled. 2. History of right total knee arthroplasty in January of this year. 3. Right knee synovitis on current admission. 4. No known coronary artery disease. Medications; reviewed. Allergies; none. Social history; patient never smoked. No show any drug abuse. Family history; noncontributory. Occupational history; noncontributory. Review of systems; denies any headache, seizures, visual changes, sinus symptoms. Any chest pain or angina. Any coughing or wheezing. Shortness of breath has improved. Does complain of dyspnea on exertion. Denies any abdom inal pain, nausea vomiting. Any fever chills. Any melena hematochezia urinary symptoms. Any edema. Denies any orthopnea. Any weight gain. General exam; young female, awake alert, laying comfortably in bed. Currently in no distress. Date/Time of Note DATE: 02/18/19 TIME: 11:25 24 HR Interval Summary Free Text/Dictation Patient's condition is stable. Remains awake and alert. Shortness of breath has improved. General exam; elderly female, awake alert, currently in no distress. Appears overweight. H EENT exam; supple neck, no JVD. No lymphadenopathy. Midline trachea. No thyromegaly. Patient has good dentition. No neck masses. Chest exam; diminished but clear breath sounds. S1-S2 audible, no murmurs. Regular rhythm. Abdomen exam; soft, protuberant. Nontender. No organomegaly. Bowel sounds audible. Extremity exam; no peripheral edema. Right knee scar is healing well. [employer] exam; no focal deficit. Assessment and recommendations; 1. Patient admitted for right knee cellulitis with history of right TKR in December of this year. Off systemic antibiotics now with significant interval improvement. 2. 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 3. Neuropathy, and history of hypertension. 4. Mild anemia. Continue current supportive care. Consider discharge. Exam/Review of Systems Exam Vitals Vital Signs Date Temp Pulse Resp B/P (MAP) Pulse Ox O2 O2 Flow FiO2 Time Delivery Rate 02/18/19 98.4 73 18 154/70 97 08:26 (98) 02/18/19 21 01:30 02/17/19 20:00 Intake and Output 02/17/19 02/17/19 02/18/19 1414:59 22:59 06:59 IntakeIntake Total 1010 ml 440 ml 150 ml OutputOutput Total 800 ml BalanceBalance 1010 ml 440 ml -650 ml Results Result Diagram: 02/18/19 0530 02/18/19 0530 Results 24hrs Laboratory Tests Test 02/17/19 22:20 02/18/19 05:30 02/18/19 07:07 Urine Color YELLOW Urine Clarity CLEAR Urine pH 7.0 Urine Specific [place] 1.015 Urine Ketones NEGATIVE Urine Nitrite NEGATIVE Urine Bilirubin NEGATIVE Urine Urobilinogen NEGATIVE Urine Leukocyte Esterase TRACE A Urine Microscopic RBC 0 Urine Microscopic WBC 2 Urine Bacteria FEW A Urine Hemoglobin NEGATIVE Urine Glucose NEGATIVE Urine Total Protein NEGATIVE Stool Occult Blood NEGATIVE White Blood Count 12.6 H Red Blood Count 3.39 L Hemoglobin 9.1 L Hematocrit 29.0 L Mean Corpuscular Volume 85.5 Mean Corpuscular Hemoglobin 26.8 L Mean Corpuscular Hemoglobin Concent 31.4 L Red Cell Distribution Width 13.9 Platelet Count 544 H Mean Platelet Volume 8.4 Immature Granulocytes % 0.600 H Neutrophils % 70.5 Lymphocytes % 17.3 Monocytes % 7.6 Eosinophils % 3.4 Basophils % 0.6 Nucleated Red Blood Cells % 0.0 Immature Granulocytes # 0.080 H Neutrophils # 8.9 H Lymphocytes # 2.2 Monocytes # 1.0 H Eosinophils # 0.4 Basophils # 0.1 Nucleated Red Blood Cells # 0.0 Sodium Level 141 Potassium Level 3.3 L Chloride Level 102 Carbon Dioxide Level 31 Anion Gap 8 Blood Urea Nitrogen 9 Creatinine 1.05 H Est Glomerular Filtrat Rate mL/min 54 L Glucose Level 118 Calcium Level 9.8 Prothrombin Time 14.0 Prothrombin Time Ratio 1.1 INR International Normalized Ratio 1.07 Activated Partial Thromboplast Time 34.3 Medications Medication Current Medications Acetaminophen (Tylenol Tab) 650 mg Q6H PRN PO MILD PAIN(1-3)OR ELEVATED TEMP Last administered on 02/18/19 02:43; Admin Dose 650 MG; Start 02/11/19 at 03:00 Ondansetron HCl (Zofran Inj) 4 mg Q4H PRN IV NAUSEA AND/OR VOMITING; Start 02/11/19 at 03:00 Pantoprazole (Protonix Tab) 40 mg DAILY@06 PO Last administered on 02/18/19 06:02; Admin Dose 40 MG; Start 02/11/19 at 06:00 Piperacillin Sod/ Tazobactam Sod 100 ml @ 200 mls/hr Q8 IVPB Last administered on 02/18/19 06:02; Admin Dose 200 MLS/HR; Start 02/11/19 at 06:00 Morphine Sulfate (morphine) 2 mg Q4H PRN IV SEVERE PAIN LEVEL 7-10 Last administered on 02/15/19 14:16; Admin Dose 2 MG; Start 02/11/19 at 03:00 Amlodipine Besylate (Norvasc) 5 mg DAILY PO Last administered on 02/18/19 09:13; Admin Dose 5 MG; Start 02/11/19 at 09:00 Azelastine HCl (Astelin) 1 spray BID NASAL Last administered on 02/17/19 20:18; Admin Dose 1 SPRAY; Start 02/11/19 at 09:00 Fluticasone Propionate (Flonase 0.05% Nasal) 1 spray BID NASAL Last administer ed on 02/17/19 20:18; Admin Dose 1 SPRAY; Start 02/11/19 at 09:00 Gabapentin (Neurontin) 300 mg DAILY PO Last administered on 02/18/19 09:12; Admin Dose 300 MG; Start 02/11/19 at 09:00 Loratadine (Claritin) 10 mg DAILY PO Last administered on 02/18/19 09:12; Admin Dose 10 MG; Start 02/11/19 at 09:00 Cholecalciferol (Vitamin D) 2,000 unit DAILY PO Last administered on 02/18/19 09:12; Admin Dose 2,000 UNIT; Start 02/11/19 at 09:00 Atorvastatin Calcium (Lipitor) 10 mg DAILY PO Last administered on 02/18/19 09:12; Admin Dose 10 MG; Start 02/11/19 at 09:00 Budesonide (Pulmicort (Neb)) 0.5 mg BID PRN NEB WHEEZING AND SOB Last administered on 02/15/19 20:33; Admin Dose 0.5 MG; Start 02/11/19 at 03:30 Albuterol/ Ipratropium (Duoneb) 3 ml Q4H RESP THERAPY HHN Last administered on 02/18/19 01:30; Admin Dose 3 ML; Start 02/11/19 at 13:00 Acetaminophen (Tylenol Tab) 650 mg Q4H PRN PO MILD PAIN(1-3)OR ELEVATED TEMP Last administered on 02/12/19 12:00; Admin Dose 650 MG; Start 02/12/19 at 12:00 Calcium Carbonate (Oyster Shell Calcium) 1.25 gm BID NGT Last administered on 02/18/19 09:12; Admin Dose 1.25 GM; Start 02/12/19 at 14:00 Furosemide (Lasix) 40 mg DAILY IV Last administered on 02/18/19 09:13; Admin Dose 40 MG; Start 02/13/19 at 09:00 Oxycodone HCl (Roxicodone) 5 mg Q4H PRN PO MODERATE PAIN LEVEL 4-6 Last administered on 02/17/19 21:41; Admin Dose 5 MG; Start 02/13/19 at 17:00 Oxycodone HCl (Roxicodone) 10 mg Q4H PRN PO MODERATE PAIN LEVEL 7-10 Last administered on 02/14/19 21:20; Admin Dose 10 MG; Start 02/13/19 at 17:00 Aspirin (Halfprin) 81 mg BID PO Last administered on 02/17/19 20:18; Admin Dose 81 MG; Start 02/14/19 at 21:00; Status Hold Escitalopram Oxalate (Lexapro) 20 mg DAILY PO Last administered on 02/18/19 09:12; Admin Dose 20 MG; Start 02/17/19 at 09:00 Dextrose/Sodium Chloride 1,000 ml @ 20 mls/hr Q24H IV Last administered on 02/18/19 09:32; Admin Dose 20 MLS/HR; Start 02/18/19 at 09:30 TRACEY ARIZMENDI Feb 18, 2019 11:27
--- NOTE | 2019-02-18 15:02 | PN ---
Date/Time of Note Date/Time of Note DATE: 02/18/19 TIME: 14:57 Assessment/Plan VTE Prophylaxis Risk score (from [facility])>0 risk: 4 SCD applied (from [facility]): No SCD contraindicated: low risk/ambulating Pharmacological prophylaxis: NA/contraindicated Pharm contraindication: low risk/ambulating Lines/Catheters IV Catheter Type [facility]from [facility] Saline Lock Urinary Cath still in place: No Assessment/Plan Hospital Course hospital Course 1. SIRS Fevers, leukocytosis, status post right total knee replacement on . , Fluid tap from knee is essentially neg and bld cx neg so far, UA neg , new chest xray+ Pul edema and ct chest + effusions, NOW CT A+P diverticulitis/enteritis, repeat CT scan +contained perforation 2. History of hypertension, 3. Hyperlipidemia. 4. Obesity. 5. GERD. 6. Allergic rhinitis. 7. Mood disorder. 8 anemia with acute blood loss? hematoma vs hemodilutional , improved sp 1 unit prbc 9. SOB likely due to pul edema sp iv fluids evident on chest xray likely due to CHF . CT chest neg for PE, ECHO diastolic dysfunction now much improved off oxygen 10. CHF, diastolic 11 Nose bleed Assessment/Plan - Sugery consult -- NPO, iv fluids - cw zosyn - cw - iv lasix 40 for pul edema, replete K and MG - hold asa due to nose bleed - Fu GI/Pul/ ID recs - fluid restriction 1L - GI proph. Protonix -DVT prophylaxis unable to utilize due to anemia - fu PUL/ ID and ortho recs Result Diagram: 02/18/19 0530 02/18/19 0530 Results 24hrs Laboratory Tests Test 02/17/19 22:20 02/18/19 05:30 02/18/19 07:07 02/18/19 13:16 Urine Color YELLOW Urine Clarity CLEAR Urine pH 7.0 Urine Specific 1.015 [place] Urine Ketones NEGATIVE Urine Nitrite NEGATIVE Urine Bilirubin NEGATIVE Urine Urobilinogen NEGATIVE Urine Leukocyte TRACE A Esterase Urine Microscopic 0 RBC Urine Microscopic 2 WBC Urine Bacteria FEW A Urine Hemoglobin NEGATIVE Urine Glucose NEGATIVE Urine Total Protein NEGATIVE Stool Occult Blood NEGATIVE White Blood Count 12.6 H Red Blood Count 3.39 L Hemoglobin 9.1 L Hematocrit 29.0 L Mean Corpuscular 85.5 Volume Mean Corpuscular 26.8 L Hemoglobin Mean Corpuscular 31.4 L Hemoglobin Concent Red Cell 13.9 Distribution Width Platelet Count 544 H Mean Platelet Volume 8.4 Immature 0.600 H Granulocytes % Neutrophils % 70.5 Lymphocytes % 17.3 Monocytes % 7.6 Eosinophils % 3.4 Basophils % 0.6 Nucleated Red Blood 0.0 Cells % Immature 0.080 H Granulocytes # Neutrophils # 8.9 H Lymphocytes # 2.2 Monocytes # 1.0 H Eosinophils # 0.4 Basophils # 0.1 Nucleated Red Blood 0.0 Cells # Sodium Level 141 Potassium Level 3.3 L Chloride Level 102 Carbon Dioxide Level 31 Anion Gap 8 Blood Urea Nitrogen 9 Creatinine 1.05 H Est Glomerular 54 L Filtrat Rate mL/min Glucose Level 118 Calcium Level 9.8 Prothrombin Time 14.0 Prothrombin Time 1.1 Ratio INR International 1.07 Normalized Ratio Activated 34.3 Partial Thromboplast Time Vancomycin Level 5.7 L Trough Subjective 24 Hr Interval Summary Free Text/Dictation Sometimes Feels abdominal pain when pressed hard nose bleeding last night Exam/Review of Systems Exam Vitals Vital Signs Date Temp Pulse Resp B/P (MAP) Pulse Ox O2 O2 Flow FiO2 Time Delivery Rate 02/18/19 98.4 73 18 154/70 97 08:26 (98) 02/18/19 21 01:30 02/17/19 20:00 Intake and Output 02/17/19 02/17/19 02/18/19 1515:00 23:00 07:00 IntakeIntake Total 1010 ml 440 ml 150 ml OutputOutput Total 800 ml BalanceBalance 1010 ml 440 ml -650 ml Exam Constitutional: alert, oriented Head: normocephalic Eyes: nl conjunctiva Neck: supple Respiratory: diminished breath sounds Cardiovascular: regular rate and rhythm Gastrointestinal: soft, +tender Musculoskeletal: muscle weakness (right knee) some ecchymosis right foot Results Results 24hrs Laboratory Tests Test 02/17/19 22:20 02/18/19 05:30 02/18/19 07:07 02/18/19 13:16 Urine Color YELLOW Urine Clarity CLEAR Urine pH 7.0 Urine Specific 1.015 [place] Urine Ketones NEGATIVE Urine Nitrite NEGATIVE Urine Bilirubin NEGATIVE Urine Urobilinogen NEGATIVE Urine Leukocyte TRACE A Esterase Urine Microscopic 0 RBC Urine Microscopic 2 WBC Urine Bacteria FEW A Urine Hemoglobin NEGATIVE Urine Glucose NEGATIVE Urine Total Protein NEGATIVE Stool Occult Blood NEGATIVE White Blood Count 12.6 H Red Blood Count 3.39 L Hemoglobin 9.1 L Hematocrit 29.0 L Mean Corpuscular 85.5 Volume Mean Corpuscular 26.8 L Hemoglobin Mean Corpuscular 31.4 L Hemoglobin Concent Red Cell 13.9 Distribution Width Platelet Count 544 H Mean Platelet Volume 8.4 Immature 0.600 H Granulocytes % Neutrophils % 70.5 Lymphocytes % 17.3 Monocytes % 7.6 Eosinophils % 3.4 Basophils % 0.6 Nucleated Red Blood 0.0 Cells % Immature 0.080 H Granulocytes # Neutrophils # 8.9 H Lymphocytes # 2.2 Monocytes # 1.0 H Eosinophils # 0.4 Basophils # 0.1 Nucleated Red Blood 0.0 Cells # Sodium Level 141 Potassium Level 3.3 L Chloride Level 102 Carbon Dioxide Level 31 Anion Gap 8 Blood Urea Nitrogen 9 Creatinine 1.05 H Est Glomerular 54 L Filtrat Rate mL/min Glucose Level 118 Calcium Level 9.8 Prothrombin Time 14.0 Prothrombin Time 1.1 Ratio INR International 1.07 Normalized Ratio Activated 34.3 Partial Thromboplast Time Vancomycin Level 5.7 L Trough Medications Medication Current Medications Acetaminophen (Tylenol Tab) 650 mg Q6H PRN PO MILD PAIN(1-3)OR ELEVATED TEMP Last administered on 02/18/19at 02:43; Admin Dose 650 MG; Start 02/11/19 at 03:00 Ondansetron HCl (Zofran Inj) 4 mg Q4H PRN IV NAUSEA AND/OR VOMITING; Start 02/11/19 at 03:00 Pantoprazole (Protonix Tab) 40 mg DAILY@06 PO Last administered on 02/18/19at 06:02; Admin Dose 40 MG; Start 02/11/19 at 06:00 Piperacillin Sod/ Tazobactam Sod 100 ml @ 200 mls/hr Q8 IVPB Last administered on 02/18/19at 06:02; Admin Dose 200 MLS/HR; Start 02/11/19 at 06:00 Morphine Sulfate (morphine) 2 mg Q4H PRN IV SEVERE PAIN LEVEL 7-10 Last administered on 02/15/19at 14:16; Admin Dose 2 MG; Start 02/11/19 at 03:00 Amlodipine Besylate (Norvasc) 5 mg DAILY PO Last administered on 02/18/19at 09:13; Admin Dose 5 MG; Start 02/11/19 at 09:00 Azelastine HCl (Astelin) 1 spray BID NASAL Last administered on 02/17/19 20:18; Admin Dose 1 SPRAY; Start 02/11/19 at 09:00 Fluticasone Propionate (Flonase 0.05% Nasal) 1 spray BID NASAL Last administered on 02/17/19 20:18; Admin Dose 1 SPRAY; Start 02/11/19 at 09:00 Gabapentin (Neurontin) 300 mg DAILY PO Last administered on 02/18/19 09:12; Admin Dose 300 MG; Start 02/11/19 at 09:00 Loratadine (Claritin) 10 mg DAILY PO Last administered on 02/18/19 09:12; Admin Dose 10 MG; Start 02/11/19 at 09:00 Cholecalciferol (Vitamin D) 2,000 unit DAILY PO Last administered on 02/18/19 09:12; Admin Dose 2,000 UNIT; Start 02/11/19 at 09:00 Atorvastatin Calcium (Lipitor) 10 mg DAILY PO Last administered on 02/18/19 09:12; Admin Dose 10 MG; Start 02/11/19 at 09:00 Budesonide (Pulmicort (Neb)) 0.5 mg BID PRN NEB WHEEZING AND SOB Last administered on 02/15/19 20:33; Admin Dose 0.5 MG; Start 02/11/19 at 03:30 Albuterol/ Ipratropium (Duoneb) 3 ml Q4H RESP THERAPY HHN Last administered on 02/18/19 01:30; Admin Dose 3 ML; Start 02/11/19 at 13:00 Acetaminophen (Tylenol Tab) 650 mg Q4H PRN PO MILD PAIN(1-3)OR ELEVATED TEMP Last administered on 02/12/19 12:00; Admin Dose 650 MG; Start 02/12/19 at 12:00 Calcium Carbonate (Oyster Shell Calcium) 1.25 gm BID NGT Last administered on 02/18/19 09:12; Admin Dose 1.25 GM; Start 02/12/19 at 14:00 Furosemide (Lasix) 40 mg DAILY IV Last administered on 02/18/19 09:13; Admin Dose 40 MG; Start 02/13/19 at 09:00 Oxycodone HCl (Roxicodone) 5 mg Q4H PRN PO MODERATE PAIN LEVEL 4-6 Last administered on 02/17/19at 21:41; Admin Dose 5 MG; Start 02/13/19 at 17:00 Oxycodone HCl (Roxicodone) 10 mg Q4H PRN PO MODERATE PAIN LEVEL 7-10 Last administered on 02/14/19 21:20; Admin Dose 10 MG; Start 02/13/19 at 17:00 Aspirin (Halfprin) 81 mg BID PO Last administered on 02/17/19at 20:18; Admin Dose 81 MG; Start 02/14/19 at 21:00; Status Hold Escitalopram Oxalate (Lexapro) 20 mg DAILY PO Last administered on 02/18/19 09:12; Admin Dose 20 MG; Start 02/17/19 at 09:00 Dextrose/Sodium Chloride 1,000 ml @ 20 mls/hr Q24H IV Last administered on 02/18/19 09:32; Admin Dose 20 MLS/HR; Start 02/18/19 at 09:30 JACQUI FUNES MD Feb 18, 2019 15:02
--- NOTE | 2019-02-18 15:05 | CONS ---
Assessment/Plan Assessment/Plan Hospital Course (Demo Recall) Patient had nosebleed last night which is resolved now she is awake feels tired and wants to sleep no fevers WBC 12.6 no shift no bands BUN [address] of the abdomen and pelvis yesterday with contrast revealed diverticulitis of the upper sigmoid colon with contained micro perforation and slight contained fluid but no sizable collection Microbiology: Right knee fluid culture grew coag negative staph species susceptible to ciprofloxacin clindamycin doxycycline Antimicrobials: Vanco and Zosyn Physical examination: This is obese well-developed middle-aged woman who is alert in no distress. Head atraumatic normocephalic sclera nonicteric vehicle mucosa dry neck is supple chest rise symmetrical breath sounds clear. Heart: Mask S1-S2 abdomen soft patient has some tenderness over right upper quadrant on palpation no suprapubic tenderness bowel sounds present. Extremities without cyanosis right knee incision with shruthi clean dry and intact no drainage no erythema Assessment: 1. SIRS 2. Acute diverticulitis with microperforation 2. Right knee cellulitis, improved 3. History of recent right total knee replacement 01/29/19 4. Morbid obesity 5. Acute anemia 6. Hypoxemia secondary to fluid overload, improved Plan: Clinically stable, continue antibiotics, pending surgical evaluation Consultation Date/Type/Reason Admit Date/Time Feb 11, 2019 at 00:10 Initial Consult Date 02/11/19 Type of Consult id Date/Time of Note DATE: 02/18/19 TIME: 15:04 Exam/Review of Systems Exam Vitals Vital Signs Date Temp Pulse Resp B/P (MAP) Pulse Ox O2 O2 Flow FiO2 Time Delivery Rate 02/18/19 98.4 73 18 154/70 97 08:26 (98) 02/18/19 21 01:30 02/17/19 20:00 Intake and Output 02/17/19 02/17/19 02/18/19 1515:00 23:00 07:00 IntakeIntake Total 1010 ml 440 ml 150 ml OutputOutput Total 800 ml BalanceBalance 1010 ml 440 ml -650 ml Results Result Diagram: 02/18/1952902/18/19 0530 Results 24hrs Laboratory Tests Test 02/17/19 22:20 02/18/19 05:30 02/18/19 07:07 02/18/19 13:16 Urine Color YELLOW Urine Clarity CLEAR Urine pH 7.0 Urine Specific 1.015 [place] Urine Ketones NEGATIVE Urine Nitrite NEGATIVE Urine Bilirubin NEGATIVE Urine Urobilinogen NEGATIVE Urine Leukocyte TRACE A Esterase Urine Microscopic 0 RBC Urine Microscopic 2 WBC Urine Bacteria FEW A Urine Hemoglobin NEGATIVE Urine Glucose NEGATIVE Urine Total Protein NEGATIVE Stool Occult Blood NEGATIVE White Blood Count 12.6 H Red Blood Count 3.39 L Hemoglobin 9.1 L Hematocrit 29.0 L Mean Corpuscular 85.5 Volume Mean Corpuscular 26.8 L Hemoglobin Mean Corpuscular 31.4 L Hemoglobin Concent Red Cell 13.9 Distribution Width Platelet Count 544 H Mean Platelet Volume 8.4 Immature 0.600 H Granulocytes % Neutrophils % 70.5 Lymphocytes % 17.3 Monocytes % 7.6 Eosinophils % 3.4 Basophils % 0.6 Nucleated Red Blood 0.0 Cells % Immature 0.080 H Granulocytes # Neutrophils # 8.9 H Lymphocytes # 2.2 Monocytes # 1.0 H Eosinophils # 0.4 Basophils # 0.1 Nucleated Red Blood 0.0 Cells # Sodium Level 141 Potassium Level 3.3 L Chloride Level 102 Carbon Dioxide Level 31 Anion Gap 8 Blood Urea Nitrogen 9 Creatinine 1.05 H Est Glomerular 54 L Filtrat Rate mL/min Glucose Level 118 Calcium Level 9.8 Prothrombin Time 14.0 Prothrombin Time 1.1 Ratio INR International 1.07 Normalized Ratio Activated 34.3 Partial Thromboplast Time Vancomycin Level 5.7 L Trough Medications Medication Current Medications Acetaminophen (Tylenol Tab) 650 mg Q6H PRN PO MILD PAIN(1-3)OR ELEVATED TEMP Last administered on 02/18/19at 02:43; Admin Dose 650 MG; Start 02/11/19 at 03:00 Ondansetron HCl (Zofran Inj) 4 mg Q4H PRN IV NAUSEA AND/OR VOMITING; Start 02/11/19 at 03:00 Pantoprazole (Protonix Tab) 40 mg DAILY@06 PO Last administered on 02/18/19at 06:02; Admin Dose 40 MG; Start 02/11/19 at 06:00 Piperacillin Sod/ Tazobactam Sod 100 ml @ 200 mls/hr Q8 IVPB Last administered on 02/18/19at 06:02; Admin Dose 200 MLS/HR; Start 02/11/19 at 06:00 Morphine Sulfate (morphine) 2 mg Q4H PRN IV SEVERE PAIN LEVEL 7-10 Last administered on 02/15/19 14:16; Admin Dose 2 MG; Start 02/11/19 at 03:00 Amlodipine Besylate (Norvasc) 5 mg DAILY PO Last administered on 02/18/19 09:13; Admin Dose 5 MG; Start 02/11/19 at 09:00 Azelastine HCl (Astelin) 1 spray BID NASAL Last administered on 02/17/19 20:18; Admin Dose 1 SPRAY; Start 02/11/19 at 09:00 Fluticasone Propionate (Flonase 0.05% Nasal) 1 spray BID NASAL Last administered on 02/17/19 20:18; Admin Dose 1 SPRAY; Start 02/11/19 at 09:00 Gabapentin (Neurontin) 300 mg DAILY PO Last administered on 02/18/19 09:12; Admin Dose 300 MG; Start 02/11/19 at 09:00 Loratadine (Claritin) 10 mg DAILY PO Last administered on 02/18/19 09:12; Admin Dose 10 MG; Start 02/11/19 at 09:00 Cholecalciferol (Vitamin D) 2,000 unit DAILY PO Last administered on 02/18/19 09:12; Admin Dose 2,000 UNIT; Start 02/11/19 at 09:00 Atorvastatin Calcium (Lipitor) 10 mg DAILY PO Last administered on 02/18/19 09 :12; Admin Dose 10 MG; Start 02/11/19 at 09:00 Budesonide (Pulmicort (Neb)) 0.5 mg BID PRN NEB WHEEZING AND SOB Last administered on 02/15/19 20:33; Admin Dose 0.5 MG; Start 02/11/19 at 03:30 Albuterol/ Ipratropium (Duoneb) 3 ml Q4H RESP THERAPY HHN Last administered on 02/18/19 01:30; Admin Dose 3 ML; Start 02/11/19 at 13:00 Acetaminophen (Tylenol Tab) 650 mg Q4H PRN PO MILD PAIN(1-3)OR ELEVATED TEMP Last administered on 02/12/19 12:00; Admin Dose 650 MG; Start 02/12/19 at 12:00 Calcium Carbonate (Oyster Shell Calcium) 1.25 gm BID NGT Last administered on 02/18/19 09:12; Admin Dose 1.25 GM; Start 02/12/19 at 14:00 Furosemide (Lasix) 40 mg DAILY IV Last administered on 02/18/19 09:13; Admin Dose 40 MG; Start 02/13/19 at 09:00 Oxycodone HCl (Roxicodone) 5 mg Q4H PRN PO MODERATE PAIN LEVEL 4-6 Last administered on 02/17/19 21:41; Admin Dose 5 MG; Start 02/13/19 at 17:00 Oxycodone HCl (Roxicodone) 10 mg Q4H PRN PO MODERATE PAIN LEVEL 7-10 Last administered on 02/14/19 21:20; Admin Dose 10 MG; Start 02/13/19 at 17:00 Aspirin (Halfprin) 81 mg BID PO Last administered on 02/17/19 20:18; Admin Dose 81 MG; Start 02/14/19 at 21:00; Status Hold Escitalopram Oxalate (Lexapro) 20 mg DAILY PO Last administered on 02/18/19 09:12; Admin Dose 20 MG; Start 02/17/19 at 09:00 Dextrose/Sodium Chloride 1,000 ml @ 20 mls/hr Q24H IV Last administered on 02/18/19 09:32; Admin Dose 20 MLS/HR; Start 02/18/19 at 09:30 CRISTHIAN HARVEY NP Feb 18, 2019 15:05
[2019-02-18 15:06] VITALS: BP 131/60; PULSE 76; RESP 18
[2019-02-18 19:58] VITALS: BP 134/61; PULSE 71; RESP 18
--- NOTE | 2019-02-18 21:18 | CONS ---
Assessment/Plan Assessment/Plan Hospital Course (Demo Recall) 1. Small contained perforated diverticulitis without drainable collection -IV antibiotics -IV fluids -Close monitoring -Outpatient follow-up for eventual laparoscopic elective colon resection 2. Leukocytosis and fever secondary to above 3. BMI 39, Hepatomegaly -Encourage nutrition and exercise optimization 4. Hypertension -Nutrition and medication optimization -Weight loss encouraged 5. GERD -Nutrition and lifestyle optimization encouraged -Weight loss encouraged 6. ? Gallstones -monitor 7. Anemia -monitor 8. Renal insufficiency -judicious fluids -minimize narcotics Thank you very much for consulting me in this patient's care, Consultation Date/Type/Reason Admit Date/Time Feb 11, 2019 at 00:10 Date of Consultation: Feb 18, 2019 Type of Consult G. Surgical Reason for Consultation Contained perforated diverticulitis Requesting Provider: JACQUI FUNES MD Date/Time of Note DATE: 02/18/19 TIME: 18:37 Hx of Present Illness Michelle Rincon is a 59-year-old female with multiple comorbidities who was admitted in [facility] from January 29 and had right knee replacement by Dr. Ayoub. Patient represented with fever and abdominal pain and knee pain starting 3 days prior to the most recent admission on February 15. However no associated nausea, vomiting, chest pain, cough, seizure, blood per mouth or rectum, dysuria. She did have diarrhea. No visual neurologic changes. No previous history of the same. She did have some shortness of breath and CTA was negative.. She was having fevers of 103 at home that made her worried and came to the emergency department. Her pain was mainly ruq at times but now she is tender in llq. CT scan of the abdomen and pelvis identified perforated small contained diverticulitis with phlegmon without fluid collection. Her knee aspiration was negative for possible infection. Repeat CT of the abdomen is obtained. Surgical consult is obtained further evaluation and treatment. 12 point review of system is negative unless otherwise addressed in chart Past Medical History 1. Hypertension. 2. Mood disorder. 3. Allergic rhinitis. 4. Chronic sinusitis 5. BMI 39 6. Fever 7. Leukocytosis 8. Hyperlipidemia 9. GERD 10. Anemia 11. Renal insufficiency 12. ?Gallstones 13. Hepatomegaly Home Meds Active Scripts Oxycodone Hcl* (IR) (Roxicodone*) 5 Mg Tab, 5-10 MG PO Q4H PRN for .PAIN, #90 TAB Prov:DEJUAN AYOUB MD 01/30/19 Aspirin Delayed Release (Aspirin Delayed Release) 81 Mg Tablet.dr, 81 MG PO BID for 84 Days Prov:DEJUAN AYOUB MD 01/30/19 [Acetaminophen Tab] 500 MG TAB No Conflict Check, 1000 MG PO Q8 for 10 Days, TAB Prov:DEJUAN AYOUB MD 01/30/19 Reported Medications Escitalopram Oxalate* (Lexapro*) 20 Mg Tablet, 20 MG PO DAILY, #30 TAB 01/29/19 Omeprazole* (Omeprazole*) 40 Mg Capsule.dr, 40 MG PO DAILY, #30 CAP 01/29/19 Losartan-Hydrochlorothiazide (Losartan-HCTZ) 100-25 Mg Tab, 1 TAB PO DAILY, TAB 01/28/19 Gabapentin* (Gabapentin*) 300 Mg Capsule, 300 MG PO DAILY, #60 CAP 01/28/19 Diclofenac Sodium* (Voltaren* XR) 100 Mg Tab.sr.24h, 100 MG PO BID, TAB.SA 01/28/19 Cetirizine Hcl* (Zyrtec*) 10 Mg Capsule, 10 MG PO DAILY, TAB 01/28/19 Cholecalciferol (Vitamin D3) (Vitamin D3) 2,000 Unit Tab.chew, 2000 UNIT PO DAILY, TAB.CHEW 01/28/19 Simvastatin (Simvastatin) 10 Mg Tablet, 10 MG PO DAILY, #30 TAB 01/28/19 Amlodipine Besylate* (Amlodipine Besylate*) 5 Mg Tablet, 5 MG PO DAILY, #30 TAB 01/28/19 Azelastine Hcl* (Azelastine Hcl*) 137 Mcg/0.137 Ml Salome.pump, 1 SPRAY NASAL BID, #1 EA TO EACH NOSTRIL 01/28/19 Fluticasone Propionate* (Fluticasone Propionate* Nasal) 50 Mcg/Salome - 16 Gm Salome.susp, 1 SPRAY NASAL BID, EA TO EACH NOSTRIL 11/10/14 Budesonide* (Pulmicort* (Neb)) 0.5 Mg/2 Ml Ampul.neb, 0.5 MG IH BID, EA 11/10/14 Diclofenac Sodium* (Diclofenac Sodium*) 75 Mg Tablet.dr, 100 MG PO BID, TAB 11/10/14 Medications Current Medications Acetaminophen (Tylenol Tab) 650 mg Q6H PRN PO MILD PAIN(1-3)OR ELEVATED TEMP Last administered on 02/18/19 02:43; Admin Dose 650 MG; Start 02/11/19 at 03:00 Ondansetron HCl (Zofran Inj) 4 mg Q4H PRN IV NAUSEA AND/OR VOMITING; Start 02/11/19 at 03:00 Pantoprazole (Protonix Tab) 40 mg DAILY@06 PO Last administered on 02/18/19 06:02; Admin Dose 40 MG; Start 02/11/19 at 06:00 Piperacillin Sod/ Tazobactam Sod 100 ml @ 200 mls/hr Q8 IVPB Last administered on 02/18/19 16:05; Admin Dose 200 MLS/HR; Start 02/11/19 at 06:00 Morphine Sulfate (morphine) 2 mg Q4H PRN IV SEVERE PAIN LEVEL 7-10 Last administered on 02/15/19 14:16; Admin Dose 2 MG; Start 02/11/19 at 03:00 Amlodipine Besylate (Norvasc) 5 mg DAILY PO Last administered on 02/18/19 09:13; Admin Dose 5 MG; Start 02/11/19 at 09:00 Azelastine HCl (Astelin) 1 spray BID NASAL Last administered on 02/17/19 20:18; Admin Dose 1 SPRAY; Start 02/11/19 at 09:00 Fluticasone Propionate (Flonase 0.05% Nasal) 1 spray BID NASAL Last administered on 02/17/19 20:18; Admin Dose 1 SPRAY; Start 02/11/19 at 09:00 Gabapentin (Neurontin) 300 mg DAILY PO Last administered on 02/18/19 09:12; Admin Dose 300 MG; Start 02/11/19 at 09:00 Loratadine (Claritin) 10 mg DAILY PO Last administered on 02/18/19 09:12; Admin Dose 10 MG; Start 02/11/19 at 09:00 Cholecalciferol (Vitamin D) 2,000 unit DAILY PO Last administered on 02/18/19 09:12; Admin Dose 2,000 UNIT; Start 02/11/19 at 09:00 Atorvastatin Calcium (Lipitor) 10 mg DAILY PO Last administered on 02/18/19 09:12; Admin Dose 10 MG; Start 02/11/19 at 09:00 Budesonide (Pulmicort (Neb)) 0.5 mg BID PRN NEB WHEEZING AND SOB Last administered on 02/15/19 20:33; Admin Dose 0.5 MG; Start 02/11/19 at 03:30 Albuterol/ Ipratropium (Duoneb) 3 ml Q4H RESP THERAPY HHN Last administered on 02/18/19 01:30; Admin Dose 3 ML; Start 02/11/19 at 13:00 Acetaminophen (Tylenol Tab) 650 mg Q4H PRN PO MILD PAIN(1-3)OR ELEVATED TEMP Last administered on 02/12/19 12:00; Admin Dose 650 MG; Start 02/12/19 at 12:00 Calcium Carbonate (Oyster Shell Calcium) 1.25 gm BID NGT Last administered on 02/18/19 09:12; Admin Dose 1.25 GM; Start 02/12/19 at 14:00 Furosemide (Lasix) 40 mg DAILY IV Last administered on 02/18/19 09:13; Admin Dose 40 MG; Start 02/13/19 at 09:00 Oxycodone HCl (Roxicodone) 5 mg Q4H PRN PO MODERATE PAIN LEVEL 4-6 Last administered on 02/17/19 21:41; Admin Dose 5 MG; Start 02/13/19 at 17:00 Oxycodone HCl (Roxicodone) 10 mg Q4H PRN PO MODERATE PAIN LEVEL 7-10 Last admin istered on 02/14/19 21:20; Admin Dose 10 MG; Start 02/13/19 at 17:00 Aspirin (Halfprin) 81 mg BID PO Last administered on 02/17/19 20:18; Admin Dose 81 MG; Start 02/14/19 at 21:00; Status Hold Escitalopram Oxalate (Lexapro) 20 mg DAILY PO Last administered on 02/18/19 09:12; Admin Dose 20 MG; Start 02/17/19 at 09:00 Dextrose/Sodium Chloride 1,000 ml @ 20 mls/hr Q24H IV Last administered on 02/18/19 09:32; Admin Dose 20 MLS/HR; Start 02/18/19 at 09:30 Allergies: Coded Allergies: No Known Allergy (Unverified , 01/29/19) Past Surgical History 1. Right total knee replacement on 01/29/2019. 2. 3 sinus surgeries. Family History Significant Family History: no pertinent family hx Social History Alcohol Use: none Smoking Status: Never smoker Drug Use: none Exam/Review of Systems Exam Vitals Vital Signs Date Temp Pulse Resp B/P (MAP) Pulse Ox O2 O2 Flow FiO2 Time Delivery Rate 02/18/19 98.0 76 18 131/60 97 15:06 (83) 02/18/19 21 01:30 02/17/19 20:00 Intake and Output 02/17/19 02/17/19 02/18/19 1515:00 23:00 07:00 IntakeIntake Total 1010 ml 440 ml 250 ml OutputOutput Total 800 ml BalanceBalance 1010 ml 440 ml -550 ml Constitutional: alert, oriented, obese; No distress Psych: anxiety Head: normocephalic, atraumatic Eyes: nl conjunctiva, EOMI, PERRL; No icteric ENMT: nl external ears & nose, nl lips & teeth, mucosa pink and moist Neck: supple, non-tender; No jvd Respiratory: normal air movement; No congested cough, No labored breathing, No wheezing Cardiovascular: regular rate and rhythm; No edema Gastrointestinal: soft, tender (min); No distended, No firm, No rebound or guarding Musculoskeletal: nl extremities to inspection; No joint tenderness Extremities: normal pulses; No calf tenderness, No cyanosis, No edema Neurological: nl mental status, nl speech, nl strength Skin: nl turgor; No rash or lesions Lymph: nl lymph nodes Results Result Diagram: 02/18/19 0502/18/19 0530 Results 24hrs Laboratory Tests Test 02/17/19 22:20 02/18/19 05:30 02/18/19 07:07 02/18/19 13:16 Urine Color YELLOW Urine Clarity CLEAR Urine pH 7.0 Urine Specific 1.015 [place] Urine Ketones NEGATIVE Urine Nitrite NEGATIVE Urine Bilirubin NEGATIVE Urine Urobilinogen NEGATIVE Urine Leukocyte TRACE A Esterase Urine Microscopic 0 RBC Urine Microscopic 2 WBC Urine Bacteria FEW A Urine Hemoglobin NEGATIVE Urine Glucose NEGATIVE Urine Total Protein NEGATIVE Stool Occult Blood NEGATIVE White Blood Count 12.6 H Red Blood Count 3.39 L Hemoglobin 9.1 L Hematocrit 29.0 L Mean Corpuscular 85.5 Volume Mean Corpuscular 26.8 L Hemoglobin Mean Corpuscular 31.4 L Hemoglobin Concent Red Cell 13.9 Distribution Width Platelet Count 544 H Mean Platelet Volume 8.4 Immature 0.600 H Granulocytes % Neutrophils % 70.5 Lymphocytes % 17.3 Monocytes % 7.6 Eosinophils % 3.4 Basophils % 0.6 Nucleated Red Blood 0.0 Cells % Immature 0.080 H Granulocytes # Neutrophils # 8.9 H Lymphocytes # 2.2 Monocytes # 1.0 H Eosinophils # 0.4 Basophils # 0.1 Nucleated Red Blood 0.0 Cells # Sodium Level 141 Potassium Level 3.3 L Chloride Level 102 Carbon Dioxide Level 31 Anion Gap 8 Blood Urea Nitrogen 9 Creatinine 1.05 H Est Glomerular 54 L Filtrat Rate mL/min Glucose Level 118 Calcium Level 9.8 Prothrombin Time 14.0 Prothrombin Time 1.1 Ratio INR International 1.07 Normalized Ratio Activated 34.3 Partial Thromboplast Time Vancomycin Level 5.7 L Trough Medications Medication Current Medications Acetaminophen (Tylenol Tab) 650 mg Q6H PRN PO MILD PAIN(1-3)OR ELEVATED TEMP Last administered on 02/18/19 02:43; Admin Dose 650 MG; Start 02/11/19 at 03:00 Ondansetron HCl (Zofran Inj) 4 mg Q4H PRN IV NAUSEA AND/OR VOMITING; Start 02/11/19 at 03:00 Pantoprazole (Protonix Tab) 40 mg DAILY@06 PO Last administered on 02/18/19 06:02; Admin Dose 40 MG; Start 02/11/19 at 06:00 Piperacillin Sod/ Tazobactam Sod 100 ml @ 200 mls/hr Q8 IVPB Last administered on 02/18/19 16:05; Admin Dose 200 MLS/HR; Start 02/11/19 at 06:00 Morphine Sulfate (morphine) 2 mg Q4H PRN IV SEVERE PAIN LEVEL 7-10 Last administered on 02/15/19 14:16; Admin Dose 2 MG; Start 02/11/19 at 03:00 Amlodipine Besylate (Norvasc) 5 mg DAILY PO Last administered on 02/18/19 09:13; Admin Dose 5 MG; Start 02/11/19 at 09:00 Azelastine HCl (Astelin) 1 spray BID NASAL Last administered on 02/17/19 20:18; Admin Dose 1 SPRAY; Start 02/11/19 at 09:00 Fluticasone Propionate (Flonase 0.05% Nasal) 1 spray BID NASAL Last administered on 02/17/19 20:18; Admin Dose 1 SPRAY; Start 02/11/19 at 09:00 Gabapentin (Neurontin) 300 mg DAILY PO Last administered on 02/18/19 09:12; Admin Dose 300 MG; Start 02/11/19 at 09:00 Loratadine (Claritin) 10 mg DAILY PO Last administered on 02/18/19 09:12; Admin Dose 10 MG; Start 02/11/19 at 09:00 Cholecalciferol (Vitamin D) 2,000 unit DAILY PO Last administered on 02/18/19 09:12; Admin Dose 2,000 UNIT; Start 02/11/19 at 09:00 Atorvastatin Calcium (Lipitor) 10 mg DAILY PO Last administered on 02/18/19 09:12; Admin Dose 10 MG; Start 02/11/19 at 09:00 Budesonide (Pulmicort (Neb)) 0.5 mg BID PRN NEB WHEEZING AND SOB Last administered on 02/15/19 20:33; Admin Dose 0.5 MG; Start 02/11/19 at 03:30 Albuterol/ Ipratropium (Duoneb) 3 ml Q4H RESP THERAPY HHN Last administered on 02/18/19 01:30; Admin Dose 3 ML; Start 02/11/19 at 13:00 Acetaminophen (Tylenol Tab) 650 mg Q4H PRN PO MILD PAIN(1-3)OR ELEVATED TEMP Last administered on 02/12/19 12:00; Admin Dose 650 MG; Start 02/12/19 at 12:00 Calcium Carbonate (Oyster Shell Calcium) 1.25 gm BID NGT Last administered on 02/18/19 09:12; Admin Dose 1.25 GM; Start 02/12/19 at 14:00 Furosemide (Lasix) 40 mg DAILY IV Last administered on 02/18/19 09:13; Admin Dose 40 MG; Start 02/13/19 at 09:00 Oxycodone HCl (Roxicodone) 5 mg Q4H PRN PO MODERATE PAIN LEVEL 4-6 Last administered on 02/17/19 21:41; Admin Dose 5 MG; Start 02/13/19 at 17:00 Oxycodone HCl (Roxicodone) 10 mg Q4H PRN PO MODERATE PAIN LEVEL 7-10 Last administered on 02/14/19at 21:20; Admin Dose 10 MG; Start 02/13/19 at 17:00 Aspirin (Halfprin) 81 mg BID PO Last administered on 02/17/19at 20:18; Admin Dose 81 MG; Start 02/14/19 at 21:00; Status Hold Escitalopram Oxalate (Lexapro) 20 mg DAILY PO Last administered on 02/18/19at 09:12; Admin Dose 20 MG; Start 02/17/19 at 09:00 Dextrose/Sodium Chloride 1,000 ml @ 20 mls/hr Q24H IV Last administered on 02/18/19 09:32; Admin Dose 20 MLS/HR; Start 02/18/19 at 09:30 LACI BENTLEY MD Feb 18, 2019 18:50
[2019-02-19] MEDS: ALBUTEROL/IPRATROPIUM (NEB) 3 ML AMP HHN SCH ×6 (00:53→20:01)
[2019-02-19] MEDS: oxyCODONE 5 MG TAB PO PRN ×2 (01:10→23:14)
[2019-02-19 02:13] VITALS: BP 124/59; PULSE 77; RESP 17
[2019-02-19] MEDS: PIPER-TAZO 3.375 GM IV (PMX) 100 ML IVPB SCH ×3 (05:21→21:15)
[2019-02-19] MEDS: PANTOPRAZOLE (EC) 40 MG TAB PO SCH (05:21)
[2019-02-19] MEDS: ACETAMINOPHEN 325 MG TAB PO PRN (08:01)
[2019-02-19 08:28] VITALS: BP 126/60; PULSE 78; RESP 18
--- NOTE | 2019-02-19 08:45 | CONS ---
Assessment/Plan Assessment/Plan Hospital Course (Demo Recall) 59 yo female 1. Systemic inflammatory response syndrome with a fever, leukocytosis, status post right knee replacement. 2. Diverticulitis of upper sigmoid colon with contained microperforation 3. Hypertension. 4. Obesity. 5. Mood disorder. 6. Allergic rhinitis. 7. Anemia. -stable 8. Mild leukocytosis CT abd: 02/17 1. Diverticulitis of the upper sigmoid colon is again seen now with contained microperforation and slight contained fluid but no sizable collection. 2. Nodular consolidative changes of the lung bases appear improved from the prior although a 0.6 cm left lower lobe nodule remains. Correlation with older imaging or follow-up chest CT is suggested in the next few months to assess stability given the appearance on the more recent chest CT. 3. Small bilateral pleural effusions are improved from the prior. Plan Diet per surgery recommendation Continue abx IVF for hydration per primary Colonoscopy 6 weeks post resolution of diverticulitis and microperforation Pt examined and plan of care d/w Dr. Kaiser Consultation Date/Type/Reason Admit Date/Time Feb 11, 2019 at 00:10 Initial Consult Date 02/13/19 Requesting Provider: JACQUI FUNES MD Date/Time of Note DATE: 02/19/19 TIME: 08:42 24 HR Interval Summary Free Text/Dictation Pt has been NPO. LLQ pain improved /. Afebrile. Denies chills. RLE is itching. Exam/Review of Systems Exam Vitals Vital Signs Date Temp Pulse Resp B/P (MAP) Pulse Ox O2 O2 Flow FiO2 Time Delivery Rate 02/19/19 98.5 78 18 126/60 98 Room Air 08:28 (82) 02/19/19 21 05:14 02/17/19 20:00 Intake and Output 02/18/19 02/18/19 02/19/19 1515:00 23:00 07:00 IntakeIntake Total 680 ml 250 ml 330 ml OutputOutput Total 1500 ml BalanceBalance 680 ml -1250 ml 330 ml Constitutional: alert, oriented, well developed Psych: no complaints Head: normocephalic Eyes: nl sclera, PERRL ENMT: mucosa pink and moist Respiratory: normal air movement Cardiovascular: regular rate and rhythm Gastrointestinal: soft, tender (in bilateral lower quadrants to palpitation) Musculoskeletal: other (rt knee with midline bandage , BLE warm) Extremities: normal pulses Neurological: nl mental status Results Result Diagram: 02/19/19 0705 02/19/19 0705 Results 24hrs Laboratory Tests Test 02/18/19 13:16 02/19/19 07:05 Vancomycin Level Trough 5.7 L White Blood Count 10.8 Red Blood Count 3.58 L Hemoglobin 9.7 L Hematocrit 30.4 L Mean Corpuscular Volume 84.9 Mean Corpuscular Hemoglobin 27.1 L Mean Corpuscular Hemoglobin Concent 31.9 L Red Cell Distribution Width 13.6 Platelet Count 570 H Mean Platelet Volume 8.3 Immature Granulocytes % 0.600 H Neutrophils % 69.4 Lymphocytes % 17.5 Monocytes % 7.6 Eosinophils % 4.3 Basophils % 0.6 Nucleated Red Blood Cells % 0.0 Immature Granulocytes # 0.060 H Neutrophils # 7.5 Lymphocytes # 1.9 Monocytes # 0.8 Eosinophils # 0.5 Basophils # 0.1 Nucleated Red Blood Cells # 0.0 Sodium Level 143 Potassium Level 3.2 L Chloride Level 102 Carbon Dioxide Level 31 Anion Gap 10 Blood Urea Nitrogen 12 Creatinine 1.10 H Est Glomerular Filtrat Rate mL/min 51 L Glucose Level 112 Calcium Level 10.0 Phosphorus Level 4.7 Magnesium Level 2.0 Medications Medication Current Medications Acetaminophen (Tylenol Tab) 650 mg Q6H PRN PO MILD PAIN(1-3)OR ELEVATED TEMP Last administered on 02/19/19at 08:01; Admin Dose 650 MG; Start 02/11/19 at 03:00 Ondansetron HCl (Zofran Inj) 4 mg Q4H PRN IV NAUSEA AND/OR VOMITING; Start 02/11/19 at 03:00 Pantoprazole (Protonix Tab) 40 mg DAILY@06 PO Last administered on 02/19/19at 05:21; Admin Dose 40 MG; Start 02/11/19 at 06:00 Piperacillin Sod/ Tazobactam Sod 100 ml @ 200 mls/hr Q8 IVPB Last administered on 02/19/19at 05:21; Admin Dose 200 MLS/HR; Start 02/11/19 at 06:00 Morphine Sulfate (morphine) 2 mg Q4H PRN IV SEVERE PAIN LEVEL 7-10 Last administered on 02/15/19at 14:16; Admin Dose 2 MG; Start 02/11/19 at 03:00 Amlodipine Besylate (Norvasc) 5 mg DAILY PO Last administered on 02/18/19 09:13; Admin Dose 5 MG; Start 02/11/19 at 09:00 Azelastine HCl (Astelin) 1 spray BID NASAL Last administered on 02/17/19 20:18; Admin Dose 1 SPRAY; Start 02/11/19 at 09:00 Fluticasone Propionate (Flonase 0.05% Nasal) 1 spray BID NASAL Last administered on 02/17/19 20:18; Admin Dose 1 SPRAY; Start 02/11/19 at 09:00 Gabapentin (Neurontin) 300 mg DAILY PO Last administered on 02/18/19 09:12; Admin Dose 300 MG; Start 02/11/19 at 09:00 Loratadine (Claritin) 10 mg DAILY PO Last administered on 02/18/19 09:12; Adm in Dose 10 MG; Start 02/11/19 at 09:00 Cholecalciferol (Vitamin D) 2,000 unit DAILY PO Last administered on 02/18/19 09:12; Admin Dose 2,000 UNIT; Start 02/11/19 at 09:00 Atorvastatin Calcium (Lipitor) 10 mg DAILY PO Last administered on 02/18/19 09:12; Admin Dose 10 MG; Start 02/11/19 at 09:00 Budesonide (Pulmicort (Neb)) 0.5 mg BID PRN NEB WHEEZING AND SOB Last administered on 02/15/19 20:33; Admin Dose 0.5 MG; Start 02/11/19 at 03:30 Albuterol/ Ipratropium (Duoneb) 3 ml Q4H RESP THERAPY HHN Last administered on 02/19/19 05:13; Admin Dose 3 ML; Start 02/11/19 at 13:00 Acetaminophen (Tylenol Tab) 650 mg Q4H PRN PO MILD PAIN(1-3)OR ELEVATED TEMP Last administered on 02/12/19 12:00; Admin Dose 650 MG; Start 02/12/19 at 12:00 Calcium Carbonate (Oyster Shell Calcium) 1.25 gm BID NGT Last administered on 02/18/19 21:35; Admin Dose 1.25 GM; Start 02/12/19 at 14:00 Furosemide (Lasix) 40 mg DAILY IV Last administered on 02/18/19 09:13; Admin Dose 40 MG; Start 02/13/19 at 09:00 Oxycodone HCl (Roxicodone) 5 mg Q4H PRN PO MODERATE PAIN LEVEL 4-6 Last administered on 02/19/19 01:10; Admin Dose 5 MG; Start 02/13/19 at 17:00 Oxycodone HCl (Roxicodone) 10 mg Q4H PRN PO MODERATE PAIN LEVEL 7-10 Last administered on 02/14/19 21:20; Admin Dose 10 MG; Start 02/13/19 at 17:00 Aspirin (Halfprin) 81 mg BID PO Last administered on 02/17/19 20:18; Admin Dose 81 MG; Start 02/14/19 at 21:00; Status Hold Escitalopram Oxalate (Lexapro) 20 mg DAILY PO Last administered on 02/18/19 09:12; Admin Dose 20 MG; Start 02/17/19 at 09:00 Dextrose/Sodium Chloride 1,000 ml @ 20 mls/hr Q24H IV Last administered on 02/18/19 09:32; Admin Dose 20 MLS/HR; Start 02/18/19 at 09:30 MARISELA LALA Feb 19, 2019 08:45
[2019-02-19] MEDS ORDERED: POTASSIUM CHLORIDE (SR) 20 MEQ TAB PO STA (08:59)
[2019-02-19] MEDS: AZELASTINE 30 ML NAS SPRAY NASAL SCH ×2 (09:00→21:00)
[2019-02-19] MEDS: FLUTICASONE 0.05% 16 GM NAS SPRAY NASAL SCH ×2 (09:00→21:00)
[2019-02-19] MEDS: DEXTROSE 5%-0.45% NACL 1,000 ML IV SCH (09:30)
[2019-02-19] MEDS: CALCIUM CARBONATE 1.25 GM TAB NGT SCH ×2 (09:52→21:15)
[2019-02-19] MEDS: LORATADINE 10 MG TAB PO SCH (09:52)
[2019-02-19] MEDS: GABAPENTIN 300 MG CAP PO SCH (09:52)
[2019-02-19] MEDS: ATORVASTATIN 10 MG TAB PO SCH (09:52)
[2019-02-19] MEDS: ESCITALOPRAM 20 MG TAB PO SCH (09:52)
[2019-02-19] MEDS: CHOLECALCIFEROL 2,000 UNIT CAP PO SCH (09:52)
[2019-02-19] MEDS: FUROSEMIDE 40 MG INJ IV SCH (09:54)
[2019-02-19] MEDS: AMLODIPINE 5 MG TAB PO SCH (09:54)
--- NOTE | 2019-02-19 09:58 | PN ---
Date/Time of Note Date/Time of Note DATE: 02/19/19 TIME: 09:54 Assessment/Plan Lines/Catheters IV Catheter Type (from [facility]): Peripheral IV Leo in Place (from [facility]): No Assessment/Plan Chief Complaint/Hosp Course 1. Small contained perforated diverticulitis without drainable collection -Okay for clear liquids -IV antibiotics -IV fluids -Close monitoring -Outpatient follow-up for eventual laparoscopic elective colon resection 2. Leukocytosis and fever secondary to above: Resolved 3. BMI 39, Hepatomegaly -Encourage nutrition and exercise optimization 4. Hypertension -Nutrition and medication optimization -Weight loss encouraged 5. GERD -Nutrition and lifestyle optimization encouraged -Weight loss encouraged 6. ? Gallstones; no gallstones per CT -monitor 7. Anemia; dark stools overnight -Per medical team -monitor 8. Renal insufficiency -judicious fluids -minimize narcotics 9. Left lower lobe nodule: -Repeat CT in a few months, outpatient follow-up 10. Status post right TKA -Per orthopedic Thank you. Patient seen and examined in collaboration with Dr. Lance Leiva. Subjective 24 Hr Interval Summary Feels better. Tenderness much improved. + Bowel function. Reports dark stools overnight. No fevers, chills, sob, congested cough, cp, palpitations, sharpe, dizziness, n/v/d/dysuria. Exam/Review of Systems Vital Signs Vitals Vital Signs Date Temp Pulse Resp B/P (MAP) Pulse Ox O2 O2 Flow FiO2 Time Delivery Rate 02/19/19 98.5 78 18 126/60 98 Room Air 08:28 (82) 02/19/19 21 05:14 02/17/19 20:00 Intake and Output 02/18/19 02/18/19 02/19/19 1414:59 22:59 06:59 IntakeIntake Total 780 ml 250 ml 330 ml OutputOutput Total 1500 ml BalanceBalance 780 ml -1250 ml 330 ml Exam Free Text/Dictation Constitutional: alert, oriented, obese; No distress Psych: anxiety Head: normocephalic, atraumatic Eyes: nl conjunctiva, EOMI, PERRL; No icteric ENMT: nl external ears & nose, nl lips & teeth, mucosa pink and moist Neck: supple, non-tender; No jvd Respiratory: normal air movement; No congested cough, No labored breathing, No wheezing Cardiovascular: regular rate and rhythm; No edema Gastrointestinal: soft, tender (min); No distended, No firm, No rebound or guarding Musculoskeletal: nl extremities to inspection; No joint tenderness Extremities: normal pulses; No calf tenderness, No cyanosis, No edema Neurological: nl mental status, nl speech, nl strength Skin: nl turgor; No rash or lesions Lymph: nl lymph nodes Results Result Diagram: 02/19/19 0705 02/19/19 0705 ANDREAS DELEON NP Feb 19, 2019 09:58
[2019-02-19 14:19] VITALS: BP 116/55; PULSE 71; RESP 18
--- NOTE | 2019-02-19 14:30 | CONS ---
Assessment/Plan Assessment/Plan Hospital Course (Demo Recall) Patient had nosebleed last night which is resolved now she is awake feels tired and wants to sleep no fevers CT of the abdomen and pelvis with contrast revealed diverticulitis of the upper sigmoid colon with contained micro perforation and slight contained fluid but no sizable collection Microbiology: Right knee fluid culture grew coag negative staph species susceptible to ciprofloxacin clindamycin doxycycline Antimicrobials: Zosyn Physical examination: This is obese well-developed middle-aged woman who is alert in no distress. Head atraumatic normocephalic sclera nonicteric vehicle mucosa dry neck is supple chest rise symmetrical breath sounds clear. Heart: Mask S1-S2 abdomen soft patient has some tenderness over right upper quadrant on palpation no suprapubic tenderness bowel sounds present. Extremities without cyanosis right knee incision with shruthi clean dry and intact no drainage no erythema Assessment: 1. SIRS 2. Acute diverticulitis with microperforation 2. Right knee cellulitis, improved 3. History of recent right total knee replacement 01/29/19 4. Morbid obesity 5. Acute anemia 6. Hypoxemia secondary to fluid overload, improved Plan: Clinically stable, wbc trending down, continue antibiotics, no surgical interventions, anticipate dc on Cipro and Flagyl for 2 weeks Consultation Date/Type/Reason Admit Date/Time Feb 11, 2019 at 00:10 Initial Consult Date 02/11/19 Type of Consult id Requesting Provider: JACQUI FUNES MD Date/Time of Note DATE: 02/19/19 TIME: 14:27 Exam/Review of Systems Exam Vitals Vital Signs Date Temp Pulse Resp B/P (MAP) Pulse Ox O2 O2 Flow FiO2 Time Delivery Rate 02/19/19 98.6 71 18 116/55 94 Room Air 14:19 (75) 02/19/19 21 09:30 02/17/19 20:00 Intake and Output 02/18/19 02/18/19 02/19/19 1515:00 23:00 07:00 IntakeIntake Total 680 ml 250 ml 430 ml OutputOutput Total 1500 ml BalanceBalance 680 ml -1250 ml 430 ml Results Result Diagram: 02/19/19 0705 02/19/19 0705 Results 24hrs Laboratory Tests Test 02/19/19 07:05 White Blood Count 10.8 Red Blood Count 3.58 L Hemoglobin 9.7 L Hematocrit 30.4 L Mean Corpuscular Volume 84.9 Mean Corpuscular Hemoglobin 27.1 L Mean Corpuscular Hemoglobin Concent 31.9 L Red Cell Distribution Width 13.6 Platelet Count 570 H Mean Platelet Volume 8.3 Immature Granulocytes % 0.600 H Neutrophils % 69.4 Lymphocytes % 17.5 Monocytes % 7.6 Eosinophils % 4.3 Basophils % 0.6 Nucleated Red Blood Cells % 0.0 Immature Granulocytes # 0.060 H Neutrophils # 7.5 Lymphocytes # 1.9 Monocytes # 0.8 Eosinophils # 0.5 Basophils # 0.1 Nucleated Red Blood Cells # 0.0 Sodium Level 143 Potassium Level 3.2 L Chloride Level 102 Carbon Dioxide Level 31 Anion Gap 10 Blood Urea Nitrogen 12 Creatinine 1.10 H Est Glomerular Filtrat Rate mL/min 51 L Glucose Level 112 Calcium Level 10.0 Phosphorus Level 4.7 Magnesium Level 2.0 Medications Medication Current Medications Acetaminophen (Tylenol Tab) 650 mg Q6H PRN PO MILD PAIN(1-3)OR ELEVATED TEMP Last administered on 02/19/19 08:01; Admin Dose 650 MG; Start 02/11/19 at 03:00 Ondansetron HCl (Zofran Inj) 4 mg Q4H PRN IV NAUSEA AND/OR VOMITING; Start 02/11/19 at 03:00 Pantoprazole (Protonix Tab) 40 mg DAILY@06 PO Last administered on 02/19/19 05:21; Admin Dose 40 MG; Start 02/11/19 at 06:00 Piperacillin Sod/ Tazobactam Sod 100 ml @ 200 mls/hr Q8 IVPB Last administered on 02/19/19 05:21; Admin Dose 200 MLS/HR; Start 02/11/19 at 06:00 Morphine Sulfate (morphine) 2 mg Q4H PRN IV SEVERE PAIN LEVEL 7-10 Last administered on 02/15/19 14:16; Admin Dose 2 MG; Start 02/11/19 at 03:00 Amlodipine Besylate (Norvasc) 5 mg DAILY PO Last administered on 02/19/19 09 :54; Admin Dose 5 MG; Start 02/11/19 at 09:00 Azelastine HCl (Astelin) 1 spray BID NASAL Last administered on 02/17/19 20:18; Admin Dose 1 SPRAY; Start 02/11/19 at 09:00 Fluticasone Propionate (Flonase 0.05% Nasal) 1 spray BID NASAL Last administered on 02/17/19 20:18; Admin Dose 1 SPRAY; Start 02/11/19 at 09:00 Gabapentin (Neurontin) 300 mg DAILY PO Last administered on 02/19/19 09:52; Admin Dose 300 MG; Start 02/11/19 at 09:00 Loratadine (Claritin) 10 mg DAILY PO Last administered on 02/19/19 09:52; Admin Dose 10 MG; Start 02/11/19 at 09:00 Cholecalciferol (Vitamin D) 2,000 unit DAILY PO Last administered on 02/19/19 09:52; Admin Dose 2,000 UNIT; Start 02/11/19 at 09:00 Atorvastatin Calcium (Lipitor) 10 mg DAILY PO Last administered on 02/19/19 09:52; Admin Dose 10 MG; Start 02/11/19 at 09:00 Budesonide (Pulmicort (Neb)) 0.5 mg BID PRN NEB WHEEZING AND SOB Last administered on 02/15/19 20:33; Admin Dose 0.5 MG; Start 02/11/19 at 03:30 Albuterol/ Ipratropium (Duoneb) 3 ml Q4H RESP THERAPY HHN Last administered on 02/19/19 09:30; Admin Dose 3 ML; Start 02/11/19 at 13:00 Acetaminophen (Tylenol Tab) 650 mg Q4H PRN PO MILD PAIN(1-3)OR ELEVATED TEMP Last administered on 02/12/19 12:00; Admin Dose 650 MG; Start 02/12/19 at 12:00 Calcium Carbonate (Oyster Shell Calcium) 1.25 gm BID NGT Last administered on 02/19/19 09:52; Admin Dose 1.25 GM; Start 02/12/19 at 14:00 Oxycodone HCl (Roxicodone) 5 mg Q4H PRN PO MODERATE PAIN LEVEL 4-6 Last administered on 02/19/19 01:10; Admin Dose 5 MG; Start 02/13/19 at 17:00 Oxycodone HCl (Roxicodone) 10 mg Q4H PRN PO MODERATE PAIN LEVEL 7-10 Last administered on 02/14/19 21:20; Admin Dose 10 MG; Start 02/13/19 at 17:00 Aspirin (Halfprin) 81 mg BID PO Last administered on 02/17/19at 20:18; Admin Dose 81 MG; Start 02/14/19 at 21:00; Status Hold Escitalopram Oxalate (Lexapro) 20 mg DAILY PO Last administered on 02/19/19at 09:52; Admin Dose 20 MG; Start 02/17/19 at 09:00 Dextrose/Sodium Chloride 1,000 ml @ 20 mls/hr Q24H IV Last administered on 02/18/19at 09:32; Admin Dose 20 MLS/HR; Start 02/18/19 at 09:30 Potassium Chloride (Klor-Con 20) 20 meq DAILY PO ; Start 02/20/19 at 09:00 Diphenhydramine/ Zinc Oxide (Benadryl 1% Cr) 1 applic BID PRN TOP Itching; Start 02/19/19 at 09:00 CRISTHIAN HARVEY NP Feb 19, 2019 14:29
--- NOTE | 2019-02-19 15:54 | PN ---
Date/Time of Note Date/Time of Note DATE: 02/19/19 TIME: 15:52 Assessment/Plan VTE [place] [facility] [place] risk: 4 [place] [facility] [place] No SCD contraindicated: low risk/ambulating Pharmacological prophylaxis: NA/contraindicated Pharm contraindication: low risk/ambulating Lines/Catheters IV Catheter Type (from [facility]): Peripheral IV Urinary Cath still in place: No Assessment/Plan Hospital Course hospital Course 1. SIRS Fevers, leukocytosis, status post right total knee replacement on . , Fluid tap from knee is essentially neg and bld cx neg so far, UA neg , new chest xray+ Pul edema and ct chest + effusions, NOW CT A+P diverticulitis/enteritis, repeat CT scan +contained perforation 2. History of hypertension, 3. Hyperlipidemia. 4. Obesity. 5. GERD. 6. Allergic rhinitis. 7. Mood disorder. 8 anemia with acute blood loss? hematoma vs hemodilutional , improved sp 1 unit prbc 9. SOB likely due to pul edema sp iv fluids evident on chest xray likely due to CHF . CT chest neg for PE, ECHO diastolic dysfunction now much improved off oxygen 10. CHF, diastolic 11 Nose bleed with ASA stopped 12 blanca likey pre renal Assessment/Plan - iv fluids, CLD --UA - cw zosyn - hold lasix due to BLANCA - hold asa due to nose bleed - Fu GI/Pul/ ID recs - fluid restriction 1L - GI proph. Protonix -DVT prophylaxis unable to utilize due to anemia - fu PUL/ ID and ortho recs Result Diagram: 02/19/19 0705 02/19/19 0705 Results 24hrs Laboratory Tests Test 02/19/19 07:05 White Blood Count 10.8 Red Blood Count 3.58 L Hemoglobin 9.7 L Hematocrit 30.4 L Mean Corpuscular Volume 84.9 Mean Corpuscular Hemoglobin 27.1 L Mean Corpuscular Hemoglobin Concent 31.9 L Red Cell Distribution Width 13.6 Platelet Count 570 H Mean Platelet Volume 8.3 Immature Granulocytes % 0.600 H Neutrophils % 69.4 Lymphocytes % 17.5 Monocytes % 7.6 Eosinophils % 4.3 Basophils % 0.6 Nucleated Red Blood Cells % 0.0 Immature Granulocytes # 0.060 H Neutrophils # 7.5 Lymphocytes # 1.9 Monocytes # 0.8 Eosinophils # 0.5 Basophils # 0.1 Nucleated Red Blood Cells # 0.0 Sodium Level 143 Potassium Level 3.2 L Chloride Level 102 Carbon Dioxide Level 31 Anion Gap 10 Blood Urea Nitrogen 12 Creatinine 1.10 H Est Glomerular Filtrat Rate mL/min 51 L Glucose Level 112 Calcium Level 10.0 Phosphorus Level 4.7 Magnesium Level 2.0 Subjective 24 Hr Interval Summary Free Text/Dictation abdominal pain resolved ttp rt foot with some pigmentation Exam/Review of Systems Exam Vitals Vital Signs Date Temp Pulse Resp B/P (MAP) Pulse Ox O2 O2 Flow FiO2 Time Delivery Rate 02/19/19 98.6 71 18 116/55 94 Room Air 14:19 (75) 02/19/19 21 09:30 02/17/19 20:00 Intake and Output 02/18/19 02/18/19 02/19/19 1515:00 23:00 07:00 IntakeIntake Total 680 ml 250 ml 430 ml OutputOutput Total 1500 ml BalanceBalance 680 ml -1250 ml 430 ml Exam onstitutional: alert, oriented Head: normocephalic Eyes: nl conjunctiva Neck: supple Respiratory: diminished breath sounds Cardiovascular: regular rate and rhythm Gastrointestinal: soft, +tender Musculoskeletal: muscle weakness (right knee) some ecchymosis right foot Results Results 24hrs Laboratory Tests Test 02/19/19 07:05 White Blood Count 10.8 Red Blood Count 3.58 L Hemoglobin 9.7 L Hematocrit 30.4 L Mean Corpuscular Volume 84.9 Mean Corpuscular Hemoglobin 27.1 L Mean Corpuscular Hemoglobin Concent 31.9 L Red Cell Distribution Width 13.6 Platelet Count 570 H Mean Platelet Volume 8.3 Immature Granulocytes % 0.600 H Neutrophils % 69.4 Lymphocytes % 17.5 Monocytes % 7.6 Eosinophils % 4.3 Basophils % 0.6 Nucleated Red Blood Cells % 0.0 Immature Granulocytes # 0.060 H Neutrophils # 7.5 Lymphocytes # 1.9 Monocytes # 0.8 Eosinophils # 0.5 Basophils # 0.1 Nucleated Red Blood Cells # 0.0 Sodium Level 143 Potassium Level 3.2 L Chloride Level 102 Carbon Dioxide Level 31 Anion Gap 10 Blood Urea Nitrogen 12 Creatinine 1.10 H Est Glomerular Filtrat Rate mL/min 51 L Glucose Level 112 Calcium Level 10.0 Phosphorus Level 4.7 Magnesium Level 2.0 Medications Medication Current Medications Acetaminophen (Tylenol Tab) 650 mg Q6H PRN PO MILD PAIN(1-3)OR ELEVATED TEMP Last administered on 02/19/19 08:01; Admin Dose 650 MG; Start 02/11/19 at 03:00 Ondansetron HCl (Zofran Inj) 4 mg Q4H PRN IV NAUSEA AND/OR VOMITING; Start 02/11/19 at 03:00 Pantoprazole (Protonix Tab) 40 mg DAILY@06 PO Last administered on 02/19/19 05:21; Admin Dose 40 MG; Start 02/11/19 at 06:00 Piperacillin Sod/ Tazobactam Sod 100 ml @ 200 mls/hr Q8 IVPB Last administered on 02/19/19 05:21; Admin Dose 200 MLS/HR; Start 02/11/19 at 06:00 Morphine Sulfate (morphine) 2 mg Q4H PRN IV SEVERE PAIN LEVEL 7-10 Last administered on 02/15/19 14:16; Admin Dose 2 MG; Start 02/11/19 at 03:00 Amlodipine Besylate (Norvasc) 5 mg DAILY PO Last administered on 02/19/19 09:54; Admin Dose 5 MG; Start 02/11/19 at 09:00 Azelastine HCl (Astelin) 1 spray BID NASAL Last administered on 02/17/19 20:18; Admin Dose 1 SPRAY; Start 02/11/19 at 09:00 Fluticasone Propionate (Flonase 0.05% Nasal) 1 spray BID NASAL Last administered on 02/17/19 20:18; Admin Dose 1 SPRAY; Start 02/11/19 at 09:00 Gabapentin (Neurontin) 300 mg DAILY PO Last administered on 02/19/19 09:52; Admin Dose 300 MG; Start 02/11/19 at 09:00 Loratadine (Claritin) 10 mg DAILY PO Last administered on 02/19/19 09:52; Admin Dose 10 MG; Start 02/11/19 at 09:00 Cholecalciferol (Vitamin D) 2,000 unit DAILY PO Last administered on 02/19/19 09:52; Admin Dose 2,000 UNIT; Start 02/11/19 at 09:00 Atorvastatin Calcium (Lipitor) 10 mg DAILY PO Last administered on 02/19/19 09:52; Admin Dose 10 MG; Start 02/11/19 at 09:00 Budesonide (Pulmicort (Neb)) 0.5 mg BID PRN NEB WHEEZING AND SOB Last administered on 02/15/19 20:33; Admin Dose 0.5 MG; Start 02/11/19 at 03:30 Albuterol/ Ipratropium (Duoneb) 3 ml Q4H RESP THERAPY HHN Last administered on 02/19/19 09:30; Admin Dose 3 ML; Start 02/11/19 at 13:00 Acetaminophen (Tylenol Tab) 650 mg Q4H PRN PO MILD PAIN(1-3)OR ELEVATED TEMP Last administered on 02/12/19 12:00; Admin Dose 650 MG; Start 02/12/19 at 12:00 Calcium Carbonate (Oyster Shell Calcium) 1.25 gm BID NGT Last administered on 02/19/19 09:52; Admin Dose 1.25 GM; Start 02/12/19 at 14:00 Oxycodone HCl (Roxicodone) 5 mg Q4H PRN PO MODERATE PAIN LEVEL 4-6 Last administered on 02/19/19 01:10; Admin Dose 5 MG; Start 02/13/19 at 17:00 Oxycodone HCl (Roxicodone) 10 mg Q4H PRN PO MODERATE PAIN LEVEL 7-10 Last administered on 02/14/19 21:20; Admin Dose 10 MG; Start 02/13/19 at 17:00 Aspirin (Halfprin) 81 mg BID PO Last administered on 02/17/19 20:18; Admin Dose 81 MG; Start 02/14/19 at 21:00; Status Hold Escitalopram Oxalate (Lexapro) 20 mg DAILY PO Last administered on 02/19/19 09:52; Admin Dose 20 MG; Start 02/17/19 at 09:00 Dextrose/Sodium Chloride 1,000 ml @ 20 mls/hr Q24H IV Last administered on 02/18/19 09:32; Admin Dose 20 MLS/HR; Start 02/18/19 at 09:30 Potassium Chloride (Klor-Con 20) 20 meq DAILY PO ; Start 02/20/19 at 09:00 Diphenhydramine/ Zinc Oxide (Benadryl 1% Cr) 1 applic BID PRN TOP Itching; Start 02/19/19 at 09:00 JACQUI FUNES MD Feb 19, 2019 15:54
[2019-02-19 20:00] VITALS: BP 128/61; PULSE 69; RESP 17
[2019-02-19] MEDS: DIPHENHYDRAMINE 1%/ZINC 28.3 GM CR TOP PRN (21:27)
[2019-02-20] MEDS: ALBUTEROL/IPRATROPIUM (NEB) 3 ML AMP HHN SCH ×3 (00:03→08:42)
[2019-02-20 02:00] VITALS: BP 122/58; PULSE 69; RESP 16
[2019-02-20] MEDS: PANTOPRAZOLE (EC) 40 MG TAB PO SCH (06:03)
[2019-02-20] MEDS: PIPER-TAZO 3.375 GM IV (PMX) 100 ML IVPB SCH ×3 (06:03→21:31)
[2019-02-20 08:00] VITALS: BP_SYST 129; BP_SYST 153; BP_DIAS 54; BP_DIAS 56; PULSE 84; PULSE 96; RESP 18; RESP 20
[2019-02-20] MEDS: AMLODIPINE 5 MG TAB PO SCH (08:55)
[2019-02-20] MEDS: ATORVASTATIN 10 MG TAB PO SCH (08:55)
[2019-02-20] MEDS: AZELASTINE 30 ML NAS SPRAY NASAL SCH ×2 (08:56→21:25)
[2019-02-20] MEDS: POTASSIUM CHLORIDE (SR) 20 MEQ TAB PO SCH (08:56)
[2019-02-20] MEDS: ESCITALOPRAM 20 MG TAB PO SCH (08:56)
[2019-02-20] MEDS: CHOLECALCIFEROL 2,000 UNIT CAP PO SCH (08:56)
[2019-02-20] MEDS: FLUTICASONE 0.05% 16 GM NAS SPRAY NASAL SCH ×2 (08:56→21:26)
[2019-02-20] MEDS: LORATADINE 10 MG TAB PO SCH (08:56)
[2019-02-20] MEDS: CALCIUM CARBONATE 1.25 GM TAB NGT SCH ×2 (08:56→21:25)
[2019-02-20] MEDS: GABAPENTIN 300 MG CAP PO SCH (08:56)
[2019-02-20] MEDS: DEXTROSE 5%-0.45% NACL 1,000 ML IV SCH ×2 (09:30→16:23)
[2019-02-20 14:00] VITALS: BP 106/53; PULSE 84; RESP 18
--- NOTE | 2019-02-20 14:26 | CONS ---
Assessment/Plan Assessment/Plan Hospital Course (Demo Recall) No acute changes CT of the abdomen and pelvis with contrast revealed diverticulitis of the upper sigmoid colon with contained micro perforation and slight contained fluid but no sizable collection Microbiology: Right knee fluid culture grew coag negative staph species susceptible to ciprofloxacin clindamycin doxycycline Antimicrobials: Zosyn Physical examination: This is obese well-developed middle-aged woman who is alert in no distress. Head atraumatic normocephalic sclera nonicteric vehicle mucosa dry neck is supple chest rise symmetrical breath sounds clear. Heart: Mask S1-S2 abdomen soft patient has some tenderness over right upper quadrant on palpation no suprapubic tenderness bowel sounds present. Extremities without cyanosis right knee incision with shruthi clean dry and intact no drainage no erythema Assessment: 1. SIRS 2. Acute diverticulitis with microperforation 2. Right knee cellulitis, improved 3. History of recent right total knee replacement 01/29/19 4. Morbid obesity 5. Acute anemia 6. Hypoxemia secondary to fluid overload, improved Plan: Clinically stable, continue antibiotics, anticipate dc on Cipro and Flagyl Consultation Date/Type/Reason Admit Date/Time Feb 11, 2019 at 00:10 Initial Consult Date 02/11/19 Type of Consult id Requesting Provider: JACQUI FUNES MD Date/Time of Note DATE: 02/20/19 TIME: 14:25 Exam/Review of Systems Exam Vitals Vital Signs Date Temp Pulse Resp B/P (MAP) Pulse Ox O2 O2 Flow FiO2 Time Delivery Rate 02/20/19 70 16 95 21 08:42 02/20/19 99.9 129/56 08:00 (80) 02/19/19 Room Air 14:19 02/17/19 20:00 Intake and Output 02/19/19 02/19/19 02/20/19 1515:00 23:00 07:00 IntakeIntake Total 1030 ml 520 ml OutputOutput Total 650 ml 850 ml BalanceBalance 380 ml -330 ml Results Result Diagram: 02/20/19 0450 02/20/19 0450 Results 24hrs Laboratory Tests Test 02/20/19 04:50 White Blood Count 10.9 H Red Blood Count 3.69 L Hemoglobin 9.7 L Hematocrit 31.6 L Mean Corpuscular Volume 85.6 Mean Corpuscular Hemoglobin 26.3 L Mean Corpuscular Hemoglobin Concent 30.7 L Red Cell Distribution Width 13.6 Platelet Count 594 H Mean Platelet Volume 8.7 Immature Granulocytes % 0.600 H Neutrophils % 65.8 Lymphocytes % 20.6 Monocytes % 7.4 Eosinophils % 5.0 Basophils % 0.6 Nucleated Red Blood Cells % 0.0 Immature Granulocytes # 0.060 H Neutrophils # 7.2 Lymphocytes # 2.2 Monocytes # 0.8 Eosinophils # 0.5 Basophils # 0.1 Nucleated Red Blood Cells # 0.0 Sodium Level 142 Potassium Level 3.6 Chloride Level 103 Carbon Dioxide Level 29 Anion Gap 10 Blood Urea Nitrogen 12 Creatinine 1.05 H Est Glomerular Filtrat Rate mL/min 54 L Glucose Level 108 Calcium Level 9.7 Phosphorus Level 4.4 Magnesium Level 2.0 Medications Medication Current Medications Acetaminophen (Tylenol Tab) 650 mg Q6H PRN PO MILD PAIN(1-3)OR ELEVATED TEMP Last administered on 02/19/19 08:01; Admin Dose 650 MG; Start 02/11/19 at 03:00 Ondansetron HCl (Zofran Inj) 4 mg Q4H PRN IV NAUSEA AND/OR VOMITING; Start 02/11/19 at 03:00 Pantoprazole (Protonix Tab) 40 mg DAILY@06 PO Last administered on 02/20/19 06:03; Admin Dose 40 MG; Start 02/11/19 at 06:00 Piperacillin Sod/ Tazobactam Sod 100 ml @ 200 mls/hr Q8 IVPB Last administered on 02/20/19 13:07; Admin Dose 200 MLS/HR; Start 02/11/19 at 06:00 Morphine Sulfate (morphine) 2 mg Q4H PRN IV SEVERE PAIN LEVEL 7-10 Last administered on 02/15/19 14:16; Admin Dose 2 MG; Start 02/11/19 at 03:00 Amlodipine Besylate (Norvasc) 5 mg DAILY PO Last administered on 02/20/19 08:55; Admin Dose 5 MG; Start 02/11/19 at 09:00 Azelastine HCl (Astelin) 1 spray BID NASAL Last administered on 02/20/19 08:56; Admin Dose 1 SPRAY; Start 02/11/19 at 09:00 Fluticasone Propionate (Flonase 0.05% Nasal) 1 spray BID NASAL Last administered on 02/20/19 08:56; Admin Dose 1 SPRAY; Start 02/11/19 at 09:00 Gabapentin (Neurontin) 300 mg DAILY PO Last administered on 02/20/19 08:56; Admin Dose 300 MG; Start 02/11/19 at 09:00 Loratadine (Claritin) 10 mg DAILY PO Last administered on 02/20/19 08:56; Admin Dose 10 MG; Start 02/11/19 at 09:00 Cholecalciferol (Vitamin D) 2,000 unit DAILY PO Last administered on 02/20/19 08:56; Admin Dose 2,000 UNIT; Start 02/11/19 at 09:00 Atorvastatin Calcium (Lipitor) 10 mg DAILY PO Last administered on 02/20/19 08:55; Admin Dose 10 MG; Start 02/11/19 at 09:00 Budesonide (Pulmicort (Neb)) 0.5 mg BID PRN NEB WHEEZING AND SOB Last administered on 02/15/19 20:33; Admin Dose 0.5 MG; Start 02/11/19 at 03:30 Acetaminophen (Tylenol Tab) 650 mg Q4H PRN PO MILD PAIN(1-3)OR ELEVATED TEMP L ast administered on 02/12/19 12:00; Admin Dose 650 MG; Start 02/12/19 at 12:00 Calcium Carbonate (Oyster Shell Calcium) 1.25 gm BID NGT Last administered on 02/20/19 08:56; Admin Dose 1.25 GM; Start 02/12/19 at 14:00 Oxycodone HCl (Roxicodone) 5 mg Q4H PRN PO MODERATE PAIN LEVEL 4-6 Last administered on 02/19/19 23:14; Admin Dose 5 MG; Start 02/13/19 at 17:00 Oxycodone HCl (Roxicodone) 10 mg Q4H PRN PO MODERATE PAIN LEVEL 7-10 Last administered on 02/14/19 21:20; Admin Dose 10 MG; Start 02/13/19 at 17:00 Aspirin (Halfprin) 81 mg BID PO Last administered on 02/17/19 20:18; Admin Dose 81 MG; Start 02/14/19 at 21:00; Status Hold Escitalopram Oxalate (Lexapro) 20 mg DAILY PO Last administered on 02/20/19 08:56; Admin Dose 20 MG; Start 02/17/19 at 09:00 Dextrose/Sodium Chloride 1,000 ml @ 20 mls/hr Q24H IV Last administered on 02/18/19 09:32; Admin Dose 20 MLS/HR; Start 02/18/19 at 09:30 Potassium Chloride (Klor-Con 20) 20 meq DAILY PO Last administered on 02/20/19 08:56; Admin Dose 20 MEQ; Start 02/20/19 at 09:00 Diphenhydramine/ Zinc Oxide (Benadryl 1% Cr) 1 applic BID PRN TOP Itching Last administered on 02/19/19 21:27; Admin Dose 1 APPLIC; Start 02/19/19 at 09:00 CRISTHIAN HARVEY NP Feb 20, 2019 14:26
--- NOTE | 2019-02-20 14:43 | PN ---
Date/Time of Note Date/Time of Note DATE: 02/20/19 TIME: 14:43 Assessment/Plan VTE Prophylaxis Risk score (from [facility] [place])>0 risk: 4 SCD applied (from [facility] [place]): No SCD contraindicated: low risk/ambulating Pharmacological prophylaxis: NA/contraindicated Pharm contraindication: low risk/ambulating Lines/Catheters IV Catheter Type (from [facility]): Peripheral IV Urinary Cath still in place: No Assessment/Plan Hospital Course hospital Course 1. SIRS Fevers, leukocytosis, status post right total knee replacement on . , Fluid tap from knee is essentially neg and bld cx neg so far, UA neg , new chest xray+ Pul edema and ct chest + effusions, NOW CT A+P diverticulitis/enteritis, repeat CT scan +contained perforation 2. History of hypertension, 3. Hyperlipidemia. 4. Obesity. 5. GERD. 6. Allergic rhinitis. 7. Mood disorder. 8 anemia with acute blood loss? hematoma vs hemodilutional , improved sp 1 unit prbc 9. SOB likely due to pul edema sp iv fluids evident on chest xray likely due to CHF . CT chest neg for PE, ECHO diastolic dysfunction now much improved off oxygen 10. CHF, diastolic 11 Nose bleed with ASA stopped 12 blanca likey pre renal Assessment/Plan - iv fluids, CLD - cld per surgery , want to monitor on cld due to low grade fevers - cw zosyn - hold lasix due to BLANCA - hold asa due to nose bleed - Fu GI/Pul/ ID recs - fluid restriction 1L - GI proph. Protonix -DVT prophylaxis unable to utilize due to anemia - fu PUL/ ID and ortho recs Result Diagram: 02/20/190 02/20/19 0450 Results 24hrs Laboratory Tests Test 02/20/19 04:50 White Blood Count 10.9 H Red Blood Count 3.69 L Hemoglobin 9.7 L Hematocrit 31.6 L Mean Corpuscular Volume 85.6 Mean Corpuscular Hemoglobin 26.3 L Mean Corpuscular Hemoglobin Concent 30.7 L Red Cell Distribution Width 13.6 Platelet Count 594 H Mean Platelet Volume 8.7 Immature Granulocytes % 0.600 H Neutrophils % 65.8 Lymphocytes % 20.6 Monocytes % 7.4 Eosinophils % 5.0 Basophils % 0.6 Nucleated Red Blood Cells % 0.0 Immature Granulocytes # 0.060 H Neutrophils # 7.2 Lymphocytes # 2.2 Monocytes # 0.8 Eosinophils # 0.5 Basophils # 0.1 Nucleated Red Blood Cells # 0.0 Sodium Level 142 Potassium Level 3.6 Chloride Level 103 Carbon Dioxide Level 29 Anion Gap 10 Blood Urea Nitrogen 12 Creatinine 1.05 H Est Glomerular Filtrat Rate mL/min 54 L Glucose Level 108 Calcium Level 9.7 Phosphorus Level 4.4 Magnesium Level 2.0 Subjective 24 Hr Interval Summary Free Text/Dictation spoke to surgery want CLD due to low grade fevers pt feels ok Exam/Review of Systems Exam Vitals Vital Signs Date Temp Pulse Resp B/P (MAP) Pulse Ox O2 O2 Flow FiO2 Time Delivery Rate 02/20/19 70 16 95 21 08:42 02/20/19 99.9 129/56 08:00 (80) 02/19/19 Room Air 14:19 02/17/19 20:00 Intake and Output 02/19/19 02/19/19 02/20/19 1515:00 23:00 07:00 IntakeIntake Total 1030 ml 520 ml OutputOutput Total 650 ml 850 ml BalanceBalance 380 ml -330 ml Exam Constitutional: alert, oriented Head: normocephalic Eyes: nl conjunctiva Neck: supple Respiratory: diminished breath sounds Cardiovascular: regular rate and rhythm Gastrointestinal: soft, +tender Musculoskeletal: muscle weakness (right knee) some ecchymosis right foot Results Results Results 24hrs Laboratory Tests Test 02/20/19 04:50 White Blood Count 10.9 H Red Blood Count 3.69 L Hemoglobin 9.7 L Hematocrit 31.6 L Mean Corpuscular Volume 85.6 Mean Corpuscular Hemoglobin 26.3 L Mean Corpuscular Hemoglobin Concent 30.7 L Red Cell Distribution Width 13.6 Platelet Count 594 H Mean Platelet Volume 8.7 Immature Granulocytes % 0.600 H Neutrophils % 65.8 Lymphocytes % 20.6 Monocytes % 7.4 Eosinophils % 5.0 Basophils % 0.6 Nucleated Red Blood Cells % 0.0 Immature Granulocytes # 0.060 H Neutrophils # 7.2 Lymphocytes # 2.2 Monocytes # 0.8 Eosinophils # 0.5 Basophils # 0.1 Nucleated Red Blood Cells # 0.0 Sodium Level 142 Potassium Level 3.6 Chloride Level 103 Carbon Dioxide Level 29 Anion Gap 10 Blood Urea Nitrogen 12 Creatinine 1.05 H Est Glomerular Filtrat Rate mL/min 54 L Glucose Level 108 Calcium Level 9.7 Phosphorus Level 4.4 Magnesium Level 2.0 Medications Medication Current Medications Acetaminophen (Tylenol Tab) 650 mg Q6H PRN PO MILD PAIN(1-3)OR ELEVATED TEMP L ast administered on 02/19/19 08:01; Admin Dose 650 MG; Start 02/11/19 at 03:00 Ondansetron HCl (Zofran Inj) 4 mg Q4H PRN IV NAUSEA AND/OR VOMITING; Start 02/11/19 at 03:00 Pantoprazole (Protonix Tab) 40 mg DAILY@06 PO Last administered on 02/20/19 06:03; Admin Dose 40 MG; Start 02/11/19 at 06:00 Piperacillin Sod/ Tazobactam Sod 100 ml @ 200 mls/hr Q8 IVPB Last administered on 02/20/19 13:07; Admin Dose 200 MLS/HR; Start 02/11/19 at 06:00 Morphine Sulfate (morphine) 2 mg Q4H PRN IV SEVERE PAIN LEVEL 7-10 Last administered on 02/15/19 14:16; Admin Dose 2 MG; Start 02/11/19 at 03:00 Amlodipine Besylate (Norvasc) 5 mg DAILY PO Last administered on 02/20/19 08:55; Admin Dose 5 MG; Start 02/11/19 at 09:00 Azelastine HCl (Astelin) 1 spray BID NASAL Last administered on 02/20/19 08:56; Admin Dose 1 SPRAY; Start 02/11/19 at 09:00 Fluticasone Propionate (Flonase 0.05% Nasal) 1 spray BID NASAL Last administered on 02/20/19 08:56; Admin Dose 1 SPRAY; Start 02/11/19 at 09:00 Gabapentin (Neurontin) 300 mg DAILY PO Last administered on 02/20/19 08:56; Admin Dose 300 MG; Start 02/11/19 at 09:00 Loratadine (Claritin) 10 mg DAILY PO Last administered on 02/20/19 08:56; Admin Dose 10 MG; Start 02/11/19 at 09:00 Cholecalciferol (Vitamin D) 2,000 unit DAILY PO Last administered on 02/20/19 08:56; Admin Dose 2,000 UNIT; Start 02/11/19 at 09:00 Atorvastatin Calcium (Lipitor) 10 mg DAILY PO Last administered on 02/20/19 08:55; Admin Dose 10 MG; Start 02/11/19 at 09:00 Budesonide (Pulmicort (Neb)) 0.5 mg BID PRN NEB WHEEZING AND SOB Last administered on 02/15/19 20:33; Admin Dose 0.5 MG; Start 02/11/19 at 03:30 Acetaminophen (Tylenol Tab) 650 mg Q4H PRN PO MILD PAIN(1-3)OR ELEVATED TEMP Last administered on 02/12/19 12:00; Admin Dose 650 MG; Start 02/12/19 at 12:00 Calcium Carbonate (Oyster Shell Calcium) 1.25 gm BID NGT Last administered on 02/20/19 08:56; Admin Dose 1.25 GM; Start 02/12/19 at 14:00 Oxycodone HCl (Roxicodone) 5 mg Q4H PRN PO MODERATE PAIN LEVEL 4-6 Last admin istered on 02/19/19 23:14; Admin Dose 5 MG; Start 02/13/19 at 17:00 Oxycodone HCl (Roxicodone) 10 mg Q4H PRN PO MODERATE PAIN LEVEL 7-10 Last administered on 02/14/19 21:20; Admin Dose 10 MG; Start 02/13/19 at 17:00 Aspirin (Halfprin) 81 mg BID PO Last administered on 02/17/19 20:18; Admin Dose 81 MG; Start 02/14/19 at 21:00; Status Hold Escitalopram Oxalate (Lexapro) 20 mg DAILY PO Last administered on 02/20/19 08:56; Admin Dose 20 MG; Start 02/17/19 at 09:00 Dextrose/Sodium Chloride 1,000 ml @ 20 mls/hr Q24H IV Last administered on 02/18/19 09:32; Admin Dose 20 MLS/HR; Start 02/18/19 at 09:30 Potassium Chloride (Klor-Con 20) 20 meq DAILY PO Last administered on 02/20/19 08:56; Admin Dose 20 MEQ; Start 02/20/19 at 09:00 Diphenhydramine/ Zinc Oxide (Benadryl 1% Cr) 1 applic BID PRN TOP Itching Last administered on 7/16/19at 21:27; Admin Dose 1 APPLIC; Start 02/19/19 at 09:00 JACQUI FUNES MD Feb 20, 2019 14:43
--- NOTE | 2019-02-20 14:53 | PN ---
Date/Time of Note Date/Time of Note DATE: 02/20/19 TIME: 14:50 Assessment/Plan Lines/Catheters IV Catheter Type (from [facility]): Peripheral IV Leo in Place (from [facility]): No Assessment/Plan Chief Complaint/Hosp Course 1. Small contained perforated diverticulitis without drainable collection -Continue clear liquids for now monitor -Continue IV antibiotics -IV fluids -Close monitoring -Outpatient follow-up for eventual laparoscopic elective colon resection 2. Leukocytosis and fever secondary to above: WBC slight uptick 3. BMI 39, Hepatomegaly -Encourage nutrition and exercise optimization 4. Hypertension -Nutrition and medication optimization -Weight loss encouraged 5. GERD -Nutrition and lifestyle optimization encouraged -Weight loss encouraged 6. ? Gallstones; no gallstones per CT -monitor 7. Anemia; dark stools overnight -Per medical team -monitor 8. Renal insufficiency -judicious fluids -minimize narcotics 9. Left lower lobe nodule: -Repeat CT in a few months, outpatient follow-up 10. Status post right TKA -Per orthopedic Thank you. Patient seen and examined in collaboration with Dr. Lance Leiva. Subjective 24 Hr Interval Summary Min temp. WBC slight uptick. Feels well. Tolerating clear liquid diet. No abdominal pain or discomfort. Loose stools. No chills, sob, congested cough, cp, palpitations, sharpe, dizziness, nausea, vomiting, dysuria. Exam/Review of Systems Vital Signs Vitals Vital Signs Date Temp Pulse Resp B/P (MAP) Pulse Ox O2 O2 Flow FiO2 Time Delivery Rate 02/20/19 70 16 95 21 08:42 02/20/19 99.9 129/56 08:00 (80) 02/19/19 Room Air 14:19 02/17/19 20:00 Intake and Output 02/19/19 02/19/19 02/20/19 1515:00 23:00 07:00 IntakeIntake Total 1030 ml 520 ml OutputOutput Total 650 ml 850 ml BalanceBalance 380 ml -330 ml Exam Free Text/Dictation Constitutional: alert, oriented, obese; No distress Psych: anxiety Head: normocephalic, atraumatic Eyes: nl conjunctiva, EOMI, PERRL; No icteric ENMT: nl external ears & nose, nl lips & teeth, mucosa pink and moist Neck: supple, non-tender; No jvd Respiratory: normal air movement; No congested cough, No labored breathing, No wheezing Cardiovascular: regular rate and rhythm; No edema Gastrointestinal: soft, nontender No distended, No firm, No rebound or guarding Musculoskeletal: nl extremities to inspection; No joint tenderness Extremities: normal pulses; No calf tenderness, No cyanosis, No edema Neurological: nl mental status, nl speech, nl strength Skin: nl turgor; No rash or lesions Lymph: nl lymph nodes Results Result Diagram: 02/20/19 0450 02/20/19 0450 ANDREAS DELEON NP Feb 20, 2019 14:53
--- NOTE | 2019-02-20 15:06 | CONS ---
Assessment/Plan Assessment/Plan Assessment/Plan (Daily) Hospital Course (Demo Recall) 59 yo female 1. Systemic inflammatory response syndrome with a fever, leukocytosis, status post right knee replacement. 2. Diverticulitis of upper sigmoid colon with contained microperforation 3. Hypertension. 4. Obesity. 5. Mood disorder. 6. Allergic rhinitis. 7. Anemia. -stable 8. Mild leukocytosis CT abd: 02/17 1. Diverticulitis of the upper sigmoid colon is again seen now with contained microperforation and slight contained fluid but no sizable collection. 2. Nodular consolidative changes of the lung bases appear improved from the prior although a 0.6 cm left lower lobe nodule remains. Correlation with older imaging or follow-up chest CT is suggested in the next few months to assess stability given the appearance on the more recent chest CT. 3. Small bilateral pleural effusions are improved from the prior. Plan Diet per surgery recommendation Continue abx IVF for hydration per primary Colonoscopy 6 weeks post resolution of diverticulitis and microperforation Clear liquid diet Consultation Date/Type/Reason Admit Date/Time Feb 11, 2019 at 00:10 Initial Consult Date 02/13/19 Requesting Provider: JACQUI FUNES MD Date/Time of Note DATE: 02/20/19 TIME: 15:05 24 HR Interval Summary Free Text/Dictation Patient denies of any abdominal pain. No nausea no vomiting no GI bleeding Constitutional: no complaints, improved Exam/Review of Systems Exam Vitals Vital Signs Date Temp Pulse Resp B/P (MAP) Pulse Ox O2 O2 Flow FiO2 Time Delivery Rate 02/20/19 70 16 95 21 08:42 02/20/19 99.9 129/56 08:00 (80) 02/19/19 Room Air 14:19 02/17/19 20:00 Intake and Output 02/19/19 02/19/19 02/20/19 1414:59 22:59 06:59 IntakeIntake Total 100 ml 790 ml 760 ml OutputOutput Total 1500 ml BalanceBalance 100 ml 790 ml -740 ml Constitutional: alert, oriented, well developed Psych: no complaints, nl mood/affect Head: normocephalic, atraumatic Eyes: nl conjunctiva, EOMI, nl lids, nl sclera, PERRL ENMT: nl external ears & nose, nl lips & teeth, nl nasal mucosa & septum Neck: supple, non-tender Respiratory: clear to auscultation, normal air movement Cardiovascular: regular rate and rhythm, nl pulses Gastrointestinal: soft, nl liver, spleen, non-tender Musculoskeletal: nl extremities to inspection, nl gait and stance Extremities: normal pulses Neurological: [employer]PER[employer] II-XII intact, nl mental status, nl speech, nl strength Skin: nl turgor; No rash or lesions Lymph: nl lymph nodes Results Result Diagram: 02/20/19 0450 02/20/19 0450 Results 24hrs Laboratory Tests Test 02/20/19 04:50 White Blood Count 10.9 H Red Blood Count 3.69 L Hemoglobin 9.7 L Hematocrit 31.6 L Mean Corpuscular Volume 85.6 Mean Corpuscular Hemoglobin 26.3 L Mean Corpuscular Hemoglobin Concent 30.7 L Red Cell Distribution Width 13.6 Platelet Count 594 H Mean Platelet Volume 8.7 Immature Granulocytes % 0.600 H Neutrophils % 65.8 Lymphocytes % 20.6 Monocytes % 7.4 Eosinophils % 5.0 Basophils % 0.6 Nucleated Red Blood Cells % 0.0 Immature Granulocytes # 0.060 H Neutrophils # 7.2 Lymphocytes # 2.2 Monocytes # 0.8 Eosinophils # 0.5 Basophils # 0.1 Nucleated Red Blood Cells # 0.0 Sodium Level 142 Potassium Level 3.6 Chloride Level 103 Carbon Dioxide Level 29 Anion Gap 10 Blood Urea Nitrogen 12 Creatinine 1.05 H Est Glomerular Filtrat Rate mL/min 54 L Glucose Level 108 Calcium Level 9.7 Phosphorus Level 4.4 Magnesium Level 2.0 Medications Medication Current Medications Acetaminophen (Tylenol Tab) 650 mg Q6H PRN PO MILD PAIN(1-3)OR ELEVATED TEMP Last administered on 02/19/19at 08:01; Admin Dose 650 MG; Start 02/11/19 at 03:00 Ondansetron HCl (Zofran Inj) 4 mg Q4H PRN IV NAUSEA AND/OR VOMITING; Start 02/11/19 at 03:00 Pantoprazole (Protonix Tab) 40 mg DAILY@06 PO Last administered on 02/20/19at 06:03; Admin Dose 40 MG; Start 02/11/19 at 06:00 Piperacillin Sod/ Tazobactam Sod 100 ml @ 200 mls/hr Q8 IVPB Last administered on 02/20/19at 13:07; Admin Dose 200 MLS/HR; Start 02/11/19 at 06:00 Morphine Sulfate (morphine) 2 mg Q4H PRN IV SEVERE PAIN LEVEL 7-10 Last administered on 02/15/19 14:16; Admin Dose 2 MG; Start 02/11/19 at 03:00 Amlodipine Besylate (Norvasc) 5 mg DAILY PO Last administered on 02/20/19 08:55; Admin Dose 5 MG; Start 02/11/19 at 09:00 Azelastine HCl (Astelin) 1 spray BID NASAL Last administered on 02/20/19 0 8:56; Admin Dose 1 SPRAY; Start 02/11/19 at 09:00 Fluticasone Propionate (Flonase 0.05% Nasal) 1 spray BID NASAL Last administered on 02/20/19 08:56; Admin Dose 1 SPRAY; Start 02/11/19 at 09:00 Gabapentin (Neurontin) 300 mg DAILY PO Last administered on 02/20/19 08:56; Admin Dose 300 MG; Start 02/11/19 at 09:00 Loratadine (Claritin) 10 mg DAILY PO Last administered on 02/20/19 08:56; Admin Dose 10 MG; Start 02/11/19 at 09:00 Cholecalciferol (Vitamin D) 2,000 unit DAILY PO Last administered on 02/20/19 08:56; Admin Dose 2,000 UNIT; Start 02/11/19 at 09:00 Atorvastatin Calcium (Lipitor) 10 mg DAILY PO Last administered on 02/20/19 08:55; Admin Dose 10 MG; Start 02/11/19 at 09:00 Budesonide (Pulmicort (Neb)) 0.5 mg BID PRN NEB WHEEZING AND SOB Last administered on 02/15/19 20:33; Admin Dose 0.5 MG; Start 02/11/19 at 03:30 Acetaminophen (Tylenol Tab) 650 mg Q4H PRN PO MILD PAIN(1-3)OR ELEVATED TEMP Last administered on 02/12/19 12:00; Admin Dose 650 MG; Start 02/12/19 at 12:00 Calcium Carbonate (Oyster Shell Calcium) 1.25 gm BID NGT Last administered on 02/20/19 08:56; Admin Dose 1.25 GM; Start 02/12/19 at 14:00 Oxycodone HCl (Roxicodone) 5 mg Q4H PRN PO MODERATE PAIN LEVEL 4-6 Last administered on 02/19/19 23:14; Admin Dose 5 MG; Start 02/13/19 at 17:00 Oxycodone HCl (Roxicodone) 10 mg Q4H PRN PO MODERATE PAIN LEVEL 7-10 Last administered on 02/14/19 21:20; Admin Dose 10 MG; Start 02/13/19 at 17:00 Aspirin (Halfprin) 81 mg BID PO Last administered on 02/17/19 20:18; Admin Dose 81 MG; Start 02/14/19 at 21:00; Status Hold Escitalopram Oxalate (Lexapro) 20 mg DAILY PO Last administered on 02/20/19 08:56; Admin Dose 20 MG; Start 02/17/19 at 09:00 Potassium Chloride (Klor-Con 20) 20 meq DAILY PO Last administered on 02/20/19 08:56; Admin Dose 20 MEQ; Start 02/20/19 at 09:00 Diphenhydramine/ Zinc Oxide (Benadryl 1% Cr) 1 applic BID PRN TOP Itching Last administered on 02/19/19 21:27; Admin Dose 1 APPLIC; Start 02/19/19 at 09:00 LIDYA BEST MD Feb 20, 2019 15:05
[2019-02-20 20:00] VITALS: BP 121/58; PULSE 65; RESP 19
[2019-02-20] MEDS: CLOTRIMAZOLE 1% 45 GM VAG CR VAG SCH (21:25)
[2019-02-20] MEDS: oxyCODONE 5 MG TAB PO PRN (22:33)
[2019-02-21 02:00] VITALS: BP 114/57; PULSE 68; RESP 19
[2019-02-21] MEDS: PIPER-TAZO 3.375 GM IV (PMX) 100 ML IVPB SCH ×3 (05:51→22:16)
[2019-02-21] MEDS: PANTOPRAZOLE (EC) 40 MG TAB PO SCH (05:51)
[2019-02-21 08:00] VITALS: BP 133/63; PULSE 86; RESP 20
[2019-02-21] MEDS: AZELASTINE 30 ML NAS SPRAY NASAL SCH ×2 (08:33→22:16)
[2019-02-21] MEDS: POTASSIUM CHLORIDE (SR) 20 MEQ TAB PO SCH (08:33)
[2019-02-21] MEDS: FLUTICASONE 0.05% 16 GM NAS SPRAY NASAL SCH ×2 (08:33→22:16)
[2019-02-21] MEDS: GABAPENTIN 300 MG CAP PO SCH (08:35)
[2019-02-21] MEDS: LORATADINE 10 MG TAB PO SCH (08:35)
[2019-02-21] MEDS: CALCIUM CARBONATE 1.25 GM TAB NGT SCH ×2 (08:35→22:16)
[2019-02-21] MEDS: AMLODIPINE 5 MG TAB PO SCH (08:35)
[2019-02-21] MEDS: ATORVASTATIN 10 MG TAB PO SCH (08:35)
[2019-02-21] MEDS: CHOLECALCIFEROL 2,000 UNIT CAP PO SCH (08:35)
[2019-02-21] MEDS: ESCITALOPRAM 20 MG TAB PO SCH (08:35)
--- NOTE | 2019-02-21 10:58 | PN ---
Date/Time of Note Date/Time of Note DATE: 02/21/19 TIME: 10:57 Assessment/Plan Lines/Catheters IV Catheter Type (from [facility], [place]): Peripheral IV Leo in Place (from [facility], [place]): No Assessment/Plan Chief Complaint/Hosp Course 1. Small contained perforated diverticulitis without drainable collection -full liquids -Continue IV antibiotics -IV fluids -Close monitoring -Outpatient follow-up for eventual laparoscopic elective colon resection 2. Leukocytosis and fever secondary to above: WBC slight uptick 3. BMI 39, Hepatomegaly -Encourage nutrition and exercise optimization 4. Hypertension -Nutrition and medication optimization -Weight loss encouraged 5. GERD -Nutrition and lifestyle optimization encouraged -Weight loss encouraged 6. ? Gallstones; no gallstones per CT -monitor 7. Anemia; dark stools overnight -Per medical team -monitor 8. Renal insufficiency -judicious fluids -minimize narcotics 9. Left lower lobe nodule: -Repeat CT in a few months, outpatient follow-up 10. Status post right TKA -Per orthopedic Thank you. Patient seen and examined in collaboration with Dr. Lance Leiva. Subjective 24 Hr Interval Summary Feels well. No fevers, chills, sob, congested cough, cp, palpitations, sharpe, dizziness, n/v/d/dysuria. Tolerating clears. Exam/Review of Systems Vital Signs Vitals Vital Signs Date Temp Pulse Resp B/P (MAP) Pulse Ox O2 O2 Flow FiO2 Time Delivery Rate 02/21/19 98.6 86 20 133/63 96 08:00 (86) 02/20/19 21 08:42 02/19/19 Room Air 14:19 02/17/19 20:00 Intake and Output 02/20/19 02/20/19 02/21/19 1414:59 22:59 06:59 IntakeIntake Total 770 ml 862 ml 540 ml OutputOutput Total 800 ml 400 ml BalanceBalance -30 ml 462 ml 540 ml Exam Free Text/Dictation Constitutional: alert, oriented, obese; No distress Psych: anxiety Head: normocephalic, atraumatic Eyes: nl conjunctiva, EOMI, PERRL; No icteric ENMT: nl external ears & nose, nl lips & teeth, mucosa pink and moist Neck: supple, non-tender; No jvd Respiratory: normal air movement; No congested cough, No labored breathing, No wheezing Cardiovascular: regular rate and rhythm; No edema Gastrointestinal: soft, nontender No distended, No firm, No rebound or guarding Musculoskeletal: nl extremities to inspection; No joint tenderness Extremities: normal pulses; No calf tenderness, No cyanosis, No edema Neurological: nl mental status, nl speech, nl strength Skin: nl turgor; No rash or lesions Lymph: nl lymph nodes Results Result Diagram: 02/20/19 1743 02/20/19 0450 ANDREAS DELEON NP Feb 21, 2019 10:58
[2019-02-21 14:00] VITALS: BP 123/59; PULSE 65; RESP 18
--- NOTE | 2019-02-21 15:07 | CONS ---
Assessment/Plan Assessment/Plan Hospital Course (Demo Recall) Alert, feels better, asking for diet change to regular, no fevers CT of the abdomen and pelvis with contrast revealed diverticulitis of the upper sigmoid colon with contained micro perforation and slight contained fluid but no sizable collection Microbiology: Right knee fluid culture grew coag negative staph species susceptible to ciprofloxacin clindamycin doxycycline Antimicrobials: Zosyn Physical examination: This is obese well-developed middle-aged woman who is alert in no distress. Head atraumatic normocephalic sclera nonicteric vehicle mucosa dry neck is supple chest rise symmetrical breath sounds clear. Heart: Mask S1-S2 abdomen soft patient has some tenderness over right upper quadrant on palpation no suprapubic tenderness bowel sounds present. Extremities without cyanosis Assessment: 1. SIRS 2. Acute diverticulitis with microperforation 2. Right knee cellulitis, improved 3. History of recent right total knee replacement 01/29/19 4. Morbid obesity 5. Acute anemia 6. Hypoxemia secondary to fluid overload, improved Plan: Improving, continue antibiotics, anticipate dc on Cipro and Flagyl Consultation Date/Type/Reason Admit Date/Time Feb 11, 2019 at 00:10 Initial Consult Date 02/11/19 Type of Consult id Requesting Provider: JACQUI FUNES MD Date/Time of Note DATE: 02/21/19 TIME: 15:06 Exam/Review of Systems Exam Vitals Vital Signs Date Temp Pulse Resp B/P (MAP) Pulse Ox O2 O2 Flow FiO2 Time Delivery Rate 02/21/19 98.6 86 20 133/63 96 08:00 (86) 02/20/19 21 08:42 02/19/19 Room Air 14:19 02/17/19 20:00 Intake and Output 02/20/19 02/20/19 02/21/19 1515:00 23:00 07:00 IntakeIntake Total 770 ml 862 ml 540 ml OutputOutput Total 800 ml 400 ml BalanceBalance -30 ml 462 ml 540 ml Results Result Diagram: 02/21/19 1044 02/20/19 0450 Results 24hrs Laboratory Tests Test 02/20/19 17:43 02/20/19 18:35 02/21/19 10:44 Hemoglobin 9.6 L 9.3 L Stool Occult Blood POSITIVE White Blood Count 9.8 Red Blood Count 3.51 L Hematocrit 29.1 L Mean Corpuscular Volume 82.9 Mean Corpuscular Hemoglobin 26.5 L Mean Corpuscular Hemoglobin Concent 32.0 Red Cell Distribution Width 13.4 Platelet Count 537 H Mean Platelet Volume 8.5 Immature Granulocytes % 0.400 Neutrophils % 66.9 Lymphocytes % 19.9 Monocytes % 7.1 Eosinophils % 4.9 Basophils % 0.8 Nucleated Red Blood Cells % 0.0 Immature Granulocytes # 0.040 H Neutrophils # 6.5 Lymphocytes # 1.9 Monocytes # 0.7 Eosinophils # 0.5 Basophils # 0.1 Nucleated Red Blood Cells # 0.0 Medications Medication Current Medications Acetaminophen (Tylenol Tab) 650 mg Q6H PRN PO MILD PAIN(1-3)OR ELEVATED TEMP Last administered on 02/19/19 08:01; Admin Dose 650 MG; Start 02/11/19 at 03:00 Ondansetron HCl (Zofran Inj) 4 mg Q4H PRN IV NAUSEA AND/OR VOMITING; Start 02/11/19 at 03:00 Pantoprazole (Protonix Tab) 40 mg DAILY@06 PO Last administered on 02/21/19 05:51; Admin Dose 40 MG; Start 02/11/19 at 06:00 Piperacillin Sod/ Tazobactam Sod 100 ml @ 200 mls/hr Q8 IVPB Last administered on 02/21/19 13:32; Admin Dose 200 MLS/HR; Start 02/11/19 at 06:00 Morphine Sulfate (morphine) 2 mg Q4H PRN IV SEVERE PAIN LEVEL 7-10 Last administered on 02/15/19 14:16; Admin Dose 2 MG; Start 02/11/19 at 03:00 Amlodipine Besylate (Norvasc) 5 mg DAILY PO Last administered on 02/21/19 08:35; Admin Dose 5 MG; Start 02/11/19 at 09:00 Azelastine HCl (Astelin) 1 spray BID NASAL Last administered on 02/21/19 08:33; Admin Dose 1 SPRAY; Start 02/11/19 at 09:00 Fluticasone Propionate (Flonase 0.05% Nasal) 1 spray BID NASAL Last adminis tered on 02/21/19 08:33; Admin Dose 1 SPRAY; Start 02/11/19 at 09:00 Gabapentin (Neurontin) 300 mg DAILY PO Last administered on 02/21/19 08:35; Admin Dose 300 MG; Start 02/11/19 at 09:00 Loratadine (Claritin) 10 mg DAILY PO Last administered on 02/21/19 08:35; Admin Dose 10 MG; Start 02/11/19 at 09:00 Cholecalciferol (Vitamin D) 2,000 unit DAILY PO Last administered on 02/21/19 08:35; Admin Dose 2,000 UNIT; Start 02/11/19 at 09:00 Atorvastatin Calcium (Lipitor) 10 mg DAILY PO Last administered on 02/21/19 08:35; Admin Dose 10 MG; Start 02/11/19 at 09:00 Budesonide (Pulmicort (Neb)) 0.5 mg BID PRN NEB WHEEZING AND SOB Last administered on 02/15/19 20:33; Admin Dose 0.5 MG; Start 02/11/19 at 03:30 Acetaminophen (Tylenol Tab) 650 mg Q4H PRN PO MILD PAIN(1-3)OR ELEVATED TEMP Last administered on 02/12/19 12:00; Admin Dose 650 MG; Start 02/12/19 at 12:00 Calcium Carbonate (Oyster Shell Calcium) 1.25 gm BID NGT Last administered on 02/21/19 08:35; Admin Dose 1.25 GM; Start 02/12/19 at 14:00 Oxycodone HCl (Roxicodone) 5 mg Q4H PRN PO MODERATE PAIN LEVEL 4-6 Last administered on 02/20/19 22:33; Admin Dose 5 MG; Start 02/13/19 at 17:00 Oxycodone HCl (Roxicodone) 10 mg Q4H PRN PO MODERATE PAIN LEVEL 7-10 Last administered on 02/14/19 21:20; Admin Dose 10 MG; Start 02/13/19 at 17:00 Aspirin (Halfprin) 81 mg BID PO Last administered on 02/17/19 20:18; Admin Dose 81 MG; Start 02/14/19 at 21:00; Status Hold Escitalopram Oxalate (Lexapro) 20 mg DAILY PO Last administered on 02/21/19 08:35; Admin Dose 20 MG; Start 02/17/19 at 09:00 Potassium Chloride (Klor-Con 20) 20 meq DAILY PO Last administered on 02/21/19 08:33; Admin Dose 20 MEQ; Start 02/20/19 at 09:00 Diphenhydramine/ Zinc Oxide (Benadryl 1% Cr) 1 applic BID PRN TOP Itching Last administered on 02/19/19at 21:27; Admin Dose 1 APPLIC; Start 02/19/19 at 09:00 Dextrose/Sodium Chloride 1,000 ml @ 20 mls/hr Q24H IV Last administered on 02/20/19at 16:23; Admin Dose 20 MLS/HR; Start 02/20/19 at 16:00 Clotrimazole (Clotrim 1% Vaginal Cr) 1 applic HS VAG Last administered on 02/20/19at 21:25; Admin Dose 1 APPLIC; Start 02/20/19 at 21:00; Stop 02/23/19 at 21:00 CRISTHIAN HARVEY NP Feb 21, 2019 15:07
[2019-02-21] MEDS: DEXTROSE 5%-0.45% NACL 1,000 ML IV SCH (16:00)
--- NOTE | 2019-02-21 17:35 | PN ---
Date/Time of Note Date/Time of Note DATE: 02/21/19 TIME: 17:32 Assessment/Plan VTE Prophylaxis Risk score (from [facility])>0 risk: 4 SCD applied (from [facility]): No SCD contraindicated: low risk/ambulating Pharmacological prophylaxis: NA/contraindicated Pharm contraindication: low risk/ambulating Lines/Catheters IV Catheter Type (from [facility]): Peripheral IV Urinary Cath still in place: No Assessment/Plan Hospital Course hospital Course 1. SIRS Fevers, leukocytosis, status post right total knee replacement on . , Fluid tap from knee is essentially neg and bld cx neg so far, UA neg , new chest xray+ Pul edema and ct chest + effusions, NOW CT A+P diverticulitis/enteritis, repeat CT scan +contained perforation Heath to full liquid diet today 2. History of hypertension, 3. Hyperlipidemia. 4. Obesity. 5. GERD. 6. Allergic rhinitis. 7. Mood disorder. 8 anemia with acute blood loss? hematoma vs hemodilutional , improved sp 1 unit prbc 9. SOB likely due to pul edema sp iv fluids evident on chest xray likely due to CHF . CT chest neg for PE, ECHO diastolic dysfunction now much improved off oxygen 10. CHF, diastolic 11 Nose bleed with ASA stopped 12 blanca likey pre renal 13 vaginal candidiasis Assessment/Plan gentle IV fluids - full liquid diet advance per surgery - cw zosyn - hold lasix due to BLANCA - hold asa due to nose bleed - Fu GI/Pul/ ID recs -Clotrim oxazole cream - GI proph. Protonix -DVT prophylaxis unable to utilize due to anemia - fu PUL/ ID and ortho recs Result Diagram: 02/21/19 1044 02/20/19 0450 Results 24hrs Laboratory Tests Test 02/20/19 17:43 02/20/19 18:35 02/21/19 10:44 Hemoglobin 9.6 L 9.3 L Stool Occult Blood POSITIVE White Blood Count 9.8 Red Blood Count 3.51 L Hematocrit 29.1 L Mean Corpuscular Volume 82.9 Mean Corpuscular Hemoglobin 26.5 L Mean Corpuscular Hemoglobin Concent 32.0 Red Cell Distribution Width 13.4 Platelet Count 537 H Mean Platelet Volume 8.5 Immature Granulocytes % 0.400 Neutrophils % 66.9 Lymphocytes % 19.9 Monocytes % 7.1 Eosinophils % 4.9 Basophils % 0.8 Nucleated Red Blood Cells % 0.0 Immature Granulocytes # 0.040 H Neutrophils # 6.5 Lymphocytes # 1.9 Monocytes # 0.7 Eosinophils # 0.5 Basophils # 0.1 Nucleated Red Blood Cells # 0.0 Subjective 24 Hr Interval Summary Free Text/Dictation Better today No BM today. No fevers patient advance to full liquid per surgery Exam/Review of Systems Exam Vitals Vital Signs Date Temp Pulse Resp B/P (MAP) Pulse Ox O2 O2 Flow FiO2 Time Delivery Rate 02/21/19 98.8 65 18 123/59 96 14:00 (80) 02/20/19 08:42 02/19/19 Room Air 14:19 02/17/19 20:00 Intake and Output 02/20/19 02/20/19 02/21/19 1515:00 23:00 07:00 IntakeIntake Total 770 ml 862 ml 540 ml OutputOutput Total 800 ml 400 ml BalanceBalance -30 ml 462 ml 540 ml Exam Constitutional: alert, oriented Head: normocephalic Eyes: nl conjunctiva Neck: supple Respiratory: diminished breath sounds Cardiovascular: regular rate and rhythm Gastrointestinal: soft, +tender Musculoskeletal: muscle weakness (right knee) some ecchymosis right foot Results Results 24hrs Laboratory Tests Test 02/20/19 17:43 02/20/19 18:35 02/21/19 10:44 Hemoglobin 9.6 L 9.3 L Stool Occult Blood POSITIVE White Blood Count 9.8 Red Blood Count 3.51 L Hematocrit 29.1 L Mean Corpuscular Volume 82.9 Mean Corpuscular Hemoglobin 26.5 L Mean Corpuscular Hemoglobin Concent 32.0 Red Cell Distribution Width 13.4 Platelet Count 537 H Mean Platelet Volume 8.5 Immature Granulocytes % 0.400 Neutrophils % 66.9 Lymphocytes % 19.9 Monocytes % 7.1 Eosinophils % 4.9 Basophils % 0.8 Nucleated Red Blood Cells % 0.0 Immature Granulocytes # 0.040 H Neutrophils # 6.5 Lymphocytes # 1.9 Monocytes # 0.7 Eosinophils # 0.5 Basophils # 0.1 Nucleated Red Blood Cells # 0.0 Medications Medication Current Medications Acetaminophen (Tylenol Tab) 650 mg Q6H PRN PO MILD PAIN(1-3)OR ELEVATED TEMP Last administered on 02/19/19at 08:01; Admin Dose 650 MG; Start 02/11/19 at 03:00 Ondansetron HCl (Zofran Inj) 4 mg Q4H PRN IV NAUSEA AND/OR VOMITING; Start 02/11/19 at 03:00 Pantoprazole (Protonix Tab) 40 mg DAILY@06 PO Last administered on 02/21/19 05:51; Admin Dose 40 MG; Start 02/11/19 at 06:00 Piperacillin Sod/ Tazobactam Sod 100 ml @ 200 mls/hr Q8 IVPB Last administered on 02/21/19 13:32; Admin Dose 200 MLS/HR; Start 02/11/19 at 06:00 Morphine Sulfate (morphine) 2 mg Q4H PRN IV SEVERE PAIN LEVEL 7-10 Last administered on 02/15/19 14:16; Admin Dose 2 MG; Start 02/11/19 at 03:00 Amlodipine Besylate (Norvasc) 5 mg DAILY PO Last administered on 02/21/19 08:35; Admin Dose 5 MG; Start 02/11/19 at 09:00 Azelastine HCl (Astelin) 1 spray BID NASAL Last administered on 02/21/19 08:33; Admin Dose 1 SPRAY; Start 02/11/19 at 09:00 Fluticasone Propionate (Flonase 0.05% Nasal) 1 spray BID NASAL Last administered on 02/21/19 08:33; Admin Dose 1 SPRAY; Start 02/11/19 at 09:00 Gabapentin (Neurontin) 300 mg DAILY PO Last administered on 02/21/19 08:35; Admin Dose 300 MG; Start 02/11/19 at 09:00 Loratadine (Claritin) 10 mg DAILY PO Last administered on 02/21/19 08:35; Admin Dose 10 MG; Start 02/11/19 at 09:00 Cholecalciferol (Vitamin D) 2,000 unit DAILY PO Last administered on 02/21/19 08:35; Admin Dose 2,000 UNIT; Start 02/11/19 at 09:00 Atorvastatin Calcium (Lipitor) 10 mg DAILY PO Last administered on 02/21/19 08:35; Admin Dose 10 MG; Start 02/11/19 at 09:00 Budesonide (Pulmicort (Neb)) 0.5 mg BID PRN NEB WHEEZING AND SOB Last administered on 02/15/19 20:33; Admin Dose 0.5 MG; Start 02/11/19 at 03:30 Acetaminophen (Tylenol Tab) 650 mg Q4H PRN PO MILD PAIN(1-3)OR ELEVATED TEMP Last administered on 02/12/19 12:00; Admin Dose 650 MG; Start 02/12/19 at 12:00 Calcium Carbonate (Oyster Shell Calcium) 1.25 gm BID NGT Last administered on 02/21/19 08:35; Admin Dose 1.25 GM; Start 02/12/19 at 14:00 Oxycodone HCl (Roxicodone) 5 mg Q4H PRN PO MODERATE PAIN LEVEL 4-6 Last administered on 02/20/19 22:33; Admin Dose 5 MG; Start 02/13/19 at 17:00 Oxycodone HCl (Roxicodone) 10 mg Q4H PRN PO MODERATE PAIN LEVEL 7-10 Last administered on 02/14/19 21:20; Admin Dose 10 MG; Start 02/13/19 at 17:00 Aspirin (Halfprin) 81 mg BID PO Last administered on 02/17/19 20:18; Admin Dose 81 MG; Start 02/14/19 at 21:00; Status Hold Escitalopram Oxalate (Lexapro) 20 mg DAILY PO Last administered on 02/21/19 08:35; Admin Dose 20 MG; Start 02/17/19 at 09:00 Potassium Chloride (Klor-Con 20) 20 meq DAILY PO Last administered on 02/21/19 08:33; Admin Dose 20 MEQ; Start 02/20/19 at 09:00 Diphenhydramine/ Zinc Oxide (Benadryl 1% Cr) 1 applic BID PRN TOP Itching Last administered on 02/19/19 21:27; Admin Dose 1 APPLIC; Start 02/19/19 at 09:00 Dextrose/Sodium Chloride 1,000 ml @ 20 mls/hr Q24H IV Last administered on 02/20/19 16:23; Admin Dose 20 MLS/HR; Start 02/20/19 at 16:00 Clotrimazole (Clotrim 1% Vaginal Cr) 1 applic HS VAG Last administered on 02/20/19 21:25; Admin Dose 1 APPLIC; Start 02/20/19 at 21:00; Stop 02/23/19 at 21:00 JACQUI FUNES MD Feb 21, 2019 17:35
--- NOTE | 2019-02-21 18:04 | CONS ---
Assessment/Plan Assessment/Plan Assessment/Plan (Daily) Hospital Course (Demo Recall) 59 yo female 1. Systemic inflammatory response syndrome with a fever, leukocytosis, status post right knee replacement. 2. Diverticulitis of upper sigmoid colon with contained microperforation 3. Hypertension. 4. Obesity. 5. Mood disorder. 6. Allergic rhinitis. 7. Anemia. -stable 8. Mild leukocytosis CT abd: 02/17 1. Diverticulitis of the upper sigmoid colon is again seen now with contained microperforation and slight contained fluid but no sizable collection. 2. Nodular consolidative changes of the lung bases appear improved from the prior although a 0.6 cm left lower lobe nodule remains. Correlation with older imaging or follow-up chest CT is suggested in the next few months to assess stability given the appearance on the more recent chest CT. 3. Small bilateral pleural effusions are improved from the prior. Plan Diet per surgery recommendation Continue abx IVF for hydration per primary Colonoscopy 6 weeks post resolution of diverticulitis and microperforation Advance diet slowly Consultation Date/Type/Reason Admit Date/Time Feb 11, 2019 at 00:10 Initial Consult Date 02/13/19 Requesting Provider: JACQUI FUNES MD Date/Time of Note DATE: 02/21/19 TIME: 18:03 24 HR Interval Summary Free Text/Dictation No abdominal pain no fever Constitutional: improved Exam/Review of Systems Exam Vitals Vital Signs Date Temp Pulse Resp B/P (MAP) Pulse Ox O2 O2 Flow FiO2 Time Delivery Rate 02/21/19 98.8 65 18 123/59 96 14:00 (80) 02/20/19 21 08:42 02/19/19 Room Air 14:19 02/17/19 20:00 Intake and Output 02/20/19 02/20/19 02/21/19 1515:00 23:00 07:00 IntakeIntake Total 770 ml 862 ml 540 ml OutputOutput Total 800 ml 400 ml BalanceBalance -30 ml 462 ml 540 ml Constitutional: alert, oriented, well developed Psych: no complaints, nl mood/affect Head: normocephalic, atraumatic Eyes: nl conjunctiva, EOMI, nl lids, nl sclera, PERRL ENMT: nl external ears & nose, nl lips & teeth, nl nasal mucosa & septum Neck: supple, non-tender Respiratory: clear to auscultation, normal air movement Cardiovascular: regular rate and rhythm, nl pulses Gastrointestinal: soft, nl liver, spleen, non-tender Musculoskeletal: nl extremities to inspection, nl gait and stance Extremities: normal pulses Neurological: MANAGER MANAGEMENT II-XII intact, nl mental status, nl speech, nl strength Skin: nl turgor; No rash or lesions Lymph: nl lymph nodes Results Result Diagram: 02/21/19 1044 02/20/19 0450 Results 24hrs Laboratory Tests Test 02/20/19 18:35 02/21/19 10:44 Stool Occult Blood POSITIVE White Blood Count 9.8 Red Blood Count 3.51 L Hemoglobin 9.3 L Hematocrit 29.1 L Mean Corpuscular Volume 82.9 Mean Corpuscular Hemoglobin 26.5 L Mean Corpuscular Hemoglobin Concent 32.0 Red Cell Distribution Width 13.4 Platelet Count 537 H Mean Platelet Volume 8.5 Immature Granulocytes % 0.400 Neutrophils % 66.9 Lymphocytes % 19.9 Monocytes % 7.1 Eosinophils % 4.9 Basophils % 0.8 Nucleated Red Blood Cells % 0.0 Immature Granulocytes # 0.040 H Neutrophils # 6.5 Lymphocytes # 1.9 Monocytes # 0.7 Eosinophils # 0.5 Basophils # 0.1 Nucleated Red Blood Cells # 0.0 Medications Medication Current Medications Acetaminophen (Tylenol Tab) 650 mg Q6H PRN PO MILD PAIN(1-3)OR ELEVATED TEMP Last administered on 02/19/19at 08:01; Admin Dose 650 MG; Start 02/11/19 at 03:00 Ondansetron HCl (Zofran Inj) 4 mg Q4H PRN IV NAUSEA AND/OR VOMITING; Start 02/11/19 at 03:00 Pantoprazole (Protonix Tab) 40 mg DAILY@06 PO Last administered on 02/21/19at 05:51; Admin Dose 40 MG; Start 02/11/19 at 06:00 Piperacillin Sod/ Tazobactam Sod 100 ml @ 200 mls/hr Q8 IVPB Last administered on 02/21/19at 13:32; Admin Dose 200 MLS/HR; Start 02/11/19 at 06:00 Morphine Sulfate (morphine) 2 mg Q4H PRN IV SEVERE PAIN LEVEL 7-10 Last administered on 02/15/19at 14:16; Admin Dose 2 MG; Start 02/11/19 at 03:00 Amlodipine Besylate (Norvasc) 5 mg DAILY PO Last administered on 02/21/19 08:35; Admin Dose 5 MG; Start 02/11/19 at 09:00 Azelastine HCl (Astelin) 1 spray BID NASAL Last administered on 02/21/19 08:33; Admin Dose 1 SPRAY; Start 02/11/19 at 09:00 Fluticasone Propionate (Flonase 0.05% Nasal) 1 spray BID NASAL Last administered on 02/21/19 08:33; Admin Dose 1 SPRAY; Start 02/11/19 at 09:00 Gabapentin (Neurontin) 300 mg DAILY PO Last administered on 02/21/19 08:35; Admin Dose 300 MG; Start 02/11/19 at 09:00 Loratadine (Claritin) 10 mg DAILY PO Last administered on 02/21/19 08:35; Admin Dose 10 MG; Start 02/11/19 at 09:00 Cholecalciferol (Vitamin D) 2,000 unit DAILY PO Last administered on 02/21/19 08:35; Admin Dose 2,000 UNIT; Start 02/11/19 at 09:00 Atorvastatin Calcium (Lipitor) 10 mg DAILY PO Last administered on 02/21/19 08:35; Admin Dose 10 MG; Start 02/11/19 at 09:00 Budesonide (Pulmicort (Neb)) 0.5 mg BID PRN NEB WHEEZING AND SOB Last administered on 02/15/19 20:33; Admin Dose 0.5 MG; Start 02/11/19 at 03:30 Acetaminophen (Tylenol Tab) 650 mg Q4H PRN PO MILD PAIN(1-3)OR ELEVATED TEMP Last administered on 02/12/19 12:00; Admin Dose 650 MG; Start 02/12/19 at 12:00 Calcium Carbonate (Oyster Shell Calcium) 1.25 gm BID NGT Last administered on 02/21/19 08:35; Admin Dose 1.25 GM; Start 02/12/19 at 14:00 Oxycodone HCl (Roxicodone) 5 mg Q4H PRN PO MODERATE PAIN LEVEL 4-6 Last administered on 02/20/19 22:33; Admin Dose 5 MG; Start 02/13/19 at 17:00 Oxycodone HCl (Roxicodone) 10 mg Q4H PRN PO MODERATE PAIN LEVEL 7-10 Last administered on 02/14/19 21:20; Admin Dose 10 MG; Start 02/13/19 at 17:00 Aspirin (Halfprin) 81 mg BID PO Last administered on 02/17/19 20:18; Admin Dose 81 MG; Start 02/14/19 at 21:00; Status Hold Escitalopram Oxalate (Lexapro) 20 mg DAILY PO Last administered on 02/21/19 08:35; Admin Dose 20 MG; Start 02/17/19 at 09:00 Potassium Chloride (Klor-Con 20) 20 meq DAILY PO Last administered on 02/21/19 08:33; Admin Dose 20 MEQ; Start 02/20/19 at 09:00 Diphenhydramine/ Zinc Oxide (Benadryl 1% Cr) 1 applic BID PRN TOP Itching Last administered on 02/19/19 21:27; Admin Dose 1 APPLIC; Start 02/19/19 at 09:00 Dextrose/Sodium Chloride 1,000 ml @ 20 mls/hr Q24H IV Last administered on 02/20/19 16:23; Admin Dose 20 MLS/HR; Start 02/20/19 at 16:00 Clotrimazole (Clotrim 1% Vaginal Cr) 1 applic HS VAG Last administered on 02/20/19 21:25; Admin Dose 1 APPLIC; Start 02/20/19 at 21:00; Stop 02/23/19 at 21:00 LIDYA BEST MD Feb 21, 2019 18:04
[2019-02-21 21:07] VITALS: BP 150/66; PULSE 73; RESP 20
[2019-02-21] MEDS: CLOTRIMAZOLE 1% 45 GM VAG CR VAG SCH (22:16)
[2019-02-21] MEDS: oxyCODONE 5 MG TAB PO PRN (22:17)
[2019-02-22] MEDS: DIPHENHYDRAMINE 1%/ZINC 28.3 GM CR TOP PRN (00:33)
[2019-02-22 03:03] VITALS: BP 122/60; PULSE 68; RESP 18
[2019-02-22] MEDS: PANTOPRAZOLE (EC) 40 MG TAB PO SCH (06:25)
[2019-02-22] MEDS: PIPER-TAZO 3.375 GM IV (PMX) 100 ML IVPB SCH (06:25)
[2019-02-22 08:00] VITALS: BP 125/58; PULSE 80; RESP 18
[2019-02-22] MEDS: AZELASTINE 30 ML NAS SPRAY NASAL SCH (08:24)
[2019-02-22] MEDS: LORATADINE 10 MG TAB PO SCH (08:24)
[2019-02-22] MEDS: CALCIUM CARBONATE 1.25 GM TAB NGT SCH (08:25)
[2019-02-22] MEDS: ESCITALOPRAM 20 MG TAB PO SCH (08:25)
[2019-02-22] MEDS: GABAPENTIN 300 MG CAP PO SCH (08:26)
[2019-02-22] MEDS: POTASSIUM CHLORIDE (SR) 20 MEQ TAB PO SCH (08:28)
[2019-02-22] MEDS: CHOLECALCIFEROL 2,000 UNIT CAP PO SCH (08:28)
[2019-02-22] MEDS: ATORVASTATIN 10 MG TAB PO SCH (08:29)
[2019-02-22] MEDS: FLUTICASONE 0.05% 16 GM NAS SPRAY NASAL SCH (08:29)
[2019-02-22] MEDS: AMLODIPINE 5 MG TAB PO SCH (08:53)
--- NOTE | 2019-02-22 10:35 | PN ---
Date/Time of Note Date/Time of Note DATE: 02/22/19 TIME: 10:32 Assessment/Plan Lines/Catheters IV Catheter Type (from [facility]): Peripheral IV Leo in Place (from [facility]): No Assessment/Plan Chief Complaint/Hosp Course 1. Small contained perforated diverticulitis without drainable collection -soft diet; if tolerates diet ok for dc from surgical standpoint with abx per ID -Outpatient follow-up for eventual laparoscopic elective colon resection> discussed with patient 2. Leukocytosis and fever secondary to above: resolved 3. BMI 39, Hepatomegaly -Encourage nutrition and exercise optimization 4. Hypertension -Nutrition and medication optimization -Weight loss encouraged 5. GERD -Nutrition and lifestyle optimization encouraged -Weight loss encouraged 6. ? Gallstones; no gallstones per CT -monitor 7. Anemia; dark stools overnight -Per medical team -monitor 8. Renal insufficiency: improved -judicious fluids -minimize narcotics 9. Left lower lobe nodule: -Repeat CT in a few months, outpatient follow-up 10. Status post right TKA -Per orthopedic Thank you. Patient seen and examined in collaboration with Dr. Lance Leiva. Subjective 24 Hr Interval Summary Feels well. No fevers, chills, sob, congested cough, cp, palpitations, sharpe, dizziness, n/v/d/dysuria. tolerated full liquids. Exam/Review of Systems Vital Signs Vitals Vital Signs Date Temp Pulse Resp B/P (MAP) Pulse Ox O2 O2 Flow FiO2 Time Delivery Rate 02/22/19 98.8 80 18 125/58 96 08:00 (80) 02/20/19 21 08:42 02/19/19 Room Air 14:19 Intake and Output 02/21/19 02/21/19 02/22/19 1515:00 23:00 07:00 IntakeIntake Total 760 ml 1640 ml 340 ml BalanceBalance 760 ml 1640 ml 340 ml Exam Free Text/Dictation Constitutional: alert, oriented, obese; No distress Psych: anxiety Head: normocephalic, atraumatic Eyes: nl conjunctiva, EOMI, PERRL; No icteric ENMT: nl external ears & nose, nl lips & teeth, mucosa pink and moist Neck: supple, non-tender; No jvd Respiratory: normal air movement; No congested cough, No labored breathing, No wheezing Cardiovascular: regular rate and rhythm; No edema Gastrointestinal: soft, nontender No distended, No firm, No rebound or guarding Musculoskeletal: nl extremities to inspection; No joint tenderness Extremities: normal pulses; No calf tenderness, No cyanosis, No edema Neurological: nl mental status, nl speech, nl strength Skin: nl turgor; No rash or lesions Lymph: nl lymph nodes Results Result Diagram: 02/22/19 0519 02/22/19 0519 ANDREAS DELEON NP Feb 22, 2019 10:35
--- NOTE | 2019-02-22 13:40 | CONS ---
Assessment/Plan Assessment/Plan Hospital Course (Demo Recall) Alert, feels better no pain, no n./v/d 02/13 CT of the abdomen and pelvis with contrast revealed diverticulitis of the upper sigmoid colon with contained micro perforation and slight contained fluid but no sizable collection Microbiology: Right knee fluid culture grew coag negative staph species susceptible to ciprofloxacin clindamycin doxycycline Antimicrobials: Zosyn Physical examination: This is obese well-developed middle-aged woman who is alert in no distress. Head atraumatic normocephalic sclera nonicteric vehicle mucosa dry neck is supple chest rise symmetrical breath sounds clear. Heart: Mask S1-S2 abdomen soft patient has some tenderness over right upper quadrant on palpation no suprapubic tenderness bowel sounds present. Extremities without cyanosis Assessment: 1. SIRS 2. Acute diverticulitis with microperforation 2. Right knee cellulitis, improved 3. History of recent right total knee replacement 01/29/19 4. Morbid obesity 5. Acute anemia 6. Hypoxemia secondary to fluid overload, improved Plan: Continues to improve, anticipate dc on Cipro and Flagyl Consultation Date/Type/Reason Admit Date/Time Feb 11, 2019 at 00:10 Initial Consult Date 02/11/19 Type of Consult id Requesting Provider: JACQUI FUNES MD Date/Time of Note DATE: 02/22/19 TIME: 13:39 Exam/Review of Systems Exam Vitals Vital Signs Date Temp Pulse Resp B/P (MAP) Pulse Ox O2 O2 Flow FiO2 Time Delivery Rate 02/22/19 98.8 80 18 125/58 96 08:00 (80) 02/20/19 21 08:42 02/19/19 Room Air 14:19 Intake and Output 02/21/19 02/21/19 02/22/19 1515:00 23:00 07:00 IntakeIntake Total 760 ml 1640 ml 340 ml BalanceBalance 760 ml 1640 ml 340 ml Results Result Diagram: 02/22/1951802/22/19518 Results 24hrs Laboratory Tests Test 02/22/19 05:19 White Blood Count 9.5 Red Blood Count 3.77 L Hemoglobin 10.0 L Hematocrit 32.2 L Mean Corpuscular Volume 85.4 Mean Corpuscular Hemoglobin 26.5 L Mean Corpuscular Hemoglobin Concent 31.1 L Red Cell Distribution Width 13.4 Platelet Count 539 H Mean Platelet Volume 8.4 Immature Granulocytes % 0.400 Neutrophils % 60.4 Lymphocytes % 25.6 Monocytes % 7.8 Eosinophils % 4.9 Basophils % 0.9 Nucleated Red Blood Cells % 0.0 Immature Granulocytes # 0.040 H Neutrophils # 5.8 Lymphocytes # 2.4 Monocytes # 0.7 Eosinophils # 0.5 Basophils # 0.1 Nucleated Red Blood Cells # 0.0 Sodium Level 142 Potassium Level 3.8 Chloride Level 106 Carbon Dioxide Level 28 Anion Gap 8 Blood Urea Nitrogen 12 Creatinine 0.95 Est Glomerular Filtrat Rate mL/min > 60 Glucose Level 108 Calcium Level 9.7 Phosphorus Level 3.8 Magnesium Level 2.1 Medications Medication Current Medications Acetaminophen (Tylenol Tab) 650 mg Q6H PRN PO MILD PAIN(1-3)OR ELEVATED TEMP Last administered on 02/19/19 08:01; Admin Dose 650 MG; Start 02/11/19 at 03:00 Ondansetron HCl (Zofran Inj) 4 mg Q4H PRN IV NAUSEA AND/OR VOMITING; Start 02/11/19 at 03:00 Pantoprazole (Protonix Tab) 40 mg DAILY@06 PO Last administered on 02/22/19 06:25; Admin Dose 40 MG; Start 02/11/19 at 06:00 Piperacillin Sod/ Tazobactam Sod 100 ml @ 200 mls/hr Q8 IVPB Last administered on 02/22/19 06:25; Admin Dose 200 MLS/HR; Start 02/11/19 at 06:00 Morphine Sulfate (morphine) 2 mg Q4H PRN IV SEVERE PAIN LEVEL 7-10 Last a dministered on 02/15/19 14:16; Admin Dose 2 MG; Start 02/11/19 at 03:00 Amlodipine Besylate (Norvasc) 5 mg DAILY PO Last administered on 02/22/19 08:53; Admin Dose 5 MG; Start 02/11/19 at 09:00 Azelastine HCl (Astelin) 1 spray BID NASAL Last administered on 02/22/19 08:24; Admin Dose 1 SPRAY; Start 02/11/19 at 09:00 Fluticasone Propionate (Flonase 0.05% Nasal) 1 spray BID NASAL Last administere d on 02/22/19 08:29; Admin Dose 1 SPRAY; Start 02/11/19 at 09:00 Gabapentin (Neurontin) 300 mg DAILY PO Last administered on 02/22/19 08:26; Admin Dose 300 MG; Start 02/11/19 at 09:00 Loratadine (Claritin) 10 mg DAILY PO Last administered on 02/22/19 08:24; Admin Dose 10 MG; Start 02/11/19 at 09:00 Cholecalciferol (Vitamin D) 2,000 unit DAILY PO Last administered on 02/22/19 08:28; Admin Dose 2,000 UNIT; Start 02/11/19 at 09:00 Atorvastatin Calcium (Lipitor) 10 mg DAILY PO Last administered on 02/22/19 08:29; Admin Dose 10 MG; Start 02/11/19 at 09:00 Budesonide (Pulmicort (Neb)) 0.5 mg BID PRN NEB WHEEZING AND SOB Last administered on 02/15/19 20:33; Admin Dose 0.5 MG; Start 02/11/19 at 03:30 Acetaminophen (Tylenol Tab) 650 mg Q4H PRN PO MILD PAIN(1-3)OR ELEVATED TEMP Last administered on 02/12/19 12:00; Admin Dose 650 MG; Start 02/12/19 at 12:00 Calcium Carbonate (Oyster Shell Calcium) 1.25 gm BID NGT Last administered on 02/22/19 08:25; Admin Dose 1.25 GM; Start 02/12/19 at 14:00 Oxycodone HCl (Roxicodone) 5 mg Q4H PRN PO MODERATE PAIN LEVEL 4-6 Last administered on 02/21/19 22:17; Admin Dose 5 MG; Start 02/13/19 at 17:00 Oxycodone HCl (Roxicodone) 10 mg Q4H PRN PO MODERATE PAIN LEVEL 7-10 Last administered on 02/14/19 21:20; Admin Dose 10 MG; Start 02/13/19 at 17:00 Aspirin (Halfprin) 81 mg BID PO Last administered on 02/17/19 20:18; Admin Dose 81 MG; Start 02/14/19 at 21:00; Status Hold Escitalopram Oxalate (Lexapro) 20 mg DAILY PO Last administered on 02/22/19 08:25; Admin Dose 20 MG; Start 02/17/19 at 09:00 Potassium Chloride (Klor-Con 20) 20 meq DAILY PO Last administered on 02/22/19at 08:28; Admin Dose 20 MEQ; Start 02/20/19 at 09:00 Diphenhydramine/ Zinc Oxide (Benadryl 1% Cr) 1 applic BID PRN TOP Itching Last administered on 02/22/19at 00:33; Admin Dose 1 APPLIC; Start 02/19/19 at 09:00 Dextrose/Sodium Chloride 1,000 ml @ 20 mls/hr Q24H IV Last administered on 02/20/19at 16:23; Admin Dose 20 MLS/HR; Start 02/20/19 at 16:00 Clotrimazole (Clotrim 1% Vaginal Cr) 1 applic HS VAG Last administered on 02/21/19at 22:16; Admin Dose 1 APPLIC; Start 02/20/19 at 21:00; Stop 02/23/19 at 21:00 CRISTHIAN HARVEY NP Feb 22, 2019 13:39
[2019-02-22 14:00] VITALS: BP 121/60; PULSE 87; RESP 18
--- NOTE | 2019-02-22 14:56 | CONS ---
Assessment/Plan Assessment/Plan Assessment/Plan (Daily) Assessment/Plan (Daily) Hospital Course (Demo Recall) 59 yo female 1. Systemic inflammatory response syndrome with a fever, leukocytosis, status post right knee replacement. 2. Diverticulitis of upper sigmoid colon with contained microperforation 3. Hypertension. 4. Obesity. 5. Mood disorder. 6. Allergic rhinitis. 7. Anemia. -stable 8. Mild leukocytosis CT abd: 02/17 1. Diverticulitis of the upper sigmoid colon is again seen now with contained microperforation and slight contained fluid but no sizable collection. 2. Nodular consolidative changes of the lung bases appear improved from the prior although a 0.6 cm left lower lobe nodule remains. Correlation with older imaging or follow-up chest CT is suggested in the next few months to assess stability given the appearance on the more recent chest CT. 3. Small bilateral pleural effusions are improved from the prior. Plan Diet per surgery recommendation Continue abx IVF for hydration per primary Colonoscopy 6 weeks post resolution of diverticulitis and microperforation Advance diet slowly Consultation Date/Type/Reason Admit Date/Time Feb 11, 2019 at 00:10 Initial Consult Date 02/13/19 Requesting Provider: JACQUI FUNES MD Date/Time of Note DATE: 02/22/19 TIME: 14:55 24 HR Interval Summary Constitutional: no complaints, improved Exam/Review of Systems Exam Vitals Vital Signs Date Temp Pulse Resp B/P (MAP) Pulse Ox O2 O2 Flow FiO2 Time Delivery Rate 02/22/19 98.8 80 18 125/58 96 08:00 (80) 02/20/19 21 08:42 02/19/19 Room Air 14:19 Intake and Output 02/21/19 02/21/19 02/22/19 1515:00 23:00 07:00 IntakeIntake Total 760 ml 1640 ml 340 ml BalanceBalance 760 ml 1640 ml 340 ml Constitutional: alert, oriented, well developed Psych: no complaints, nl mood/affect Head: normocephalic, atraumatic Eyes: nl conjunctiva, EOMI, nl lids, nl sclera, PERRL ENMT: nl external ears & nose, nl lips & teeth, nl nasal mucosa & septum Neck: supple, non-tender Respiratory: clear to auscultation, normal air movement Cardiovascular: regular rate and rhythm, nl pulses Gastrointestinal: soft, nl liver, spleen, non-tender Musculoskeletal: nl extremities to inspection, nl gait and stance Extremities: normal pulses Neurological: [employer] II-XII intact, nl mental status, nl speech, nl strength Skin: nl turgor; No rash or lesions Lymph: nl lymph nodes Results Result Diagram: 02/22/1951802/22/19518 Results 24hrs Laboratory Tests Test 02/22/19 05:19 White Blood Count 9.5 Red Blood Count 3.77 L Hemoglobin 10.0 L Hematocrit 32.2 L Mean Corpuscular Volume 85.4 Mean Corpuscular Hemoglobin 26.5 L Mean Corpuscular Hemoglobin Concent 31.1 L Red Cell Distribution Width 13.4 Platelet Count 539 H Mean Platelet Volume 8.4 Immature Granulocytes % 0.400 Neutrophils % 60.4 Lymphocytes % 25.6 Monocytes % 7.8 Eosinophils % 4.9 Basophils % 0.9 Nucleated Red Blood Cells % 0.0 Immature Granulocytes # 0.040 H Neutrophils # 5.8 Lymphocytes # 2.4 Monocytes # 0.7 Eosinophils # 0.5 Basophils # 0.1 Nucleated Red Blood Cells # 0.0 Sodium Level 142 Potassium Level 3.8 Chloride Level 106 Carbon Dioxide Level 28 Anion Gap 8 Blood Urea Nitrogen 12 Creatinine 0.95 Est Glomerular Filtrat Rate mL/min > 60 Glucose Level 108 Calcium Level 9.7 Phosphorus Level 3.8 Magnesium Level 2.1 Medications Medication Current Medications Acetaminophen (Tylenol Tab) 650 mg Q6H PRN PO MILD PAIN(1-3)OR ELEVATED TEMP Last administered on 02/19/19at 08:01; Admin Dose 650 MG; Start 02/11/19 at 03:00 Ondansetron HCl (Zofran Inj) 4 mg Q4H PRN IV NAUSEA AND/OR VOMITING; Start 02/11/19 at 03:00 Pantoprazole (Protonix Tab) 40 mg DAILY@06 PO Last administered on 02/22/19at 06:25; Admin Dose 40 MG; Start 02/11/19 at 06:00 Morphine Sulfate (morphine) 2 mg Q4H PRN IV SEVERE PAIN LEVEL 7-10 Last administered on 02/15/19at 14:16; Admin Dose 2 MG; Start 02/11/19 at 03:00 Amlodipine Besylate (Norvasc) 5 mg DAILY PO Last administered on 02/22/19 08:53; Admin Dose 5 MG; Start 02/11/19 at 09:00 Azelastine HCl (Astelin) 1 spray BID NASAL Last administered on 02/22/19 08:24; Admin Dose 1 SPRAY; Start 02/11/19 at 09:00 Fluticasone Propionate (Flonase 0.05% Nasal) 1 spray BID NASAL Last administered on 02/22/19 08:29; Admin Dose 1 SPRAY; Start 02/11/19 at 09:00 Gabapentin (Neurontin) 300 mg DAILY PO Last administered on 02/22/19 08:26; Admin Dose 300 MG; Start 02/11/19 at 09:00 Loratadine (Claritin) 10 mg DAILY PO Last administered on 02/22/19 08:24; Admin Dose 10 MG; Start 02/11/19 at 09:00 Cholecalciferol (Vitamin D) 2,000 unit DAILY PO Last administered on 02/22/19 08:28; Admin Dose 2,000 UNIT; Start 02/11/19 at 09:00 Atorvastatin Calcium (Lipitor) 10 mg DAILY PO Last administered on 02/22/19 08:29; Admin Dose 10 MG; Start 02/11/19 at 09:00 Budesonide (Pulmicort (Neb)) 0.5 mg BID PRN NEB WHEEZING AND SOB Last administered on 02/15/19 20:33; Admin Dose 0.5 MG; Start 02/11/19 at 03:30 Acetaminophen (Tylenol Tab) 650 mg Q4H PRN PO MILD PAIN(1-3)OR ELEVATED TEMP Last administered on 02/12/19 12:00; Admin Dose 650 MG; Start 02/12/19 at 12:00 Calcium Carbonate (Oyster Shell Calcium) 1.25 gm BID NGT Last administered on 02/22/19 08:25; Admin Dose 1.25 GM; Start 02/12/19 at 14:00 Oxycodone HCl (Roxicodone) 5 mg Q4H PRN PO MODERATE PAIN LEVEL 4-6 Last administered on 02/21/19 22:17; Admin Dose 5 MG; Start 02/13/19 at 17:00 Oxycodone HCl (Roxicodone) 10 mg Q4H PRN PO MODERATE PAIN LEVEL 7-10 Last administered on 7/11/19at 21:20; Admin Dose 10 MG; Start 02/13/19 at 17:00 Aspirin (Halfprin) 81 mg BID PO Last administered on 02/17/19 20:18; Admin Dose 81 MG; Start 02/14/19 at 21:00; Status Hold Escitalopram Oxalate (Lexapro) 20 mg DAILY PO Last administered on 02/22/19 08:25; Admin Dose 20 MG; Start 02/17/19 at 09:00 Potassium Chloride (Klor-Con 20) 20 meq DAILY PO Last administered on 02/22/19 08:28; Admin Dose 20 MEQ; Start 02/20/19 at 09:00 Diphenhydramine/ Zinc Oxide (Benadryl 1% Cr) 1 applic BID PRN TOP Itching Last administered on 02/22/19at 00:33; Admin Dose 1 APPLIC; Start 02/19/19 at 09:00 Dextrose/Sodium Chloride 1,000 ml @ 20 mls/hr Q24H IV Last administered on 02/20/19 16:23; Admin Dose 20 MLS/HR; Start 02/20/19 at 16:00 Clotrimazole (Clotrim 1% Vaginal Cr) 1 applic HS VAG Last administered on at 22:16; Admin Dose 1 APPLIC; Start 02/20/19 at 21:00; Stop 02/23/19 at 21:00 Ciprofloxacin (Cipro) 500 mg BID@06,18 PO ; Start 02/22/19 at 18:00 Metronidazole (Flagyl) 500 mg TID PO ; Start 02/22/19 at 21:00 LIDYA BEST MD Feb 22, 2019 14:55
--- NOTE | 2019-02-22 16:01 | PDOCDIS ---
Discharge Instructions DIAGNOSIS Discharge Diagnosis diverticulitis, s/p right knee replacement CONDITION [id number] Patient Condition: [id number] Stable HOME CARE INSTRUCTIONS: [id number] Diet Instructions: [id number] Reduced Sodium ACTIVITY: [id number] Activity Restrictions: [id number] Slowly Increase Activity Rest between Activity Avoid heavy lifting No Sexual Activity FOLLOW UP/APPOINTMENTS Follow-up Plan PCP 1 week -Dr Ayoub, ortho 2 weeks -rachel RATLIFF Pt for right knee ANGELIQUE VAUGHAN Feb 22, 2019 16:01
[2019-02-22] MEDS ORDERED: ATOR10TA65 PO (16:03)
[2019-02-22] MEDS ORDERED: Calcium Carbonate NGT (16:03)
[2019-02-22] MEDS ORDERED: METR500T PO (16:03)
[2019-02-22] MEDS ORDERED: CIPR500T4 PO (16:03)
[2019-02-22] MEDS ORDERED: Calcium Carbonate PO (16:05)
--- NOTE | 2019-02-22 16:09 | DS ---
Date/Time of Note Date/Time of Note DATE: 02/22/19 TIME: 16:09 Discharge Summary Admission/Discharge Info Admit Date/Time Feb 11, 2019 at 00:10 Discharge Date/Time Discharge Diagnosis diverticulitis, s/p right knee replacement Patient Condition: Stable Consults Dr. Kaiser, gastroenterology, Dr. eL, infectious disease DrMargret, Dr. Ayoub, orthopedic surgeon, Dr. Leiva, surgery, Dr. Wang, pulmonology Hospital Course This is a 59-year-old female with a past medical history of hypertension, history of chronic sinusitis, obesity, degenerative disease of right knee. Mood disorder, hypertension, who was admitted in [facility] from January 29 until January 30. The patient was seen by Dr. Ayoub and had a right knee replacement. The patient was doing better and the patient was discharged home and was told to follow up with Dr. Ayoub as an outpatient. According to the patient, the patient never saw any home health nurse or any physical therapy. The patient started noticing fevers for the last 3 days. The patient started saying that she was having worsening swelling on the right leg for past 3 to 4 days. The patient was having pain at the surgical site and it was difficult for her to ambulate. The patient was also having some nausea, some intermittent episodes of diarrhea and some intermittent right upper quadrant pain. The patient also said that she was also feeling some shortness of breath. She was having fevers of 103 at home that made her worried and came to the emergency department. On arrival to ED, vital signs showed initial temperature of 102.3, pulse was 98. Her blood pressure was 125/57. White count is 13.6, hemoglobin 8.5, platelet count 320, creatinine was 1.03, lactate was 2.5. Chest x-ray was negative. Knee x-ray was done that showed postop changes from total right knee replacement intact hardware. No evidence of any loosening and the patient was started on broad spectrum IV antibiotics with vancomycin and Zosyn and was adm itted for further management. PAST MEDICAL HISTORY: 1. Hypertension. 2. Mood disorder. 3. Allergic rhinitis. 4. Status post right total knee replacement on 01/29/2019. ALLERGIES: NONE. PAST SURGICAL HISTORY: The patient had 3 sinus surgeries. Impressions 1. SIRS Fevers, leukocytosis, status post right total knee replacement on . Fluid tap from knee is essentially neg and bld cx neg so far, UA neg , new chest xray+ Pul edema and ct chest + effusions, NOW CT A+P diverticulitis/enteritis 2. History of hypertension 3. Hyperlipidemia. 4. Obesity. 5. GERD. 6. Allergic rhinitis. 7. Mood disorder. 8. anemia with acute blood loss? hematoma vs hemodilutional , improved sp 1 unit prbc 9. SOB likely due to pulmonary edema, sp iv fluids evident on chest xray, likely due to CHF. CT chest neg for PE, ECHO diastolic dysfunction 10. CHF, diastolic During hospitalization patient was seen by numerous specialists. Dr. Ayoub orthopedic surgeon consult, the one who performed right knee replacement. He recommended ; perform right knee joint aspiration. After a few days synovial fluid results have returned. Total WBCs is 404 with a PMN percentage of 56.7% and a mononuclear percentage of 43.3%. He said that: He this is well under the excepted number of WBCs to be found in a total knee arthroplasty within 6 weeks of surgery. The excepted number is 27,800 WBCs with predominant PMNs within 6 weeks of surgery. The excepted number after 6 weeks of surgery is under 1200 WBCs. He suggested: That the concern for an acute infection of right knee is low. Blood cultures was negative, wound culture showed coagulase-negative staph infection. Dr. Ayoub recommended to continue IV antibiotics to treat the unknown source of infection as a systemic infection. we followed his recommendations. They have more knee x-ray and foot xray , grossly normal. Patient was on telemetry service. Your heart was sinus rhythm/sinus tachycardia with few PVCs. There were ultrasound of lower extremity done that was normal, no clots. Her pain was controlled. Hypoglycemic protocol is noted. Dr. Le, infectious disease specialist IV antibiotics. Patient reported shortness of breath and requested using supplemental oxygen 2 L nasal cannula. Chest x-ray was done pulmonology specialist Dr. Poe/Kathleen/Korey was called. To determine the etiology of dyspnea. Dr. Nair suggested that patient might have underlying diastolic dysfunction. Echocardiogram was performed that showed preserved function with the diastolic dysfunction stage I. Patient was started on gentle diuresis , her shortness of breath improved slowly. Gastroenterology specialist Dr. Kaiser was called to address patient's abdominal pain, fever and the nausea. CT scan of abdomen showed: 1. Diverticulitis of the upper sigmoid colon is again seen now with contained microperforation and slight contained fluid but no sizable collection. 2. Nodular consolidative changes of the lung bases appear improved from the prior although a 0.6 cm left lower lobe nodule remains. Small bilateral pleural effusions are improved from the prior. Gastroenterology offered to keep patient n.p.o. they requested surgical consult for microperforation. Surgical consult for microperforation was called , Dr. Leiva and helped us to determine if patient needs surgery or not. He suggested: Close monitoring, continue with IV antibiotics, continue with supportive care, n.p.o., and Outpatient follow-up for eventual laparoscopic elective colon resection. No immediate interventions were ordered. Your wound on the right knee was cleaned. She was eventually transferred to [facility] service. Patient blood pressure was under control. Patient was slowly clinically improved, her abdominal pain is decreased. Her WBC fluctuated for a week. Daily we will monitor thorax CBC and BMP there were strict urine output count. Patient was started on clear liquid diet. GI recommendations, then was advanced to 1800 ADA diet diet, she was able to ambulate more , during hospitalization she was able to ambulate with a walker and physical therapy, and eventually prior to discharge she does not require an additional oxygenation. Blood culture, urine culture were negative, there were no spikes of temperature, on x-ray bilateral pleural effusions were resolve, consolidation in the lungs was improved. Patient reported clinical improvement. There was a second CT scan of abdomen and pelvis with IV contrast performed that showed improvement in comparison to first CT scan of abdomen and pelvis. In stable condition patient was discharged. Patient was instructed to continue designated medications. Patient was instructed to see primary care provider in 1 week, and orthopedic surgeon in 1 week. All questions were answered and all problems were addressed. By case specialist meant home health was ordered to continue physical therapy. Home Meds Active Scripts [Calcium Carbonate] 1.25 GM TAB No Conflict Check, 1.25 GM PO BID for 30 Days Prov:ANGELIQUE VAUGHAN 02/22/19 Atorvastatin (Atorvastatin) 10 Mg Tablet, 10 MG PO DAILY for 30 Days, TAB Prov:ANGELIQUE VAUGHAN 02/22/19 Metronidazole* (Flagyl*) 500 Mg Tablet, 500 MG PO TID for 8 Days, TAB Prov:ANGELIQUE VAUGHAN 02/22/19 Ciprofloxacin Hcl* (Ciprofloxacin Hcl*) 500 Mg Tablet, 500 MG PO BID@06,18 for 8 Days, TAB Prov:ANGELIQUE VAUGHAN 02/22/19 Oxycodone Hcl* (IR) (Roxicodone*) 5 Mg Tab, 5-10 MG PO Q4H PRN for .PAIN, #90 TAB Prov:DEJUAN AYOUB MD 01/30/19 Aspirin Delayed Release (Aspirin Delayed Release) 81 Mg Tablet.dr, 81 MG PO BID for 84 Days Prov:DEJUAN AYOUB MD 01/30/19 Reported Medications Escitalopram Oxalate* (Lexapro*) 20 Mg Tablet, 20 MG PO DAILY, #30 TAB 01/29/19 Omeprazole* (Omeprazole*) 40 Mg Capsule.dr, 40 MG PO DAILY, #30 CAP 01/29/19 Losartan-Hydrochlorothiazide (Losartan-HCTZ) 100-25 Mg Tab, 1 TAB PO DAILY, TAB 01/28/19 Gabapentin* (Gabapentin*) 300 Mg Capsule, 300 MG PO DAILY, #60 CAP 01/28/19 Cetirizine Hcl* (Zyrtec*) 10 Mg Capsule, 10 MG PO DAILY, TAB 01/28/19 Cholecalciferol (Vitamin D3) (Vitamin D3) 2,000 Unit Tab.chew, 2000 UNIT PO DAILY, TAB.CHEW 01/28/19 Amlodipine Besylate* (Amlodipine Besylate*) 5 Mg Tablet, 5 MG PO DAILY, #30 TAB 01/28/19 Azelastine Hcl* (Azelastine Hcl*) 137 Mcg/0.137 Ml Gleason.pump, 1 SPRAY NASAL BID, #1 EA TO EACH NOSTRIL 01/28/19 Fluticasone Propionate* (Fluticasone Propionate* Nasal) 50 Mcg/Gleason - 16 Gm Gleason.susp, 1 SPRAY NASAL BID, EA TO EACH NOSTRIL 11/10/14 Budesonide* (Pulmicort* (Neb)) 0.5 Mg/2 Ml Ampul.neb, 0.5 MG IH BID, EA 11/10/14 Discontinued Reported Medications Diclofenac Sodium* (Voltaren* XR) 100 Mg Tab.sr.24h, 100 MG PO BID, TAB.SA 01/28/19 Simvastatin (Simvastatin) 10 Mg Tablet, 10 MG PO DAILY, #30 TAB 01/28/19 Diclofenac Sodium* (Diclofenac Sodium*) 75 Mg Tablet.dr, 100 MG PO BID, TAB 11/10/14 Discontinued Scripts [Acetaminophen Tab] 500 MG TAB No Conflict Check, 1000 MG PO Q8 for 10 Days, TAB Prov:DEJUAN AYOUB MD 01/30/19 Follow-up Plan PCP 1 week -Dr Ayoub, ortho 2 weeks -cMargretw Pt for right knee Primary Care Provider Anson Ibrahim Time spent on discharge: < 30 minutes Pending Labs Laboratory Tests Test 02/22/19 05:19 White Blood Count 9.5 10^3/ul (4.8-10.8) Red Blood Count 3.77 10^6/ul (4.20-5.40) Hemoglobin 10.0 g/dl (12.0-16.0) Hematocrit 32.2 % (37.0-47.0) Mean Corpuscular Volume 85.4 fl (82.0-101.0) Mean Corpuscular Hemoglobin 26.5 pg (29.0-33.0) Mean Corpuscular Hemoglobin Concent 31.1 g/dl (32.0-37.0) Red Cell Distribution Width 13.4 % (11.5-14.5) Platelet Count 539 10^3/UL (140-415) Mean Platelet Volume 8.4 fl (7.4-10.4) Immature Granulocytes % 0.400 % (0.001-0.429) Neutrophils % 60.4 % (39.0-77.0) Lymphocytes % 25.6 % (15.0-51.0) Monocytes % 7.8 % (0.0-11.0) Eosinophils % 4.9 % (0.0-7.0) Basophils % 0.9 % (0.0-2.0) Nucleated Red Blood Cells % 0.0 /100WBC (0.0-0.0) Immature Granulocytes # 0.040 10^3/ul (0.0-0.031) Neutrophils # 5.8 10^3/ul (1.6-7.5) Lymphocytes # 2.4 10^3/ul (0.8-2.9) Monocytes # 0.7 10^3/ul (0.3-0.9) Eosinophils # 0.5 10^3/ul (0.0-0.5) Basophils # 0.1 10^3/ul (0.0-0.1) Nucleated Red Blood Cells # 0.0 10^3/ul (0.0-0.0) Sodium Level 142 mmol/L (135-144) Potassium Level 3.8 mmol/L (3.5-5.1) Chloride Level 106 mmol/L (97-110) Carbon Dioxide Level 28 mmol/L (21-31) Anion Gap 8 (5-13) Blood Urea Nitrogen 12 mg/dl (7-20) Creatinine 0.95 mg/dl (0.44-1.00) Est Glomerular Filtrat Rate mL/min > 60 mL/min (>60) Glucose Level 108 mg/dl (70-220) Calcium Level 9.7 mg/dl (8.4-10.2) Phosphorus Level 3.8 mg/dl (2.5-4.9) Magnesium Level 2.1 mg/dl (1.7-2.5) ANGELIQUE VAUGHAN Feb 22, 2019 16:09
[2019-02-22] MEDS ORDERED: CIPROFLOXACIN 500 MG TAB PO SCH (18:00)
[2019-02-22] MEDS ORDERED: metroNIDAZOLE 500 MG TAB PO SCH (21:00)
== END 2019-02-22 19:00 | disposition still patient (30) | DRG 392 ==
LOC: E/R 22:14 → 2NE 02-11 00:10 → 6WM 02-13 16:17 → PP2 02-17 15:14
PROVIDERS: ADMIT Internal Medicine; ATTEND Internal Medicine
PROC: 0S9C3ZX Drainage of Right Knee Joint, Percutaneous Approach, Diagnostic (ICD-10-PCS; principal; 2019-02-11)
PROC: 30233N1 Transfusion of Nonautologous Red Blood Cells into Peripheral Vein, Percutaneous Approach (ICD-10-PCS; 2019-02-12)
DX: K57.32 Diverticulitis of large intestine without perforation or abscess without bleeding (principal); L03.115 Cellulitis of right lower limb; D62 Acute posthemorrhagic anemia; I43 Cardiomyopathy in diseases classified elsewhere; I50.30 Unspecified diastolic (congestive) heart failure; J98.11 Atelectasis; N17.9 Acute kidney failure, unspecified; E66.01 Morbid (severe) obesity due to excess calories; E78.5 Hyperlipidemia, unspecified; F39 Unspecified mood [affective] disorder; I11.0 Hypertensive heart disease with heart failure; I95.9 Hypotension, unspecified; K52.9 Noninfective gastroenteritis and colitis, unspecified; K21.9 Gastro-esophageal reflux disease without esophagitis; J30.9 Allergic rhinitis, unspecified; R16.0 Hepatomegaly, not elsewhere classified; R91.1 Solitary pulmonary nodule; R04.0 Epistaxis; B37.3 Candidiasis of vulva and vagina; Z96.651 Presence of right artificial knee joint; Z68.38 Body mass index [BMI] 38.0-38.9, adult; Z79.82 Long term (current) use of aspirin
CPT/HCPCS: 36415; 36430; 36600; 71045; 71275; 73560; 73562; 73630; 74176; 74177; 76700; 80048; 80053; 80202; 81001; 81003; 82270; 82607; 82728; 82746; 82803; 83605; 83690; 83735; 84100; 84484; 85018; 85025; 85045; 85610; 85651; 85730; 86140; 86850; 86900; 86901; 86920; 87045; 87070; 87075; 87081; 87086; 89060; 93005; 93306; 93971; 94640; 94664; 96365; 96375; 97110; 97116; 97161; 97530; J1170; J1940; J2270; J2405; J2543; J3370; J3475; J3480; J7030; J7042; J7050; P9016; Q9967